=== PATIENT | male | born 1955 | race American Indian/Alaskan Native ===

== ENCOUNTER 2024-03-22 20:16 | Inpatient (IN) | payer MEDICARE, SELFPAY ==
[2024-03-22] VITALS (22 sets, daily range): BP systolic 97–136; BP diastolic 64–103; PULSE 76–130; RESP 10–56; TEMP 36.3–36.5; O2SAT 81–100; BMI 28.6
--- NOTE | 2024-03-22 20:19 | PC.RT ---
RT called to ER as pt was on ambulance an d on his way in. Pt brought in on non rebreather. Placed pt on full flush oxymask. vitals are 114/96%/30-40breaths per min. Pt will calm and then begin to breathe labored and complain about needing to catch his breath . Pt left of 15 lpm and spo2 is fluctuating greatly and pt's skin is mottled. Awaiting orders
--- NOTE | 2024-03-22 20:30 | PD.EDADULT ---
ED General RME/HPI General Chief complaint: Shortness of Breath/Dyspnea Stated complaint: SOB Time Seen by Provider: 03/22/24 20:35 Arrival date/time: 03/22/24 20:16 Limitations: no limitations RME / HPI RME / HPI narrative: Dr. Lopez[facility] Main ED Evaluation: 68yo past medical history of coronary artery disease status post PCI to LAD in August 2023, occluded OM 2 stent in 2022 male BIBA from home presents to the ED for a chief complaint of shortness of breath. Patient states I've been short of breath since my heart surgery . He denies any fever, chills, chest pain or any other associated symptoms. Per EMS, patient was given 2 breathing treatments en route. No known allergies. History is obtained from the ex-. Patient recently switched his Lasix medication to Bumex or Bumex to Lasix. This was not clear to me but there has been no change. Patient states this feels similar to when he has a CHF exacerbation. No chest pain. PMhx CAD s/p PCI to LAD in August 2023, carotid arterial disease status post TCAR, severe CHF with EF of 20 to 25%, August 2023 , ascending thoracic aortic aneurysm at 4.4 cm, Essential hypertension, hyperlipidemia, GERD, active smoker with more than 06-21-blfg-year smoking history, history of methamphetamine abuse, noncompliance with medications presented to the [facility] ED for shortness of breath. Per the patient's previous record I do not see that the patient has been on previous home oxygen. Related Data Home Medications ?Medication ?Instructions ?Recorded ?Confirmed ergocalciferol (vitamin D2) 1,250 1,250 mcg PO QWEEK 08/17/23 08/17/23 mcg (50,000 unit) capsule ferrous sulfate 325 mg (65 mg 325 mg PO 1XD 08/17/23 08/17/23 iron) tablet (FeroSul) Previous Rx's ?Medication ?Instructions ?Recorded clopidogrel 75 mg tablet (Plavix) 75 mg PO QDAY #30 tabs 07/17/22 atorvastatin 80 mg tablet 80 mg PO QPM #30 tabs 08/20/23 carvedilol 3.125 mg tablet 3.125 mg PO BIDWM 30 days #60 tabs 08/20/23 midodrine 5 mg tablet 5 mg PO TID 30 days #90 tabs 08/20/23 spironolactone 25 mg tablet 12.5 mg (1/2 x 25 mg) PO BID 30 08/20/23 days #15 tabs aspirin 81 mg tablet,delayed 81 mg PO QDAY #30 tabs 01/13/24 release bumetanide 1 mg tablet 1 mg PO QDAY #20 tabs 01/13/24 Allergies Allergy/AdvReac Type Severity Reaction Status Date / Time No Known Allergies Allergy Unverified 07/01/23 06:50 Review of Systems Review of Systems Systems Reviewed: All systems reviewed, normal except as documented Past Medical History Past Medical History CARDIAC: Negative Cardiac Disorders or Congestive Heart Failure RESPIRATORY: Negative Chronic Obstructive Pulmonary Disease (COPD) or Asthma GASTROINTESTINAL: Positive Gastroesophageal Reflux Disease GENITOURINARY: Negative Renal Disease ENDOCRINE: Negative Diabetes Mellitus Type 1 or Diabetes Mellitus Type 2 HEMATOLOGIC: Positive Anemia; Negative Sickle Cell Disease Surgical History SURGICAL: Positive Angiogram Social History SMOKING STATUS: Former smoker ED Exam General Limitations: Present no limitations General appearance: Present alert Head Head exam: Present atraumatic Eye Eye exam: Present normal appearance, PERRL and EOMI ENT ENT exam: Present normal exam, normal oropharynx and mucous membranes moist Neck Neck exam: Present normal inspection, full ROM and trachea midline Chest Chest inspection: Present normal inspection and symmetric chest wall rise Respiratory Respiratory exam: Present other (rales bilaterally) Cardiovascular Cardiovascular exam: Present regular rate, normal rhythm and normal heart sounds Abdominal Exam Abdominal exam: Present soft and normal bowel sounds Extremities Exam Extremities exam: Present full ROM and pedal edema (up to knees bilaterally) Back Exam Back exam: Present normal inspection and full ROM Neurological Exam Neurological exam: Present alert, oriented X3 and CN II-XII intact Psychiatric Psychiatric exam: Present normal affect and normal mood Skin Skin exam: Present warm, intact, normal color and diaphoresis; Absent mottled Course Course Course Narrative: CXR is ordered for determining the etiology of shortness of breath. Quality Measures none Orders Category Date Time Status Bedside COVID-19 Antigen Test NOW Care 03/23/24 02:39 Active COVID-19 Screening Questionnaire NOW Care 03/23/24 02:[address] Screening NOW Care 03/22/24 23:32 Active Provisioning Specialist STAT Care 03/22/24 20:32 Active Continuous Pulse Oximetry STAT Care 03/22/24 20:32 Completed Decision to Admit X1 Care 03/23/24 02:30 Completed EKG (ED ONLY) *Do not use* NOW Care 03/22/24 20:32 Completed Mitchell [Urinary Catheter] QS Care 03/22/24 21:18 Active Insert IV NOW Care 03/22/24 20:32 Active NPO STAT Care 03/22/24 20:32 Active Strict Intake and Output Routine Care 03/22/24 20:[address] angio chest Stat Exams 03/22/24 23:31 Taken EKG (ED Only) Stat Exams 03/22/24 20:32 Ordered XR chest 1V SEPSIS PROTOCOL Stat Exams 03/22/24 20:41 Completed B-Type Natriuretic Peptide Stat Lab 03/22/24 20:55 Completed Blood Culture (Lab) Stat Lab 03/22/24 21:09 Received CBC Stat Lab 03/22/24 20:55 Completed Comprehensive Metabolic Panel Stat Lab 03/22/24 20:55 Completed LDH (Lactate Dehydrogenase) Stat Lab 03/22/24 20:55 Completed Lactate (Lactic Acid) Stat Lab 03/22/24 20:55 Completed Lactic Acid, 3 HR Stat Lab 03/23/24 00:50 Completed Lipase Stat Lab 03/22/24 20:55 Completed Magnesium Stat Lab 03/22/24 20:55 Completed Partial Thromboplastin Time Stat Lab 03/22/24 20:55 Completed Phosphorous Stat Lab 03/22/24 20:55 Completed Procalcitonin Stat Lab 03/22/24 20:55 Completed Prothrombin Time with INR Stat Lab 03/22/24 20:55 Completed Troponin I Stat Lab 03/22/24 20:55 Completed Troponin I Stat Lab 03/23/24 00:50 Completed Urinalysis Stat Lab 03/22/24 21:54 Completed Urine Culture Stat Lab 03/22/24 21:54 Received Albuterol/Ipratr Rt Ivone [Duoneb Rt Ivone] Med 03/22/24 21:04 Discontinued 3 ml INH X1 ONE Furosemide Inj [Lasix Inj] Med 03/22/24 20:32 Discontinued 40 mg IVP X1 ONE MethylPREDNISolone.* [SoluMEDROL Inj] Med 03/22/24 20:35 Discontinued 125 mg IVP X1 ONE Morphine Inj Med 03/22/24 20:34 Discontinued 2 mg IVP X1 ONE Piper/Tazo 3.375 gm [Zosyn] Med 03/22/24 20:32 Discontinued 3.375 gm in 50 ml IV X1 BiPAP / CPAP NOW RT 03/22/24 20:35 Active Oxygen Delivery NOW RT 03/22/24 20:32 Active 2032: Sepsis alert initiated. Orders made at this time are congruent with ED Adult Sepsis Order List. Re-evaluation is to be completed. IVF not given due to the patient having CHF, rales bilaterally, and pedal edema bilaterally. Reevaluation(s) Reevaluation #1: Patient appears more comfortable and his work of breathing has improved while on BiPaP. Time: 21:50 Vital Signs Vital signs: Vital Signs Temperature 97.4 F 03/22/24 20:10 Pulse Rate 123 H 03/22/24 20:10 Respiratory Rate 25 H 03/22/24 20:10 Blood Pressure 136/100 H 03/22/24 20:10 Pulse Oximetry (%) 88 L 03/22/24 20:10 Oxygen Delivery Method Venturi Mask 03/22/24 20:10 [facility] Patient data External records reviewed:: [facility] previous records (Per chart review, patient was admitted here from 01/12/24-01/14/24 for acute respiratory failure.) Clinical information provided by:: patient Social determinants that could affect healthcare access:: none Patient has the following chronic illnesses:: CAD s/p PCI, carotid arterial disease s/p endarterectomy, methamphetamine use disorder and HFrEF (15-20% How is presenting disease/condition affected by chronic disease/condition?: exacerbated by Evaluation data The following diagnostics were reviewed and interpreted by me:: lab results, radiology exam(s) and EKG tracing(s) Lab and/or radiology exams considered but not ordered:: none Interpretation Summary: WBC count is elevated at 11.6, Lactic Acid is elevated at 4.6, BNP is greater than 3280, according to my interpretation. CXR shows a small pleural effusion, increased vascular markings, and right upper, middle, and lower infiltrates, according to my interpretation. EKG done at 2022, sinus tachycardia, rate of 121, PVCs, ST-T changes in the anterior lateral leads, no ST elevations or depressions, QTc: 352, no STEMI, according to my interpretation. ----- I have personally reviewed the radiology data and agree with the radiologist's interpretation below: [facility] Report Signed Patient: SANJANA LR Med. Record#: [id number] Birthdate: 1955 Age/Sex: 68 / M Location: [facility] Attending Dr: Ordering Physician: Leighann Sims MD Date of Service: 03/22/24 Procedure(s): XR chest 1V SEPSIS PROTOCOL Accession Number(s): [id number] cc: Cristian Tobin MD; Leighann Sims MD; KIKO CHIU~ Examination: AP chest single view Technique one AP portable upright chest single view Exam date and time: March 22, 20241 hrs. Comparison January 12, 2024 Indications: Sepsis protocol. Findings: Mild CHF Mild to moderate enlargement cardiac contour Prominent vascular congestion with early perihilar edema Likely superimposed pneumonia in the left upper lobe Impression: Mild CHF Likely superimposed pneumonia in the left upper lobe Dictated By: Cristian Tobin MD Signed By: <Electronically signed by Cristian Tobin MD in OV> 03/22/242117 Medications Medications considered but not ordered:: none Medication administrations:: Medication Administration History Acetaminophen (Acetaminophen 325 Mg Tablet) 650 mg PO Q6H PRN PRN Reason: Pain 1-3 or Fever >100.3 Stop: 04/22/24 03:05 Aspirin (Aspirin Ec 81 Mg Tabec) 81 mg PO QDAY [facility] Stop: 04/22/24 08:59 Azithromycin (Azithromycin 250 Mg Tablet) 500 mg PO X1 ONE Stop: 03/23/24 09:01 Azithromycin (Azithromycin 250 Mg Tablet) 250 mg PO QDAY JOSE RAMON Stop: 03/28/24 08:59 Bumetanide (Bumetanide 0.5 Mg Tablet) 1 mg PO BID JOSE RAMON Stop: 04/22/24 05:59 Clopidogrel Bisulfate (Clopidogrel Bisulfate 75 Mg Tablet) 75 mg PO QDAY JOSE RAMON Stop: 04/22/24 08:59 Ceftriaxone Sodium/Dextrose (Rocephin/D5w 1gm Iv Premix) 50 mls @ 100 mls/hr IV QDAY JOSE RAMON Stop: 03/30/24 03:19 Ceftriaxone Sodium/Dextrose (Rocephin/D5w 1gm Iv Premix) 50 mls @ 100 mls/hr IV X1 ONE Stop: 03/23/24 04:14 Last Admin: 03/23/24 03:43 Dose: 100 mls/hr Documented By: SF Ondansetron HCl (Ondansetron Inj 2 Mg/Ml Inj 2 Ml) 4 mg IV Q6H PRN; Protocol PRN Reason: NAUSEA OR VOMITING Stop: 04/22/24 03:05 Spironolactone (Spironolactone 25 Mg Tablet) 25 mg PO QDAY JOSE RAMON Stop: 04/22/24 05:59 Discontinued Medications Albuterol/Ipratropium (Albuterol/Ipratropium (Duoneb) Rt Ivone 3 Ml Nebu) 3 ml INH X1 ONE Stop: 03/22/24 21:05 Last Admin: 03/22/24 21:44 Dose: 3 ml Documented By: VALENTINA Furosemide (Furosemide Inj 10 Mg/Ml 4ml Vial) 40 mg IVP X1 ONE Stop: 03/22/24 20:33 Last Admin: 03/22/24 20:39 Dose: 40 mg Documented By: BRITTON Piperacillin/Tazobactam/Dextrose (Zosyn) 3.375 gm in 50 mls @ 100 mls/hr IV X1 ONE Stop: 03/22/24 21:01 Last Infusion: 03/22/24 22:04 Dose: Infused Documented By: Admin: 03/22/24 20:38 Dose: 100 mls/hr Documented By: BRITTON Methylprednisolone Sodium Succinate (Methylprednisolone Sod Succ 62.5 Mg/Ml 2ml Vial) 125 mg IVP X1 ONE Stop: 03/22/24 20:36 Last Admin: 03/22/24 20:39 Dose: 125 mg Documented By: BRITTON Morphine Sulfate (Morphine Sulf Inj 10 Mg/Ml Vial) 2 mg IVP X1 ONE Stop: 03/22/24 20:35 Last Admin: 03/22/24 20:39 Dose: 2 mg Documented By: BRITTON Sodium Chloride (Sodium Chloride Rt 10% 15 Ml Nebu) 5 ml INH X1 ONE Stop: 03/23/24 03:07 see above Consultations Consultation(s) initiated? (list below): Yes Consultation #1 (Physician, Specialty, Details): Discussed case with [Dr. Baca] from Hospitalist service regarding admission. Discussed patients ED course, exam findings, labs, and radiology results. The Hospitalist [agrees] to accept the patient for admission. Diagnosis Differential Diagnosis ED Complaint MDM: CHF, coronary artery disease, non-STEMI, ST elevation [place], pulmonary embolis Most likely diagnosis given after review of the tests above:: see below Admission Indicated Admission indicated?: indicated Explain why admission is indicated or not indicated:: Admission is indicated. Admission Request Was there a request for admission?: Yes Admission Attestation Admission request attestation: Discussed case with [] from Hospitalist service regarding admission. Discussed patients ED course, exam findings, labs, and radiology results. The Hospitalist [agrees,declines] to accept the patient for admission. Disposition Plan Disposition Plan: Admit Medical Decision Making MDM Narrative MDM Narrative: Due to the patient having rales and pitting edema bilaterally, patient will no get 30mL/kilogram of IVF. 67-year-old male patient significant medical history for CAD s/p PCI to LAD in August 2023, chronically occluded RCA with [id number] collaterals, 100% occluded OM 2 stent placed in 2022 with left to left collaterals,, carotid arterial disease status post TCAR, severe CHF with EF of 20 to 25%, August 2023 , ascending thoracic aortic aneurysm at 4.4 cm, Essential hypertension, hyperlipidemia, GERD, active smoker with more than 17-59-kihy-year smoking history, history of methamphetamine abuse, noncompliance with medications presented to the [facility] ED for shortness of breath. Differential diagnosis includes CHF, pneumonia, sepsis, worsening acute on chronic heart failure, drug use, bilateral pleural effusions, pulmonary embolism, pneumonia. Sepsis is called based on his abnormal vital signs however IV fluids were not given secondary to likely CHF presentation do not want to fluid overload the patient anymore than necessary. BMP elevated to greater than 3200 which is greater than his normal. Lactate is 4.6 which is consistent with what tapping on his chest x-ray which is likely pneumonia. Lasix 40 mg IV, Solu-Medrol, albuterol inhaler, Zosyn IV is given. The patient has a white count of 11,000 with a hemoglobin of 17, platelets are normal at 1 78,000. His BUN and creatinine are slightly elevated at 24/1.4 otherwise glucose is stable at 141. She does repeat troponin is approximately about the same as the first 1 at 0.065. BNP is greater than 3200 which is higher than his normal. Differential Diagnosis Differential Diagnosis: CHF, coronary artery disease, non-STEMI, ST elevation [place], pulmonary embolis Lab Data 03/22/24 20:55 12/16/24 20:55 Labs: Lab Results 03/22/24 03/22/24 03/23/24 Range/Units 20:55 21:54 00:50 WBC 11.6 H (3.8-10.6) Thou/mm3 RBC 5.49 (4.50-5.90) Miln/mm3 Hgb 17.1 H (13.5-16.0) g/dL Hct 50.1 (41.0-53.0) % MCV 91 (80-100) fL MCH 31.1 (25.0-35.0) pg MCHC 34.1 (31.0-37.0) g/dl RDW Std Deviation 48.9 H (35.1-43.9) fL Plt Count 178 (140-440) Thou/mm3 Neut % (Auto) 73 (37-80) % Lymph % (Auto) 16 (10-50) % [place] % (Auto) 11 (0-12) % Eos % (Auto) 0 (0-10) % Baso % (Auto) 0 (0-2.5) % Neut # (Auto) 8.4 H (1.8-7.7) Thou/mm3 Lymph # (Auto) 1.8 (1.0-4.8) Thou/mm3 [place] # (Auto) 1.2 H (0.0-0.8) Thou/mm3 Eos # (Auto) 0.0 (0.0-0.5) Thou/mm3 Baso # (Auto) 0.0 (0.0-0.2) Thou/mm3 Immature Gran # (Auto) 0.06 H (0.00-0.00) Thou/mm3 Absolute Nucleated RBC 0.00 (0.00-0.00) Thou/mm3 Immature Gran % 1 H (0-0) % Nucleated RBC % 0 (0) /100 WBC PT 12.9 H (9.0-12.2) Seconds INR 1.2 (0.9-1.3) APTT 25.8 (22.0-36.0) Seconds Sodium 130 L (136-145) mMol/L Potassium 4.7 (3.4-5.1) mMol/L Chloride 99 (98-107) mMol/L Carbon Dioxide 18.2 L (20.0-31.0) mMol/L Anion Gap 13 (7-16) BUN 24 H (9-23) mg/dL Creatinine 1.4 H (0.6-1.3) mg/dL Estim Creat Clear Calc 54.7 L (>60) mL/min eGFR 54 L (60 - ) See Note BUN/Creatinine Ratio 17 (12-20) Ratio Glucose 141 H (74-106) mg/dL Calculated Osmolality 266 L (275-295) Lactic Acid 4.6 H* 1.3 (0.4-2.0) mMol/L Calcium 8.8 (8.3-10.6) mg/dL Corrected Calcium 8.8 (8.5-10.1) mg/dL Phosphorus 5.1 (2.4-5.1) mg/dL Magnesium 3.6 H (1.6-2.6) mg/dL Total Bilirubin 1.5 H (0.3-1.2) mg/dL AST 192 H (0-34) U/L ALT 103 H (10-49) U/L Alkaline Phosphatase 178 H (46-116) U/L Lactate Dehydrogenase 430 H (120-246) U/L Troponin I 0.065 H* 0.065 H* (0.0-0.045) ng/mL B-Natriuretic Peptide > 3280 H* (0-100) pg/mL Total Protein 6.6 (5.7-8.2) gm/dL Albumin 4.2 (3.4-4.8) gm/dL Globulin 2.4 (2.3-3.5) gm/dL Albumin/Globulin Ratio 1.8 (1.2-2.2) Lipase 63 H (12-53) U/L Procalcitonin 0.16 (0.0-0.49) ng/ml Ur Collection Type Clean Catch Urine Color Lt-Yellow (Lt Yel-Yel) Urine Clarity Clear (Clear/Hazy) Urine pH 6.0 (5.0-7.0) Ur Specific [place] 1.007 (1.001-1.035) Urine Protein Trace (Neg - Trace) Urine Glucose (UA) Negative (Negative) Urine Ketones Negative (Negative) Urine Blood Negative (Negative) Urine Nitrite Negative (Negative) Urine Bilirubin Negative (Negative) Urine Urobilinogen (Auto) Negative (0.0-1.0) mg/dL Ur Leukocyte Esterase Negative (Negative) Urine RBC 3 (0-3) /hpf Urine WBC 1 (0-5) /hpf Ur Squamous Epith Cells < 1 (0-5) /hpf Urine Bacteria None (None) Hyaline Casts < 1 (0-1) /hpf Critical Care Time Critical Care Time Critical Care Time: Yes Total Critical Care Time (min.): 40 Attestation: The high probability of sudden, clinically significant deterioration in the patient?s condition required the highest level of my preparedness to intervene urgently. The services I provided to this patient were to treat and/or prevent clinically significant deterioration. Services included the following: chart data review, reviewing nursing notes and/or old charts, documentation time, plan consultant collaboration regarding findings and treatment options, medication orders and management, direct patient care, vital sign assessments and ordering, interpreting and reviewing diagnostic studies and lab tests. Aggregate critical care time includes only time during which I was engaged in work directly related to the patient?s care, as described above, whether at bedside or elsewhere in the Emergency Department. It did not include time spent performing other reported procedures or the services of residents, students, nurses or physician assistants. Discharge Plan Plan Patient Disposition: Admit Acute Care w/in Hospital Patient condition on transfer: Stable Problem List Clinical Impression: CHF exacerbation, Elevated troponin, Acute respiratory distress
[2024-03-22] MEDS: PIPER/TAZO 3.375 GM 3.375 GM/50 ML BAG IV (20:38)
[2024-03-22] MEDS: MethylPREDNISolone SOD SUCC 62.5 MG/ML 2ML VIAL 125 MG IVP (20:39)
[2024-03-22] MEDS: FUROSEMIDE INJ 10 MG/ML 4ML VIAL 40 MG IVP (20:39)
[2024-03-22] MEDS: MORPHINE SULF INJ 10 MG/ML VIAL 2 MG IVP (20:39)
--- NOTE | 2024-03-22 20:41 | XR_ITS ---
Examination: AP chest single view Technique one AP portable upright chest single view Exam date and time: March 22, 20242040 hrs. Comparison January 12, 2024 Indications: Sepsis protocol. Findings: Mild CHF Mild to moderate enlargement cardiac contour Prominent vascular congestion with early perihilar edema Likely superimposed pneumonia in the left upper lobe Impression: Mild CHF Likely superimposed pneumonia in the left upper lobe
[2024-03-22 21:10] LABS: Basophils % (Auto) 0 % (0-2.5); Eosinophils % (Auto) 0 % (0-10); Hematocrit 50.1 % (41.0-53.0); Hemoglobin 17.1 g/dL (13.5-16.0); Immature Granulocytes % (Auto) 1 % (0-0); Immature Granulocytes Auto 0.06 Thou/mm3 (0.00-0.00); Lymphocytes # (Auto) 1.8 Thou/mm3 (1.0-4.8); Lymphocytes % (Auto) 16 % (10-50); Mean Corpuscular HGB Conc 34.1 g/dl (31.0-37.0); Mean Corpuscular Hemoglobin 31.1 pg (25.0-35.0); Mean Corpuscular Volume 91 fL (80-100); Monocytes # (Auto) 1.2 Thou/mm3 (0.0-0.8); Monocytes % (Auto) 11 % (0-12); Neutrophils # (Auto) 8.4 Thou/mm3 (1.8-7.7); Neutrophils % (Auto) 73 % (37-80); Nucleated Red Blood Cell % 0 /100 WBC (0); Platelet Count 178 Thou/mm3 (140-440); RDW Standard Deviation 48.9 fL (35.1-43.9); Red Blood Count 5.49 Miln/mm3 (4.50-5.90); White Blood Count 11.6 Thou/mm3 (3.8-10.6)
[2024-03-22 21:14] LABS: Lactate (Lactic Acid) 4.6 mMol/L (0.4-2.0)
[2024-03-22 21:37] LABS: INR 1.2 (0.9-1.3); Partial Thromboplastin Time 25.8 Seconds (22.0-36.0); Prothrombin Time 12.9 Seconds (9.0-12.2)
[2024-03-22 21:40] LABS: B-Type Natriuretic Peptide > 3280 pg/mL (0-100)
[2024-03-22] MEDS: ALBUTEROL/IPRATROPIUM (Duoneb) RT SOL 3 ML NEBU INH (21:44)
[2024-03-22 21:55] LABS: Alanine Aminotransferase 103 U/L (10-49); Albumin, Serum 4.2 gm/dL (3.4-4.8); Albumin/Globulin Ratio 1.8 (1.2-2.2); Alkaline Phosphatase 178 U/L (46-116); Anion Gap 13 (7-16); Aspartate Amino Transferase 192 U/L (0-34); BUN/Creatinine Ratio 17 Ratio (12-20); Bilirubin,Total 1.5 mg/dL (0.3-1.2); Blood Urea Nitrogen 24 mg/dL (9-23); Calcium 8.8 mg/dL (8.3-10.6); Calcium (Corrected) 8.8 mg/dL (8.5-10.1); Carbon Dioxide 18.2 mMol/L (20.0-31.0); Chloride 99 mMol/L (98-107); Creatinine (Component) 1.4 mg/dL (0.6-1.3); Estimated Creatinine Clearance 54.7 mL/min (>60); Globulin 2.4 gm/dL (2.3-3.5); Glucose 141 mg/dL (74-106); LDH (Lactate Dehydrogenase) 430 U/L (120-246); Lipase 63 U/L (12-53); Magnesium 3.6 mg/dL (1.6-2.6); Osmolality,Calculated 266 (275-295); Phosphorous 5.1 mg/dL (2.4-5.1); Potassium 4.7 mMol/L (3.4-5.1); Procalcitonin 0.16 ng/ml (0.0-0.49); Sodium 130 mMol/L (136-145); Total Protein 6.6 gm/dL (5.7-8.2); eGFR 54 See Note
[2024-03-22 21:57] LABS: Troponin I 0.065 ng/mL (0.0-0.045)
[2024-03-22 22:24] LABS: Collection Type, Urine Clean Catch
[2024-03-22 22:33] LABS: Bilirubin,Urine Negative (Negative); Blood,Urine Negative (Negative); Clarity,Urine Clear (Clear/Hazy); Color,Urine Lt-Yellow (Lt Yel-Yel); Glucose, Urine Negative (Negative); Hyaline Casts,Urine < 1 /hpf (0-1); Ketones,Urine Negative (Negative); Leukocyte Esterase,Urine Negative (Negative); Nitrite,Urine Negative (Negative); Protein,Urine Trace (Neg - Trace); RBC,Urine 3 /hpf (0-3); Specific Gravity,Urine 1.007 (1.001-1.035); Squamous Epithelial Cell,Urine < 1 /hpf (0-5); Urobilinogen,Urine Negative mg/dL (0.0-1.0); WBC,Urine 1 /hpf (0-5)
--- NOTE | 2024-03-22 23:31 | XR_ITS ---
Examination: CTA chest with intravenous contrast 2-D reconstructions 3-D reconstructions, vascular Date and time of exam: March 23, 2024 0018 hrs. Indications: Shortness of breath onset chest pain today, clinical diagnosis pulmonary emboli CTDI: vol (mGy) 29.7 DLP: (mGycm) 461 Technique: Multiple axial sections of the thorax have been obtained. 3 mm slice thickness, from below the hemidiaphragms to above the apices of the lungs. Mediastinal and lung density settings have been obtained. 2-D sagittal and coronal reconstructions. 3-D angiographic renderings, 3-D volume renderings, 3D post processing, vascular maximum intensity projections obtained. Contrast administered is 100 cc Isovue-370 intravenous Low dose protocols were performed. One or more of the following dose reduction techniques were used; automated exposure control, adjustment of the mA and/or KV according to patient size, use of iterative reconstruction technique. Findings: AP dimension ascending thoracic aorta 4.5 cm No pulmonary artery emboli Prominent vascular congestion with perihilar edema and likely pneumonia especially left base Moderate right mild left pleural fluid Retrocardiac gastric hernia No visualized liver or splenic lesion Gallbladder wall appears thickened Impression: Mild aneurysmal dilatation ascending thoracic aorta No pulmonary artery emboli Moderate CHF with possible superimposed pneumonia bilaterally especially left base Recommend hepatobiliary sonography follow-up to exclude acute cholecystitis
[2024-03-23] VITALS (41 sets, daily range): BP systolic 78–106; BP diastolic 56–76; PULSE 56–83; RESP 12–30; TEMP 36.6–37.1; O2SAT 95–100
[2024-03-23 00:05] LABS: Reflex Lactate? Y
[2024-03-23 01:01] LABS: Lactic Acid, 3 HR 1.3 mMol/L (0.4-2.0)
--- NOTE | 2024-03-23 01:17 | PRELIM_ITS ---
CT angiogram of the chest with intravenous contrast (axial sections with sagittal and coronal reforma ts) March 23, 2024 0018 hours Clinical History: 68-year-old COPD, CHF Technique:Helical axial sect ions with sagittal and coronal reformats of the chest were obtained with intravenous contrast. Iterat meka reconstruction technique was employed to reduce patient radiation exposure. 3D/MIP reconstructed images were also provided. Comparison: No prior study is available for comparison. Findings:There is no filling defect within the pulmonary artery divisions to suggest pulmonary thromboembolism. The med iastinum demonstrates no evidence of mass or lymphadenopathy. The thoracic aorta demonstrates atherom atous calcification without evidence of aneurysm. There is moderate cardiomegaly. There is no pericar dial effusion. There is interlobular septal thickening. There are yoko ground-glass and nodular opac ities in both lungs, which may represent alveolar edema versus infectious process. Bibasilar streaky atelectasis is present. There is moderate right and minimal left pleural effusions. No evidence of pn eumothorax.Degenerative changes are identified in the spine. There is chronic deformity of the left 7 th rib. A moderate-sized hiatal hernia is present. There is a gallbladder calculus, without gallbladd er wall thickening or pericholecystic fluid. Nonspecific perinephric fat stranding is noted bilateral ly. Impression:1. Moderate cardiomegaly with features of interstitial and alveolar edema with bilater al pleural effusions (moderate right and minimal left), suggestive of acute cardiogenic pulmonary omkar ma versus adult respiratory distress syndrome. Recommend clinical correlation and follow-up. 2. Other findings as described above. Discussion Details: Results verbally communicated to : Dr. Sims at 01:11 AM 03/23/2024 Report Electronically Signed By: Tony Gonzalez 03/23/2024 1:17:11 AM [EST]
[2024-03-23 01:27] LABS: Troponin I 0.065 ng/mL (0.0-0.045)
--- NOTE | 2024-03-23 03:30 | ESHP_ITS ---
Documentation for date of: 03/23/24 [facility] History of Present Illness History of present illness: The patient is a 67-year-old male with a past medical history of CAD status post PCI in August 2023, carotid arterial disease status post endarterectomy, meth use and HFrEF 15 to 20% who presented to the ED on 03/22/2024 with complaints of shortness of breath. Per patient, he has been having symptoms since his PCI procedure was done in August, progressively worsened in the past 2 weeks, present on exertion as well as on rest. He has not been able to walk his usual distances without getting short of breath. He also endorses productive cough with yellowish-greenish sputum, orthopnea and PND but denies fever, chest pain or palpitations. Additionally, he has bilateral pitting edema that has been present since prior admission, initially resolving but started to get worse in the last 2 weeks. The patient was last hospitalized in January when he presented with shortness of breath and cough and was admitted for acute hypoxic respiratory failure secondary to CHF exacerbation. During the course of hospitalization here, patient had repeat cardiology that showed decline in ejection fraction to 55% compared to previous one and patient was on BiPAP for a while. the patient was discharged on Bumex but reports that this medication was switched to torsemide by his primary care, he is unable to tell the reason for the change in medication. ED course: In the ED, patient was afebrile and normotensive, tachypneic with respiratory rates in the 30 and hypoxic, saturating 88% and had to be placed on BiPAP. Labs showed WBC 11.6 Hgb 17.1 PLT 178 NA 130 bicarb 18.7 BUN 24 CR 1.4 glucose 141 magnesium 3.6 T. bili 1.5 AST 192 ALT 103 lactate 4.6 ALP 178 LDH 430 troponin 0.065 BNP >3280. Chest x-ray showed pulmonary vascular congestion and likely superimposed pneumonia and a CTA was done which was negative for PE but showed moderate cardiomegaly with bilateral pleural effusions. The patient was given IV Lasix in the ED as well as IV Solu-Medrol 125 x 1 and IV Zosyn and has been admitted for management of acute hypoxic respiratory failure, decompensated heart disease. Review of Systems Review of Systems Narrative Review of Systems: GENERAL: Denies fevers/chills or diaphoresis. HEENT: Denies headache or visual/hearing changes. Denies nasal discharge. NEURO: Denies unusual weakness or difficulty speaking. CARDIO: Denies chest pain or palpitations. Admits orthopnea and PND PULM: Admits SOB and coughing denies wheezing. GI: Denies abdominal pain, N/V/C/D/reflux/gas, bright red blood per rectum or melena. Reports having BMs. URO: Denies burning/itching/pain/urinary changes. MSK/EXT/SKIN: Denies joint/skeletal/muscle pain, issues/changes in upper or lower extremities, itchiness, or superficial pain. PSYCH: Cooperative, pleasant mood & affect. Exam Vital Signs Temp Pulse Resp BP Pulse Ox O2 Del Method O2 Flow Rate 97.7 F 66 22 H 102/76 96 BiPAP 10 03/22/24 23:56 03/23/24 01:40 03/23/24 01:40 03/23/24 00:00 03/23/24 01:40 03/23/24 00:00 03/23/24 01:40 FiO2 70 03/22/24 23:56 Narrative Exam GENERAL: AAOX3 NEURO: CLOTH TESTER grossly intact, moves extremities x4 HEENT: Moist mucosa. Eyes open, symmetrical, & clear CARDIO: No chest pain on palpation. Heart RRR, no obvious murmurs PULM: Coughing, tachypneic. Billateral crackles with rhonchi, oxy mask 10L GI: Abdomen soft, nondistended, no pain on palpation. BSx4 URO/CASHIER RECEPTIONIST:: No further abnormalities noted. Mitchell catheter in situ SKIN/MSK/EXT: Bilateral pitting edema 3+ Results: Labs 03/22/24 20:55 03/22/24 20:55 Labs: Short CBC 03/22/24 Range/Units 20:55 WBC 11.6 H (3.8-10.6) Thou/mm3 Hgb 17.1 H (13.5-16.0) g/dL Hct 50.1 (41.0-53.0) % Plt Count 178 (140-440) Thou/mm3 [facility] 03/22/24 20:55 Sodium 130 L Potassium 4.7 Chloride 99 Carbon Dioxide 18.2 L BUN 24 H Creatinine 1.4 H Glucose 141 H Calcium 8.8 Cardiac Enzymes 03/22/24 03/23/24 Range/Units 20:55 00:50 Troponin I 0.065 H* 0.065 H* (0.0-0.045) ng/mL Liver Function 03/22/24 Range/Units 20:55 Total Bilirubin 1.5 H (0.3-1.2) mg/dL AST 192 H (0-34) U/L ALT 103 H (10-49) U/L Alkaline Phosphatase 178 H (46-116) U/L Albumin 4.2 (3.4-4.8) gm/dL Urine 03/22/24 Range/Units 21:54 Urine Color Lt-Yellow (Lt Yel-Yel) Urine Clarity Clear (Clear/Hazy) Urine pH 6.0 (5.0-7.0) Ur Specific [place] 1.007 (1.001-1.035) Urine Protein Trace (Neg - Trace) Urine Glucose (UA) Negative (Negative) Quality Measures Quality Measures none Advance care planning discussed with:: patient Medications Home Medications and Allergies Home Medications ?Medication ?Instructions ?Recorded ?Confirmed ?Type ergocalciferol (vitamin D2) 1,250 1,250 mcg PO QWEEK 08/17/23 08/17/23 History mcg (50,000 unit) capsule ferrous sulfate 325 mg (65 mg 325 mg PO 1XD 08/17/23 08/17/23 History iron) tablet (FeroSul) Allergies Allergy/AdvReac Type Severity Reaction Status Date / Time No Known Allergies Allergy Unverified 07/01/23 06:50 Visit Medications Acetaminophen (Acetaminophen 325 Mg Tablet) 650 mg PO Q6H PRN PRN Reason: Pain 1-3 or Fever >100.3 Stop: 04/22/24 03:05 Aspirin (Aspirin Ec 81 Mg Tabec) 81 mg PO QDAY [facility] Stop: 04/22/24 08:59 Azithromycin (Azithromycin 250 Mg Tablet) 500 mg PO X1 ONE Stop: 03/23/24 09:01 Azithromycin (Azithromycin 250 Mg Tablet) 250 mg PO QDAY [facility] Stop: 03/28/24 08:59 Bumetanide (Bumetanide 0.5 Mg Tablet) 1 mg PO BID [facility] Stop: 04/22/24 05:59 Clopidogrel Bisulfate (Clopidogrel Bisulfate 75 Mg Tablet) 75 mg PO QDAY [facility] Stop: 04/22/24 08:59 Ceftriaxone Sodium/Dextrose (Rocephin/D5w 1gm Iv Premix) 50 mls @ 100 mls/hr IV QDAY [facility] Stop: 03/30/24 03:19 Ondansetron HCl (Ondansetron Inj 2 Mg/Ml Inj 2 Ml) 4 mg IV Q6H PRN; Protocol PRN Reason: NAUSEA OR VOMITING Stop: 04/22/24 03:05 Spironolactone (Spironolactone 25 Mg Tablet) 25 mg PO QDAY [facility] Stop: 04/22/24 05:59 Discontinued Medications Albuterol/Ipratropium (Albuterol/Ipratropium (Duoneb) Rt Ivone 3 Ml Nebu) 3 ml INH X1 ONE Stop: 03/22/24 21:05 Last Admin: 03/22/24 21:44 Dose: 3 ml Furosemide (Furosemide Inj 10 Mg/Ml 4ml Vial) 40 mg IVP X1 ONE Stop: 03/22/24 20:33 Last Admin: 03/22/24 20:39 Dose: 40 mg Piperacillin/Tazobactam/Dextrose (Zosyn) 3.375 gm in 50 mls @ 100 mls/hr IV X1 ONE Stop: 03/22/24 21:01 Last Infusion: 03/22/24 22:04 Dose: Infused Methylprednisolone Sodium Succinate (Methylprednisolone Sod Succ 62.5 Mg/Ml 2ml Vial) 125 mg IVP X1 ONE Stop: 03/22/24 20:36 Last Admin: 03/22/24 20:39 Dose: 125 mg Morphine Sulfate (Morphine Sulf Inj 10 Mg/Ml Vial) 2 mg IVP X1 ONE Stop: 03/22/24 20:35 Last Admin: 03/22/24 20:39 Dose: 2 mg Sodium Chloride (Sodium Chloride Rt 10% 15 Ml Nebu) 5 ml INH X1 ONE Stop: 03/23/24 03:07 Assessment & Plan Assessment Summary: The patient is a 67-year-old male with a past medical history of CAD status post PCI in August 2023, carotid arterial disease status post endarterectomy, meth use and HFrEF 15 to 20% who presented to the ED on 03/22/2024 with complaints of shortness of breath. has been admitted for management of acute hypoxic respiratory failure, acute decompensated heart disease. #Acute hypoxic respiratory failure #Acute decompensated heart disease #History of HFrEF 15 to 20% #Possible community acquired pneumonia # Bilateral pleural effusion The patient presents with 2-week history of progressive difficulty breathing/shortness of breath with associated orthopnea, dyspnea, productive cough yellowish-greenish sputum. Additionally, he has bilateral pitting edema that has been present since prior admission, initially resolving but started to get worse in the last 2 weeks. In the ED, patient was tachypneic with respiratory rate in 30s to 40s and hypoxic, saturating 88% and was placed on BiPAP at 70% FiO2 and then weaned off to oxygen mask at 10 hours. BNP was elevated > 3280 and chest x-ray showed pulmonary vascular congestion and likely superimposed, CTA was negative for PE and showed bilateral pleural effusions. The patient was given IV Lasix in the ED as well as IV Solu-Medrol 125 x 1 and IV Zosyn Plan: -Admit to telemetry -Comtinue home Bumex 1mg bid -Continue home spironolactone 25mg daily -Strict I&Os -Fluid restriction -Daily weights -IV ceftriaxone and azithromycin -Blood and sputum culture #Elevated troponin levels #Hx of NSTEMI #s/p PCI #s.p Endarterectomy The patient had ACS with NSTEMI and elevated troponins back in August that showed severe stenosis 80% of LAD and RCA 100% occlusion PCI of mid LAD performed Strated on dual antiplatlet therapy back in August Plan: - Continue DAPT Health maintenance: Dispo: Tele Diet: Cardiac DVT: SCDs, (Slightly elevated PT) Mitchell: None Lines: Peripheral Med Rec: Pending, f/u PT: Not ordered Code: Full Case was discussed with attending physician, Dr Sterling Persaud MD PGY-1 Attending Provider Attestation/Addendum I discussed with and supervised the resident physician who took care of this patient. I agree with the assessment and plan as above. Patient is a 68-year-old methamphetamine user, chronic CHF with low ejection fraction, current smoker. The patient was admitted for shortness of breath.. He has leg edema left more than right. He also complains of pain of the lower extremities. Patient will be admitted for further management and monitoring. Check lower extremity venous Doppler.
--- NOTE | 2024-03-23 03:39 | PC.RT ---
Spoke with pt. Pt has wet productive cough, but pt swallowed sample as RT was educating pt on obtaining a sputum sample. Pt agreed to cough up phlegm into the cup, left at bedside, next time .
[2024-03-23] MEDS: cefTRIAXone/D5w 1gm IV premix 50 ML IV ×2 (03:43→21:29)
[2024-03-23] MEDS: SPIRONOLACTONE 25 MG TABLET PO ×2 (06:26→08:58)
[2024-03-23] MEDS: BUMETANIDE 0.5 MG TABLET 1 MG PO ×2 (06:26→08:58)
--- NOTE | 2024-03-23 06:54 | XR_ITS ---
Examination: Venous duplex lower extremity sonogram, bilateral. Date and time of exam: March 23, 2024 0729 hours INDICATIONS: Bilateral leg swelling discoloration pain one month Technique: Multiple sonographic images of the deep venous system have been obtained. B-mode/2-D grayscale imaging of vascular structures and Doppler spectral analysis (waveforms) and color performed Both legs are examined. Findings: Deep venous systems do not demonstrate abnormal echogenicity. All visualized deep veins exhibit compressibility. All visualized deep veins exhibit augmentation. Impression: Negative for deep vein thrombosis Incidental note no arterial flow bilateral superficial femoral arteries, consider arterial Doppler lower extremities follow-up
[2024-03-23 07:19] LABS: Basophils % (Auto) 0 % (0-2.5); Eosinophils % (Auto) 0 % (0-10); Hematocrit 45.3 % (41.0-53.0); Hemoglobin 15.6 g/dL (13.5-16.0); Immature Granulocytes % (Auto) 0 % (0-0); Immature Granulocytes Auto 0.04 Thou/mm3 (0.00-0.00); Lymphocytes # (Auto) 0.5 Thou/mm3 (1.0-4.8); Lymphocytes % (Auto) 5 % (10-50); Mean Corpuscular HGB Conc 34.4 g/dl (31.0-37.0); Mean Corpuscular Hemoglobin 30.9 pg (25.0-35.0); Mean Corpuscular Volume 90 fL (80-100); Monocytes # (Auto) 0.3 Thou/mm3 (0.0-0.8); Monocytes % (Auto) 3 % (0-12); Neutrophils # (Auto) 8.8 Thou/mm3 (1.8-7.7); Neutrophils % (Auto) 92 % (37-80); Nucleated Red Blood Cell % 0 /100 WBC (0); Platelet Count 124 Thou/mm3 (140-440); RDW Standard Deviation 48.1 fL (35.1-43.9); Red Blood Count 5.05 Miln/mm3 (4.50-5.90); White Blood Count 9.5 Thou/mm3 (3.8-10.6)
--- NOTE | 2024-03-23 08:29 | ESPR_ITS ---
<Statement entered by Doc Hicks MD - 03/23/24 17:16> This patient 68-year-old male with history of CAD post stents, HFrEF EF 15-20%, COPD presented with worsening shortness of breath and lower extremity swelling with cough from last 2 weeks. Patient was not using oxygen at home. Initially he was placed on BiPAP for short time however was transitioned to nasal cannula. Patient was saturating 90% on 8 L nasal cannula. His blood pressure has been soft during the hospital course. Night team initially placed him on 1 mg Bumex p.o.twice daily which was switched to IV 1 mg Bumex twice daily. We additionally discontinued his spironolactone given soft blood pressure and started midodrine at higher dose 10 mg 3 times a day daily. Patient was sent for thoracentesis for right-sided pleural effusion however it was not safe for thoracentesis per radiologist. Will continue IV ceftriaxone and azithromycin for possible community-acquired pneumonia and wait on culture results. Consulted cardiology for further evaluation and recommendations. Troponin I down trended likely NSTEMI type II supply demand ischemia. Will continue with aspirin and Plavix given recent stent placed in August 2023. General Physical examination: GENERAL APPEARANCE: Patient is AOx3, disheveled male saturating well on 2 L nasal cannula. HEENT: NC, AT. MMM. EOMI, clear conjunctiva, oropharynx clear. JVD NECK: Supple without lymphadenopathy. No stiffness or restricted ROM. HEART: Regular rate and regular rhythm, normal S1/S2, no m/r/g LUNGS: Bilateral crackles heard on auscultation with mild wheezing. ABDOMEN: Soft, nontender, nondistended with good bowel sounds heard. BACK: No CVAT, no obvious deformity. EXTREMITIES: Bilateral lower extremity edema 2+. NEUROLOGICAL: Grossly nonfocal. Alert and oriented, moving all 4 extremities. CN not formally tested but appear grossly intact. Observed to ambulate with normal gait. Skin: Warm and dry without any rash. Psych: Appropriate mood and affect # Problem list: # Acute hypoxic respiratory failure due to CHF exacerbation versus possible community-acquired pneumonia underlying COPD ? Continuing IV ceftriaxone and azithromycin, continuing IV Bumex 1 mg twice daily holding spironolactone and continuing midodrine 10 mg 3 times daily ?Monitor for fever spike and elevated white count ? Oxygen as needed ? Follow-up on blood cultures # CAD s/p PCI in August 2023 # S/p endarterectomy ? Continue DAPT therapy ? Monitor for chest pain # HFrEF EF 15-20% ? Continuing Bumex IV 1 mg twice daily and midodrine 10 mg 3 times daily holding other antihypertensive due to soft blood pressure ?Strict SHWETA's with fluid restriction # NSTEMI type II likely supply demand ischemia ?Troponin I downtrended ? Monitoring for chest pain and EKG changes # Active smoker ?Offered nicotine patch I saw and examined the patient, and I agree with current management stated by medical student, Dr Hubbard Plan of care was discussed with the attending physician and resident physician. Disclaimer: Despite multiple revisions, due to the dictation software being used, the document bellow may not be free of grammatical errors including phonetic/typographic errors. However, this does not deter from our commitment to providing health care in the patient's best interest in mind. Dr. Fabiola MD, PGY 2 Documentation for date of: 03/23/24 Subjective Subjective Interval history: Garrison Rg is a 68 year old male with past medical history of CAD with stent placement, PAD, carotid artery stenosis with endardectomy, CHF with EF of 15-20% on echo from 01/12/2024, meth use and tobacco use who presented to the ED yesterday in light of worsening dyspnea and admitted for respiratory distress This morning he says that he continues to have dyspnea but it has improved. He reports cramping and swelling in his legs bilaterally. Pt also mentions having some nausea and vomiting. Denies fever, chest pain, and abdominal pain. Exam Vital Signs Temp Pulse Resp BP Pulse Ox O2 Del Method O2 Flow Rate 98.7 F 65 19 96/64 98 Oxy Mask 7 03/23/24 02:00 03/23/24 06:26 03/23/24 06:00 03/23/24 06:26 03/23/24 06:00 03/23/24 06:00 03/23/24 06:00 FiO2 70 03/22/24 23:56 Narrative Exam GENERAL: NAD, NC/AT, responsive/cooperative. A&Ox3 HEENT: Moist mucosa. Eyes open, symmetrical, & clear CARDIO: No chest pain on palpation. Heart RRR, no obvious murmurs PULM:Patient has crackles bilaterally GI: Abdomen soft, nondistended, no pain on palpation. BSx4 SKIN/MSK/EXT: Patient has 3+ edema in legs bilaterally. Objective Labs 03/25/24 04:58 03/25/24 04:58 Labs: Laboratory Results - last 24 hr 03/22/24 03/22/24 03/23/24 20:55 21:54 00:50 WBC 11.6 H RBC 5.49 Hgb 17.1 H Hct 50.1 MCV 91 MCH 31.1 MCHC 34.1 RDW Std Deviation 48.9 H Plt Count 178 Neut % (Auto) 73 Lymph % (Auto) 16 [place] % (Auto) 11 Eos % (Auto) 0 Baso % (Auto) 0 Neut # (Auto) 8.4 H Lymph # (Auto) 1.8 Montgomery # (Auto) 1.2 H Eos # (Auto) 0.0 Baso # (Auto) 0.0 Immature Gran # (Auto) 0.06 H Absolute Nucleated RBC 0.00 Immature Gran % 1 H Nucleated RBC % 0 PT 12.9 H INR 1.2 APTT 25.8 Sodium 130 L Potassium 4.7 Chloride 99 Carbon Dioxide 18.2 L Anion Gap 13 BUN 24 H Creatinine 1.4 H Estim Creat Clear Calc 54.7 L eGFR 54 L BUN/Creatinine Ratio 17 Glucose 141 H Calculated Osmolality 266 L Lactic Acid 4.6 H* 1.3 Calcium 8.8 Corrected Calcium 8.8 Phosphorus 5.1 Magnesium 3.6 H Total Bilirubin 1.5 H AST 192 H ALT 103 H Alkaline Phosphatase 178 H Lactate Dehydrogenase 430 H Troponin I 0.065 H* 0.065 H* B-Natriuretic Peptide > 3280 H* Total Protein 6.6 Albumin 4.2 Globulin 2.4 Albumin/Globulin Ratio 1.8 Lipase 63 H Procalcitonin 0.16 Ur Collection Type Clean Catch Urine Color Lt-Yellow Urine Clarity Clear Urine pH 6.0 Ur Specific Hampton 1.007 Urine Protein Trace Urine Glucose (UA) Negative Urine Ketones Negative Urine Blood Negative Urine Nitrite Negative Urine Bilirubin Negative Urine Urobilinogen (Auto) Negative Ur Leukocyte Esterase Negative Urine RBC 3 Urine WBC 1 Ur Squamous Epith Cells < 1 Urine Bacteria None Hyaline Casts < 1 03/23/24 06:49 WBC 9.5 RBC 5.05 Hgb 15.6 Hct 45.3 MCV 90 MCH 30.9 MCHC 34.4 RDW Std Deviation 48.1 H Plt Count 124 L D Neut % (Auto) 92 H Lymph % (Auto) 5 L Montgomery % (Auto) 3 Eos % (Auto) 0 Baso % (Auto) 0 Neut # (Auto) 8.8 H Lymph # (Auto) 0.5 L Montgomery # (Auto) 0.3 Eos # (Auto) 0.0 Baso # (Auto) 0.0 Immature Gran # (Auto) 0.04 H Absolute Nucleated RBC 0.00 Immature Gran % 0 Nucleated RBC % 0 PT INR APTT Sodium Potassium Chloride Carbon Dioxide Anion Gap BUN Creatinine Estim Creat Clear Calc eGFR BUN/Creatinine Ratio Glucose Calculated Osmolality Lactic Acid Calcium Corrected Calcium Phosphorus Magnesium Total Bilirubin AST ALT Alkaline Phosphatase Lactate Dehydrogenase Troponin I B-Natriuretic Peptide Total Protein Albumin Globulin Albumin/Globulin Ratio Lipase Procalcitonin Ur Collection Type Urine Color Urine Clarity Urine pH Ur Specific [place] Urine Protein Urine Glucose (UA) Urine Ketones Urine Blood Urine Nitrite Urine Bilirubin Urine Urobilinogen (Auto) Ur Leukocyte Esterase Urine RBC Urine WBC Ur Squamous Epith Cells Urine Bacteria Hyaline Casts Imaging and cardiology Chest x-ray: Additional comments: Mild CHF. Likely superimposed pneumonia in the left upper lobe. Right pleural effusion Chest CTA: Additional comments: Mild aneurysmal dilatation ascending thoracic aorta No pulmonary artery emboli Moderate CHF with possible superimposed pneumonia bilaterally especially left base Venous US: Additional comments: No DVT's. Absent flow in superficial femoral veins. Quality Measures Quality Measures VTE prophylaxis Advance care planning discussed with:: other Assessment & Plan Assessment Current Active Medications: Generic Name Dose Route Start Last Admin Trade Name Freq PRN Reason Stop Dose Admin Acetaminophen 650 mg 03/23/24 03:06 Acetaminophen 325 Mg Tablet PO 04/22/24 03:05 Q6H PRN Pain 1-3 or Fever >100.3 Aspirin 81 mg 03/23/24 09:00 Aspirin Ec 81 Mg Tabec PO 04/22/24 08:59 QDAY JOSE RAMON Azithromycin 500 mg 03/23/24 09:00 Azithromycin 250 Mg Tablet PO 03/23/24 09:01 X1 ONE Azithromycin 250 mg 03/24/24 09:00 Azithromycin 250 Mg Tablet PO 03/28/24 08:59 QDAY JOSE RAMON Bumetanide 1 mg 03/23/24 06:00 03/23/24 06:26 Bumetanide 0.5 Mg Tablet PO 04/22/24 05:59 1 mg BID JOSE RAMON Administration Clopidogrel Bisulfate 75 mg 03/23/24 09:00 Clopidogrel Bisulfate 75 Mg Tablet PO 04/22/24 08:59 QDAY [facility] Ceftriaxone Sodium/Dextrose 50 mls @ 100 mls/hr 03/23/24 03:20 Rocephin/D5w 1gm Iv Premix IV 03/30/24 03:19 QDAY [facility] Midodrine 5 mg 03/23/24 07:45 Midodrine 5 Mg Tablet PO 04/22/24 07:44 TID [facility] Ondansetron HCl 4 mg 03/23/24 03:06 Ondansetron Inj 2 Mg/Ml Inj 2 Ml IV 04/22/24 03:05 Q6H PRN NAUSEA OR VOMITING Protocol Spironolactone 25 mg 03/23/24 06:00 03/23/24 06:26 Spironolactone 25 Mg Tablet PO 04/22/24 05:59 25 mg QDAY [facility] Administration Plan Garrison Rg is a 68 year old male with past medical history of CAD with stent placement in August 2023, PAD, carotid artery stenosis with endardectomy, CHF with EF of 15-20% on echo from 01/12/2024, meth use and tobacco use who presented to the ED yesterday in light of worsening dyspnea. #Acute hypoxic respiratory failure secondary to acute decompensated chronic systolic heart failure exacerbation (01/12/2024 )15-20% EF #Acute CHF exacerbation, systolic dysfunction #Right pleural effusion #CAP Patient has been experiencing worsening dyspnea and edema in legs over past couple of weeks. He reportedly was having dyspnea at rest and exertion when he presented to ED. Has undergone CXR which showed pulm vascular congestions with likely superimposed PNA in upper lobe and right pleural effusion. Had CTA which showed cardiomegaly but no PE. Previously had echocardiogram done on 01/12/2024 which showed EF of 15-20%. Labs have showed increase in AST, ALT, and alk phos which may be from congestive hepatomegaly. Patients presentation likely from decompensated heart failure exacerbation especially given history of VT and prior echocardiogram showing severely reduced EF of 15-20%. May also be related to community acquired pneumonia suggested on CXR. Considered having patient undergo right thoracentesis for pleural effusion but he was unable to have this completed given his anatomy. With his decompensated heart failure plan for Bumex 1 IV bid for diuresis. Given concern for pneumonia will have him on azithromycin 500 mg IV qd. Plan: - Bumex 1 IV bid - Midodrine 10 mg bid - Azithromycin 500 mg IV qd and cefTRIAXone/D5w 1gm IV premix 50 [id number] - Methylprednisolone 125 mg one injection - Albuterol/ipratropium 3ml q8h - Fluid restrictions with strict SHWETA's -Daily labs -Keep magnesium> 2 and potassium> 4 #Elevated Troponin #History of VT #Likely NSTEMI (likely type 2) Labs had showed elevated troponin of 0.065 in the ED. ECG showed sinus tachycardia. With his history of VT would like him to continue DAPT. Holding atorvastatin for now given elevated liver enzymes. Plan: - Continue DAPT - Hold atorvastatin given elevated transaminases # Elevated transaminases -Likely related to heart failure ? AST 167, ALT 121, ALP 139, T. bili within normal limits Plan: ? Currently continuing IV diuresis and treating heart failure ?Trend LFTs and avoiding hepatotoxic agents including statin # Thrombocytopenia ? Platelets 124 Plan: ? Continuing SCDs for DVT prophylaxis ? Avoiding chemical prophylaxis for now ? Bleeding precautions ? Monitor for bleeding and bruising #Hypoosmolar Hyponatremia: On presentation to ED patient had decrease sodium at 130. Now at 132. Hyponatremia likely cardio-renal in etiology Plan: - Continue to Bumex 1 IV QD - Fluid restriction #Hypotension: -Due to underlying HFrEF EF 15-20% Patient blood pressure is low on exam at 96/64. With this will have him on midodrine 10 mg bid and will hold other blood pressure medications Plan: - Start midodrine 10 mg bid. -Monitoring vitals closely #Tobacco use disorder Patient reports smoking tobacco since the age of 19. Says he currently smokes about a pack a week. Plan: -Offered nicotine patch 7mg qd #Leg Cramps: Patient has been complaining of leg cramps. On exam has some swelling of legs bilaterally about 3+ edema. Sensation intact to light touch. Underwent Doppler US of bilateral lower extremities which did not reveal DVT. However it was noted that there was no flow noted on bilateral superficial femoral arteries. Leg With findings on US and complaints of leg pain would like patient to undergo AMANDA. Plan: - Will have pt complete AMANDA. Health maintenance Diet: Cardiac with fluid restriction 1500 cc GI prophylaxis: Protonix 40 mg p.o. daily DVT prophylaxis:SCDs CODE STATUS: Full code Disposition: Patient is admitted for further workup and management of acute hypoxic respiratory failure due to CHF and possible community-acquired pneumonia. -- Patient was seen and discussed with attending physician, Dr. Villar and resident physician, , PGY1 and Dr. Hicks, PGY 2 Asim Hubbard Medical student Attending Provider Attestation/Addendum I, Dulce Maria Villar, DO, attest that I was physically present for the lanza portions of the service and evaluated the patient with the resident and I reviewed and discussed the case with the resident and agree with the resident's findings and plans of care as documented above Patient seen and eval this a.m in the ED. Patient is currently on a 6 L oxymask. Patient reports that he has been compliant with his torsemide at home. However, he continues to have persistent bilateral lower extremity edema. Patient is noted on exam to have 3+ pitting edema, scattered wheezing and rhonchi in his bilateral lung lambert. Suspect that patient has an acute CHF and acute COPD exacerbation at this time. Will continue with IV diuresis and follow-up with cardiology recommendations. Will start patient on steroids due to acute COPD exacerbation and breathing treatments. Patient states that he is noted that he has been unable to fit his shoe over his feet due to edema resulting in scattered abrasions over the dorsum of his feet. Patient also endorses trauma to his left foot resulting in ecchymosis of his plantar foot. Patient's bilateral lower extremities are warm, no hyperpigmentation otherwise. Will obtain ultrasound venous Doppler of bilateral lower extremities to rule out any VTE.
[2024-03-23 08:39] LABS: Alanine Aminotransferase 121 U/L (10-49); Albumin, Serum 3.6 gm/dL (3.4-4.8); Albumin/Globulin Ratio 1.7 (1.2-2.2); Alkaline Phosphatase 139 U/L (46-116); Anion Gap 8 (7-16); Aspartate Amino Transferase 167 U/L (0-34); BUN/Creatinine Ratio 20 Ratio (12-20); Bilirubin,Total 0.7 mg/dL (0.3-1.2); Blood Urea Nitrogen 26 mg/dL (9-23); Calcium 8.3 mg/dL (8.3-10.6); Calcium (Corrected) 8.6 mg/dL (8.5-10.1); Carbon Dioxide 22.9 mMol/L (20.0-31.0); Cardiac Risk Estimate 4.1 RATIO (4.0-6.7); Chloride 101 mMol/L (98-107); Cholesterol 98 mg/dL (132-200); Creatinine (Component) 1.3 mg/dL (0.6-1.3); Estimated Creatinine Clearance 58.9 mL/min (>60); Globulin 2.1 gm/dL (2.3-3.5); Glucose 134 mg/dL (74-106); HDL Cholesterol 24 mg/dL (40-60); LDL Cholesterol,Calculated 61 mg/dL (0-130); Magnesium 2.6 mg/dL (1.6-2.6); Osmolality,Calculated 271 (275-295); Sodium 132 mMol/L (136-145); Thyroid Stimulating Hormone 0.76 uIU/mL (0.55-4.78); Total Protein 5.7 gm/dL (5.7-8.2); Triglycerides 66 mg/dL (30-150); eGFR 59 See Note
--- NOTE | 2024-03-23 08:55 | CHAP ---
JVisited with patient and gave comfort and prayer.
[2024-03-23] MEDS: ASPIRIN EC 81 MG TABEC PO ×2 (08:59→09:02)
[2024-03-23] MEDS: MIDODRINE 5 MG TABLET PO (08:59)
[2024-03-23] MEDS: CLOPIDOGREL BISULFATE 75 MG TABLET PO (09:02)
[2024-03-23] MEDS: AZITHROMYCIN 250 MG TABLET 500 MG PO (09:27)
--- NOTE | 2024-03-23 11:13 | XR_ITS ---
Examination: Ultrasound right hemithorax Ultrasound left hemithorax Exam date and time: March 23, 2024 1150 hours INDICATIONS: Difficulty breathing this week, bilateral pleural fluid on CT chest March 23, 2024 TECHNIQUE AND FINDINGS: Grayscale sonographic images right and left hemithoraces There is moderate right pleural fluid that lung surface is adjacent to the pleural surface on all visualized images Smaller left pleural fluid IMPRESSION: No access site for safe right thoracentesis
[2024-03-23] MEDS: MIDODRINE 5 MG TABLET 10 MG PO ×2 (13:29→21:27)
[2024-03-23] MEDS: predniSONE 20 MG TABLET 40 MG PO (13:30)
[2024-03-23 13:33] LABS: LDH (Lactate Dehydrogenase) 306 U/L (120-246)
[2024-03-23 13:34] LABS: Troponin I 0.047 ng/mL (0.0-0.045)
[2024-03-23 14:03] LABS: Cocci Serology, IgM Negative (Negative)
[2024-03-23] MEDS: ALBUTEROL/IPRATROPIUM (Duoneb) RT SOL 3 ML NEBU INH ×2 (14:08→22:23)
[2024-03-23] MEDS: NICOTINE PATCH 7 MG/24 HR PATCH.TD24 TOP (15:28)
--- NOTE | 2024-03-23 15:35 | XR_ITS ---
Examination: Arterial duplex lower extremity study. Date and time of exam: March 23, 2024 1614 hrs. Indications: Chronic smoking history years, bilateral leg and foot pain beginning 2 weeks ago Findings: Duplex sonographic imaging of the lower extremity arteries using B-mode/Roman scale imaging and Doppler spectral analysis and color flow. Ankle brachial indices have been recorded. Right common femoral artery demonstrates triphasic flow. Right superficial femoral artery demonstrates no flow. Right popliteal artery demonstrates no flow. Right posterior tibial artery demonstrated monophasic flow. Right ankle/brachial index is 1.0. Left common femoral artery demonstrates monophasic flow. Left superficial femoral artery demonstrates no flow. Left popliteal artery demonstrates monophasic flow. Left posterior tibial artery demonstrated monophasic flow. Left ankle blood pressure unobtainable Impression: Severe bilateral peripheral obstructive arterial disease Consider correlation with CTA abdominal aorta iliofemoral runoff post intravenous contrast
--- NOTE | 2024-03-23 16:45 | PD.RESCONSUL ---
HPI Data of Consult Requesting Physician: Dulce Maria Villar DO Admitting Provider: Go Katz MD Attending Provider: Dulce Maria Villar DO Primary Care Provider: Matthew Zimmerman PA-C Consult Narrative Reason for consult: CHF exacerbation History of present illness: 68 y/o male patient with past medical history of CAD s/p PCI to LAD in August 2023, 100 percent chronically occluded RCA with bauy-hu-bqwvh collaterals, 100% occluded OM 2 stent placed in 2022 with left to left collaterals,, carotid arterial disease status post TCAR, HFrEF (15-20% 01/2024), August 2023 , ascending thoracic aortic aneurysm at 4.4 cm, Essential hypertension, hyperlipidemia, GERD, active smoker with more than 28-73-kxac-year smoking history, history of methamphetamine abuse, and medical noncompliance was admitted to the hospital on 03/23/2024 due to Acute decompensated heart failure exacerbation. In ED patient had complaints of shortness of breath. Initially patient came in tachycardic, tachypneic,hypertensive, and afebrile. Initial lab work showed WBC 17.1, Hgb 11.6, platelets 178, sodium 130, potassium 4.7, [id number], BUN 24, creatinine 1.4, magnesium 3.6, AST 192, ALT 103, alkaline phosphatase 178, T. Damián 1.5, trops 0.065 and downtrended, and BNP 3280+. Initial imaging included CXR which showed mild CHF and L base PNA; Chest CTA showed mild aneurysmal dilatation ascending thoracic aorta, CHF, and PNA of left base. Arterial dupplex showed Severe bilateral peripheral obstructive arterial disease and Venous doppler was negative for DVT. Echo on 01/2024 had the following dfindings: Severe LV dilatation. Severe systolic dysfunction. Severe global hyopokinesis. Stage III diastolic dysfunction. Estimated EF 15-20% Mild RV dilatation. Mild RV systolic dysfunction. Estimated RVSP 43mmHg. Severe LA dilatation. Moderate RA dilatation Moderate MR. Mild TR. There is trival anterior pericardial effusion. No evidence of cardiac tamponade. During my assessment patient stated he started getting short of breath since friday afternoon and that it progressively got worst and decided to come to the ED. Patient states that recently his PCP changed his water pill , but he does not recall to which medication. He states he has been taking all his medications as prescribed and that he has not had any chest pain, palpitations, or syncopal episodes. Patient was recently discharged from the hospital on 01/14/2024 due to similar symptoms. He states since discharge he had felt better, but recently started getting SOB with minimal exertion and has noticed LE swelling. Patient's dried weight on discharge was 82.6 kg and has since then increased to 87.9 kg on this admission. PMH: CAD s/p PCI to LAD in August 2023, R percent chronically occluded RCA with bigm-ah-oildf collaterals, 100% occluded OM 2 stent placed in 2022 with left to left collaterals,, carotid arterial disease status post TCAR, HFrEF (15-20% 01/2024), August 2023 , ascending thoracic aortic aneurysm at 4.4 cm, Essential hypertension, hyperlipidemia, GERD, active smoker with more than 20-47-atsy-year smoking history, history of methamphetamine abuse, and medical noncompliance Surgical Hx: Left endarterectomy January 2023, s/p PCI (October 2022 and August 2023) Allergies: NKDA FMH: Questionable heart attack in mother, Brother from [place] at 46 years Social history: Current smoker with 16-znmu-wipc smoking history, smokes methamphetamine (last use 3 months ago), denies using other illicit drugs, lives with cc:: cc: Dulce Maria Villar DO Review of Systems Review of Systems Narrative Review of Systems: Constitutional: Denies sweats, Denies weight loss/gain, Denies fever, Denies chills. HEENT: Denies hearing loss, Denies ear pain, Denies postnasal drip, Denies double vision, Denies blurry vision. Respiratory: Admits shortness of breath, Denies cough, Denies wheezing. Cardiovascular: Denies chest pain, Denies palpitations, Denies sudden loss of consciousness. GI: Denies blood in stool, Denies constipation, Denies abdominal pain, Denies difficulty swallowing, Denies nausea/vomit. : Denies urinary incontinence, Denies pain while urinating, Denies increased urinary frequency. MSK: Denies joint pain, Denies joint swelling, Denies numbness, Admits lower extremity swelling. Skin: Denies rash, Denies itching, Denies easy bruising. Neuro: Denies headaches, denies dizziness, Denies seizures, denies LOC. Past Medical History Past Medical History Comments PMH COMMENT: PMH: CAD s/p PCI to LAD in August 2023, R percent chronically occluded RCA with atpg-ub-tpaan collaterals, 100% occluded OM 2 stent placed in 2022 with left to left collaterals,, carotid arterial disease status post TCAR, HFrEF (15-20% 01/2024), August 2023 , ascending thoracic aortic aneurysm at 4.4 cm, Essential hypertension, hyperlipidemia, GERD, active smoker with more than 52-45-blbc-year smoking history, history of methamphetamine abuse, and medical noncompliance Surgical Hx: Left endarterectomy January 2023, s/p PCI (October 2022 and August 2023) Allergies: NKDA FMH: Questionable heart attack in mother, Brother from [place] at 46 years Social history: Current smoker with 84-mmhb-cncn smoking history, smokes methamphetamine (last use 3 months ago), denies using other illicit drugs, lives with Exam Vital Signs Temp Pulse Resp BP Pulse Ox O2 Del Method O2 Flow Rate 97.9 F 65 21 H 93/65 98 Oxy Mask 3 03/23/24 14:01 03/23/24 14:12 03/23/24 14:12 03/23/24 14:01 03/23/24 14:12 03/23/24 14:01 03/23/24 14:10 FiO2 70 03/22/24 23:56 Narrative Exam General: A/O x3, no acute distress Eyes: PERRL, EOMI. Anicteric, vision grossly intact. Ears: No ear pain, no ear discharge, Hearing grossly intact. Nose: No nasal discharge. Mouth/Throat: Dry mucous membranes, no redness, no lesions. Neck: Neck supple, non-tender, no cervical lymphadenopathy. Lungs: Crackles DAMIÁN, No accessory muscle use. Cardio: Normal S1/S2, regular rhythm, no murmurs, no JVD Abdomen: Soft, non-tender, no palpable masses, peristalsis present, no guarding or rebound. Extremities: Symmetrical, no significant deformities, 2+ peripheral edema , non-tender, peripheral pulses presents. Skin: No rashes, no lesions, warm to touch. Neuro: No focal neurological deficits. motor and sensory intact Psych: Cooperative, appropriate mood and effect. Results Labs 12/19/24 04:58 03/25/24 04:58 Labs: Short CBC 03/22/24 03/23/24 Range/Units 20:55 06:49 WBC 11.6 H 9.5 (3.8-10.6) Thou/mm3 Hgb 17.1 H 15.6 (13.5-16.0) g/dL Hct 50.1 45.3 (41.0-53.0) % Plt Count 178 124 L D (140-440) Thou/mm3 BMP 03/22/24 03/23/24 20:55 06:49 Sodium 130 L 132 L Potassium 4.7 4.0 D Chloride 99 101 Carbon Dioxide 18.2 L 22.9 BUN 24 H 26 H Creatinine 1.4 H 1.3 Glucose 141 H 134 H Calcium 8.8 8.3 Cardiac Enzymes 03/22/24 03/23/24 03/23/24 Range/Units 20:55 00:50 06:49 Troponin I 0.065 H* 0.065 H* 0.060 H* (0.0-0.045) ng/mL 03/23/24 Range/Units 12:31 Troponin I 0.047 H* (0.0-0.045) ng/mL Liver Function 03/22/24 03/23/24 Range/Units 20:55 06:49 Total Bilirubin 1.5 H 0.7 D (0.3-1.2) mg/dL AST 192 H 167 H (0-34) U/L ALT 103 H 121 H (10-49) U/L Alkaline Phosphatase 178 H 139 H D (46-116) U/L Albumin 4.2 3.6 D (3.4-4.8) gm/dL Urine 03/22/24 Range/Units 21:54 Urine Color Lt-Yellow (Lt Yel-Yel) Urine Clarity Clear (Clear/Hazy) Urine pH 6.0 (5.0-7.0) Ur Specific [place] 1.007 (1.001-1.035) Urine Protein Trace (Neg - Trace) Urine Glucose (UA) Negative (Negative) Quality Measures Quality Measures VTE prophylaxis Advance care planning discussed with:: patient Medications Home Medications and Allergies Home Medications ?Medication ?Instructions ?Recorded ?Confirmed ?Type ergocalciferol (vitamin D2) 1,250 1,250 mcg PO QWEEK 08/17/23 03/23/24 History mcg (50,000 unit) capsule ferrous sulfate 325 mg (65 mg 325 mg PO 1XD 08/17/23 03/23/24 History iron) tablet (FeroSul) Allergies Allergy/AdvReac Type Severity Reaction Status Date / Time No Known Allergies Allergy Unverified 07/01/23 06:50 Visit Medications Acetaminophen (Acetaminophen 325 Mg Tablet) 650 mg PO Q6H PRN PRN Reason: Pain 1-3 or Fever >100.3 Stop: 04/22/24 03:05 Albuterol/Ipratropium (Albuterol/Ipratropium (Duoneb) Rt Ivone 3 Ml Nebu) 3 ml INH [id number] [facility] Stop: 04/22/24 13:59 Last Admin: 03/23/24 14:08 Dose: 3 ml Aspirin (Aspirin Ec 81 Mg Tabec) 81 mg PO QDAY [facility] Stop: 04/22/24 08:59 Last Admin: 03/23/24 09:02 Dose: 81 mg Azithromycin (Azithromycin 250 Mg Tablet) 500 mg PO QDAY [facility]; Protocol Stop: 03/31/24 08:59 Bumetanide (Bumetanide Inj 0.25 Mg/Ml Vial 4 Ml) 1 mg IVP BID [facility] Stop: 04/22/24 20:59 Clopidogrel Bisulfate (Clopidogrel Bisulfate 75 Mg Tablet) 75 mg PO QDAY [facility] Stop: 04/22/24 08:59 Last Admin: 03/23/24 09:02 Dose: 75 mg Ceftriaxone Sodium/Dextrose (Rocephin/D5w 1gm Iv Premix) 50 mls @ 100 mls/hr IV HS [facility] Stop: 03/30/24 20:59 Midodrine (Midodrine 5 Mg Tablet) 10 mg PO TID [facility] Stop: 04/22/24 13:59 Last Admin: 03/23/24 13:29 Dose: 10 mg Nicotine (Nicotine Patch 7 Mg/24 Hr Patch.Td24) 7 mg TOP QDAY [facility] Stop: 04/22/24 12:59 Last Admin: 03/23/24 15:28 Dose: 7 mg Ondansetron HCl (Ondansetron Inj 2 Mg/Ml Inj 2 Ml) 4 mg IV Q6H PRN; Protocol PRN Reason: NAUSEA OR VOMITING Stop: 04/22/24 03:05 Pantoprazole Sodium (Pantoprazole 40 Mg Tablet) 40 mg PO QDAY [facility] Stop: 04/23/24 08:59 Prednisone (Prednisone 20 Mg Tablet) 40 mg PO QDAY [facility] Stop: 03/27/24 12:44 Last Admin: 03/23/24 13:30 Dose: 40 mg Discontinued Medications Albuterol/Ipratropium (Albuterol/Ipratropium (Duoneb) Rt Ivone 3 Ml Nebu) 3 ml INH X1 ONE Stop: 03/22/24 21:05 Last Admin: 03/22/24 21:44 Dose: 3 ml Azithromycin (Azithromycin 250 Mg Tablet) 500 mg PO X1 ONE Stop: 03/23/24 09:01 Last Admin: 03/23/24 09:27 Dose: 500 mg Azithromycin (Azithromycin 250 Mg Tablet) 250 mg PO QDAY [facility] Stop: 03/28/24 08:59 Bumetanide (Bumetanide 0.5 Mg Tablet) 1 mg PO BID [facility] Stop: 04/22/24 05:59 Last Admin: 03/23/24 08:58 Dose: 1 mg Furosemide (Furosemide Inj 10 Mg/Ml 4ml Vial) 40 mg IVP X1 ONE Stop: 03/22/24 20:33 Last Admin: 03/22/24 20:39 Dose: 40 mg Piperacillin/Tazobactam/Dextrose (Zosyn) 3.375 gm in 50 mls @ 100 mls/hr IV X1 ONE Stop: 03/22/24 21:01 Last Infusion: 03/22/24 22:04 Dose: Infused Ceftriaxone Sodium/Dextrose (Rocephin/D5w 1gm Iv Premix) 50 mls @ 100 mls/hr IV X1 ONE Stop: 03/23/24 04:14 Last Infusion: 03/23/24 06:26 Dose: Infused Azithromycin 500 mg/ Sodium (Chloride) 250 mls @ 250 mls/hr IV QDAY [facility] Stop: 03/26/24 08:59 Methylprednisolone Sodium Succinate (Methylprednisolone Sod Succ 62.5 Mg/Ml 2ml Vial) 125 mg IVP X1 ONE Stop: 03/22/24 20:36 Last Admin: 03/22/24 20:39 Dose: 125 mg Midodrine (Midodrine 5 Mg Tablet) 5 mg PO TID JOSE RAMON Stop: 04/22/24 07:44 Last Admin: 03/23/24 08:59 Dose: 5 mg Morphine Sulfate (Morphine Sulf Inj 10 Mg/Ml Vial) 2 mg IVP X1 ONE Stop: 03/22/24 20:35 Last Admin: 03/22/24 20:39 Dose: 2 mg Sodium Chloride (Sodium Chloride Rt 10% 15 Ml Nebu) 5 ml INH X1 ONE Stop: 03/23/24 03:07 Last Admin: 03/23/24 09:05 Dose: Not Given Spironolactone (Spironolactone 25 Mg Tablet) 25 mg PO QDAY JOSE RAMON Stop: 04/22/24 05:59 Last Admin: 03/23/24 08:58 Dose: 25 mg Assessment & Plan Plan 68 y/o male patient with past medical history of CAD s/p PCI to LAD in August 2023, R percent chronically occluded RCA with cmls-tv-opmfr collaterals, 100% occluded OM 2 stent placed in 2022 with left to left collaterals,, carotid arterial disease status post TCAR, HFrEF (15-20% 01/2024), August 2023 , ascending thoracic aortic aneurysm at 4.4 cm, Essential hypertension, hyperlipidemia, GERD, active smoker with more than 80-14-sncn-year smoking history, history of methamphetamine abuse, and medical noncompliance was admitted to the hospital on 03/23/2024 due to Acute decompensated heart failure exacerbation. 1. Acute decompensated heart failure exacerbation 2. HFrEF (EF 15-20% 01/2024) 3. CAD s/p PCI to LAD (August 2023) 4. NSTEMI type 2 5. Hypotension -Patient came in with SOB and DAMIÁN LE swelling -BNP was 3280+ -Initial trops were 0.065 and downtrended -Patient's blood pressure has been low today in the 90s over 60s -Patient had his diuretic changed by his PCP, but not clear to which diuretic -Elevated troponins most likely due to CHF exacerbation -Echo on 01/2024 had the following dfindings: Severe LV dilatation. Severe systolic dysfunction. Severe global hyopokinesis. Stage III diastolic dysfunction. Estimated EF 15-20% Mild RV dilatation. Mild RV systolic dysfunction. Estimated RVSP 43mmHg. Severe LA dilatation. Moderate RA dilatation Moderate MR. Mild TR. There is trival anterior pericardial effusion. No evidence of cardiac tamponade. Plan: -Recommend to continue Bumex 1mg Iv BID for now -Recommend to continue aspirin and plavix -Recommend to continue midodrine 10mg TID -No need for further troponins -Strict SHWETA's -Fluid restrictions -Daily weights -Low sodium diet -Recommend to keep potassium and mg above 4 and 2 respectively to avoid any arrhythmias 6. Elevated liver enzymes 7. Congestive Hepatopathy -Patient's AST 167, ALT 121, and ALK phos 139 on admission -Patient most likely has hepatic congestion secondary to heart failure -Continue current management as per primary care team 8. Community acquired pnuemonia -On azithromycin and rocephin -Continue management as per primary care team Continue rest of management as per primary team. We are grateful to be able to participate in Mr. Rg' care. Thank you for the consult Plan of care discussed with attending Stage Setting Painter Apprentice, Dr. Ritu Arndt MD PGY-1 Attending Provider Attestation/Addendum I have personally seen and examined the patient separately on the above date of service and discussed the plan of care with the resident. I reviewed the resident Dr. De La Rosa consultation progress note and agree with the resident findings and plan in the note above and have also edited the documentation to reflect my findings and plan. Patient well-known to me from previous admissions in 2023. Presentation again similar to back to 2023 presentation for CHF exacerbation. A 67-year-old male with a past medical history of f CAD s/p PCI to LAD in August 2023, 100 percent chronically occluded RCA with cbdr-qk-xkjqt collaterals, 100% occluded OM 2 stent placed in 2022 with left to left collaterals,, carotid arterial disease status post TCAR, HFrEF (15-20% 01/2024), ascending thoracic aortic aneurysm at 4.4 cm, Essential hypertension, hyperlipidemia, GERD, active smoker with more than 14-83-cama-year smoking history, history of methamphetamine abuse, noncompliance with medications and doctor visits presented to the emergency department for further evaluation of worsening shortness of breath for the past few days. Initially patient came in tachycardic, tachypneic,hypertensive, and afebrile. Initial lab work showed WBC 17.1, Hgb 11.6, platelets 178, sodium 130, potassium 4.7, ppbwle96.2, BUN 24, creatinine 1.4, magnesium 3.6, AST 192, ALT 103, alkaline phosphatase 178, T. Damián 1.5, trops 0.065 and downtrended, and BNP 3280+. Initial imaging included CXR which showed mild CHF and L base PNA; Chest CTA showed mild aneurysmal dilatation ascending thoracic aorta, CHF, and PNA of left base. Arterial dupplex showed Severe bilateral peripheral obstructive arterial disease and Venous doppler was negative for DVT. Echo on 01/2024 had the following dfindings: Severe LV dilatation. Severe systolic dysfunction. Severe global hyopokinesis. Stage III diastolic dysfunction. Estimated EF 15-20% Mild RV dilatation. Mild RV systolic dysfunction. Estimated RVSP 43mmHg. Mild to moderate PAH Severe LA dilatation. Moderate RA dilatation Moderate MR. Mild TR. There is trival anterior pericardial effusion. No evidence of cardiac tamponade. Overall picture consistent with acute on chronic combined severe systolic and diastolic congestive heart failure exacerbation. He is volume overloaded and recommend to continue IV diuresis with Lasix 40 mg IV twice daily for now and can increase up to every 8 hours based on the renal function. Patient LFTs have increased along with worsening of kidney function which is cardiorenal syndrome with along with hepatic congestion as he was previously. Strict input output, daily weights and 2 g sodium diet. Keep potassium greater than 4 magnesium greater than 2.0 at all times. Patient needs goal-directed medical therapy but unfortunately is not on any medications at the present point of time because of the low blood pressure Will use pressor support if needed for diuresis if needed as he was on dopamine drip also during the last admission at low-dose dopamine during the last admission also. Elevated troponins mostly secondary to the NSTEMI type II in the setting of heart failure exacerbation supply/demand mismatch. Recommend no further troponins and no heparin drip at the present point of time. Continue aspirin, Plavix along with statin. Hold off on the beta-marlo as blood pressure is on the lower side. Patient is extremely noncompliant with medications as well as doctor visits. He did sign out AMA during the last visit. He did not follow-up with me in the office since the last admission. His initial EF was around 25% when he PCI was performed to the LAD and his previous stents to the OM were also occluded because of his noncompliance with medications. Patient has been strictly told to stop any kind of methamphetamine abuse and other drug abuse including marijuana but patient continues the drug abuse and his EF continued continued with last time around 15% - 20%. Patient is not eligible for any advanced medical therapies because of his noncompliance with medications as well as on doctor visits and cannot be evaluated for any kind of LVAD or any kind of transplant. Check the U-Tox again and if the urine tox is positive again the patient will need discharge to a drug rehabilitation if he is willing to to qualify him for other medical therapies. Overall unfortunate situation but will need to continue to treat medically for now. Patient for status need to be addressed with the immediate family or next of kin and the patient in detail by the primary team. Management of rest of the medical conditions as per primary team and other consultants. Thank you for the consult and allowing me to participate in the care of the patient. Cardiology will continue to follow. Sky Chaney M.D. Interventional Cardiology
--- NOTE | 2024-03-23 19:00 | PC.CC ---
Pt Garrison Rg is a 68 yr old male admitted to hospitalist services for Acute hypoxic respiratory failure. COUNTER INTELLIGENCE TECHNICIAN CC met with pt and with his Shira Rg [phone], at bedside to complete initial assessment. Pt is noted to be alert and oriented to person, place and situation. Pt noted to be very hard of hearing. Pt expressed understanding admission order. Pt able to confirm demographic information. Pt is from home [address] [place], where he lives with his son. 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 At baseline pt reports being independent with ambulation and with completing his ADLs. Pt reports he has the following DME in the home, walker, cane and wheelchair, but does not use it. Pt does require supplemental O2 in the home 2-3L, with his vendor being [employer]. Pt is not diabetic and is not on dialysis. Pt is followed by [facility]. At D/c pt will return home, with family providing transport. Pt provided with copy of Advance Directive.
[2024-03-23] MEDS: BUMETANIDE INJ 0.25 MG/ML VIAL 4 ML 1 MG IVP (21:29)
[2024-03-23 22:07] LABS: Amphetamine/Methamp Scrn,U Negative (Negative); Barbiturate Screen,Urine Negative (Negative); Benzodiazepines Screen,Urine Negative (Negative); Benzoylecgonine Screen, Ur Negative (Negative); Fentanyl Screen,Urine Negative (Negative); Opiate Screen,Urine Positive (Negative); THC Screen,Urine Positive (Negative)
[2024-03-24] VITALS (18 sets, daily range): BP systolic 93–113; BP diastolic 65–88; PULSE 75–110; RESP 16–30; TEMP 36.2–36.6; O2SAT 85–100
[2024-03-24] MEDS: MIDODRINE 5 MG TABLET 10 MG PO ×3 (05:09→21:55)
[2024-03-24 06:07] LABS: Basophils % (Auto) 0 % (0-2.5); Eosinophils % (Auto) 0 % (0-10); Hematocrit 44.7 % (41.0-53.0); Hemoglobin 15.2 g/dL (13.5-16.0); Immature Granulocytes % (Auto) 1 % (0-0); Immature Granulocytes Auto 0.06 Thou/mm3 (0.00-0.00); Lymphocytes # (Auto) 0.6 Thou/mm3 (1.0-4.8); Lymphocytes % (Auto) 5 % (10-50); Mean Corpuscular Volume 91 fL (80-100); Monocytes # (Auto) 0.6 Thou/mm3 (0.0-0.8); Monocytes % (Auto) 5 % (0-12); Neutrophils # (Auto) 11.1 Thou/mm3 (1.8-7.7); Neutrophils % (Auto) 89 % (37-80); Nucleated Red Blood Cell % 0 /100 WBC (0); Platelet Count 109 Thou/mm3 (140-440); RDW Standard Deviation 49.6 fL (35.1-43.9); Red Blood Count 4.91 Miln/mm3 (4.50-5.90); White Blood Count 12.4 Thou/mm3 (3.8-10.6)
[2024-03-24 06:39] LABS: Alanine Aminotransferase 93 U/L (10-49); Albumin, Serum 3.7 gm/dL (3.4-4.8); Albumin/Globulin Ratio 1.9 (1.2-2.2); Alkaline Phosphatase 118 U/L (46-116); Anion Gap 8 (7-16); Aspartate Amino Transferase 79 U/L (0-34); BUN/Creatinine Ratio 23 Ratio (12-20); Bilirubin,Total 0.7 mg/dL (0.3-1.2); Blood Urea Nitrogen 28 mg/dL (9-23); Calcium 8.7 mg/dL (8.3-10.6); Calcium (Corrected) 8.9 mg/dL (8.5-10.1); Carbon Dioxide 26.2 mMol/L (20.0-31.0); Chloride 98 mMol/L (98-107); Creatinine (Component) 1.2 mg/dL (0.6-1.3); Estimated Creatinine Clearance 63.5 mL/min (>60); Glucose 109 mg/dL (74-106); Magnesium 2.1 mg/dL (1.6-2.6); Osmolality,Calculated 271 (275-295); Phosphorous 3.7 mg/dL (2.4-5.1); Potassium 3.8 mMol/L (3.4-5.1); Sodium 132 mMol/L (136-145); Total Protein 5.7 gm/dL (5.7-8.2); eGFR > 60 See Note
[2024-03-24] MEDS: ALBUTEROL/IPRATROPIUM (Duoneb) RT SOL 3 ML NEBU INH ×5 (07:49→22:19)
[2024-03-24] MEDS: ASPIRIN EC 81 MG TABEC PO (08:10)
[2024-03-24] MEDS: predniSONE 20 MG TABLET 40 MG PO (08:10)
[2024-03-24] MEDS: CLOPIDOGREL BISULFATE 75 MG TABLET PO (08:10)
[2024-03-24] MEDS: AZITHROMYCIN 250 MG TABLET 500 MG PO (08:10)
[2024-03-24] MEDS: PANTOPRAZOLE 40 MG TABLET PO (08:10)
[2024-03-24] MEDS: NICOTINE PATCH 7 MG/24 HR PATCH.TD24 TOP (08:10)
[2024-03-24] MEDS: POTASSIUM CHLORIDE 20 mEq TABCR 40 MEQ PO (08:16)
--- NOTE | 2024-03-24 08:43 | ESPR_ITS ---
<Statement entered by Doc Hicks MD - 03/24/24 15:24> Patient was seen and examined at the bedside. Patient was coughing at the bedside and had trace edema on both lower extremities. Cardiology recommended to continue IV diuresis for today and holding beta-blockers due to soft Blood pressure. Continue aspirin Plavix and continuing prednisone 40 mg for 5 days for COPD exacerbation. Electrolytes were repleted. All labs and orders were reviewed. I saw and examined the patient, and I agree with current management stated by Dr Hussain MD,PGY1. Plan of care was discussed with the attending physician and resident physician. Disclaimer: Despite multiple revisions, due to the dictation software being used, the document bellow may not be free of grammatical errors including phonetic/typographic errors. However, this does not deter from our commitment to providing health care in the patient's best interest in mind. Dr. Fabiola MD, PGY 2 Documentation for date of: 03/24/24 Subjective Subjective Interval history: Garrison Rg is a 68 year old male with past medical history of CAD with stent placement, HFrEF, history of meth use, long smoking history, and COPD who presented with worsening dyspnea and leg edema over past 2 weeks who was admitted for acute respiratory failure and CHF exacerbation with likely PNA. Was started on bumex for diuresis and azithromycin and ceftrixone for treatment of PNA. Patient was seen by cardiology last night who recommended he switch from Bumex to lasix 40 mg bid. Other BP meds have been held given he is hypotensive. 03/24/2024 Overnight patient had a cough which made it difficult to sleep. He also had Mitchell Cath removed as it was causing him discomfort. Has been able to urinate since removal of urinary-catheter. Today, patient says that non-productive cough is still an issue for him but he feels less short of breath than yesterday. Currently on Nasal canula. He also mentions that his legs are still swollen and causing him discomfort. Patient did not have a good night sleep due to persistent cough. Ins: 290 Outs 800 Fluid Balance of -510 Telemetry Review: PVC's noted with rates in the 90's overnight Cardiology recommended diuresis with Lasix 40 Mg IV twice daily and can increase up to Q8 hourly once blood pressure allows Increase DuoNebs to every 4 hourly and also started patient on Mucinex and chest physiotherapy for his cough Exam Vital Signs Temp Pulse Resp BP Pulse Ox O2 Del Method O2 Flow Rate 97.4 F 82 21 H 113/82 99 Nasal Cannula 3 03/24/24 08:00 03/24/24 08:00 03/24/24 08:00 03/24/24 08:00 03/24/24 08:00 03/24/24 08:00 03/24/24 08:00 FiO2 70 03/22/24 23:56 Narrative Exam Constitutional: A&O X3, mild distress. Elderly male on O2 via NC HEENT: Normocephalic, atraumatic.? Oral mucosa is moist. Patent Nares CHEST: Symmetrical, atraumatic, and with equal expansion , Nontender on palpation no deformity and no crepitus. CARDIOVASCULAR: Heart regular rhythm no murmur or gallop rub or extra beats. LUNGS: Decreased AE B/L with crackles and rhonchi B/L from mid to lower zones ABDOMEN: Soft, obese, nontender to palpation, no guarding or rebound tenderness.? There are no abnormal masses palpated.? Active and normal bowel sounds. : Scrotal edema EXTREMITIES: 3+ LE edema up to knees B/L -- Patient was seen and discussed with attending physician, Dr. Villar and resident physician, , PGY1 and Dr. Hicks, PGY 2 Asim Hubbard Medical student I have seen and examined the patient with medical student Asim Hubbard , agree with his findings and have edited it with my assessment as well. Frankie Nixon MD PGY1 Objective Labs 03/24/24 04:54 03/24/24 04:54 Labs: Laboratory Results - last 24 hr 12/17/24 12/17/24 12/17/24 06:49 12:31 21:27 WBC RBC Hgb Hct MCV MCH MCHC RDW Std Deviation Plt Count Neut % (Auto) Lymph % (Auto) [place] % (Auto) Eos % (Auto) Baso % (Auto) Neut # (Auto) Lymph # (Auto) [place] # (Auto) Eos # (Auto) Baso # (Auto) Immature Gran # (Auto) Absolute Nucleated RBC Immature Gran % Nucleated RBC % Sodium 132 L Potassium 4.0 D Chloride 101 Carbon Dioxide 22.9 Anion Gap 8 BUN 26 H Creatinine 1.3 Estim Creat Clear Calc 58.9 L eGFR 59 L BUN/Creatinine Ratio 20 Glucose 134 H Calculated Osmolality 271 L Calcium 8.3 Corrected Calcium 8.6 Phosphorus Magnesium 2.6 Total Bilirubin 0.7 D AST 167 H ALT 121 H Alkaline Phosphatase 139 H D Lactate Dehydrogenase 306 H Troponin I 0.060 H* 0.047 H* Total Protein 5.7 Albumin 3.6 D Globulin 2.1 L Albumin/Globulin Ratio 1.7 Triglycerides 66 Cholesterol 98 L LDL Cholesterol, Calc 61 HDL Cholesterol 24 L Cholesterol/HDL Ratio 4.1 TSH 0.76 Urine Opiates Screen Positive A Urine Fentanyl Screen Negative Ur Barbiturates Screen Negative U Amphetamin/Meth Scrn Negative U Benzodiazepines Scrn Negative U Cocaine Metab Screen Negative U Marijuana (THC) Screen Positive A Coccidioides IgM Ab Negative 03/24/24 04:54 WBC 12.4 H RBC 4.91 Hgb 15.2 Hct 44.7 MCV 91 MCH 31.0 MCHC 34.0 RDW Std Deviation 49.6 H Plt Count 109 L Neut % (Auto) 89 H Lymph % (Auto) 5 L [place] % (Auto) 5 Eos % (Auto) 0 Baso % (Auto) 0 Neut # (Auto) 11.1 H Lymph # (Auto) 0.6 L [place] # (Auto) 0.6 Eos # (Auto) 0.0 Baso # (Auto) 0.0 Immature Gran # (Auto) 0.06 H Absolute Nucleated RBC 0.00 Immature Gran % 1 H Nucleated RBC % 0 Sodium 132 L Potassium 3.8 Chloride 98 Carbon Dioxide 26.2 Anion Gap 8 BUN 28 H Creatinine 1.2 Estim Creat Clear Calc 63.5 eGFR > 60 BUN/Creatinine Ratio 23 H Glucose 109 H Calculated Osmolality 271 L Calcium 8.7 Corrected Calcium 8.9 Phosphorus 3.7 Magnesium 2.1 Total Bilirubin 0.7 AST 79 H ALT 93 H Alkaline Phosphatase 118 H D Lactate Dehydrogenase Troponin I Total Protein 5.7 Albumin 3.7 Globulin 2.0 L Albumin/Globulin Ratio 1.9 Triglycerides Cholesterol LDL Cholesterol, Calc HDL Cholesterol Cholesterol/HDL Ratio TSH Urine Opiates Screen Urine Fentanyl Screen Ur Barbiturates Screen U Amphetamin/Meth Scrn U Benzodiazepines Scrn U Cocaine Metab Screen U Marijuana (THC) Screen Coccidioides IgM Ab Quality Measures Quality Measures VTE prophylaxis Advance care planning discussed with:: patient Assessment & Plan Assessment Current Active Medications: Generic Name Dose Route Start Last Admin Trade Name Freq PRN Reason Stop Dose Admin Acetaminophen 650 mg 03/23/24 03:06 Acetaminophen 325 Mg Tablet PO 04/22/24 03:05 Q6H PRN Pain 1-3 or Fever >100.3 Albuterol/Ipratropium 3 ml 03/23/24 14:00 03/24/24 07:49 Albuterol/Ipratropium (Duoneb) Rt Ivone 3 Ml Nebu INH 04/22/24 13:59 3 ml [id number] JOSE RAMON Administration Aspirin 81 mg 03/23/24 09:00 03/24/24 08:10 Aspirin Ec 81 Mg Tabec PO 04/22/24 08:59 81 mg QDAY JOSE RAMON Administration Azithromycin 500 mg 03/24/24 09:00 03/24/24 08:10 Azithromycin 250 Mg Tablet PO 03/31/24 08:59 500 mg QDAY JOSE RAMON Administration Protocol Clopidogrel Bisulfate 75 mg 03/23/24 09:00 03/24/24 08:10 Clopidogrel Bisulfate 75 Mg Tablet PO 04/22/24 08:59 75 mg QDAY JOSE RAMON Administration Furosemide 40 mg 03/24/24 18:00 Furosemide Inj 10 Mg/Ml 4ml Vial IVP 04/23/24 17:59 BIDD JOSE RAMON Ceftriaxone Sodium/Dextrose 50 mls @ 100 mls/hr 03/23/24 21:00 03/23/24 22:00 Rocephin/D5w 1gm Iv Premix IV 03/30/24 20:59 Infused HS JOSE RAMON Infusion Influenza Virus Vaccine Quadrival 0.5 ml 03/24/24 10:00 Influenza Virus Quadrivalent 0.5 Ml Syringe IMi 03/24/24 10:01 .ONCE ONE Midodrine 10 mg 03/23/24 14:00 03/24/24 05:09 Midodrine 5 Mg Tablet PO 04/22/24 13:59 10 mg TID JOSE RAMON Administration Nicotine 7 mg 03/23/24 13:00 03/24/24 08:10 Nicotine Patch 7 Mg/24 Hr Patch.Td24 TOP 04/22/24 12:59 7 mg QDAY JOSE RAMON Administration Ondansetron HCl 4 mg 03/23/24 03:06 Ondansetron Inj 2 Mg/Ml Inj 2 Ml IV 04/22/24 03:05 Q6H PRN NAUSEA OR VOMITING Protocol Pantoprazole Sodium 40 mg 03/24/24 09:00 03/24/24 08:10 Pantoprazole 40 Mg Tablet PO 04/23/24 08:59 40 mg QDAY JOSE RAMON Administration Prednisone 40 mg 03/23/24 12:45 03/24/24 08:10 Prednisone 20 Mg Tablet PO 03/27/24 12:44 40 mg QDAY JOSE RAMON Administration Plan Patient is a 68-year-old male with a past medical history significant for CAD s/p stents [2022, August 2023], HFrEF [15-20% 01/2024], ascending thoracic aorta aneurysm [4.4 cm], carotid artery disease s/p TCAR, essential hypertension, hyperlipidemia, GERD, nicotine dependence [50-60 pack years], history of methamphetamine abuse and medication noncompliance, COPD, PAD. Patient presented with a chief complaint of SOB. Patient was admitted for workup and management of acute respiratory failure with hypoxia secondary to acute decompensated heart failure exacerbation versus CAP versus COPD exacerbation. 1. Acute respiratory failure with hypoxia Secondary to 2. Acute decompensated chronic systolic and diastolic congestive heart failure exacerbation [EF 15-20%] VS community-acquired pneumonia VS COPD exacerbation. Patient presented with as progressively worsening SOB, PND and orthopnea. On exam he had bilateral crackles and rhonchi heard from mid to lower zones bilaterally. He also had 3+ lower extremity edema up to hips bilaterally with scrotal edema as well. Chest x-ray significant for cardiomegaly, bilateral pulmonary edema with small pleural effusion right lung base, questionable consolidation at left lung base. Chest CTA was negative for any pulmonary artery emboli, mild aneurysm dilation of ascending thoracic aorta [4.5 cm] and moderate CHF with possible superimposed pneumonia B/L Lower extremity venous Doppler was negative for DVT. Transthoracic echocardiogram completed on 01/12/2024 findings include: Severe LV dilatation. Severe systolic dysfunction. Severe global hyopokinesis. Stage III diastolic dysfunction. Estimated EF 15-20% Mild RV dilatation. Mild RV systolic dysfunction. Estimated RVSP 43mmHg. Severe LA dilatation. Moderate RA dilatation Moderate MR. Mild TR. There is trival anterior pericardial effusion. No evidence of cardiac tamponade. BNP on admission >3280. Patient endorses improvement of his SOB but still has persistent nonproductive cough which kept him up all night. On diuresis with Lasix 40 Mg IV twice daily Had a fluid balance of -5 to 10 cc over the past 24 hours K3.8 and Mg 2.1. Repleted with KCl 40 mEq p.o. x 1. Will maintain K >4 and Mg >2 at all times to avoid any arrhythmias Plan: ? Strict input output charting ? 2G sodium restricted diet ? 1500 cc/day fluid restriction ? Daily weights ? Midodrine 10 Mg p.o. 3 times daily ? Continue diuresis with Lasix 40 Mg IV twice daily and can increase up to Q8 hourly once blood pressure allows as per cardiology recommendations. ? Patient currently not on any beta-blockers due to acute heart failure exacerbation. Also not on any other GDMT due to noncompliance and currently patient has low blood pressures. Of note on previous admission patient was on dopamine infusion for low blood pressures. ? Repleted with KCl 40 mEq p.o. x 1. Will maintain K >4 and Mg >2 at all times to avoid any arrhythmias ? Cardiology, Dr. Chaney was consulted and is closely following the case. Appreciate recommendations 3. Community-acquired pneumonia 4. COPD exacerbation Patient presented with as progressively worsening SOB, PND and orthopnea. Also had nonproductive cough. On exam he had bilateral crackles and rhonchi heard from mid to lower zones bilaterally. He also had 3+ lower extremity edema up to hips bilaterally with scrotal edema as well. Chest x-ray significant for cardiomegaly, bilateral pulmonary edema with small pleural effusion right lung base, questionable consolidation at left lung base. Chest CTA was negative for any pulmonary artery emboli, mild aneurysm dilation of ascending thoracic aorta [4.5 cm] and moderate CHF with possible superimposed pneumonia B/L Curb- 65 : 3 points ; Severe risk group ; Consider inpatient care with possible ICU admission. PSI/PORT score : 119 points; risk class IV; hospitalization recommended based on risk. Plan: ? Increase DuoNebs to Q4 hourly from Q8 hourly ? Started on Mucinex 1 tab p.o. twice daily ? Started on chest physiotherapy with vest Q4 hourly ? Started on chest physiotherapy with Acapella device ? D2 prednisone 40 Mg p.o. daily for a total of 5 days started on [03/23? ? D2 azithromycin 500 Mg IV daily started on [03/23? ? D3 ceftriaxone 1G IV daily started on [03/23? 5. NSTEMI type I versus type II Patient had no typical ACS symptoms on presentation. Troponin initially mildly elevated at 0.065 down trended to 0.057 Likely type II NSTEMI in setting of heart failure exacerbation. Cardiology recommended no need for further trending of troponin and also no need for heparin infusion. 6. Peripheral arterial disease 7. Carotid artery stenosis s/p TCAR 8. CAD s/p stents [2022, August 2023] 9. Hyperlipidemia Home medication aspirin, Plavix and atorvastatin 40 Mg p.o. at bedtime PCI to LAD in August 2023, 100 percent chronically occluded RCA with [id number] collaterals, 100% occluded OM 2 stent placed in 2022 with left to left collaterals Arterial/peripheral duplex was significant for severe bilateral peripheral obstructive arterial disease. Right AMANDA 1.0, left ankle blood pressure unobtainable. Plan: ? Continue home medication ? Continue ASA 81 Mg p.o. daily ? Continue Plavix 75 Mg p.o. daily ? Continue atorvastatin 40 Mg p.o. at bedtime 10. GERD From med rec patient not on any medication at home. Currently patient on high-dose steroids for COPD exacerbation and at risk for peptic ulcers. Plan: ? Continue pantoprazole 40 Mg p.o. daily 11. Nicotine dependence 12. History of methamphetamine abuse On this admission U tox negative for methamphetamine, positive for THC Patient has approximately 50?[id number] smoking history and currently endorses smoking 1 pack/week Plan: ? Continue nicotine patch 7 Mg topical daily 13. Transaminitis Most likely due to hepatic congestion from CHF exacerbation Patient's AST 167, ALT 121, and ALK phos 139 on admission which down trended to AST 79, ALT 93 and ALP 118 Plan: ? Continue to monitor on CMP Health maintenance: Disposition: Continue IV diuresis. Continue IV antibiotics for pneumonia and breathing treatments. Diet: Cardiac Lines: pIVs GI Prophylaxis: Pantoprazole Thrombo Prophylaxis: Heparin 5000 units SC twice daily Code status: FULL CODE Plan of care discussed with Attending Dr. Villar and PGY2 Dr. Fabiola Nixon MD PGY 1 Attending Provider Attestation/Addendum Dulce Maria Strong, DO, attest that I was physically present for the lanza portions of the service and evaluated the patient with the resident and I reviewed and discussed the case with the resident and agree with the resident's findings and plans of care as documented above Patient seen and eval this a.m. He states that he is breathing better, but continues to have persistent cough that has kept him up all night. Patient is no longer wheezing and has decreased rhonchi on lung exam. Will continue with steroids, IV diuresis, IV abx and will start patient on Mucinex. Pleural drainage could not be done due to no safe access site for thoracentesis. Arterial ultrasound shows severe bilateral PAD. B/l feet are warm with capillary refill >2s. Continue to titrate O2 as tolerated. patient is currently on 3L/NC.
--- NOTE | 2024-03-24 09:41 | ESPR_ITS ---
Documentation for date of: 03/24/24 Subjective Subjective Interval history: Patient seen and examined at the bedside. Patient says that he feels much better and his breathing is improved since his admission. Patient was admitted for shortness of breath and was treated for CHF exacerbation as well as COPD exacerbation. Patient diuresing well with Bumex 1 mg twice daily. He was net negative around 500 mL - 1000 mL yesterday. Labs reviewed and sodium is 132 and potassium is 3.8 and BUN is 28 and creatinine is 1.2. AST ALT are improving at 79 and 93 respectively. Recommend to continue IV diuresis for now as the kidney function as well as liver function tests are improving. Patient also started on treatment for COPD exacerbation by the primary team and patient feels much better. U-Tox is negative Patient states that he did not touch and again the prediabetes may reduce except for occasional marijuana since his last visit with me a few months ago. Patient does agree that he stopped following up with the office and wants to return back as follow-up. Patient does inform me that he has not been taking all his medications because one of his primary care providers has stopped him from some medications. Unclear why. Again recommended the patient to strictly continue to stop the drug abuse and follow-up in the office and not to stop his aspirin and Plavix at all and is stents placed in the LAD can close and he came heart attack. Patient already has occluded stent in the OM1 that was placed in 2022 and his noncompliance could be fatal. Emphasized the above in detail to the patient and counseled him regarding the same. Exam Vital Signs Temp Pulse Resp BP Pulse Ox O2 Del Method O2 Flow Rate 97.4 F 82 21 H 113/82 99 Nasal Cannula 3 03/24/24 08:00 03/24/24 08:00 03/24/24 08:00 03/24/24 08:00 03/24/24 08:00 03/24/24 08:00 03/24/24 08:00 FiO2 70 03/22/24 23:56 Narrative Exam General: A/O x3, no acute distress Eyes: PERRL, EOMI. Anicteric, vision grossly intact. Ears: No ear pain, no ear discharge, Hearing grossly intact. Nose: No nasal discharge. Mouth/Throat: Dry mucous membranes, no redness, no lesions. Neck: Neck supple, non-tender, no cervical lymphadenopathy. Lungs: Crackles AJAY, No accessory muscle use. Cardio: Normal S1/S2, regular rhythm, no murmurs, no JVD Abdomen: Soft, non-tender, no palpable masses, peristalsis present, no guarding or rebound. Extremities: Symmetrical, no significant deformities, 2+ peripheral edema , non-tender, peripheral pulses presents. Skin: No rashes, no lesions, warm to touch. Neuro: No focal neurological deficits. motor and sensory intact Psych: Cooperative, appropriate mood and effect. Objective Labs 03/25/24 04:58 03/25/24 04:58 Labs: Laboratory Results - last 24 hr 03/23/24 03/23/24 03/24/24 12:31 21:27 04:54 WBC 12.4 H RBC 4.91 Hgb 15.2 Hct 44.7 MCV 91 MCH 31.0 MCHC 34.0 RDW Std Deviation 49.6 H Plt Count 109 L Neut % (Auto) 89 H Lymph % (Auto) 5 L [place] % (Auto) 5 Eos % (Auto) 0 Baso % (Auto) 0 Neut # (Auto) 11.1 H Lymph # (Auto) 0.6 L [place] # (Auto) 0.6 Eos # (Auto) 0.0 Baso # (Auto) 0.0 Immature Gran # (Auto) 0.06 H Absolute Nucleated RBC 0.00 Immature Gran % 1 H Nucleated RBC % 0 Sodium 132 L Potassium 3.8 Chloride 98 Carbon Dioxide 26.2 Anion Gap 8 BUN 28 H Creatinine 1.2 Estim Creat Clear Calc 63.5 eGFR > 60 BUN/Creatinine Ratio 23 H Glucose 109 H Calculated Osmolality 271 L Calcium 8.7 Corrected Calcium 8.9 Phosphorus 3.7 Magnesium 2.1 Total Bilirubin 0.7 AST 79 H ALT 93 H Alkaline Phosphatase 118 H D Lactate Dehydrogenase 306 H Troponin I 0.047 H* Total Protein 5.7 Albumin 3.7 Globulin 2.0 L Albumin/Globulin Ratio 1.9 Urine Opiates Screen Positive A Urine Fentanyl Screen Negative Ur Barbiturates Screen Negative U Amphetamin/Meth Scrn Negative U Benzodiazepines Scrn Negative U Cocaine Metab Screen Negative U Marijuana (THC) Screen Positive A Coccidioides IgM Ab Negative Assessment & Plan A&P Narrative Patient well-known to me from previous admissions in 2023. Presentation again similar to back to 2023 presentation for CHF exacerbation. A 67-year-old male with a past medical history of f CAD s/p PCI to LAD in August 2023, 100 percent chronically occluded RCA with [id number] collaterals, 100% occluded OM 2 stent placed in 2022 with left to left collaterals,, carotid arterial disease status post TCAR, HFrEF (15-20% 01/2024), ascending thoracic aortic aneurysm at 4.4 cm, Essential hypertension, hyperlipidemia, GERD, active smoker with more than 68-42-nhas-year smoking history, history of methamphetamine abuse, noncompliance with medications and doctor visits presented to the emergency department for further evaluation of worsening shortness of breath for the past few days. Initially patient came in tachycardic, tachypneic,hypertensive, and afebrile. Initial lab work showed WBC 17.1, Hgb 11.6, platelets 178, sodium 130, potassium 4.7, nzerup08.2, BUN 24, creatinine 1.4, magnesium 3.6, AST 192, ALT 103, alkaline phosphatase 178, T. Ajay 1.5, trops 0.065 and downtrended, and BNP 3280+. Initial imaging included CXR which showed mild CHF and L base PNA; Chest CTA showed mild aneurysmal dilatation ascending thoracic aorta, CHF, and PNA of left base. Arterial dupplex showed Severe bilateral peripheral obstructive arterial disease and Venous doppler was negative for DVT. Echo on 01/2024 had the following dfindings: Severe LV dilatation. Severe systolic dysfunction. Severe global hyopokinesis. Stage III diastolic dysfunction. Estimated EF 15-20% Mild RV dilatation. Mild RV systolic dysfunction. Estimated RVSP 43mmHg. Mild to moderate PAH Severe LA dilatation. Moderate RA dilatation Moderate MR. Mild TR. There is trival anterior pericardial effusion. No evidence of cardiac tamponade. Overall picture consistent with acute on chronic combined severe systolic and diastolic congestive heart failure exacerbation. He is volume overloaded and recommend to continue IV diuresis with Lasix 40 mg IV twice daily for now and can increase up to every 8 hours based on the renal function. Patient LFTs have increased along with worsening of kidney function which is cardiorenal syndrome with along with hepatic congestion as he was previously. Strict input output, daily weights and 2 g sodium diet. Keep potassium greater than 4 magnesium greater than 2.0 at all times. Patient needs goal-directed medical therapy but unfortunately is not on any medications at the present point of time because of the low blood pressure Will use pressor support if needed for diuresis if needed as he was on dopamine drip also during the last admission at low-dose dopamine during the last admission also. Elevated troponins mostly secondary to the NSTEMI type II in the setting of heart failure exacerbation supply/demand mismatch. Recommend no further troponins and no heparin drip at the present point of time. Continue aspirin, Plavix along with statin. Hold off on the beta-marlo as blood pressure is on the lower side. Patient is extremely noncompliant with medications as well as doctor visits. He did sign out AMA during the last visit. He did not follow-up with me in the office since the last admission. His initial EF was around 25% when he PCI was performed to the LAD and his previous stents to the OM were also occluded because of his noncompliance with medications. Patient has been strictly told to stop any kind of methamphetamine abuse and other drug abuse including marijuana but patient continues the drug abuse and his EF continued continued with last time around 15% - 20%. Patient is not eligible for any advanced medical therapies because of his noncompliance with medications as well as on doctor visits and cannot be evaluated for any kind of LVAD or any kind of transplant. Check the U-Tox again and if the urine tox is positive again the patient will need discharge to a drug rehabilitation if he is willing to to qualify him for other medical therapies. Overall unfortunate situation but will need to continue to treat medically for now. Patient for status need to be addressed with the immediate family or next of kin and the patient in detail by the primary team. 03/24/2024: Patient says that he feels much better and his breathing is improved since his admission. Patient was admitted for shortness of breath and was treated for CHF exacerbation as well as COPD exacerbation. Patient diuresing well with IV Bumex 1 mg twice daily. He was net negative around 500 mL - 1000 mL yesterday. Labs reviewed and sodium is 132 and potassium is 3.8 and BUN is 28 and creatinine is 1.2. AST ALT are improving at 79 and 93 respectively. Recommend to continue IV diuresis for now as the kidney function as well as liver function tests are improving. Patient also started on treatment for COPD exacerbation by the primary team and patient feels much better. U-Tox is negative Patient states that he did not touch and again the prediabetes may reduce except for occasional marijuana since his last visit with me a few months ago. Patient does agree that he stopped following up with the office and wants to return back as follow-up. Patient does inform me that he has not been taking all his medications because one of his primary care providers has stopped him from some medications. Unclear why. Again recommended the patient to strictly continue to stop the drug abuse and follow-up in the office and not to stop his aspirin and Plavix at all and is stents placed in the LAD can close and he came heart attack. Patient already has occluded stent in the OM1 that was placed in 2022 and his noncompliance could be fatal. Emphasized the above in detail to the patient and counseled him regarding the same. Management of rest of the medical conditions as per primary team and other consultants. Thank you for the consult and allowing me to participate in the care of the patient. Cardiology will continue to follow. Sky Chaney M.D. Interventional Cardiology Time Spent With Patient Time: Total time spent is greater than 50% in coordination of care (as documented) at patient's floor/unit and/or counseling patient:
--- NOTE | 2024-03-24 10:30 | CHAP ---
Talked with patient giving encouragement. Then I helped him back into bed and covered him with his blanket. We prayed for further healing.
[2024-03-24 13:50] LABS: Cocci Serology, IgG Negative (Negative)
--- NOTE | 2024-03-24 14:16 | PC.SS ---
Rounding: Pending cardio reccs, iv dieresis, lower extremity swelling
--- NOTE | 2024-03-24 14:17 | PC.CM ---
Entered pt. on [facility]. Need to send HH referral.
[2024-03-24] MEDS: guaiFENesin/DM TABLET 1 EACH PO ×2 (15:00→21:55)
[2024-03-24] MEDS: HEPARIN SOD INJ 5000 UNIT/ML VIAL SC ×2 (15:00→21:54)
[2024-03-24] MEDS: FUROSEMIDE INJ 10 MG/ML 4ML VIAL 40 MG IVP (17:31)
[2024-03-24 17:55] LABS: Amphetamine/Methamp Scrn,U Negative (Negative); Barbiturate Screen,Urine Negative (Negative); Benzodiazepines Screen,Urine Negative (Negative); Benzoylecgonine Screen, Ur Negative (Negative); Fentanyl Screen,Urine Negative (Negative); Opiate Screen,Urine Negative (Negative); THC Screen,Urine Positive (Negative)
[2024-03-24] MEDS: ATORVASTATIN CALCIUM 20 MG TABLET 40 MG PO (21:55)
[2024-03-24] MEDS: cefTRIAXone/D5w 1gm IV premix 50 ML IV (21:55)
[2024-03-25] VITALS (18 sets, daily range): BP systolic 96–113; BP diastolic 69–85; PULSE 71–103; RESP 14–97; TEMP 36.1–36.8; O2SAT 93–100; BMI 28.3
[2024-03-25] MEDS: ALBUTEROL/IPRATROPIUM (Duoneb) RT SOL 3 ML NEBU INH ×4 (02:52→19:38)
[2024-03-25] MEDS: MIDODRINE 5 MG TABLET 10 MG PO ×3 (05:24→20:18)
[2024-03-25 05:47] LABS: Basophils % (Auto) 0 % (0-2.5); Eosinophils % (Auto) 0 % (0-10); Hematocrit 41.9 % (41.0-53.0); Hemoglobin 14.2 g/dL (13.5-16.0); Immature Granulocytes % (Auto) 1 % (0-0); Immature Granulocytes Auto 0.04 Thou/mm3 (0.00-0.00); Lymphocytes # (Auto) 0.7 Thou/mm3 (1.0-4.8); Lymphocytes % (Auto) 10 % (10-50); Mean Corpuscular HGB Conc 33.9 g/dl (31.0-37.0); Mean Corpuscular Hemoglobin 31.1 pg (25.0-35.0); Mean Corpuscular Volume 92 fL (80-100); Monocytes # (Auto) 0.5 Thou/mm3 (0.0-0.8); Monocytes % (Auto) 8 % (0-12); Neutrophils # (Auto) 5.9 Thou/mm3 (1.8-7.7); Neutrophils % (Auto) 82 % (37-80); Nucleated Red Blood Cell % 0 /100 WBC (0); Platelet Count 130 Thou/mm3 (140-440); RDW Standard Deviation 49.9 fL (35.1-43.9); Red Blood Count 4.56 Miln/mm3 (4.50-5.90); White Blood Count 7.1 Thou/mm3 (3.8-10.6)
[2024-03-25] MEDS: FUROSEMIDE INJ 10 MG/ML 4ML VIAL 40 MG IVP ×3 (06:03→20:19)
[2024-03-25 06:35] LABS: Alanine Aminotransferase 68 U/L (10-49); Albumin, Serum 3.3 gm/dL (3.4-4.8); Albumin/Globulin Ratio 1.6 (1.2-2.2); Alkaline Phosphatase 94 U/L (46-116); Anion Gap 9 (7-16); Aspartate Amino Transferase 47 U/L (0-34); BUN/Creatinine Ratio 27 Ratio (12-20); Bilirubin,Total 0.6 mg/dL (0.3-1.2); Blood Urea Nitrogen 27 mg/dL (9-23); Calcium (Corrected) 9.6 mg/dL (8.5-10.1); Carbon Dioxide 28.1 mMol/L (20.0-31.0); Chloride 98 mMol/L (98-107); Estimated Creatinine Clearance 76.2 mL/min (>60); Globulin 2.1 gm/dL (2.3-3.5); Glucose 95 mg/dL (74-106); Magnesium 2.1 mg/dL (1.6-2.6); Osmolality,Calculated 275 (275-295); Phosphorous 3.5 mg/dL (2.4-5.1); Potassium 4.2 mMol/L (3.4-5.1); Sodium 135 mMol/L (136-145); Total Protein 5.4 gm/dL (5.7-8.2); eGFR > 60 See Note
[2024-03-25] MEDS: NICOTINE PATCH 7 MG/24 HR PATCH.TD24 TOP (08:27)
[2024-03-25] MEDS: HEPARIN SOD INJ 5000 UNIT/ML VIAL SC ×2 (08:27→20:19)
[2024-03-25] MEDS: guaiFENesin/DM TABLET 1 EACH PO ×2 (08:27→20:18)
[2024-03-25] MEDS: PANTOPRAZOLE 40 MG TABLET PO (08:28)
[2024-03-25] MEDS: CLOPIDOGREL BISULFATE 75 MG TABLET PO (08:28)
[2024-03-25] MEDS: ASPIRIN EC 81 MG TABEC PO (08:28)
[2024-03-25] MEDS: predniSONE 20 MG TABLET 40 MG PO (08:28)
--- NOTE | 2024-03-25 09:14 | ESPR_ITS ---
<Statement entered by Doc Hicks MD - 03/25/24 14:26> Patient was seen and examined at the bedside. Patient has marked improvement in terms of his cough and shortness of breath. PT recommended home with home health. Patient said that he feels better however feels tired and weak. Will continue Lasix 40 mg 3 times daily due to positive diuresis and still having lower extremity edema. Electrolytes were repleted. Continue midodrine 10 3 times daily for soft blood pressure. All labs and orders were reviewed. I saw and examined the patient, and I agree with current management stated by Dr Hussain MD,PGY1. Plan of care was discussed with the attending physician and resident physician. Disclaimer: Despite multiple revisions, due to the dictation software being used, the document bellow may not be free of grammatical errors including phonetic/typographic errors. However, this does not deter from our commitment to providing health care in the patient's best interest in mind. Dr. Fabiola MD, PGY 2 Documentation for date of: 03/25/24 Subjective Subjective Interval history: Garrison Rg is a 68 year old male with past medical history of CAD with stent placement, HFrEF, PAD, meth use, and tobacco use who presented to the hospital for worsening dyspnea and and leg edema admitted for acute respiratory distress likely from CHF exacerbation. CXR suggested likely pneumonia so has been treated with azithromycin and ceftriazone. Is receiving Lasix 40 mg bid for diuresis. 03/25/2024 Patient seen and examined at bedside this a.m. No acute overnight events. Patient reports that he continues to have a cough but has improved. He feels out of breath at rest and says he feels as if he just ran a marathon. Continues to have swelling in his legs. Denies any new chest pain, N/V, and abdominal pain. Input: 1565 Output 1050 Balance: 515 Telemetry: Sinus rhythm with rates from 60-100. Occasional PVC's. Exam Vital Signs Temp Pulse Resp BP Pulse Ox O2 Del Method O2 Flow Rate 97.6 F 93 21 H 113/85 H 93 L Nasal Cannula 2 03/25/24 08:00 03/25/24 08:00 03/25/24 08:00 03/25/24 08:00 03/25/24 08:00 03/25/24 08:00 03/25/24 08:00 FiO2 70 03/25/24 00:00 Narrative Exam Constitutional: Patient is alert and oriented to person, place and time. Laying in bed comfortably. CHEST: Symmetrical, atraumatic, and with equal expansion , Nontender on palpation no deformity and no crepitus. CARDIOVASCULAR: Heart regular rhythm no murmur or gallop rub or extra beats. LUNGS: Improved air entry bilaterally, crackles heard at bases with scattered wheeze throughout lung lambert bilaterally : Scrotal Edema?improved ABDOMEN: Soft, obese, nontender to palpation, no guarding or rebound tenderness.? There are no abnormal masses palpated.? Active and normal bowel sounds. EXTREMITIES: 2+ pitting edema up to knees bilaterally. Dorsalis pedis and posterior tibial pulse palpated on the right, dorsalis pedis and posterior tibial pulse not appreciated on left leg. No discoloration of feet noted. Patient was seen and discussed with attending physician, Dr. Villar and resident physician, , PGY1 and Dr. Hicks, PGY 2 Asim Hubbard Medical student I have seen and examined the patient with medical student Asim Hubbard , agree with his findings and have edited it with my assessment as well. Frankie Nixon MD PGY1 Objective Labs 03/27/24 04:33 03/27/24 04:33 Labs: Laboratory Results - last 24 hr 03/23/24 03/24/24 03/25/24 12:31 16:15 04:58 WBC 7.1 D RBC 4.56 Hgb 14.2 Hct 41.9 MCV 92 MCH 31.1 MCHC 33.9 RDW Std Deviation 49.9 H Plt Count 130 L Neut % (Auto) 82 H Lymph % (Auto) 10 [place] % (Auto) 8 Eos % (Auto) 0 Baso % (Auto) 0 Neut # (Auto) 5.9 Lymph # (Auto) 0.7 L [place] # (Auto) 0.5 Eos # (Auto) 0.0 Baso # (Auto) 0.0 Immature Gran # (Auto) 0.04 H Absolute Nucleated RBC 0.00 Immature Gran % 1 H Nucleated RBC % 0 Sodium 135 L Potassium 4.2 Chloride 98 Carbon Dioxide 28.1 Anion Gap 9 BUN 27 H Creatinine 1.0 Estim Creat Clear Calc 76.2 eGFR > 60 BUN/Creatinine Ratio 27 H Glucose 95 Calculated Osmolality 275 Calcium 9.0 Corrected Calcium 9.6 Phosphorus 3.5 Magnesium 2.1 Total Bilirubin 0.6 AST 47 H ALT 68 H Alkaline Phosphatase 94 D Total Protein 5.4 L Albumin 3.3 L Globulin 2.1 L Albumin/Globulin Ratio 1.6 Urine Opiates Screen Negative Urine Fentanyl Screen Negative Ur Barbiturates Screen Negative U Amphetamin/Meth Scrn Negative U Benzodiazepines Scrn Negative U Cocaine Metab Screen Negative U Marijuana (THC) Screen Positive A Coccidioides IgG Ab Negative Quality Measures Quality Measures VTE prophylaxis Advance care planning discussed with:: patient Assessment & Plan Assessment Current Active Medications: Generic Name Dose Route Start Last Admin Trade Name Freq PRN Reason Stop Dose Admin Acetaminophen 650 mg 03/23/24 03:06 Acetaminophen 325 Mg Tablet PO 04/22/24 03:05 Q6H PRN Pain 1-3 or Fever >100.3 Acetylcysteine 3 ml 03/24/24 13:38 Acetylcysteine Rt Ivone 10% 4 Ml Nebu INH 04/23/24 13:37 Q4HRRT PRN SHORTNESS OF BREATH OR WHEEZE Albuterol/Ipratropium 3 ml 03/24/24 10:00 03/25/24 06:58 Albuterol/Ipratropium (Duoneb) Rt Ivone 3 Ml Nebu INH 04/23/24 09:59 3 ml Q4HRRT JOSE RAMON Administration Aspirin 81 mg 03/23/24 09:00 03/25/24 08:28 Aspirin Ec 81 Mg Tabec PO 04/22/24 08:59 81 mg QDAY JOSE RAMON Administration Atorvastatin Calcium 40 mg 03/24/24 21:00 03/24/24 21:55 Atorvastatin Calcium 20 Mg Tablet PO 04/23/24 20:59 40 mg HS JOSE RAMON Administration Benzonatate 200 mg 03/24/24 13:38 Benzonatate 100 Mg Capsule PO 04/23/24 13:37 Q8HR PRN COUGH Protocol Clopidogrel Bisulfate 75 mg 03/23/24 09:00 03/25/24 08:28 Clopidogrel Bisulfate 75 Mg Tablet PO 04/22/24 08:59 75 mg QDAY JOSE RAMON Administration Furosemide 40 mg 03/25/24 14:00 Furosemide Inj 10 Mg/Ml 4ml Vial IVP 04/24/24 13:59 Q8HR JOSE RAMON Guaifenesin/Dextromethorphan 1 each 03/24/24 12:00 03/25/24 08:27 Guaifenesin/Dm Tablet PO 04/23/24 11:59 1 each BID JOSE RAMON Administration Heparin Sodium (Porcine) 5,000 unit 03/24/24 14:15 03/25/24 08:27 Heparin Sod Inj 5000 Unit/Ml Vial SC 04/07/24 14:14 5,000 unit BID JOSE RAMON Administration Ceftriaxone Sodium/Dextrose 50 mls @ 100 mls/hr 03/23/24 21:00 03/24/24 21:55 Rocephin/D5w 1gm Iv Premix IV 03/30/24 20:59 100 mls/hr HS JOSE RAMON Administration Midodrine 10 mg 03/23/24 14:00 03/25/24 05:24 Midodrine 5 Mg Tablet PO 04/22/24 13:59 10 mg TID JOSE RAMON Administration Nicotine 7 mg 03/23/24 13:00 03/25/24 08:27 Nicotine Patch 7 Mg/24 Hr Patch.Td24 TOP 04/22/24 12:59 7 mg QDAY JOSE RAMON Administration Ondansetron HCl 4 mg 03/23/24 03:06 Ondansetron Inj 2 Mg/Ml Inj 2 Ml IV 04/22/24 03:05 Q6H PRN NAUSEA OR VOMITING Protocol Pantoprazole Sodium 40 mg 03/24/24 09:00 03/25/24 08:28 Pantoprazole 40 Mg Tablet PO 04/23/24 08:59 40 mg QDAY JOSE RAMON Administration Prednisone 40 mg 03/23/24 12:45 03/25/24 08:28 Prednisone 20 Mg Tablet PO 03/28/24 12:44 40 mg QDAY JOSE RAMON Administration Plan Patient is a 68-year-old male with a past medical history significant for CAD s/p stents [2022, August 2023], HFrEF [15-20% 01/2024], ascending thoracic aorta aneurysm [4.4 cm], carotid artery disease s/p TCAR, essential hypertension, hyperlipidemia, GERD, nicotine dependence [50-60 pack years], history of methamphetamine abuse and medication noncompliance, COPD, PAD. Patient presented with a chief complaint of SOB. Patient was admitted for workup and management of acute respiratory failure with hypoxia secondary to acute decompensated heart failure exacerbation versus CAP versus COPD exacerbation. 1. Acute respiratory failure with hypoxia - resolving Secondary to 2. Acute decompensated chronic systolic and diastolic congestive heart failure exacerbation [EF 15-20%] VS community-acquired pneumonia VS COPD exacerbation. Patient presented with as progressively worsening SOB, PND and orthopnea. On exam he had bilateral crackles and rhonchi heard from mid to lower zones bilaterally. He also had 3+ lower extremity edema up to hips bilaterally with scrotal edema as well. Chest x-ray significant for cardiomegaly, bilateral pulmonary edema with small pleural effusion right lung base, questionable consolidation at left lung base. Chest CTA was negative for any pulmonary artery emboli, mild aneurysm dilation of ascending thoracic aorta [4.5 cm] and moderate CHF with possible superimposed pneumonia B/L Lower extremity venous Doppler was negative for DVT. Transthoracic echocardiogram completed on 01/12/2024 findings include: Severe LV dilatation. Severe systolic dysfunction. Severe global hyopokinesis. Stage III diastolic dysfunction. Estimated EF 15-20% Mild RV dilatation. Mild RV systolic dysfunction. Estimated RVSP 43mmHg. Severe LA dilatation. Moderate RA dilatation Moderate MR. Mild TR. There is trival anterior pericardial effusion. No evidence of cardiac tamponade. BNP on admission >3280. Patient has improvement of his SOB and cough today Patient had a fluid balance of +515 cc over past 24 hours. Plan: ? Strict input output charting ? 2G sodium restricted diet ? 1500 cc/day fluid restriction ? Daily weights ? Midodrine 10 Mg p.o. 3 times daily ? Increased diureses to Bumex 2mg IV BID from tomorrow as per Cardiology recommendations ? Patient currently not on any beta-blockers due to acute heart failure exacerbation. Also not on any other GDMT due to noncompliance and currently patient has low blood pressures. Of note on previous admission patient was on dopamine infusion for low blood pressures. ? Cardiology, Dr. Chaney was consulted and is closely following the case. Appreciate recommendations 3. Community-acquired pneumonia 4. COPD exacerbation - resolving Patient presented with as progressively worsening SOB, PND and orthopnea. Also had nonproductive cough. On exam he had bilateral crackles and rhonchi heard from mid to lower zones bilaterally. He also had 3+ lower extremity edema up to hips bilaterally with scrotal edema as well. Chest x-ray significant for cardiomegaly, bilateral pulmonary edema with small pleural effusion right lung base, questionable consolidation at left lung base. Chest CTA was negative for any pulmonary artery emboli, mild aneurysm dilation of ascending thoracic aorta [4.5 cm] and moderate CHF with possible superimposed pneumonia B/L Curb- 65 : 3 points ; Severe risk group ; Consider inpatient care with possible ICU admission. PSI/PORT score : 119 points; risk class IV; hospitalization recommended based on risk. Plan: - Wean off oxygen as tolerated ? Decreased DuoNebs to Q6 hourly from Q4 hourly ? Continue Mucinex 1 tab p.o. twice daily ? Continue chest physiotherapy with vest Q4 hourly ? Continue chest physiotherapy with Acapella device ? D3 prednisone 40 Mg p.o. daily for a total of 5 days started on [03/23? ? D3 azithromycin 500 Mg IV daily started on [03/23?03/25] ? D3 ceftriaxone 1G IV daily started on [03/23? 5. NSTEMI type I versus type II Patient had no typical ACS symptoms on presentation. Troponin initially mildly elevated at 0.065 down trended to 0.057 Likely type II NSTEMI in setting of heart failure exacerbation. Cardiology recommended no need for further trending of troponin and also no need for heparin infusion. 6. Peripheral arterial disease 7. Carotid artery stenosis s/p TCAR 8. CAD s/p stents [2022, August 2023] 9. Hyperlipidemia Home medication aspirin, Plavix and atorvastatin 40 Mg p.o. at bedtime PCI to LAD in August 2023, 100 percent chronically occluded RCA with [id number] collaterals, 100% occluded OM 2 stent placed in 2022 with left to left collaterals Arterial/peripheral duplex was significant for severe bilateral peripheral obstructive arterial disease. Right AMANDA 1.0, left ankle blood pressure unobtainable. Plan: ? Continue home medication ? Continue ASA 81 Mg p.o. daily ? Continue Plavix 75 Mg p.o. daily ? Continue atorvastatin 40 Mg p.o. at bedtime 10. GERD From med rec patient not on any medication at home. Currently patient on high-dose steroids for COPD exacerbation and at risk for peptic ulcers. Plan: ? Continue pantoprazole 40 Mg p.o. daily 11. Nicotine dependence 12. History of methamphetamine abuse On this admission U tox negative for methamphetamine, positive for THC Patient has approximately 50?[id number] smoking history and currently endorses smoking 1 pack/week Plan: ? Continue nicotine patch 7 Mg topical daily 13. Transaminitis - resolving Most likely due to hepatic congestion from CHF exacerbation Patient's AST 167, ALT 121, and ALK phos 139 on admission which down trended to AST 47, ALT 68 and ALP 94 Plan: ? Continue to monitor on CMP Health maintenance: Disposition: Continue IV diuresis. Continue IV antibiotics for pneumonia and breathing treatments. Diet: Cardiac Lines: pIVs GI Prophylaxis: Pantoprazole Thrombo Prophylaxis: Heparin 5000 units SC twice daily Code status: FULL CODE Plan of care discussed with Attending Dr. Villar and PGY2 Dr. Fabiola Nixon MD PGY 1 Attending Provider Attestation/Addendum I, Dulce Maria Villar, DO, attest that I was physically present for the lanza portions of the service and evaluated the patient with the resident and I reviewed and discussed the case with the resident and agree with the resident's findings and plans of care as documented above Patient seen and evaluated this AM. Patient complaining of the quality of food he is being served. However, he is otherwise feeling well and sitting up. B/l LE continue to have 2+ pitting edema ascending to the knees. He is on 2L/NC at this time. Will increase diuretics and continue to trend urinary output. Patient states he uses 2L/NC at home at baseline. He continues to have scattered rhonchi in b/l lung lambert.
--- NOTE | 2024-03-25 09:43 | ESPR_ITS ---
Documentation for date of: 03/25/24 Subjective Subjective Interval history: Patient was seen at bedside this morning. No overnight events. Patient had a few unsustained PVCs upon instructional interventionist review. Patient had total balance of +515 mL in the past 24 hours Recommend to start patient on Bumex 2 mg twice daily for proper diuresis with goal diuresis of 1 to 2 L/day Potassium 4.2 and magnesium 2.1 today, recommend to keep potassium magnesium above 4 and 2 to avoid any further arrhythmias Liver enzymes improving with AST 47 and ALT 68 today Exam Vital Signs Temp Pulse Resp BP Pulse Ox O2 Del Method O2 Flow Rate 97.6 F 93 21 H 113/85 H 93 L Nasal Cannula 2 03/25/24 08:00 03/25/24 08:00 03/25/24 08:00 03/25/24 08:00 03/25/24 08:00 03/25/24 08:00 03/25/24 08:00 FiO2 70 03/25/24 00:00 Narrative Exam General: A/O x3, no acute distress Eyes: PERRL, EOMI. Anicteric, vision grossly intact. Ears: No ear pain, no ear discharge, Hearing grossly intact. Nose: No nasal discharge. Mouth/Throat: Dry mucous membranes, no redness, no lesions. Neck: Neck supple, non-tender, no cervical lymphadenopathy. Lungs: Crackles DAMIÁN, No accessory muscle use. Cardio: Normal S1/S2, regular rhythm, no murmurs, no JVD Abdomen: Soft, non-tender, no palpable masses, peristalsis present, no guarding or rebound. Extremities: Symmetrical, no significant deformities, 2+ peripheral edema , non-tender, peripheral pulses presents. Skin: No rashes, no lesions, warm to touch. Neuro: No focal neurological deficits. motor and sensory intact Psych: Cooperative, appropriate mood and effect. Objective Labs 03/25/24 04:58 03/25/24 04:58 Labs: Laboratory Results - last 24 hr 03/23/24 03/24/24 03/25/24 12:31 16:15 04:58 WBC 7.1 D RBC 4.56 Hgb 14.2 Hct 41.9 MCV 92 MCH 31.1 MCHC 33.9 RDW Std Deviation 49.9 H Plt Count 130 L Neut % (Auto) 82 H Lymph % (Auto) 10 [place] % (Auto) 8 Eos % (Auto) 0 Baso % (Auto) 0 Neut # (Auto) 5.9 Lymph # (Auto) 0.7 L [place] # (Auto) 0.5 Eos # (Auto) 0.0 Baso # (Auto) 0.0 Immature Gran # (Auto) 0.04 H Absolute Nucleated RBC 0.00 Immature Gran % 1 H Nucleated RBC % 0 Sodium 135 L Potassium 4.2 Chloride 98 Carbon Dioxide 28.1 Anion Gap 9 BUN 27 H Creatinine 1.0 Estim Creat Clear Calc 76.2 eGFR > 60 BUN/Creatinine Ratio 27 H Glucose 95 Calculated Osmolality 275 Calcium 9.0 Corrected Calcium 9.6 Phosphorus 3.5 Magnesium 2.1 Total Bilirubin 0.6 AST 47 H ALT 68 H Alkaline Phosphatase 94 D Total Protein 5.4 L Albumin 3.3 L Globulin 2.1 L Albumin/Globulin Ratio 1.6 Urine Opiates Screen Negative Urine Fentanyl Screen Negative Ur Barbiturates Screen Negative U Amphetamin/Meth Scrn Negative U Benzodiazepines Scrn Negative U Cocaine Metab Screen Negative U Marijuana (THC) Screen Positive A Coccidioides IgG Ab Negative Quality Measures Quality Measures VTE prophylaxis Advance care planning discussed with:: patient Assessment & Plan Assessment Current Active Medications: Generic Name Dose Route Start Last Admin Trade Name Freq PRN Reason Stop Dose Admin Acetaminophen 650 mg 03/23/24 03:06 Acetaminophen 325 Mg Tablet PO 04/22/24 03:05 Q6H PRN Pain 1-3 or Fever >100.3 Acetylcysteine 3 ml 03/24/24 13:38 Acetylcysteine Rt Ivone 10% 4 Ml Nebu INH 04/23/24 13:37 Q4HRRT PRN SHORTNESS OF BREATH OR WHEEZE Albuterol/Ipratropium 3 ml 03/24/24 10:00 03/25/24 06:58 Albuterol/Ipratropium (Duoneb) Rt Ivone 3 Ml Nebu INH 04/23/24 09:59 3 ml Q4HRRT JOSE RAMON Administration Aspirin 81 mg 03/23/24 09:00 03/25/24 08:28 Aspirin Ec 81 Mg Tabec PO 04/22/24 08:59 81 mg QDAY JOSE RAMON Administration Atorvastatin Calcium 40 mg 03/24/24 21:00 03/24/24 21:55 Atorvastatin Calcium 20 Mg Tablet PO 04/23/24 20:59 40 mg HS JOSE RAMON Administration Benzonatate 200 mg 12/18/24 13:38 Benzonatate 100 Mg Capsule PO 04/23/24 13:37 Q8HR PRN COUGH Protocol Clopidogrel Bisulfate 75 mg 03/23/24 09:00 03/25/24 08:28 Clopidogrel Bisulfate 75 Mg Tablet PO 04/22/24 08:59 75 mg QDAY JOSE RAMON Administration Furosemide 40 mg 03/25/24 14:00 Furosemide Inj 10 Mg/Ml 4ml Vial IVP 04/24/24 13:59 Q8HR OJSE RAMON Guaifenesin/Dextromethorphan 1 each 03/24/24 12:00 03/25/24 08:27 Guaifenesin/Dm Tablet PO 04/23/24 11:59 1 each BID JOSE RAMON Administration Heparin Sodium (Porcine) 5,000 unit 03/24/24 14:15 03/25/24 08:27 Heparin Sod Inj 5000 Unit/Ml Vial SC 04/07/24 14:14 5,000 unit BID JOSE RAMON Administration Ceftriaxone Sodium/Dextrose 50 mls @ 100 mls/hr 03/23/24 21:00 03/24/24 21:55 Rocephin/D5w 1gm Iv Premix IV 03/30/24 20:59 100 mls/hr HS JOSE RAMON Administration Midodrine 10 mg 03/23/24 14:00 03/25/24 05:24 Midodrine 5 Mg Tablet PO 04/22/24 13:59 10 mg TID JOSE RAMON Administration Nicotine 7 mg 03/23/24 13:00 03/25/24 08:27 Nicotine Patch 7 Mg/24 Hr Patch.Td24 TOP 04/22/24 12:59 7 mg QDAY JOSE RAMON Administration Ondansetron HCl 4 mg 03/23/24 03:06 Ondansetron Inj 2 Mg/Ml Inj 2 Ml IV 04/22/24 03:05 Q6H PRN NAUSEA OR VOMITING Protocol Pantoprazole Sodium 40 mg 03/24/24 09:00 03/25/24 08:28 Pantoprazole 40 Mg Tablet PO 04/23/24 08:59 40 mg QDAY JOSE RAMON Administration Prednisone 40 mg 03/23/24 12:45 03/25/24 08:28 Prednisone 20 Mg Tablet PO 03/28/24 12:44 40 mg QDAY JOSE RAMON Administration Plan 68 y/o male patient with past medical history of CAD s/p PCI to LAD in August 2023, R percent chronically occluded RCA with [id number] collaterals, 100% occluded OM 2 stent placed in 2022 with left to left collaterals,, carotid arterial disease status post TCAR, HFrEF (15-20% 01/2024), August 2023 , ascending thoracic aortic aneurysm at 4.4 cm, Essential hypertension, hyperlipidemia, GERD, active smoker with more than 36-46-ucwi-year smoking history, history of methamphetamine abuse, and medical noncompliance was admitted to the hospital on 03/23/2024 due to Acute decompensated heart failure exacerbation. 1. Acute decompensated heart failure exacerbation 2. HFrEF (EF 15-20% 01/2024) 3. CAD s/p PCI to LAD (August 2023) 4. NSTEMI type 2 5. Hypotension -Patient came in with SOB and DAMIÁN LE swelling -BNP was 3280+ -Initial trops were 0.065 and downtrended -Patient's blood pressure has been low today in the 90s over 60s -Patient had his diuretic changed by his PCP, but not clear to which diuretic -Elevated troponins most likely due to CHF exacerbation -Echo on 01/2024 had the following dfindings: Severe LV dilatation. Severe systolic dysfunction. Severe global hyopokinesis. Stage III diastolic dysfunction. Estimated EF 15-20% Mild RV dilatation. Mild RV systolic dysfunction. Estimated RVSP 43mmHg. Severe LA dilatation. Moderate RA dilatation Moderate MR. Mild TR. There is trival anterior pericardial effusion. No evidence of cardiac tamponade. Plan: -Recommend to continue Bumex 2mg Iv BID for now -Recommend to continue aspirin and plavix -Recommend to continue midodrine 10mg TID -No need for further troponins -Strict SHWETA's -Fluid restrictions -Daily weights -Low sodium diet -Recommend to keep potassium and mg above 4 and 2 respectively to avoid any arrhythmias 6. Elevated liver enzymes 7. Congestive Hepatopathy -Patient's AST 167, ALT 121, and ALK phos 139 on admission -Patient most likely has hepatic congestion secondary to heart failure -Continue current management as per primary care team 8. Community acquired pnuemonia -Onocephin -Continue management as per primary care team Continue rest of management as per primary team. We are grateful to be able to participate in Mr. Rg' care. Thank you for the consult Plan of care discussed with attending Combination Saw Operator, Dr. Ritu Arndt MD PGY-1 Attending Provider Attestation/Addendum I have personally seen and examined the patient separately on the above date of service and discussed the plan of care with the resident. I reviewed the resident Dr. De La Rosa consultation progress note and agree with the resident findings and plan in the note above and have also edited the documentation to reflect my findings and plan. Sky Chaney M.D. Interventional Cardiology
--- NOTE | 2024-03-25 14:00 | CHAP ---
09:30 AM Visited by spiritual care volunteer Provided prayer for Patient.
--- NOTE | 2024-03-25 14:23 | PC.SS ---
INTERNET SECURITY SPECIALIST provided patient and family with Advance Directive. Patient to complete form at own discretion.
--- NOTE | 2024-03-25 15:10 | PC.SS ---
Rounding note; Patient will discharge tomorrow.
[2024-03-25] MEDS: cefTRIAXone/D5w 1gm IV premix 50 ML IV (20:18)
[2024-03-25] MEDS: ATORVASTATIN CALCIUM 20 MG TABLET 40 MG PO (20:19)
[2024-03-26] VITALS (16 sets, daily range): BP systolic 90–113; BP diastolic 59–80; PULSE 71–97; RESP 14–21; TEMP 36.1–36.3; O2SAT 95–100; BMI 28.2; BMI 28.3
[2024-03-26] MEDS: ALBUTEROL/IPRATROPIUM (Duoneb) RT SOL 3 ML NEBU INH ×4 (00:41→23:37)
[2024-03-26] MEDS: MIDODRINE 5 MG TABLET 10 MG PO ×3 (05:05→21:40)
[2024-03-26 06:00] LABS: Basophils % (Auto) 0 % (0-2.5); Eosinophils % (Auto) 0 % (0-10); Hemoglobin 14.7 g/dL (13.5-16.0); Immature Granulocytes % (Auto) 0 % (0-0); Immature Granulocytes Auto 0.01 Thou/mm3 (0.00-0.00); Lymphocytes # (Auto) 0.9 Thou/mm3 (1.0-4.8); Lymphocytes % (Auto) 21 % (10-50); Mean Corpuscular Hemoglobin 31.3 pg (25.0-35.0); Mean Corpuscular Volume 90 fL (80-100); Monocytes # (Auto) 0.4 Thou/mm3 (0.0-0.8); Monocytes % (Auto) 10 % (0-12); Neutrophils # (Auto) 2.9 Thou/mm3 (1.8-7.7); Neutrophils % (Auto) 69 % (37-80); Nucleated Red Blood Cell % 0 /100 WBC (0); Platelet Count 126 Thou/mm3 (140-440); RDW Standard Deviation 48.5 fL (35.1-43.9); Red Blood Count 4.69 Miln/mm3 (4.50-5.90); White Blood Count 4.2 Thou/mm3 (3.8-10.6)
[2024-03-26 06:28] LABS: Alanine Aminotransferase 76 U/L (10-49); Albumin, Serum 3.6 gm/dL (3.4-4.8); Albumin/Globulin Ratio 1.8 (1.2-2.2); Alkaline Phosphatase 103 U/L (46-116); Anion Gap 7 (7-16); Aspartate Amino Transferase 52 U/L (0-34); BUN/Creatinine Ratio 24 Ratio (12-20); Bilirubin,Total 0.7 mg/dL (0.3-1.2); Blood Urea Nitrogen 26 mg/dL (9-23); Calcium 8.9 mg/dL (8.3-10.6); Calcium (Corrected) 9.2 mg/dL (8.5-10.1); Chloride 97 mMol/L (98-107); Creatinine (Component) 1.1 mg/dL (0.6-1.3); Estimated Creatinine Clearance 69.2 mL/min (>60); Glucose 98 mg/dL (74-106); Osmolality,Calculated 274 (275-295); Phosphorous 3.1 mg/dL (2.4-5.1); Potassium 3.7 mMol/L (3.4-5.1); Sodium 135 mMol/L (136-145); Total Protein 5.6 gm/dL (5.7-8.2); eGFR > 60 See Note
[2024-03-26] MEDS: PANTOPRAZOLE 40 MG TABLET PO (08:22)
[2024-03-26] MEDS: POTASSIUM CHLORIDE 20 mEq TABCR 40 MEQ PO (08:22)
[2024-03-26] MEDS: CLOPIDOGREL BISULFATE 75 MG TABLET PO (08:22)
[2024-03-26] MEDS: BUMETANIDE INJ 0.25 MG/ML VIAL 4 ML 2 MG IVP ×2 (08:22→21:38)
[2024-03-26] MEDS: Magnesium Sulfate 2 GM Ivpb 2 GM/50 ML BAG IV (08:22)
[2024-03-26] MEDS: guaiFENesin/DM TABLET 1 EACH PO ×2 (08:22→21:41)
[2024-03-26] MEDS: ASPIRIN EC 81 MG TABEC PO (08:22)
[2024-03-26] MEDS: predniSONE 20 MG TABLET 40 MG PO (08:22)
[2024-03-26] MEDS: NICOTINE PATCH 7 MG/24 HR PATCH.TD24 TOP (08:22)
[2024-03-26] MEDS: HEPARIN SOD INJ 5000 UNIT/ML VIAL SC ×2 (08:23→21:41)
--- NOTE | 2024-03-26 09:31 | ESPR_ITS ---
<Statement entered by Shonda Navarro MD - 03/26/24 18:18> I discussed with and supervised my co-resident involved in the care of this patient. I agree with the assessment and plan as documented above. #Acute hypoxic respiratory failure - improving. Back to baseline O2 requriements. #Acute decompensated HFrEF - now on Bumex 2mg BID. Swelling improve. continue diruesis, re-evaluate tomorrow. Cardiology following. #CAP - on IV antibiotics. Anticipate discharge within next 48 hours. Shonda Navarro MD PGY-3 Documentation for date of: 03/26/24 Subjective Subjective Interval history: Garrison Rg is a 68 year old male past medical of CAD with stent placement, HFrEF, PAD, meth use, and tobacco use who initially presented in light of worsening dyspnea and leg edema admitted for acute respiratory distress likely from CHF exacerbation. CXR also suggested possible PNA so has been on ceftrizone and azithromycin. Patient on Bumex 2mg bid for diuresis at this time 03/26/2024 Patient seen at bedside. No acute overnight events. Patient says that he has a cough but it is improved. He also feels short of breath but he says this is also improved. Denies any new chest pain, abdominal pain, nausea and vomiting. Patient on diuresis with Bumex 2mg IV bid. Ins: 1080 Outs: 2300 Net: -1220 Tele: Rates around 70 with occasional PVC's Exam Vital Signs Temp Pulse Resp BP Pulse Ox O2 Del Method O2 Flow Rate 97 F 77 18 113/77 100 Nasal Cannula 2 03/26/24 04:00 03/26/24 08:22 03/26/24 07:07 03/26/24 08:22 03/26/24 07:07 03/26/24 04:00 03/26/24 07:07 FiO2 70 03/26/24 04:00 Narrative Exam Constitutional: Alert and oriented to person place and time. Resting in bed. NECK: Supple, nontender, no thyromegaly, no meningismus, no JVD, no step offs CHEST: Symmetrical, atraumatic, and with equal expansion , Nontender on palpation no deformity and no crepitus. CARDIOVASCULAR: Heart regular rhythm no murmur or gallop rub or extra beats. LUNGS: Crackles mid to lower zone bilaterally noted on exam improved slightly from yesterday : Scrotal edema improved ABDOMEN: Soft, flat, nontender to palpation, no guarding or rebound tenderness.? There are no abnormal masses palpated.? Active and normal bowel sounds. EXTREMITIES: 2+ pitting edema in legs up to calves - improved Patient was seen and discussed with attending physician, Dr. Villar and resident physician, , PGY1 and Dr. Hicks, PGY 2 Asim Hubbard Medical student I have seen and examined the patient with medical student Asim Hubbard , agree with his findings and have edited it with my assessment as well. Frankie Nixon MD PGY1 Objective Labs 03/27/24 04:33 03/27/24 04:33 Labs: Laboratory Results - last 24 hr 03/26/24 04:27 WBC 4.2 D RBC 4.69 Hgb 14.7 Hct 42.0 MCV 90 MCH 31.3 MCHC 35.0 RDW Std Deviation 48.5 H Plt Count 126 L Neut % (Auto) 69 Lymph % (Auto) 21 [place] % (Auto) 10 Eos % (Auto) 0 Baso % (Auto) 0 Neut # (Auto) 2.9 Lymph # (Auto) 0.9 L [place] # (Auto) 0.4 Eos # (Auto) 0.0 Baso # (Auto) 0.0 Immature Gran # (Auto) 0.01 H Absolute Nucleated RBC 0.00 Immature Gran % 0 Nucleated RBC % 0 Sodium 135 L Potassium 3.7 D Chloride 97 L Carbon Dioxide 31.0 Anion Gap 7 BUN 26 H Creatinine 1.1 Estim Creat Clear Calc 69.2 eGFR > 60 BUN/Creatinine Ratio 24 H Glucose 98 Calculated Osmolality 274 L Calcium 8.9 Corrected Calcium 9.2 Phosphorus 3.1 Magnesium 2.0 Total Bilirubin 0.7 AST 52 H ALT 76 H Alkaline Phosphatase 103 Total Protein 5.6 L Albumin 3.6 Globulin 2.0 L Albumin/Globulin Ratio 1.8 Quality Measures Quality Measures VTE prophylaxis Advance care planning discussed with:: patient Assessment & Plan Assessment Current Active Medications: Generic Name Dose Route Start Last Admin Trade Name Freq PRN Reason Stop Dose Admin Acetaminophen 650 mg 03/23/24 03:06 Acetaminophen 325 Mg Tablet PO 04/22/24 03:05 Q6H PRN Pain 1-3 or Fever >100.3 Acetylcysteine 3 ml 03/24/24 13:38 Acetylcysteine Rt Ivone 10% 4 Ml Nebu INH 04/23/24 13:37 Q4HRRT PRN SHORTNESS OF BREATH OR WHEEZE Albuterol/Ipratropium 3 ml 03/25/24 13:00 03/26/24 07:06 Albuterol/Ipratropium (Duoneb) Rt Ivone 3 Ml Nebu INH 04/24/24 12:59 3 ml Q6HRRT JOSE RAMON Administration Aspirin 81 mg 03/23/24 09:00 03/26/24 08:22 Aspirin Ec 81 Mg Tabec PO 04/22/24 08:59 81 mg QDAY JOSE RAMON Administration Atorvastatin Calcium 40 mg 03/24/24 21:00 03/25/24 20:19 Atorvastatin Calcium 20 Mg Tablet PO 04/23/24 20:59 40 mg HS JOSE RAMON Administration Benzonatate 200 mg 03/24/24 13:38 Benzonatate 100 Mg Capsule PO 04/23/24 13:37 Q8HR PRN COUGH Protocol Bumetanide 2 mg 03/26/24 09:00 03/26/24 08:22 Bumetanide Inj 0.25 Mg/Ml Vial 4 Ml IVP 04/25/24 08:59 2 mg BID JOSE RAMON Administration Clopidogrel Bisulfate 75 mg 03/23/24 09:00 03/26/24 08:22 Clopidogrel Bisulfate 75 Mg Tablet PO 04/22/24 08:59 75 mg QDAY JOSE RAMON Administration Guaifenesin/Dextromethorphan 1 each 03/24/24 12:00 03/26/24 08:22 Guaifenesin/Dm Tablet PO 04/23/24 11:59 1 each BID JOSE RAMON Administration Heparin Sodium (Porcine) 5,000 unit 03/24/24 14:15 03/26/24 08:23 Heparin Sod Inj 5000 Unit/Ml Vial SC 04/07/24 14:14 5,000 unit BID JOSE RAMON Administration Ceftriaxone Sodium/Dextrose 50 mls @ 100 mls/hr 03/23/24 21:00 03/25/24 20:18 Rocephin/D5w 1gm Iv Premix IV 03/30/24 20:59 100 mls/hr HS JOSE RAMON Administration Magnesium Sulfate 2 gm in 50 mls @ 25 mls/hr 03/26/24 07:40 03/26/24 08:22 Magnesium Sulfate Ivpb IV 03/26/24 09:39 25 mls/hr X1 ONE Administration Midodrine 10 mg 03/23/24 14:00 03/26/24 05:05 Midodrine 5 Mg Tablet PO 04/22/24 13:59 10 mg TID JOSE RAMON Administration Nicotine 7 mg 03/23/24 13:00 03/26/24 08:22 Nicotine Patch 7 Mg/24 Hr Patch.Td24 TOP 04/22/24 12:59 7 mg QDAY JOSE RAMON Administration Ondansetron HCl 4 mg 03/23/24 03:06 Ondansetron Inj 2 Mg/Ml Inj 2 Ml IV 04/22/24 03:05 Q6H PRN NAUSEA OR VOMITING Protocol Pantoprazole Sodium 40 mg 03/24/24 09:00 03/26/24 08:22 Pantoprazole 40 Mg Tablet PO 04/23/24 08:59 40 mg QDAY JOSE RAMON Administration Prednisone 40 mg 03/23/24 12:45 03/26/24 08:22 Prednisone 20 Mg Tablet PO 03/28/24 12:44 40 mg QDAY JOSE RAMON Administration Plan Patient is a 68-year-old male with a past medical history significant for CAD s/p stents [2022, August 2023], HFrEF [15-20% 01/2024], ascending thoracic aorta aneurysm [4.4 cm], carotid artery disease s/p TCAR, essential hypertension, hyperlipidemia, GERD, nicotine dependence [50-60 pack years], history of methamphetamine abuse and medication noncompliance, COPD, PAD. Patient presented with a chief complaint of SOB. Patient was admitted for workup and management of acute respiratory failure with hypoxia secondary to acute decompensated heart failure exacerbation versus CAP versus COPD exacerbation. 1. Acute on chronic respiratory failure with hypoxia - resolving Secondary to 2. Acute decompensated chronic systolic and diastolic congestive heart failure exacerbation [EF 15-20%] VS community-acquired pneumonia VS COPD exacerbation. Patient presented with as progressively worsening SOB, PND and orthopnea. On exam he had bilateral crackles and rhonchi heard from mid to lower zones bilaterally. He also had 3+ lower extremity edema up to hips bilaterally with scrotal edema as well. Chest x-ray significant for cardiomegaly, bilateral pulmonary edema with small pleural effusion right lung base, questionable consolidation at left lung base. Chest CTA was negative for any pulmonary artery emboli, mild aneurysm dilation of ascending thoracic aorta [4.5 cm] and moderate CHF with possible superimposed pneumonia B/L Lower extremity venous Doppler was negative for DVT. Transthoracic echocardiogram completed on 01/12/2024 findings include: Severe LV dilatation. Severe systolic dysfunction. Severe global hyopokinesis. Stage III diastolic dysfunction. Estimated EF 15-20% Mild RV dilatation. Mild RV systolic dysfunction. Estimated RVSP 43mmHg. Severe LA dilatation. Moderate RA dilatation Moderate MR. Mild TR. There is trival anterior pericardial effusion. No evidence of cardiac tamponade. BNP on admission >3280. Patient has improvement of his SOB and cough today Patient had a fluid balance of -1220 cc over past 24 hours. Plan: ? Strict input output charting ? 2G sodium restricted diet ? 1500 cc/day fluid restriction ? Daily weights ? Midodrine 10 Mg p.o. 3 times daily ? Continue diureses with Bumex 2mg IV BID as per Cardiology recommendations ? Patient currently not on any beta-blockers due to acute heart failure exacerbation. Also not on any other GDMT due to noncompliance and currently patient has low blood pressures. Of note on previous admission patient was on dopamine infusion for low blood pressures. ? Cardiology, Dr. Chaney was consulted and is closely following the case. Appreciate recommendations 3. Community-acquired pneumonia 4. COPD exacerbation - resolving Patient presented with as progressively worsening SOB, PND and orthopnea. Also had nonproductive cough. On exam he had bilateral crackles and rhonchi heard from mid to lower zones bilaterally. He also had 3+ lower extremity edema up to hips bilaterally with scrotal edema as well. Chest x-ray significant for cardiomegaly, bilateral pulmonary edema with small pleural effusion right lung base, questionable consolidation at left lung base. Chest CTA was negative for any pulmonary artery emboli, mild aneurysm dilation of ascending thoracic aorta [4.5 cm] and moderate CHF with possible superimposed pneumonia B/L Curb- 65 : 3 points ; Severe risk group ; Consider inpatient care with possible ICU admission. PSI/PORT score : 119 points; risk class IV; hospitalization recommended based on risk. Completed 3 days of azithromycin 500 Mg IV daily from [03/23?03/25] Plan: - Wean off oxygen as tolerated ? Decreased DuoNebs to Q8 hourly from Q6 hourly ? Continue Mucinex 1 tab p.o. twice daily ? Continue chest physiotherapy with vest Q4 hourly ? Continue chest physiotherapy with Acapella device ? D4 prednisone 40 Mg p.o. daily for a total of 5 days started on [03/23? ? D4 ceftriaxone 1G IV daily started on [03/23? 5. NSTEMI type I versus type II Patient had no typical ACS symptoms on presentation. Troponin initially mildly elevated at 0.065 down trended to 0.057 Likely type II NSTEMI in setting of heart failure exacerbation. Cardiology recommended no need for further trending of troponin and also no need for heparin infusion. 6. Peripheral arterial disease 7. Carotid artery stenosis s/p TCAR 8. CAD s/p stents [2022, August 2023] 9. Hyperlipidemia Home medication aspirin, Plavix and atorvastatin 40 Mg p.o. at bedtime PCI to LAD in August 2023, 100 percent chronically occluded RCA with [id number] collaterals, 100% occluded OM 2 stent placed in 2022 with left to left collaterals Arterial/peripheral duplex was significant for severe bilateral peripheral obstructive arterial disease. Right AMANDA 1.0, left ankle blood pressure unobtainable. Plan: ? Continue home medication ? Continue ASA 81 Mg p.o. daily ? Continue Plavix 75 Mg p.o. daily ? Continue atorvastatin 40 Mg p.o. at bedtime 10. GERD From med rec patient not on any medication at home. Currently patient on high-dose steroids for COPD exacerbation and at risk for peptic ulcers. Plan: ? Continue pantoprazole 40 Mg p.o. daily 11. Nicotine dependence 12. History of methamphetamine abuse On this admission U tox negative for methamphetamine, positive for THC Patient has approximately [id number] smoking history and currently endorses smoking 1 pack/week Plan: ? Continue nicotine patch 7 Mg topical daily 13. Transaminitis - resolving Most likely due to hepatic congestion from CHF exacerbation Patient's AST 167, ALT 121, and ALK phos 139 on admission which down trended to AST 47, ALT 68 and ALP 94 Plan: ? Continue to monitor on CMP Health maintenance: Disposition: Continue IV diuresis. Continue IV antibiotics for pneumonia and breathing treatments. Diet: Cardiac Lines: pIVs GI Prophylaxis: Pantoprazole Thrombo Prophylaxis: Heparin 5000 units SC twice daily Code status: FULL CODE Plan of care discussed with Attending Dr. Villar and PGY3 Dr. Raomn Nixon MD PGY 1 Attending Provider Attestation/Addendum I, Dulce Maria Villar, DO, attest that I was physically present for the lanza portions of the service and evaluated the patient with the resident and I reviewed and discussed the case with the resident and agree with the resident's findings and plans of care as documented above Patient seen and evaluated this AM. Patient states he is feeling much improved today and waiting to work with physical therapy. B/l LE edema has decreased and is 2+ pitting up to his shins. Will continue with IV diuresis and anticipate discharge within next 24h if patient condition continues to improve. Patient counselled on fluid restrictions.
--- NOTE | 2024-03-26 10:50 | ESPR_ITS ---
Documentation for date of: 03/26/24 Subjective Subjective Interval history: Patient was seen at bedside this morning. No overnight events. Patient again had a few unsustained PVCs upon software development leader review. Patient had total balance of -1.2 L in the past 24 hours Recommend to continue patient on Bumex 2 mg twice daily for proper diuresis with goal diuresis of 1 to 2 L/day as patient appears fluid overload Potassium 3.7 and magnesium 2 today, recommend to keep potassium magnesium above 4 and 2 to avoid any further arrhythmias Liver enzymes stable with AST 52 and ALT 76 today Exam Vital Signs Temp Pulse Resp BP Pulse Ox O2 Del Method O2 Flow Rate 96.9 F 77 18 113/77 96 Nasal Cannula 2 03/26/24 08:00 03/26/24 08:22 03/26/24 08:00 03/26/24 08:22 03/26/24 08:00 03/26/24 08:00 03/26/24 08:00 FiO2 70 03/26/24 04:00 Narrative Exam General: A/O x3, no acute distress Eyes: PERRL, EOMI. Anicteric, vision grossly intact. Ears: No ear pain, no ear discharge, Hearing grossly intact. Nose: No nasal discharge. Mouth/Throat: Dry mucous membranes, no redness, no lesions. Neck: Neck supple, non-tender, no cervical lymphadenopathy. Lungs: Crackles DAMIÁN, No accessory muscle use. Cardio: Normal S1/S2, regular rhythm, no murmurs, no JVD Abdomen: Soft, non-tender, no palpable masses, peristalsis present, no guarding or rebound. Extremities: Symmetrical, no significant deformities, 2+ peripheral edema , non-tender, peripheral pulses presents. Skin: No rashes, no lesions, warm to touch. Neuro: No focal neurological deficits. motor and sensory intact Psych: Cooperative, appropriate mood and effect. Objective Labs 03/26/24 04:27 03/26/24 04:27 Labs: Laboratory Results - last 24 hr 03/26/24 04:27 WBC 4.2 D RBC 4.69 Hgb 14.7 Hct 42.0 MCV 90 MCH 31.3 MCHC 35.0 RDW Std Deviation 48.5 H Plt Count 126 L Neut % (Auto) 69 Lymph % (Auto) 21 [place] % (Auto) 10 Eos % (Auto) 0 Baso % (Auto) 0 Neut # (Auto) 2.9 Lymph # (Auto) 0.9 L [place] # (Auto) 0.4 Eos # (Auto) 0.0 Baso # (Auto) 0.0 Immature Gran # (Auto) 0.01 H Absolute Nucleated RBC 0.00 Immature Gran % 0 Nucleated RBC % 0 Sodium 135 L Potassium 3.7 D Chloride 97 L Carbon Dioxide 31.0 Anion Gap 7 BUN 26 H Creatinine 1.1 Estim Creat Clear Calc 69.2 eGFR > 60 BUN/Creatinine Ratio 24 H Glucose 98 Calculated Osmolality 274 L Calcium 8.9 Corrected Calcium 9.2 Phosphorus 3.1 Magnesium 2.0 Total Bilirubin 0.7 AST 52 H ALT 76 H Alkaline Phosphatase 103 Total Protein 5.6 L Albumin 3.6 Globulin 2.0 L Albumin/Globulin Ratio 1.8 Quality Measures Quality Measures VTE prophylaxis Advance care planning discussed with:: patient Assessment & Plan Assessment Current Active Medications: Generic Name Dose Route Start Last Admin Trade Name Freq PRN Reason Stop Dose Admin Acetaminophen 650 mg 03/23/24 03:06 Acetaminophen 325 Mg Tablet PO 04/22/24 03:05 Q6H PRN Pain 1-3 or Fever >100.3 Acetylcysteine 3 ml 03/24/24 13:38 Acetylcysteine Rt Ivone 10% 4 Ml Nebu INH 04/23/24 13:37 Q4HRRT PRN SHORTNESS OF BREATH OR WHEEZE Albuterol/Ipratropium 3 ml 03/25/24 13:00 03/26/24 07:06 Albuterol/Ipratropium (Duoneb) Rt Ivone 3 Ml Nebu INH 04/24/24 12:59 3 ml Q6HRRT JOSE RAMON Administration Aspirin 81 mg 03/23/24 09:00 03/26/24 08:22 Aspirin Ec 81 Mg Tabec PO 04/22/24 08:59 81 mg QDAY JOSE RAMON Administration Atorvastatin Calcium 40 mg 03/24/24 21:00 03/25/24 20:19 Atorvastatin Calcium 20 Mg Tablet PO 04/23/24 20:59 40 mg HS JOSE RAMON Administration Benzonatate 200 mg 03/24/24 13:38 Benzonatate 100 Mg Capsule PO 04/23/24 13:37 Q8HR PRN COUGH Protocol Bumetanide 2 mg 03/26/24 09:00 03/26/24 08:22 Bumetanide Inj 0.25 Mg/Ml Vial 4 Ml IVP 04/25/24 08:59 2 mg BID JOSE RAMON Administration Clopidogrel Bisulfate 75 mg 03/23/24 09:00 03/26/24 08:22 Clopidogrel Bisulfate 75 Mg Tablet PO 04/22/24 08:59 75 mg QDAY JOSE RAMON Administration Guaifenesin/Dextromethorphan 1 each 03/24/24 12:00 03/26/24 08:22 Guaifenesin/Dm Tablet PO 04/23/24 11:59 1 each BID JOSE RAMON Administration Heparin Sodium (Porcine) 5,000 unit 03/24/24 14:15 03/26/24 08:23 Heparin Sod Inj 5000 Unit/Ml Vial SC 04/07/24 14:14 5,000 unit BID JOSE RAMON Administration Ceftriaxone Sodium/Dextrose 50 mls @ 100 mls/hr 03/23/24 21:00 03/25/24 20:18 Rocephin/D5w 1gm Iv Premix IV 03/30/24 20:59 100 mls/hr HS JOSE RAMON Administration Midodrine 10 mg 03/23/24 14:00 03/26/24 05:05 Midodrine 5 Mg Tablet PO 04/22/24 13:59 10 mg TID JOSE RAMON Administration Nicotine 7 mg 03/23/24 13:00 03/26/24 08:22 Nicotine Patch 7 Mg/24 Hr Patch.Td24 TOP 04/22/24 12:59 7 mg QDAY JOSE RAMON Administration Ondansetron HCl 4 mg 03/23/24 03:06 Ondansetron Inj 2 Mg/Ml Inj 2 Ml IV 04/22/24 03:05 Q6H PRN NAUSEA OR VOMITING Protocol Pantoprazole Sodium 40 mg 03/24/24 09:00 03/26/24 08:22 Pantoprazole 40 Mg Tablet PO 04/23/24 08:59 40 mg QDAY JOSE RAMON Administration Prednisone 40 mg 03/23/24 12:45 03/26/24 08:22 Prednisone 20 Mg Tablet PO 03/28/24 12:44 40 mg QDAY JOSE RAMON Administration Plan 68 y/o male patient with past medical history of CAD s/p PCI to LAD in August 2023, R percent chronically occluded RCA with [id number]-heowd collaterals, 100% occluded OM 2 stent placed in 2022 with left to left collaterals,, carotid arterial disease status post TCAR, HFrEF (15-20% 01/2024), August 2023 , ascending thoracic aortic aneurysm at 4.4 cm, Essential hypertension, hyperlipidemia, GERD, active smoker with more than 40-32-qdsy-year smoking history, history of methamphetamine abuse, and medical noncompliance was admitted to the hospital on 03/23/2024 due to Acute decompensated heart failure exacerbation. 1. Acute decompensated heart failure exacerbation 2. HFrEF (EF 15-20% 01/2024) 3. CAD s/p PCI to LAD (August 2023) 4. NSTEMI type 2 5. Hypotension -Patient came in with SOB and DAMIÁN LE swelling -BNP was 3280+ -Initial trops were 0.065 and downtrended -Patient's blood pressure has been low today in the 90s over 60s -Patient had his diuretic changed by his PCP, but not clear to which diuretic -Elevated troponins most likely due to CHF exacerbation -Echo on 01/2024 had the following dfindings: Severe LV dilatation. Severe systolic dysfunction. Severe global hyopokinesis. Stage III diastolic dysfunction. Estimated EF 15-20% Mild RV dilatation. Mild RV systolic dysfunction. Estimated RVSP 43mmHg. Severe LA dilatation. Moderate RA dilatation Moderate MR. Mild TR. There is trival anterior pericardial effusion. No evidence of cardiac tamponade. Plan: -Recommend to continue Bumex 2mg Iv BID for now -Recommend to continue aspirin and plavix -Recommend to continue midodrine 10mg TID -No need for further troponins -Strict SHWETA's -Fluid restrictions -Daily weights -Low sodium diet -Recommend to keep potassium and mg above 4 and 2 respectively to avoid any arrhythmias 6. Elevated liver enzymes 7. Congestive Hepatopathy -Patient's AST 167, ALT 121, and ALK phos 139 on admission -Patient most likely has hepatic congestion secondary to heart failure -Continue current management as per primary care team 8. Community acquired pnuemonia -Onocephin -Continue management as per primary care team Continue rest of management as per primary team. We are grateful to be able to participate in Mr. Rg' care. Thank you for the consult Plan of care discussed with attending Shredded Filler Hopper Feeder, Dr. Ritu Arndt MD PGY-1 Attending Provider Attestation/Addendum I have personally seen and examined the patient separately on the above date of service and discussed the plan of care with the resident. I reviewed the resident Dr. De La Rosa consultation progress note and agree with the resident findings and plan in the note above and have also edited the documentation to reflect my findings and plan. Sky Chaney M.D. Interventional Cardiology
--- NOTE | 2024-03-26 11:00 | CHAP ---
Patient was visited by the Spiritual Care Volunteer who prayed for them. (Volunteer was in the hospital from 09:45-11:00)
--- NOTE | 2024-03-26 11:02 | PC.RT ---
Spoke to patient and he states he wears O2 at home at 2L NC on a PRN basis.
--- NOTE | 2024-03-26 12:12 | PC.PT ---
Patient will be D/C from PT services secondary to he is xI with bed mobility, transfers, and ambulation while using O2 and a FWW. Patient is at his PLOF. RN notified.
[2024-03-26] MEDS: cefTRIAXone/D5w 1gm IV premix 50 ML IV (21:36)
[2024-03-26] MEDS: ATORVASTATIN CALCIUM 20 MG TABLET 40 MG PO (21:40)
[2024-03-27] VITALS (16 sets, daily range): BP systolic 87–115; BP diastolic 64–96; PULSE 60–98; RESP 14–20; TEMP 35.9–36.4; O2SAT 93–100; BMI 21.5
--- NOTE | 2024-03-27 04:09 | PC.NURSE ---
, Dr Haji, notified of B/P this AM, checked twice B/P 88/64 , 87/68 with MAP-74, P-70, has midodrine scheduled this morning at 0600, was given a dose at 2200 last night, pt resting asleep, comfortable, no s/s reported, okay with MAP, no new orders received.
[2024-03-27] MEDS: MIDODRINE 5 MG TABLET 10 MG PO ×3 (05:15→21:12)
[2024-03-27 05:51] LABS: Basophils % (Auto) 0 % (0-2.5); Eosinophils % (Auto) 0 % (0-10); Hematocrit 47.2 % (41.0-53.0); Hemoglobin 15.8 g/dL (13.5-16.0); Immature Granulocytes % (Auto) 1 % (0-0); Immature Granulocytes Auto 0.03 Thou/mm3 (0.00-0.00); Lymphocytes # (Auto) 1.2 Thou/mm3 (1.0-4.8); Lymphocytes % (Auto) 22 % (10-50); Mean Corpuscular HGB Conc 33.5 g/dl (31.0-37.0); Mean Corpuscular Hemoglobin 30.3 pg (25.0-35.0); Mean Corpuscular Volume 91 fL (80-100); Monocytes # (Auto) 0.4 Thou/mm3 (0.0-0.8); Monocytes % (Auto) 8 % (0-12); Neutrophils # (Auto) 3.7 Thou/mm3 (1.8-7.7); Neutrophils % (Auto) 70 % (37-80); Nucleated Red Blood Cell % 0 /100 WBC (0); Platelet Count 149 Thou/mm3 (140-440); RDW Standard Deviation 49.6 fL (35.1-43.9); Red Blood Count 5.21 Miln/mm3 (4.50-5.90); White Blood Count 5.3 Thou/mm3 (3.8-10.6)
[2024-03-27 06:37] LABS: Alanine Aminotransferase 80 U/L (10-49); Albumin/Globulin Ratio 1.7 (1.2-2.2); Alkaline Phosphatase 110 U/L (46-116); Anion Gap 6 (7-16); Aspartate Amino Transferase 59 U/L (0-34); BUN/Creatinine Ratio 24 Ratio (12-20); Bilirubin,Total 0.6 mg/dL (0.3-1.2); Blood Urea Nitrogen 29 mg/dL (9-23); Calcium 9.2 mg/dL (8.3-10.6); Calcium (Corrected) 9.2 mg/dL (8.5-10.1); Carbon Dioxide 32.9 mMol/L (20.0-31.0); Chloride 97 mMol/L (98-107); Creatinine (Component) 1.2 mg/dL (0.6-1.3); Estimated Creatinine Clearance 54.2 mL/min (>60); Globulin 2.3 gm/dL (2.3-3.5); Glucose 101 mg/dL (74-106); Magnesium 2.2 mg/dL (1.6-2.6); Osmolality,Calculated 277 (275-295); Potassium 4.4 mMol/L (3.4-5.1); Sodium 136 mMol/L (136-145); Total Protein 6.3 gm/dL (5.7-8.2); eGFR > 60 See Note
--- NOTE | 2024-03-27 08:07 | PD.RESPRO ---
Documentation for date of: 03/27/24 Subjective Subjective Interval history: Patient examined at bedside.Overnight patients BP had dropped to about 86 systolic so was given his scheduled Midodrine 10 mg. BP improved. Patient reports that he is feeling a little better this morning. Continues to be short of breath at rest. He says his cough has improved and occurs less frequently. Had difficultly sleeping last night because he felt anxious. Denies any abdominal pain, nausea, and vomiting. Ins: 1080ml Outs: 3650 Balance: -2570 Telemetry: Has been sinus Rhythm. HR at 97. Occasional PVC's Exam Vital Signs Temp Pulse Resp BP Pulse Ox O2 Del Method O2 Flow Rate 97.3 F 64 18 87/68 L 99 Nasal Cannula 1 03/27/24 04:00 03/27/24 05:15 03/27/24 04:00 03/27/24 05:15 03/27/24 04:00 03/27/24 04:00 03/27/24 04:00 FiO2 70 03/26/24 04:00 Narrative Exam Constitutional: Alert and oriented to person, place, and time. Sitting comfortably in bed, eating breakfast. CHEST: Symmetrical, atraumatic, and with equal expansion , Nontender on palpation no deformity and no crepitus. CARDIOVASCULAR: Heart regular rhythm no murmur or gallop rub or extra beats. LUNGS: Crackles noted in lower lung lambert bilatearlly, improved. ABDOMEN: Soft, flat, nontender to palpation, no guarding or rebound tenderness.? There are no abnormal masses palpated.? Active and normal bowel sounds. EXTREMITIES: 2+ pitting edema up calves Objective Labs 03/28/24 04:55 03/28/24 04:55 Labs: Laboratory Results - last 24 hr 03/27/24 04:33 WBC 5.3 RBC 5.21 Hgb 15.8 Hct 47.2 MCV 91 MCH 30.3 MCHC 33.5 RDW Std Deviation 49.6 H Plt Count 149 Neut % (Auto) 70 Lymph % (Auto) 22 [place] % (Auto) 8 Eos % (Auto) 0 Baso % (Auto) 0 Neut # (Auto) 3.7 Lymph # (Auto) 1.2 [place] # (Auto) 0.4 Eos # (Auto) 0.0 Baso # (Auto) 0.0 Immature Gran # (Auto) 0.03 H Absolute Nucleated RBC 0.00 Immature Gran % 1 H Nucleated RBC % 0 Sodium 136 Potassium 4.4 D Chloride 97 L Carbon Dioxide 32.9 H Anion Gap 6 L BUN 29 H Creatinine 1.2 Estim Creat Clear Calc 54.2 L eGFR > 60 BUN/Creatinine Ratio 24 H Glucose 101 Calculated Osmolality 277 Calcium 9.2 Corrected Calcium 9.2 Phosphorus 3.0 Magnesium 2.2 Total Bilirubin 0.6 AST 59 H ALT 80 H Alkaline Phosphatase 110 Total Protein 6.3 Albumin 4.0 Globulin 2.3 Albumin/Globulin Ratio 1.7 Quality Measures Quality Measures VTE prophylaxis Advance care planning discussed with:: patient Assessment & Plan Assessment Current Active Medications: Generic Name Dose Route Start Last Admin Trade Name Freq PRN Reason Stop Dose Admin Acetaminophen 650 mg 03/23/24 03:06 Acetaminophen 325 Mg Tablet PO 04/22/24 03:05 Q6H PRN Pain 1-3 or Fever >100.3 Acetylcysteine 3 ml 03/24/24 13:38 Acetylcysteine Rt Ivone 10% 4 Ml Nebu INH 04/23/24 13:37 Q4HRRT PRN SHORTNESS OF BREATH OR WHEEZE Albuterol/Ipratropium 3 ml 03/26/24 23:00 03/26/24 23:37 Albuterol/Ipratropium (Duoneb) Rt Ivone 3 Ml Nebu INH 04/25/24 22:59 3 ml Q8HRRT JOSE RAMON Administration Aspirin 81 mg 03/23/24 09:00 03/26/24 08:22 Aspirin Ec 81 Mg Tabec PO 04/22/24 08:59 81 mg QDAY JOSE RAMON Administration Atorvastatin Calcium 40 mg 03/24/24 21:00 03/26/24 21:40 Atorvastatin Calcium 20 Mg Tablet PO 04/23/24 20:59 40 mg HS JOSE RAMON Administration Benzonatate 200 mg 03/24/24 13:38 Benzonatate 100 Mg Capsule PO 04/23/24 13:37 Q8HR PRN COUGH Protocol Bumetanide 2 mg 03/26/24 09:00 03/26/24 21:38 Bumetanide Inj 0.25 Mg/Ml Vial 4 Ml IVP 04/25/24 08:59 2 mg BID JOSE RAMON Administration Clopidogrel Bisulfate 75 mg 03/23/24 09:00 03/26/24 08:22 Clopidogrel Bisulfate 75 Mg Tablet PO 04/22/24 08:59 75 mg QDAY JOSE RAMON Administration Guaifenesin/Dextromethorphan 1 each 03/24/24 12:00 03/26/24 21:41 Guaifenesin/Dm Tablet PO 04/23/24 11:59 1 each BID JOSE RAMON Administration Heparin Sodium (Porcine) 5,000 unit 03/24/24 14:15 03/26/24 21:41 Heparin Sod Inj 5000 Unit/Ml Vial SC 04/07/24 14:14 5,000 unit BID JOSE RAMON Administration Ceftriaxone Sodium/Dextrose 50 mls @ 100 mls/hr 03/23/24 21:00 03/26/24 21:36 Rocephin/D5w 1gm Iv Premix IV 03/30/24 20:59 100 mls/hr HS JOSE RAMON Administration Midodrine 10 mg 03/23/24 14:00 03/27/24 05:15 Midodrine 5 Mg Tablet PO 04/22/24 13:59 10 mg TID JOSE RAMON Administration Nicotine 7 mg 03/23/24 13:00 03/26/24 08:22 Nicotine Patch 7 Mg/24 Hr Patch.Td24 TOP 04/22/24 12:59 7 mg QDAY JOSE RAMON Administration Ondansetron HCl 4 mg 03/23/24 03:06 Ondansetron Inj 2 Mg/Ml Inj 2 Ml IV 04/22/24 03:05 Q6H PRN NAUSEA OR VOMITING Protocol Pantoprazole Sodium 40 mg 03/24/24 09:00 03/26/24 08:22 Pantoprazole 40 Mg Tablet PO 04/23/24 08:59 40 mg QDAY JOES RAMON Administration Prednisone 40 mg 03/23/24 12:45 03/26/24 08:22 Prednisone 20 Mg Tablet PO 03/28/24 12:44 40 mg QDAY JOSE RAMON Administration Plan Garrison Rg is a 68 year old male with past medical history of CAD with stent placement in August 2023, PAD, carotid artery stenosis with endardectomy, CHF with EF of 15-20% on echo from 01/12/2024, meth use and tobacco use who presented to hospital in light of worsening dyspnea and leg edema admitted for acute respiratory distress. CXR was suggestive of PNA so was started on azithromycin and ceftrizone. Also, is currently on Bumex 2mg bid for diuresis. Patient CT of chest had suggested thickening of gall bladder so sent for abdominal ultrasound. #Acute on chronic hypoxic respiratory failure secondary, resolving Due to acute decompesnated heart failure (HFrEF 15-20%) vs CAP vs COPD - Treat underlying factors below - Patient back to baseline O2 requirements #Acute decompensated HFrEF 15-20% Patient with PND, SOB, orthopnea, scrotal edema CXR consistent with bilateral pulmonary edema BNP > 3280 however patient on entresto Transthoracic echocardiogram completed on 01/12/2024 findings include: Severe LV dilatation. Severe systolic dysfunction. Severe global hyopokinesis. Stage III diastolic dysfunction. Estimated EF 15-20% Mild RV dilatation. Mild RV systolic dysfunction. Estimated RVSP 43mmHg. Severe LA dilatation. Moderate RA dilatation Moderate MR. Mild TR. There is trival anterior pericardial effusion. No evidence of cardiac tamponade. Plan: - Daily weights - Strict I&O - Fluid restriction - Continue Bumex 2mg IV BID - Midodrine 10mg po TID - Keep Mg > 2 and K > 4 - Holding GDMT due to low blood pressure, goal MAP > 60 - Cardiology Dr. Chaney following #CAP #Acute COPD Exacerbation Completed 3 days of azithromycin - Continue rocephin 03/23 - Continue prednisone 40mg for 5 days (03/23-03/28) - Duonebrandon QH4RRT - Mucinx, tessalon perles prn - chest PT, acapella #Elevated troponin Thiernoley type II in the setting of acute decompensated HFrEF #Significant bilateral PAD #Carotid artery stenosis s/p TCAR #CAD s/p stents (2022, August 2023) #HLD PCI to LAD in August 2023, 100 percent chronically occluded RCA with [id number] collaterals, 100% occluded OM 2 stent placed in 2022 with left to left collaterals Arterial/peripheral duplex was significant for severe bilateral peripheral obstructive arterial disease. Right AMANDA 1.0, left ankle blood pressure unobtainable. - Continue home aspirin, plavix, statin #GERD - Continue protonix #Nicotine dependence #History of methamphetamine abuse ? Continue nicotine patch 7 Mg topical daily #Cholelithiasis Elevated LFTs likely related to congestive heart failure versus cholelithiasis, as seen on liver ultrasound Patient asymptomatic at this time Health Maintenance Disposition: Admit for AHRF 2/2 CHF exacerbation, CAP, COPD exacerbation. Diuresisng. Anticipate discharge within 24-48 hours Diet and fluids: fluid restrict, cardiac DVT prophylaxis: heparin GI prophylaxis: protonix Lines: PIV CODE STATUS: FULL I have reviewed and discussed the patient's care with my attending, Dr. Arina Hubbard, MS4 Shonda Navarro MD PGY-3 Attending Provider Attestation/Addendum I have discussed and was present for the essential components of the history, physical examination, diagnosis, and treatment plan with the resident. I agree with the patient's care as documented by the resident and amended herein by me. Dimitrios Santa DO. Although this document has been carefully reviewed, there may still be some phonetic and other typographical errors. These errors are purely grammatical due to imperfections in the software program and should not be construed in any way to compromise the substance of the patient's medical care during this visit.
[2024-03-27] MEDS: BUMETANIDE INJ 0.25 MG/ML VIAL 4 ML 2 MG IVP ×2 (09:20→21:15)
[2024-03-27] MEDS: ASPIRIN EC 81 MG TABEC PO (09:22)
[2024-03-27] MEDS: PANTOPRAZOLE 40 MG TABLET PO (09:22)
[2024-03-27] MEDS: HEPARIN SOD INJ 5000 UNIT/ML VIAL SC ×2 (09:22→21:09)
[2024-03-27] MEDS: predniSONE 20 MG TABLET 40 MG PO (09:22)
[2024-03-27] MEDS: CLOPIDOGREL BISULFATE 75 MG TABLET PO (09:22)
[2024-03-27] MEDS: NICOTINE PATCH 7 MG/24 HR PATCH.TD24 TOP (09:23)
[2024-03-27] MEDS: ALBUTEROL/IPRATROPIUM (Duoneb) RT SOL 3 ML NEBU INH ×3 (09:24→23:16)
--- NOTE | 2024-03-27 10:13 | XR_ITS ---
Examination: Abdomen sonogram, Limited Date and time of exam: March 27, 2024 1059 hrs. Indications: Elevated liver function tests on laboratory examination today Technique: Real-time baker scale transabdominal sonographic images of the upper abdomen obtained. Findings: 14 mm gallstone Gallbladder wall 0.4 cm no edema Common bile duct 0.5 cm Pancreatic head 2.7 cm Liver 14.4 cm smooth contour no focal liver lesions Mild right pleural fluid Normal hepatopedal portal venous flow Patent IVC Impression: Cholelithiasis, borderline thickening gallbladder wall, consider HIDA scan or MRCP follow-up as clinically warranted
[2024-03-27] MEDS: guaiFENesin/DM TABLET 1 EACH PO ×2 (10:14→21:09)
--- NOTE | 2024-03-27 10:20 | PD.RESPRO ---
Documentation for date of: 03/27/24 Subjective Subjective Interval history: Patient was seen at bedside this morning. No overnight events. Patient again had a few unsustained PVCs upon consumer electronic retail specialist review. Patient had total balance of -2.5 L in the past 24 hours Recommend to continue patient on Bumex 2 mg twice daily, kidney function stable Potassium 4.4 and magnesium 2.2 today, recommend to keep potassium magnesium above 4 and 2 to avoid any further arrhythmias Liver enzymes stable with AST 59 and ALT 80 today Exam Vital Signs Temp Pulse Resp BP Pulse Ox O2 Del Method O2 Flow Rate 97.0 F 72 15 114/89 H 99 Nasal Cannula 1 03/27/24 08:00 03/27/24 09:28 03/27/24 09:28 03/27/24 09:20 03/27/24 09:28 03/27/24 08:00 03/27/24 09:28 FiO2 70 03/26/24 04:00 Narrative Exam General: A/O x3, no acute distress Eyes: PERRL, EOMI. Anicteric, vision grossly intact. Ears: No ear pain, no ear discharge, Hearing grossly intact. Nose: No nasal discharge. Mouth/Throat: Dry mucous membranes, no redness, no lesions. Neck: Neck supple, non-tender, no cervical lymphadenopathy. Lungs: Crackles DAMIÁN, No accessory muscle use. Cardio: Normal S1/S2, regular rhythm, no murmurs, no JVD Abdomen: Soft, non-tender, no palpable masses, peristalsis present, no guarding or rebound. Extremities: Symmetrical, no significant deformities, 2+ peripheral edema , non-tender, peripheral pulses presents. Skin: No rashes, no lesions, warm to touch. Neuro: No focal neurological deficits. motor and sensory intact Psych: Cooperative, appropriate mood and effect. Objective Labs 03/28/24 04:55 03/28/24 04:55 Labs: Laboratory Results - last 24 hr 03/27/24 04:33 WBC 5.3 RBC 5.21 Hgb 15.8 Hct 47.2 MCV 91 MCH 30.3 MCHC 33.5 RDW Std Deviation 49.6 H Plt Count 149 Neut % (Auto) 70 Lymph % (Auto) 22 [place] % (Auto) 8 Eos % (Auto) 0 Baso % (Auto) 0 Neut # (Auto) 3.7 Lymph # (Auto) 1.2 [place] # (Auto) 0.4 Eos # (Auto) 0.0 Baso # (Auto) 0.0 Immature Gran # (Auto) 0.03 H Absolute Nucleated RBC 0.00 Immature Gran % 1 H Nucleated RBC % 0 Sodium 136 Potassium 4.4 D Chloride 97 L Carbon Dioxide 32.9 H Anion Gap 6 L BUN 29 H Creatinine 1.2 Estim Creat Clear Calc 54.2 L eGFR > 60 BUN/Creatinine Ratio 24 H Glucose 101 Calculated Osmolality 277 Calcium 9.2 Corrected Calcium 9.2 Phosphorus 3.0 Magnesium 2.2 Total Bilirubin 0.6 AST 59 H ALT 80 H Alkaline Phosphatase 110 Total Protein 6.3 Albumin 4.0 Globulin 2.3 Albumin/Globulin Ratio 1.7 Quality Measures Quality Measures VTE prophylaxis Advance care planning discussed with:: patient Assessment & Plan Assessment Current Active Medications: Generic Name Dose Route Start Last Admin Trade Name Freq PRN Reason Stop Dose Admin Acetaminophen 650 mg 03/23/24 03:06 Acetaminophen 325 Mg Tablet PO 04/22/24 03:05 Q6H PRN Pain 1-3 or Fever >100.3 Acetylcysteine 3 ml 03/24/24 13:38 Acetylcysteine Rt Ivone 10% 4 Ml Nebu INH 04/23/24 13:37 Q4HRRT PRN SHORTNESS OF BREATH OR WHEEZE Albuterol/Ipratropium 3 ml 03/26/24 23:00 03/27/24 09:24 Albuterol/Ipratropium (Duoneb) Rt Ivone 3 Ml Nebu INH 04/25/24 22:59 3 ml Q8HRRT JOSE RAMON Administration Aspirin 81 mg 03/23/24 09:00 03/27/24 09:22 Aspirin Ec 81 Mg Tabec PO 04/22/24 08:59 81 mg QDAY JOSE RAMON Administration Atorvastatin Calcium 40 mg 03/24/24 21:00 03/26/24 21:40 Atorvastatin Calcium 20 Mg Tablet PO 04/23/24 20:59 40 mg HS JOSE RAMON Administration Benzonatate 200 mg 03/24/24 13:38 Benzonatate 100 Mg Capsule PO 04/23/24 13:37 Q8HR PRN COUGH Protocol Bumetanide 2 mg 03/26/24 09:00 03/27/24 09:20 Bumetanide Inj 0.25 Mg/Ml Vial 4 Ml IVP 04/25/24 08:59 2 mg BID JOSE RAMON Administration Clopidogrel Bisulfate 75 mg 03/23/24 09:00 03/27/24 09:22 Clopidogrel Bisulfate 75 Mg Tablet PO 04/22/24 08:59 75 mg QDAY JOSE RAMON Administration Guaifenesin/Dextromethorphan 1 each 03/24/24 12:00 03/27/24 10:14 Guaifenesin/Dm Tablet PO 04/23/24 11:59 1 each BID JOSE RAMON Administration Heparin Sodium (Porcine) 5,000 unit 03/24/24 14:15 03/27/24 09:22 Heparin Sod Inj 5000 Unit/Ml Vial SC 04/07/24 14:14 5,000 unit BID JOSE RAMON Administration Ceftriaxone Sodium/Dextrose 50 mls @ 100 mls/hr 03/23/24 21:00 03/26/24 21:36 Rocephin/D5w 1gm Iv Premix IV 03/30/24 20:59 100 mls/hr HS JOSE RAMON Administration Midodrine 10 mg 03/23/24 14:00 03/27/24 05:15 Midodrine 5 Mg Tablet PO 04/22/24 13:59 10 mg TID JOSE RAMON Administration Nicotine 7 mg 03/23/24 13:00 03/27/24 09:23 Nicotine Patch 7 Mg/24 Hr Patch.Td24 TOP 04/22/24 12:59 7 mg QDAY JOSE RAMON Administration Ondansetron HCl 4 mg 03/23/24 03:06 Ondansetron Inj 2 Mg/Ml Inj 2 Ml IV 04/22/24 03:05 Q6H PRN NAUSEA OR VOMITING Protocol Pantoprazole Sodium 40 mg 03/24/24 09:00 03/27/24 09:22 Pantoprazole 40 Mg Tablet PO 04/23/24 08:59 40 mg QDAY JOSE RAMON Administration Prednisone 40 mg 03/23/24 12:45 03/27/24 09:22 Prednisone 20 Mg Tablet PO 03/28/24 12:44 40 mg QDAY JOSE RAMON Administration Plan 68 y/o male patient with past medical history of CAD s/p PCI to LAD in August 2023, R percent chronically occluded RCA with [id number] collaterals, 100% occluded OM 2 stent placed in 2022 with left to left collaterals,, carotid arterial disease status post TCAR, HFrEF (15-20% 01/2024), August 2023 , ascending thoracic aortic aneurysm at 4.4 cm, Essential hypertension, hyperlipidemia, GERD, active smoker with more than 37-17-ookk-year smoking history, history of methamphetamine abuse, and medical noncompliance was admitted to the hospital on 03/23/2024 due to Acute decompensated heart failure exacerbation. 1. Acute decompensated heart failure exacerbation 2. HFrEF (EF 15-20% 01/2024) 3. CAD s/p PCI to LAD (August 2023) 4. NSTEMI type 2 5. Hypotension -Patient came in with SOB and DAMIÁN LE swelling -BNP was 3280+ -Initial trops were 0.065 and downtrended -Patient's blood pressure has been low today in the 90s over 60s -Patient had his diuretic changed by his PCP, but not clear to which diuretic -Elevated troponins most likely due to CHF exacerbation -Echo on 01/2024 had the following dfindings: Severe LV dilatation. Severe systolic dysfunction. Severe global hyopokinesis. Stage III diastolic dysfunction. Estimated EF 15-20% Mild RV dilatation. Mild RV systolic dysfunction. Estimated RVSP 43mmHg. Severe LA dilatation. Moderate RA dilatation Moderate MR. Mild TR. There is trival anterior pericardial effusion. No evidence of cardiac tamponade. Plan: -Recommend to continue Bumex 2mg Iv BID for now -Recommend to continue aspirin and plavix -Recommend to continue midodrine 10mg TID -No need for further troponins -Strict SHWETA's -Fluid restrictions -Daily weights -Low sodium diet -Recommend to keep potassium and mg above 4 and 2 respectively to avoid any arrhythmias 6. Elevated liver enzymes 7. Congestive Hepatopathy -Patient's AST 167, ALT 121, and ALK phos 139 on admission -Patient most likely has hepatic congestion secondary to heart failure -Continue current management as per primary care team 8. Community acquired pnuemonia -On rocephin -Continue management as per primary care team Continue rest of management as per primary team. We are grateful to be able to participate in Mr. Rg' care. Thank you for the consult Plan of care discussed with attending [place], Dr. Ritu Arndt MD PGY-1 Attending Provider Attestation/Addendum I have personally seen and examined the patient separately on the above date of service and discussed the plan of care with the resident. I reviewed the resident Dr. De La Rosa consultation progress note and agree with the resident findings and plan in the note above and have also edited the documentation to reflect my findings and plan. Sky Chaney M.D. Interventional Cardiology
[2024-03-27] MEDS: ATORVASTATIN CALCIUM 20 MG TABLET 40 MG PO (21:10)
[2024-03-27] MEDS: cefTRIAXone/D5w 1gm IV premix 50 ML IV (21:11)
[2024-03-28] VITALS (15 sets, daily range): BP systolic 90–117; BP diastolic 57–82; PULSE 67–87; RESP 16–27; TEMP 35.8–36.5; O2SAT 90–100; BMI 26.7
[2024-03-28] MEDS: MIDODRINE 5 MG TABLET 10 MG PO ×3 (05:10→21:05)
[2024-03-28 06:18] LABS: Basophils % (Auto) 0 % (0-2.5); Eosinophils % (Auto) 0 % (0-10); Hematocrit 44.7 % (41.0-53.0); Hemoglobin 14.9 g/dL (13.5-16.0); Immature Granulocytes % (Auto) 1 % (0-0); Immature Granulocytes Auto 0.03 Thou/mm3 (0.00-0.00); Lymphocytes # (Auto) 1.3 Thou/mm3 (1.0-4.8); Lymphocytes % (Auto) 21 % (10-50); Mean Corpuscular HGB Conc 33.3 g/dl (31.0-37.0); Mean Corpuscular Hemoglobin 30.3 pg (25.0-35.0); Mean Corpuscular Volume 91 fL (80-100); Monocytes # (Auto) 0.5 Thou/mm3 (0.0-0.8); Monocytes % (Auto) 8 % (0-12); Neutrophils # (Auto) 4.2 Thou/mm3 (1.8-7.7); Neutrophils % (Auto) 70 % (37-80); Nucleated Red Blood Cell % 0 /100 WBC (0); Platelet Count 162 Thou/mm3 (140-440); RDW Standard Deviation 49.3 fL (35.1-43.9); Red Blood Count 4.91 Miln/mm3 (4.50-5.90)
[2024-03-28] MEDS: ALBUTEROL/IPRATROPIUM (Duoneb) RT SOL 3 ML NEBU INH ×3 (06:37→23:22)
[2024-03-28 06:59] LABS: Alanine Aminotransferase 65 U/L (10-49); Albumin, Serum 3.6 gm/dL (3.4-4.8); Albumin/Globulin Ratio 1.7 (1.2-2.2); Alkaline Phosphatase 98 U/L (46-116); Anion Gap 6 (7-16); Aspartate Amino Transferase 49 U/L (0-34); BUN/Creatinine Ratio 21 Ratio (12-20); Bilirubin,Total 0.5 mg/dL (0.3-1.2); Blood Urea Nitrogen 27 mg/dL (9-23); Calcium (Corrected) 9.3 mg/dL (8.5-10.1); Carbon Dioxide 35.6 mMol/L (20.0-31.0); Chloride 97 mMol/L (98-107); Creatinine (Component) 1.3 mg/dL (0.6-1.3); Estimated Creatinine Clearance 51.9 mL/min (>60); Globulin 2.1 gm/dL (2.3-3.5); Glucose 98 mg/dL (74-106); Magnesium 1.8 mg/dL (1.6-2.6); Osmolality,Calculated 282 (275-295); Phosphorous 2.7 mg/dL (2.4-5.1); Potassium 4.1 mMol/L (3.4-5.1); Sodium 139 mMol/L (136-145); Total Protein 5.7 gm/dL (5.7-8.2); eGFR 59 See Note
[2024-03-28] MEDS: NICOTINE PATCH 7 MG/24 HR PATCH.TD24 TOP (08:10)
[2024-03-28] MEDS: CLOPIDOGREL BISULFATE 75 MG TABLET PO (08:11)
[2024-03-28] MEDS: predniSONE 20 MG TABLET 40 MG PO (08:11)
[2024-03-28] MEDS: PANTOPRAZOLE 40 MG TABLET PO (08:11)
[2024-03-28] MEDS: guaiFENesin/DM TABLET 1 EACH PO ×2 (08:11→21:05)
[2024-03-28] MEDS: BUMETANIDE INJ 0.25 MG/ML VIAL 4 ML 2 MG IVP ×2 (08:11→21:04)
[2024-03-28] MEDS: ASPIRIN EC 81 MG TABEC PO (08:11)
[2024-03-28] MEDS: Magnesium Sulfate 1 gm Ivpb 1 GM/100 ML BAG IV (08:12)
[2024-03-28] MEDS: HEPARIN SOD INJ 5000 UNIT/ML VIAL SC ×2 (08:14→21:05)
--- NOTE | 2024-03-28 08:26 | ESPR_ITS ---
Documentation for date of: 03/28/24 Subjective Subjective Interval history: Patient was seen at bedside this morning. No overnight events. Patient again had a few unsustained PVCs upon mandrel cleaner review. Patient had total balance of -2.6 L in the past 24 hours Recommend to continue patient on Bumex 2 mg twice daily, kidney function stable Continue IV Bumex for today and patient can be discharged home on p.o. Bumex 1 mg once daily along with on goal-directed medical therapy with the metoprolol XL 25 mg once daily and continue to be started on Entresto and spironolactone which can be done as outpatient after monitoring the kidney function LE edema improving. Potassium 4.1 and magnesium 1.8 today, recommend to keep potassium magnesium above 4 and 2 to avoid any further arrhythmias Liver enzymes stable with AST 49 and ALT 65 today Exam Vital Signs Temp Pulse Resp BP Pulse Ox O2 Del Method O2 Flow Rate 96.9 F 78 18 107/57 L 99 Room Air 1 03/28/24 04:00 03/28/24 08:11 03/28/24 06:39 03/28/24 08:11 03/28/24 06:39 03/28/24 04:00 03/27/24 09:28 FiO2 70 03/26/24 04:00 Narrative Exam General: A/O x3, no acute distress Eyes: PERRL, EOMI. Anicteric, vision grossly intact. Ears: No ear pain, no ear discharge, Hearing grossly intact. Nose: No nasal discharge. Mouth/Throat: Dry mucous membranes, no redness, no lesions. Neck: Neck supple, non-tender, no cervical lymphadenopathy. Lungs: Crackles DAMIÁN, No accessory muscle use. Cardio: Normal S1/S2, regular rhythm, no murmurs, no JVD Abdomen: Soft, non-tender, no palpable masses, peristalsis present, no guarding or rebound. Extremities: Symmetrical, no significant deformities, 2+ peripheral edema, improving , non-tender, peripheral pulses presents. Skin: No rashes, no lesions, warm to touch. Neuro: No focal neurological deficits. motor and sensory intact Psych: Cooperative, appropriate mood and effect. Objective Labs 03/28/24 04:55 03/28/24 04:55 Labs: Laboratory Results - last 24 hr 03/28/24 04:55 WBC 6.0 RBC 4.91 Hgb 14.9 Hct 44.7 MCV 91 MCH 30.3 MCHC 33.3 RDW Std Deviation 49.3 H Plt Count 162 Neut % (Auto) 70 Lymph % (Auto) 21 [place] % (Auto) 8 Eos % (Auto) 0 Baso % (Auto) 0 Neut # (Auto) 4.2 Lymph # (Auto) 1.3 [place] # (Auto) 0.5 Eos # (Auto) 0.0 Baso # (Auto) 0.0 Immature Gran # (Auto) 0.03 H Absolute Nucleated RBC 0.00 Immature Gran % 1 H Nucleated RBC % 0 Sodium 139 Potassium 4.1 Chloride 97 L Carbon Dioxide 35.6 H Anion Gap 6 L BUN 27 H Creatinine 1.3 Estim Creat Clear Calc 51.9 L eGFR 59 L BUN/Creatinine Ratio 21 H Glucose 98 Calculated Osmolality 282 Calcium 9.0 Corrected Calcium 9.3 Phosphorus 2.7 Magnesium 1.8 Total Bilirubin 0.5 AST 49 H ALT 65 H Alkaline Phosphatase 98 Total Protein 5.7 Albumin 3.6 Globulin 2.1 L Albumin/Globulin Ratio 1.7 Quality Measures Quality Measures VTE prophylaxis Advance care planning discussed with:: patient Assessment & Plan Assessment Current Active Medications: Generic Name Dose Route Start Last Admin Trade Name Freq PRN Reason Stop Dose Admin Acetaminophen 650 mg 03/23/24 03:06 Acetaminophen 325 Mg Tablet PO 04/22/24 03:05 Q6H PRN Pain 1-3 or Fever >100.3 Acetylcysteine 3 ml 03/28/24 07:36 Acetylcysteine Rt Ivone 10% 4 Ml Nebu INH 04/23/24 13:37 Q4HRRT PRN SHORTNESS OF BREATH OR WHEEZE Albuterol/Ipratropium 3 ml 03/26/24 23:00 03/28/24 06:37 Albuterol/Ipratropium (Duoneb) Rt Ivone 3 Ml Nebu INH 04/25/24 22:59 3 ml Q8HRRT JOSE RAMON Administration Albuterol/Ipratropium 3 ml 03/27/24 19:08 Albuterol/Ipratropium (Duoneb) Rt Ivone 3 Ml Nebu INH 04/26/24 19:07 Q2HR PRN SHORTNESS OF BREATH OR WHEEZE Aspirin 81 mg 03/23/24 09:00 03/28/24 08:11 Aspirin Ec 81 Mg Tabec PO 04/22/24 08:59 81 mg QDAY JOSE RAMON Administration Atorvastatin Calcium 40 mg 03/24/24 21:00 03/27/24 21:10 Atorvastatin Calcium 20 Mg Tablet PO 04/23/24 20:59 40 mg HS JOSE RAMON Administration Benzonatate 200 mg 03/24/24 13:38 Benzonatate 100 Mg Capsule PO 04/23/24 13:37 Q8HR PRN COUGH Protocol Bumetanide 2 mg 03/26/24 09:00 03/28/24 08:11 Bumetanide Inj 0.25 Mg/Ml Vial 4 Ml IVP 04/25/24 08:59 2 mg BID JOSE RAMON Administration Clopidogrel Bisulfate 75 mg 03/23/24 09:00 03/28/24 08:11 Clopidogrel Bisulfate 75 Mg Tablet PO 04/22/24 08:59 75 mg QDAY JOSE RAMON Administration Guaifenesin/Dextromethorphan 1 each 03/24/24 12:00 03/28/24 08:11 Guaifenesin/Dm Tablet PO 04/23/24 11:59 1 each BID JOSE RAMON Administration Heparin Sodium (Porcine) 5,000 unit 03/24/24 14:15 03/28/24 08:14 Heparin Sod Inj 5000 Unit/Ml Vial SC 04/07/24 14:14 5,000 unit BID JOSE RAMON Administration Ceftriaxone Sodium/Dextrose 50 mls @ 100 mls/hr 03/23/24 21:00 03/27/24 21:11 Rocephin/D5w 1gm Iv Premix IV 03/30/24 20:59 100 mls/hr HS JOSE RAMON Administration Magnesium Sulfate/Dextrose 1 gm in 100 mls @ 100 mls/hr 03/28/24 07:46 03/28/24 08:12 Magnesium Sulfate Ivpb IV 03/28/24 08:45 100 mls/hr X1 ONE Administration Midodrine 10 mg 03/23/24 14:00 03/28/24 05:10 Midodrine 5 Mg Tablet PO 04/22/24 13:59 10 mg TID JOSE RAMON Administration Nicotine 7 mg 03/23/24 13:00 03/28/24 08:10 Nicotine Patch 7 Mg/24 Hr Patch.Td24 TOP 04/22/24 12:59 7 mg QDAY JOSE RAMON Administration Ondansetron HCl 4 mg 03/23/24 03:06 Ondansetron Inj 2 Mg/Ml Inj 2 Ml IV 04/22/24 03:05 Q6H PRN NAUSEA OR VOMITING Protocol Pantoprazole Sodium 40 mg 03/24/24 09:00 03/28/24 08:11 Pantoprazole 40 Mg Tablet PO 04/23/24 08:59 40 mg QDAY JOSE RAMON Administration Prednisone 40 mg 03/23/24 12:45 03/28/24 08:11 Prednisone 20 Mg Tablet PO 03/28/24 12:44 40 mg QDAY JOSE RAMON Administration Plan 68 y/o male patient with past medical history of CAD s/p PCI to LAD in August 2023, R percent chronically occluded RCA with [id number] collaterals, 100% occluded OM 2 stent placed in 2022 with left to left collaterals,, carotid arterial disease status post TCAR, HFrEF (15-20% 01/2024), August 2023 , ascending thoracic aortic aneurysm at 4.4 cm, Essential hypertension, hyperlipidemia, GERD, active smoker with more than 06-03-maux-year smoking history, history of methamphetamine abuse, and medical noncompliance was admitted to the hospital on 03/23/2024 due to Acute decompensated heart failure exacerbation. 1. Acute decompensated heart failure exacerbation 2. HFrEF (EF 15-20% 01/2024) 3. CAD s/p PCI to LAD (August 2023) 4. NSTEMI type 2 5. Hypotension -Patient came in with SOB and DAMIÁN LE swelling -BNP was 3280+ -Initial trops were 0.065 and downtrended -Patient's blood pressure has been low today in the 90s over 60s -Patient had his diuretic changed by his PCP, but not clear to which diuretic -Elevated troponins most likely due to CHF exacerbation -Echo on 01/2024 had the following dfindings: Severe LV dilatation. Severe systolic dysfunction. Severe global hyopokinesis. Stage III diastolic dysfunction. Estimated EF 15-20% Mild RV dilatation. Mild RV systolic dysfunction. Estimated RVSP 43mmHg. Severe LA dilatation. Moderate RA dilatation Moderate MR. Mild TR. There is trival anterior pericardial effusion. No evidence of cardiac tamponade. Plan: -Recommend to continue Bumex 2mg Iv BID for now - Continue IV Bumex for today and patient can be discharged home on p.o. Bumex 1 mg once daily along with on goal-directed medical therapy with the metoprolol XL 25 mg once daily and continue to be started on Entresto and spironolactone which can be done as outpatient after monitoring the kidney function -Recommend to continue aspirin and plavix -Recommend to continue midodrine 10mg TID -No need for further troponins -Strict SHWETA's -Fluid restrictions -Daily weights -Low sodium diet -Recommend to keep potassium and mg above 4 and 2 respectively to avoid any arrhythmias 6. Elevated liver enzymes 7. Congestive Hepatopathy -Patient's AST 167, ALT 121, and ALK phos 139 on admission -Patient most likely has hepatic congestion secondary to heart failure -Continue current management as per primary care team 8. Community acquired pnuemonia -On rocephin -Continue management as per primary care team Continue rest of management as per primary team. We are grateful to be able to participate in Mr. Rg' care. Thank you for the consult Plan of care discussed with attending Video Effects Editor, Dr. Ritu Arndt MD PGY-1 Attending Provider Attestation/Addendum I have personally seen and examined the patient separately on the above date of service and discussed the plan of care with the resident. I reviewed the resident Dr. De La Rosa consultation progress note and agree with the resident findings and plan in the note above and have also edited the documentation to reflect my findings and plan. Sky Chaney M.D. Interventional Cardiology
--- NOTE | 2024-03-28 09:05 | ESPR_ITS ---
<Statement entered by Doc Hicks MD - 03/28/24 13:10> Patient was seen and examined at the bedside. Patient reported that he does not have cough and feels better in terms of shortness of breath. He is requiring 3 L nasal cannula saturating 90% above. Patient still have some mild decreased breath sounds on auscultation with 2+ pitting edema both lower extremities. We will continue with IV diuresis per cardiology recommendation. He is showing good diuresis output with negative balance of 2.6 L. Labs showed stable hemoglobin and white count within normal limits. Kidney function showed BUN 27 creatinine 1.3. Continue current management. Patient was updated regarding the plan. All labs and orders were reviewed. I saw and examined the patient, and I agree with current management stated by Dr Hussain TURNER,PGY1. Plan of care was discussed with the attending physician and resident physician. Disclaimer: Despite multiple revisions, due to the dictation software being used, the document bellow may not be free of grammatical errors including phonetic/typographic errors. However, this does not deter from our commitment to providing health care in the patient's best interest in mind. Dr. Fabiola MD, PGY 2 Documentation for date of: 03/28/24 Subjective Subjective Interval history: Patient was seen and examined at bedside this AM. No acute exents overnight. Patient tolerating diet, adequate urine output and mentation is at baseline. Patient Has no complaints this a.m. Endorses resolution of his cough and SOB. Patient is now saturating on room air. From telemetry review rate in 70s/80s overnight. Sinus rhythm Currently on diuresis with Bumex 2 Mg IV twice daily Patient had a fluid balance of -2670 cc over the past 24 hours K4.1 and Mg 1.8. Patient repleted with magnesium sulfate 2 g IV x 1. Will maintain K >4 and Mg >2 at all times to prevent any further arrhythmias Exam Vital Signs Temp Pulse Resp BP Pulse Ox O2 Del Method O2 Flow Rate 96.9 F 78 18 107/57 L 99 Room Air 1 03/28/24 04:00 03/28/24 08:11 03/28/24 06:39 03/28/24 08:11 03/28/24 06:39 03/28/24 04:00 03/27/24 09:28 FiO2 70 03/26/24 04:00 Narrative Exam Constitutional Alert, oriented x 3 and comfortable. Elderly male sitting comfortably HEENT Vision grossly intact. Patent nares. Trachea midline. Missing teeth, silver crowns Respiratory Chest normal on inspection and crackles auscultated at bases bilaterally. Cardiovascular S1 and S2 audible, RRR. No murmurs carotid bruit. No gross JVD. Abdominal Soft, obese and non tender to palpation in all quadrants. BS + Genitourinary No bladder tenderness, no flank pain. Normal to palpation. Scrotal edema resolved Musculoskeletal Extremities tone within normal limits. Bilateral pedal edema, trace lower extremity edema up to mid tibia bilaterally Neurological CN II - XII grossly intact. Extremity motor and sensation grossly intact. Skin Warm, dry and intact. No apparent lesions. Psychiatric Patient has good affect, is cooperative Objective Labs 03/28/24 04:55 03/28/24 04:55 Labs: Laboratory Results - last 24 hr 03/28/24 04:55 WBC 6.0 RBC 4.91 Hgb 14.9 Hct 44.7 MCV 91 MCH 30.3 MCHC 33.3 RDW Std Deviation 49.3 H Plt Count 162 Neut % (Auto) 70 Lymph % (Auto) 21 [place] % (Auto) 8 Eos % (Auto) 0 Baso % (Auto) 0 Neut # (Auto) 4.2 Lymph # (Auto) 1.3 [place] # (Auto) 0.5 Eos # (Auto) 0.0 Baso # (Auto) 0.0 Immature Gran # (Auto) 0.03 H Absolute Nucleated RBC 0.00 Immature Gran % 1 H Nucleated RBC % 0 Sodium 139 Potassium 4.1 Chloride 97 L Carbon Dioxide 35.6 H Anion Gap 6 L BUN 27 H Creatinine 1.3 Estim Creat Clear Calc 51.9 L eGFR 59 L BUN/Creatinine Ratio 21 H Glucose 98 Calculated Osmolality 282 Calcium 9.0 Corrected Calcium 9.3 Phosphorus 2.7 Magnesium 1.8 Total Bilirubin 0.5 AST 49 H ALT 65 H Alkaline Phosphatase 98 Total Protein 5.7 Albumin 3.6 Globulin 2.1 L Albumin/Globulin Ratio 1.7 Quality Measures Quality Measures VTE prophylaxis Advance care planning discussed with:: other Assessment & Plan Assessment Current Active Medications: Generic Name Dose Route Start Last Admin Trade Name Freq PRN Reason Stop Dose Admin Acetaminophen 650 mg 03/23/24 03:06 Acetaminophen 325 Mg Tablet PO 04/22/24 03:05 Q6H PRN Pain 1-3 or Fever >100.3 Acetylcysteine 3 ml 03/28/24 07:36 Acetylcysteine Rt Ivone 10% 4 Ml Nebu INH 04/23/24 13:37 Q4HRRT PRN SHORTNESS OF BREATH OR WHEEZE Albuterol/Ipratropium 3 ml 03/26/24 23:00 03/28/24 06:37 Albuterol/Ipratropium (Duoneb) Rt Ivone 3 Ml Nebu INH 04/25/24 22:59 3 ml Q8HRRT JOSE RAMON Administration Albuterol/Ipratropium 3 ml 03/27/24 19:08 Albuterol/Ipratropium (Duoneb) Rt Ivone 3 Ml Nebu INH 04/26/24 19:07 Q2HR PRN SHORTNESS OF BREATH OR WHEEZE Aspirin 81 mg 03/23/24 09:00 03/28/24 08:11 Aspirin Ec 81 Mg Tabec PO 04/22/24 08:59 81 mg QDAY JOSE RAMON Administration Atorvastatin Calcium 40 mg 03/24/24 21:00 03/27/24 21:10 Atorvastatin Calcium 20 Mg Tablet PO 04/23/24 20:59 40 mg HS JOSE RAMON Administration Benzonatate 200 mg 03/24/24 13:38 Benzonatate 100 Mg Capsule PO 04/23/24 13:37 Q8HR PRN COUGH Protocol Bumetanide 2 mg 03/26/24 09:00 03/28/24 08:11 Bumetanide Inj 0.25 Mg/Ml Vial 4 Ml IVP 04/25/24 08:59 2 mg BID JOSE RAMON Administration Clopidogrel Bisulfate 75 mg 03/23/24 09:00 03/28/24 08:11 Clopidogrel Bisulfate 75 Mg Tablet PO 04/22/24 08:59 75 mg QDAY JOSE RAMON Administration Guaifenesin/Dextromethorphan 1 each 03/24/24 12:00 03/28/24 08:11 Guaifenesin/Dm Tablet PO 04/23/24 11:59 1 each BID JOSE RAMON Administration Heparin Sodium (Porcine) 5,000 unit 03/24/24 14:15 03/28/24 08:14 Heparin Sod Inj 5000 Unit/Ml Vial SC 04/07/24 14:14 5,000 unit BID JOSE RAMON Administration Ceftriaxone Sodium/Dextrose 50 mls @ 100 mls/hr 03/23/24 21:00 03/27/24 21:11 Rocephin/D5w 1gm Iv Premix IV 03/28/24 20:59 100 mls/hr HS JOSE RAMON Administration Midodrine 10 mg 03/23/24 14:00 03/28/24 05:10 Midodrine 5 Mg Tablet PO 04/22/24 13:59 10 mg TID JOSE RAMON Administration Nicotine 7 mg 03/23/24 13:00 03/28/24 08:10 Nicotine Patch 7 Mg/24 Hr Patch.Td24 TOP 04/22/24 12:59 7 mg QDAY JOSE RAMON Administration Ondansetron HCl 4 mg 03/23/24 03:06 Ondansetron Inj 2 Mg/Ml Inj 2 Ml IV 04/22/24 03:05 Q6H PRN NAUSEA OR VOMITING Protocol Pantoprazole Sodium 40 mg 03/24/24 09:00 03/28/24 08:11 Pantoprazole 40 Mg Tablet PO 04/23/24 08:59 40 mg QDAY JOSE RAMON Administration Prednisone 40 mg 03/23/24 12:45 03/28/24 08:11 Prednisone 20 Mg Tablet PO 03/28/24 12:44 40 mg QDAY JOSE RAMON Administration Plan Patient is a 68-year-old male with a past medical history significant for CAD s/p stents [2022, August 2023], HFrEF [15-20% 01/2024], ascending thoracic aorta aneurysm [4.4 cm], carotid artery disease s/p TCAR, essential hypertension, hyperlipidemia, GERD, nicotine dependence [50-60 pack years], history of methamphetamine abuse and medication noncompliance, COPD, PAD. Patient presented with a chief complaint of SOB. Patient was admitted for workup and management of acute respiratory failure with hypoxia secondary to acute decompensated heart failure exacerbation versus CAP versus COPD exacerbation. 1. Acute on chronic respiratory failure with hypoxia - Resolved Secondary to 2. Acute decompensated chronic systolic and diastolic congestive heart failure exacerbation [EF 15-20%] VS community-acquired pneumonia VS COPD exacerbation. Patient presented with as progressively worsening SOB, PND and orthopnea. On exam he had bilateral crackles and rhonchi heard from mid to lower zones bilaterally. He also had 3+ lower extremity edema up to hips bilaterally with scrotal edema as well. Chest x-ray significant for cardiomegaly, bilateral pulmonary edema with small pleural effusion right lung base, questionable consolidation at left lung base. Chest CTA was negative for any pulmonary artery emboli, mild aneurysm dilation of ascending thoracic aorta [4.5 cm] and moderate CHF with possible superimposed pneumonia B/L Lower extremity venous Doppler was negative for DVT. Transthoracic echocardiogram completed on 01/12/2024 findings include: Severe LV dilatation. Severe systolic dysfunction. Severe global hyopokinesis. Stage III diastolic dysfunction. Estimated EF 15-20% Mild RV dilatation. Mild RV systolic dysfunction. Estimated RVSP 43mmHg. Severe LA dilatation. Moderate RA dilatation Moderate MR. Mild TR. There is trival anterior pericardial effusion. No evidence of cardiac tamponade. BNP on admission >3280. Patient Has no complaints this a.m. Endorses resolution of his cough and SOB. Patient is now saturating on room air. From telemetry review rate in 70s/80s overnight. Sinus rhythm Currently on diuresis with Bumex 2 Mg IV twice daily Patient had a fluid balance of -2670 cc over the past 24 hours K4.1 and Mg 1.8. Patient repleted with magnesium sulfate 2 g IV x 1. Will maintain K >4 and Mg >2 at all times to prevent any further arrhythmias Plan: - Saturating on Room air ? Strict input output charting ? 2G sodium restricted diet ? 1500 cc/day fluid restriction ? Daily weights ? Midodrine 10 Mg p.o. 3 times daily ? Continue diureses with Bumex 2mg IV BID as per Cardiology recommendations ? Patient currently not on any beta-blockers due to acute heart failure exacerbation. Also not on any other GDMT due to noncompliance and currently patient has low blood pressures. Of note on previous admission patient was on dopamine infusion for low blood pressures. ? Cardiology, Dr. Chaney was consulted and is closely following the case. Appreciate recommendations 3. Community-acquired pneumonia - resolved 4. COPD exacerbation - resolved Patient presented with as progressively worsening SOB, PND and orthopnea. Also had nonproductive cough. On exam he had bilateral crackles and rhonchi heard from mid to lower zones bilaterally. He also had 3+ lower extremity edema up to hips bilaterally with scrotal edema as well. Chest x-ray significant for cardiomegaly, bilateral pulmonary edema with small pleural effusion right lung base, questionable consolidation at left lung base. Chest CTA was negative for any pulmonary artery emboli, mild aneurysm dilation of ascending thoracic aorta [4.5 cm] and moderate CHF with possible superimposed pneumonia B/L Curb- 65 : 3 points ; Severe risk group ; Consider inpatient care with possible ICU admission. PSI/PORT score : 119 points; risk class IV; hospitalization recommended based on risk. Completed 3 days of azithromycin 500 Mg IV daily from [03/23?03/25] Completed 5 days of ceftriaxone 1 g IV daily from [03/23 - 03/27] Completed 5 days of prednisone 40 Mg p.o. daily from [03/23 - 03/27] Plan: ? Continuye DuoNebs to Q8 hourly ? Continue Mucinex 1 tab p.o. twice daily ? Continue chest physiotherapy with vest Q4 hourly ? Continue chest physiotherapy with Acapella device 5. NSTEMI type I versus type II?resolved Patient had no typical ACS symptoms on presentation. Troponin initially mildly elevated at 0.065 down trended to 0.057 Likely type II NSTEMI in setting of heart failure exacerbation. Cardiology recommended no need for further trending of troponin and also no need for heparin infusion. 6. Peripheral arterial disease 7. Carotid artery stenosis s/p TCAR 8. CAD s/p stents [2022, August 2023] 9. Hyperlipidemia Home medication aspirin, Plavix and atorvastatin 40 Mg p.o. at bedtime PCI to LAD in August 2023, 100 percent chronically occluded RCA with [id number] collaterals, 100% occluded OM 2 stent placed in 2022 with left to left collaterals Arterial/peripheral duplex was significant for severe bilateral peripheral obstructive arterial disease. Right AMANDA 1.0, left ankle blood pressure unobtainable. Plan: ? Continue home medication ? Continue ASA 81 Mg p.o. daily ? Continue Plavix 75 Mg p.o. daily ? Continue atorvastatin 40 Mg p.o. at bedtime 10. GERD From med rec patient not on any medication at home. Currently patient received high-dose steroids for COPD exacerbation and at risk for peptic ulcers. Plan: ? Continue pantoprazole 40 Mg p.o. daily 11. Nicotine dependence 12. History of methamphetamine abuse On this admission U tox negative for methamphetamine, positive for THC Patient has approximately 50?[id number] smoking history and currently endorses smoking 1 pack/week Plan: ? Continue nicotine patch 7 Mg topical daily 13. Transaminitis - resolving Most likely due to hepatic congestion from CHF exacerbation Patient's AST 167, ALT 121, and ALK phos 139 on admission which down trended to AST 47, ALT 68 and ALP 94 Plan: ? Continue to monitor on CMP 14. Cholelithiasis Most likely patient's transaminitis due to cholelithiasis. Currently nonobstructing and not causing patient any pain. No need for further medical or surgical treatment at this time. Will advise patient on low-fat diet From liver ultrasound completed on 03/27/2024 Findings include: Cholelithiasis, borderline thickened gallbladder wall. Health maintenance: Disposition: Continue IV diuresis. Anticipate discharge within the next 24 to 48 hours Diet: Cardiac Lines: pIVs GI Prophylaxis: Pantoprazole Thrombo Prophylaxis: Heparin 5000 units SC twice daily Code status: FULL CODE Plan of care discussed with Attending Dr. Santa and PGY2 Dr. Fabiola Nixon MD PGY 1 Attending Provider Attestation/Addendum I have discussed and was present for the essential components of the history, physical examination, diagnosis, and treatment plan with the resident. I agree with the patient's care as documented by the resident and amended herein by me. Dimitrios Santa, DO. Vital signs stable, patient afebrile overnight, I/oh 1380/4050. CBC unremarkable, potassium 4.1, magnesium 1.8. Will continue diuresis with Bumex 2 mg IV twice daily, continue aspirin Plavix and statin. Midodrine on board, blood pressure on the softer side however relatively unchanged. Cardiology consulted, appreciate recommendations. Although this document has been carefully reviewed, there may still be some phonetic and other typographical errors. These errors are purely grammatical due to imperfections in the software program and should not be construed in any way to compromise the substance of the patient's medical care during this visit.
[2024-03-28] MEDS: ATORVASTATIN CALCIUM 20 MG TABLET 40 MG PO (21:05)
[2024-03-29] VITALS (9 sets, daily range): BP systolic 101–113; BP diastolic 61–82; PULSE 66–84; RESP 15–23; TEMP 36.1–36.6; O2SAT 94–99; BMI 26.4
[2024-03-29] MEDS: MIDODRINE 5 MG TABLET 10 MG PO (05:12)
[2024-03-29 06:12] LABS: Basophils % (Auto) 0 % (0-2.5); Eosinophils # (Auto) 0.1 Thou/mm3 (0.0-0.5); Eosinophils % (Auto) 1 % (0-10); Hematocrit 47.2 % (41.0-53.0); Hemoglobin 15.5 g/dL (13.5-16.0); Immature Granulocytes % (Auto) 1 % (0-0); Immature Granulocytes Auto 0.04 Thou/mm3 (0.00-0.00); Lymphocytes # (Auto) 1.4 Thou/mm3 (1.0-4.8); Lymphocytes % (Auto) 19 % (10-50); Mean Corpuscular HGB Conc 32.8 g/dl (31.0-37.0); Mean Corpuscular Hemoglobin 30.8 pg (25.0-35.0); Mean Corpuscular Volume 94 fL (80-100); Monocytes # (Auto) 0.7 Thou/mm3 (0.0-0.8); Monocytes % (Auto) 9 % (0-12); Neutrophils # (Auto) 5.1 Thou/mm3 (1.8-7.7); Neutrophils % (Auto) 70 % (37-80); Nucleated Red Blood Cell % 0 /100 WBC (0); Platelet Count 140 Thou/mm3 (140-440); RDW Standard Deviation 51.7 fL (35.1-43.9); Red Blood Count 5.04 Miln/mm3 (4.50-5.90); White Blood Count 7.2 Thou/mm3 (3.8-10.6)
[2024-03-29 06:37] LABS: Alanine Aminotransferase 58 U/L (10-49); Albumin, Serum 3.6 gm/dL (3.4-4.8); Albumin/Globulin Ratio 1.8 (1.2-2.2); Alkaline Phosphatase 94 U/L (46-116); Anion Gap 7 (7-16); Aspartate Amino Transferase 49 U/L (0-34); BUN/Creatinine Ratio 21 Ratio (12-20); Bilirubin,Total 0.6 mg/dL (0.3-1.2); Blood Urea Nitrogen 25 mg/dL (9-23); Calcium 9.2 mg/dL (8.3-10.6); Calcium (Corrected) 9.5 mg/dL (8.5-10.1); Carbon Dioxide 35.4 mMol/L (20.0-31.0); Chloride 98 mMol/L (98-107); Creatinine (Component) 1.2 mg/dL (0.6-1.3); Estimated Creatinine Clearance 56.2 mL/min (>60); Glucose 70 mg/dL (74-106); Magnesium 1.8 mg/dL (1.6-2.6); Osmolality,Calculated 281 (275-295); Potassium 3.5 mMol/L (3.4-5.1); Sodium 140 mMol/L (136-145); Total Protein 5.6 gm/dL (5.7-8.2); eGFR > 60 See Note
[2024-03-29] MEDS: ALBUTEROL/IPRATROPIUM (Duoneb) RT SOL 3 ML NEBU INH (06:57)
[2024-03-29] MEDS: NICOTINE PATCH 7 MG/24 HR PATCH.TD24 TOP (08:09)
[2024-03-29] MEDS: HEPARIN SOD INJ 5000 UNIT/ML VIAL SC (08:10)
[2024-03-29] MEDS: PANTOPRAZOLE 40 MG TABLET PO (08:10)
[2024-03-29] MEDS: POTASSIUM CHLORIDE 20 mEq TABCR 40 MEQ PO (08:10)
[2024-03-29] MEDS: CLOPIDOGREL BISULFATE 75 MG TABLET PO (08:10)
[2024-03-29] MEDS: ASPIRIN EC 81 MG TABEC PO (08:10)
[2024-03-29] MEDS: guaiFENesin/DM TABLET 1 EACH PO (08:10)
[2024-03-29] MEDS: BUMETANIDE INJ 0.25 MG/ML VIAL 4 ML 2 MG IVP (08:11)
[2024-03-29] MEDS: Magnesium Sulfate 2 GM Ivpb 2 GM/50 ML BAG IV (08:11)
--- NOTE | 2024-03-29 08:25 | ESDS_ITS ---
<Statement entered by Shabbir Perkins MD - 03/29/24 19:32> I discussed with and supervised my co-resident involved in the care of this patient. I agree with the assessment and plan as documented above. Shabbir Perkins,PGY-3 Disclaimer: Despite multiple revisions, due to the dictation software being used, the document below may not be free of grammatical errors including phonetic/typographic errors. However, this does not deter from our commitment to providing health care in the patient's best interest in mind. Planned Discharge Date 03/29/24 DS: Providers Provider Date of admission: 03/23/24 03:06 Primary care physician: Matthew Zimmerman PA-C Admitting Provider: Go Katz MD Attending Provider on Admission: Dulce Maria Villar DO Consults: 03/23/24 11:12 Referral Physical Therapy Routine Comment: Physician Instructions: 03/23/24 13:29 Consult to Cardiology Routine Comment: Consulting Provider: Sky Chaney Attending Provider on DC: Ad Santa DO Discharging Provider: Frankie Nixon MD DS: Diagnosis Problem List Completed Was Problem List Reviewed/Reconciled?: Yes Hospital Course Hospital Course Hospital course: Patient is a 68-year-old male with a past medical history significant for CAD s/p stents 2022, August 2023, HFrEF 15-20% 01/2024, ascending thoracic aorta aneurysm 4.4 cm, carotid artery disease s/p TCAR, essential hypertension, hyperlipidemia, GERD, nicotine dependence 50-60 pack years, history of methamphetamine abuse and medication noncompliance, COPD, PAD. Patient presented with a chief complaint of SOB. Patient was admitted for workup and management of acute respiratory failure with hypoxia secondary to acute decompensated heart failure exacerbation versus CAP versus COPD exacerbation. For his acute decompensated chronic systolic and diastolic congestive heart failure exacerbation patient was diuresed with Bumex 2 Mg IV twice daily. During course of hospitalization patient had a negative fluid balance of approximately 10-11 L. He was weaned off of oxygen and his lower extremity edema significantly improved as well as his crepitations heard on auscultation. Upon discharge he was sent home with Bumex 1 Mg p.o. daily and metoprolol XL 25 Mg p.o. daily as per cardiology recommendations. Spironolactone and Entresto currently on hold until his follow-up appointment in cardiology clinic. For his community-acquired pneumonia patient was treated with 3 days of azithromycin 500 Mg IV daily from [03/23 - 03/25] along with 5 days of ceftriaxone 1 g IV daily from [03/23 - 03/27] and a 5-day course of prednisone 40 Mg p.o. daily from [03/23 - 03/27]. After which is symptoms of SOB and cough markedly improved. With regards to his COPD exacerbation, patient was treated initially with DuoNebs Q4 hourly along with Mucinex 1 tab p.o. twice daily, chest physiotherapy every 4 hourly with pneumatic vest and Acapella device. As patient's symptoms of SOB and wheeze improved DuoNebs was gradually weaned to Q8 hourly. Prior to discharge patient's symptoms have resolved. With regards to his peripheral arterial disease patient had an arterial duplex which was significant for severe bilateral peripheral obstructive arterial disease. Right AMANDA 1.0, left ankle blood pressure unobtainable. All patient's labs are now returned to baseline. Patient is now clinically stable and fit for discharge to home with home health. Discharge diagnoses: 1. Acute on chronic respiratory failure with hypoxia?resolved 2. Acute decompensated chronic systolic and diastolic congestive heart failure exacerbation [EF 15-20%]?resolved 3. Community-acquired pneumonia?resolved 4. COPD exacerbation?resolved 5. NSTEMI type II?resolved 6. Peripheral arterial disease 7. Carotid artery stenosis s/p TCAR 8. CAD s/p stents [2022, August 2023] 9. Hyperlipidemia 10. GERD 11. Nicotine dependence 12. History of methamphetamine use 13. Transaminitis?resolved 14. Cholelithiasis Discharge plan: - Continue taking your water tablets Bumex. Take 1 tablet once a day. ? We have started you on a medication, metoprolol XL 25 Mg daily for your heart failure. Take 1 tablet once a day. ?We have increased the dose of your midodrine to 10 Mg p.o. 3 times daily. Take 1 tablet 3 times a day ? Continue using the nicotine patch daily and completely stop smoking immediately. This includes tobacco, marijuana and any other substances. ? We have discontinued your medication carvedilol. Please stop taking if you h ave any remaining at home discard of them. ? We have put a hold on new medication spironolactone until you see your gang sawyer. ? You may need to start a medication Entresto for your heart at a later date. Your gang sawyer will decide when you see them in clinic. ? Continue taking the rest of your home medications as before ? You will have to restrict your daily liquid intake to 1.5 L / 50 ounces per day. This includes water, teas, coffees and soups. ? You will have to follow a low salt diet for the rest of your life. This means no [place] food or fast food. ? You will have to take your weight daily. Your baseline weight is about 174 pounds. If your weight increases by more than 5-10 pounds in 1-2 days, take an extra water pill that day. ? You will have to measure your blood pressure daily. If the top number is less than 100, do not take your blood pressure medications that day. ? Keep a log of your blood pressures to take to your primary doctor and gang sawyer. - You're baseline BNP is 2769. - Follow up with your gang sawyer or gang sawyer, Dr. Chaney outpatient. His office number is [phone]. Please see a gang sawyer within 1-2 weeks of discharge - Follow up with your primary care physician within 1 week of discharge. If you do not have a primary care physician, please follow up with the [facility] Residents clinic ([phone]) ? If you experience any new, worsening or persistent symptoms either call your primary doctor, or dial 911 or present to the emergency department. We are grateful to be able to participate in Mr. Rg's care. We wish him the best. Plan of care discussed with Attending Dr. Santa and PGY3 Dr. Gregorio Nixon MD PGY 1 Time spent discussing smoking cessation with patient: more than 10 minutes (15) Time Spent with Patient Time attestation: Total time spent providing and/or coordinating discharge services: Time spent: Greater than 30 minutes (36) Home Health Home Health Referral Orders: 03/28/24 14:25 Home Health Referral Routine Reason For Exam: debility Home-Bound The patient must either because of illness or injury, need the aid of supportive devices such as crutches, canes, wheelchairs, and walkers; the use of special transportation; or the assistance of another person in order to leave their place of residence; OR have a condition such that leaving his or her home is medically contraindicated. In addition, the patient also meets the following criteria: patient is normally unable to leave the home and leaving home requires considerable taxing effort. Addendum to Home Health Certification Practitioner's Certification: I certify that the patient has been under my care in the hospital and the care of attending physician (see below). We had a juxa-hq-vydx encounter on (see date below). My clinical findings indicate that the patient is home bound per the above criteria and the Home Health Services noted in these orders are medically necessary. The primary reason for the maqb-ju-lqzh encounter is related to the fact that the patient requires home health services. Date Certifying Psiy-su-Ntea Physician Encounter: 03/23/24 Physician's Name who will Assume Oversight for Services: Matthew Zimmerman Physician's Phone No.who will Assume Oversight for Service: MANAGER SOLAR - Community Resources: No PT to Evaluate: Yes PT to evaluate and provide a treatmnet plan to increase patient's mobility and strength. Wound Care: No IV Therapy: No Discontinue PICC Line Once Treatment Complete: No RN Safety Evaluation: Yes RN to evaluate and create a plan of care that will produce positive outcomes. Palliative Treatment: No Palliative treatment and evaluate the need for hospice. Home Health Aide - Personal Care: No Home Health Aide to assist with any ADL's. Exam Vital Signs Temp Pulse Resp BP Pulse Ox O2 Del Method O2 Flow Rate 97.0 F 67 16 110/82 99 Room Air 1 03/29/24 08:00 03/29/24 08:11 03/29/24 08:00 03/29/24 08:11 03/29/24 08:00 03/29/24 08:00 03/27/24 09:28 FiO2 70 03/26/24 04:00 Narrative Exam Constitutional Alert, oriented x 3 and comfortable. Elderly male sitting comfortably HEENT Vision grossly intact. Patent nares. Trachea midline. Missing teeth, silver crowns Respiratory Chest normal on inspection and mild crackles auscultated at bases bilaterally - improving Cardiovascular S1 and S2 audible, RRR. No murmurs carotid bruit. No gross JVD. Abdominal Soft, obese and non tender to palpation in all quadrants. BS + Genitourinary No bladder tenderness, no flank pain. Normal to palpation. Scrotal edema resolved Musculoskeletal Extremities tone within normal limits. Bilateral pedal edema, trace lower extremity edema up to mid tibia bilaterally - improving Neurological CN II - XII grossly intact. Extremity motor and sensation grossly intact. Skin Warm, dry and intact. No apparent lesions. Psychiatric Patient has good affect, is cooperative Discharge Plan Plan Patient Disposition: Home w/HOME HEALTH Patient condition on transfer: Stable Care Plan Goals: - Continue taking your water tablets Bumex. Take 1 tablet once a day. ? We have started you on a medication, metoprolol XL 25 Mg daily for your heart failure. Take 1 tablet once a day. ?We have increased the dose of your midodrine to 10 Mg p.o. 3 times daily. Take 1 tablet 3 times a day ? Continue using the nicotine patch daily and completely stop smoking immediately. This includes tobacco, marijuana and any other substances. ? We have discontinued your medication carvedilol. Please stop taking if you have any remaining at home discard of them. ? We have put a hold on new medication spironolactone until you see your gang sawyer. ? You may need to start a medication Entresto for your heart at a later date. Your gang sawyer will decide when you see them in clinic. ? Continue taking the rest of your home medications as before ? You will have to restrict your daily liquid intake to 1.5 L / 50 ounces per day. This includes water, teas, coffees and soups. ? You will have to follow a low salt diet for the rest of your life. This means no [place] food or fast food. ? You will have to take your weight daily. Your baseline weight is about 174pounds. If your weight increases by more than 5-10 pounds in 1-2 days, take an extra water pill that day. ? You will have to measure your blood pressure daily. If the top number is less than 100, do not take your blood pressure medications that day. ? Keep a log of your blood pressures to take to your primary doctor and gang sawyer. - You're baseline BNP is 2769. - Follow up with your gang sawyer or gang sawyer, Dr. Chaney outpatient. His office number is [phone]. Please see a gang sawyer within 1-2 weeks of discharge - Follow up with your primary care physician within 1 week of discharge. If you do not have a primary care physician, please follow up with the [facility] Residents clinic ([phone]) ? If you experience any new, worsening or persistent symptoms either call your primary doctor, or dial 911 or present to the emergency department. Prescriptions/Referrals Prescriptions/Med Rec: New atorvastatin 40 mg tablet 40 mg PO QDAY Qty: 30 1RF midodrine 10 mg tablet 10 mg PO TID PRN (Reason: low blood pressure) Qty: 30 0RF Rx Instructions: do not give last dose of day after 6PM or within 4 hrs of bedtime metoprolol succinate 25 mg tablet extended release 24 hr 25 mg PO QDAY Qty: 30 1RF Continued clopidogrel [Plavix] 75 mg tablet 75 mg PO QDAY Qty: 30 0RF ferrous sulfate [FeroSul] 325 mg (65 mg iron) tablet 325 mg PO 1XD Patient Comments: TAKE 1 TABLET BY MOUTH EVERY DAY ergocalciferol (vitamin D2) 1,250 mcg (50,000 unit) capsule 1,250 mcg PO QWEEK Patient Comments: TAKE 1 CAPSULE BY MOUTH EVERY WEEK bumetanide 1 mg tablet 1 mg PO QDAY Qty: 20 0RF aspirin 81 mg Tablet,Delayed Release (Dr/Ec) 81 mg PO QDAY Qty: 30 0RF Held spironolactone 25 mg Tablet 12.5 mg PO BID 30 Days Qty: 15 3RF Hold Instructions: untill see cardiology Discontinued midodrine 5 mg Tablet 5 mg PO TID 30 Days Qty: 90 3RF Rx Instructions: HOLD FOR BLOOD PRESSURE >120/80 carvedilol 3.125 mg Tablet 3.125 mg PO BIDWM 30 Days Qty: 60 3RF Hold Instructions: Resume on 01/21/24. Follow up with your gang sawyer for med reconciliation and resuming carvedilol as you heart rate and pulse rate are low atorvastatin 80 mg tablet 80 mg PO QPM Qty: 30 3RF Referrals: Sky Chaney MD [Physician] - Matthew Zimmerman PA-C [Primary Care Provider] - Patient/Caregiver Discharge Instructions Other Discharge Activity Instructions:: - Continue taking your water tablets Bumex. Take 1 tablet once a day. ? We have started you on a medication, metoprolol XL 25 Mg daily for your heart failure. Take 1 tablet once a day. ?We have increased the dose of your midodrine to 10 Mg p.o. 3 times daily. Take 1 tablet 3 times a day ? Continue using the nicotine patch daily and completely stop smoking immediately. This includes tobacco, marijuana and any other substances. ? We have discontinued your medication carvedilol. Please stop taking if you have any remaining at home discard of them. ? We have put a hold on new medication spironolactone until you see your gang sawyer. ? You may need to start a medication Entresto for your heart at a later date. Your gang sawyer will decide when you see them in clinic. ? Continue taking the rest of your home medications as before ? You will have to restrict your daily liquid intake to 1.5 L / 50 ounces per day. This includes water, teas, coffees and soups. ? You will have to follow a low salt diet for the rest of your life. This means no [place] food or fast food. ? You will have to take your weight daily. Your baseline weight is about 174pounds. If your weight increases by more than 5-10 pounds in 1-2 days, take an extra water pill that day. ? You will have to measure your blood pressure daily. If the top number is less than 100, do not take your blood pressure medications that day. ? Keep a log of your blood pressures to take to your primary doctor and gang sawyer. - You're baseline BNP is 2769. - Follow up with your gang sawyer or gang sawyer, Dr. Chaney outpatient. His office number is [phone]. Please see a gang sawyer within 1-2 weeks of discharge - Follow up with your primary care physician within 1 week of discharge. If you do not have a primary care physician, please follow up with the [facility] Residents clinic ([phone]) ? If you experience any new, worsening or persistent symptoms either call your primary doctor, or dial 911 or present to the emergency department. Education Materials: Thoracentesis Dc, Heart Failure: Tracking Your Weight, Heart Failure Making Changes to ..., Heart Failure: Evaluating Your Heart, Heart Failure Dc, Heart Failure: Know Your Baselines Print Language: Cymro Stand Alone Forms: Joan Award Info., Patient Portal Info Letter Discharge Order Discharge Orders: Discharge (Routine); Ordered 03/29/24 Ordered By: Frankie Nixon Quality Discharge Quality Measures VTE prophylaxis Attestestation MD Attestation I have discussed and was present for the essential components of the discharge history, physical examination, diagnosis, and discharge treatment plan with the resident. I agree with the patient's discharge care as documented by the resident and amended herein by me. Dimitrios Santa DO. The patient understood all discharge instructions, all questions were answered satisfactorily. The patient was instructed to return to the Emergency Department is symptoms worsened or persisted. Although this document has been carefully reviewed, there may still be some phonetic and other typographical errors. These errors are purely grammatical due to imperfections in the software program and should not be construed in any way to compromise the substance of the patient's medical care during this visit.
--- NOTE | 2024-03-29 09:11 | ESPR_ITS ---
Documentation for date of: 03/30/24 Subjective Subjective Interval history: Patient was seen at bedside this morning. No overnight events. Patient diuresed well for the last 4 to 5 days and continue to improve with a BUN of 25 and creatinine of 1.2. Overall net negative around 10 L during this admission. Patient will be discharged on Bumex 1 mg p.o. once daily and will start goal- directed medical therapy with Roxicodone 5 mg once daily Entresto has been reluctant to be started as outpatient after monitoring the kidney function with blood pressure is better. LFTs continue to improve with diuresis and recommend to restart her statin at the time of discharge. Exam Vital Signs Temp Pulse Resp BP Pulse Ox O2 Del Method O2 Flow Rate 98 F 81 15 106/72 94 L Room Air 1 03/29/24 11:37 03/29/24 11:37 03/29/24 11:37 03/29/24 11:37 03/29/24 11:37 03/29/24 11:37 03/27/24 09:28 FiO2 70 03/26/24 04:00 Narrative Exam General: A/O x3, no acute distress Eyes: PERRL, EOMI. Anicteric, vision grossly intact. Ears: No ear pain, no ear discharge, Hearing grossly intact. Nose: No nasal discharge. Mouth/Throat: Dry mucous membranes, no redness, no lesions. Neck: Neck supple, non-tender, no cervical lymphadenopathy. Lungs: Crackles AJAY, No accessory muscle use. Cardio: Normal S1/S2, regular rhythm, no murmurs, no JVD Abdomen: Soft, non-tender, no palpable masses, peristalsis present, no guarding or rebound. Extremities: Symmetrical, no significant deformities, 2+ peripheral edema, improving , non-tender, peripheral pulses presents. Skin: No rashes, no lesions, warm to touch. Neuro: No focal neurological deficits. motor and sensory intact Psych: Cooperative, appropriate mood and effect. Objective Labs 03/29/24 05:18 03/29/24 05:18 Labs: Laboratory Results - last 24 hr 03/29/24 05:18 B-Natriuretic Peptide 2769 H* Assessment & Plan A&P Narrative Patient well-known to me from previous admissions in 2023. Presentation again similar to back to 2023 presentation for CHF exacerbation. A 67-year-old male with a past medical history of f CAD s/p PCI to LAD in August 2023, 100 percent chronically occluded RCA with [id number] collaterals, 100% occluded OM 2 stent placed in 2022 with left to left collaterals,, carotid arterial disease status post TCAR, HFrEF (15-20% 01/2024), ascending thoracic aortic aneurysm at 4.4 cm, Essential hypertension, hyperlipidemia, GERD, active smoker with more than 32-59-qwis-year smoking history, history of methamphetamine abuse, noncompliance with medications and doctor visits presented to the emergency department for further evaluation of worsening shortness of breath for the past few days. Initially patient came in tachycardic, tachypneic,hypertensive, and afebrile. Initial lab work showed WBC 17.1, Hgb 11.6, platelets 178, sodium 130, potassium 4.7, [id number], BUN 24, creatinine 1.4, magnesium 3.6, AST 192, ALT 103, alkaline phosphatase 178, T. Ajay 1.5, trops 0.065 and downtrended, and BNP 3280+. Initial imaging included CXR which showed mild CHF and L base PNA; Chest CTA showed mild aneurysmal dilatation ascending thoracic aorta, CHF, and PNA of left base. Arterial dupplex showed Severe bilateral peripheral obstructive arterial disease and Venous doppler was negative for DVT. Echo on 01/2024 had the following dfindings: Severe LV dilatation. Severe systolic dysfunction. Severe global hyopokinesis. Stage III diastolic dysfunction. Estimated EF 15-20% Mild RV dilatation. Mild RV systolic dysfunction. Estimated RVSP 43mmHg. Mild to moderate PAH Severe LA dilatation. Moderate RA dilatation Moderate MR. Mild TR. There is trival anterior pericardial effusion. No evidence of cardiac tamponade. 1. Overall picture consistent with acute on chronic combined severe systolic and diastolic congestive heart failure exacerbation. He is volume overloaded and recommend to continue IV diuresis with Lasix 40 mg IV twice daily for now and can increase up to every 8 hours based on the renal function. Patient LFTs have increased along with worsening of kidney function which is cardiorenal syndrome with along with hepatic congestion as he was previously. Strict input output, daily weights and 2 g sodium diet. Keep potassium greater than 4 magnesium greater than 2.0 at all times. Patient needs goal-directed medical therapy but unfortunately is not on any medications at the present point of time because of the low blood pressure Will use pressor support if needed for diuresis if needed as he was on dopamine drip also during the last admission at low-dose dopamine during the last admission also. 2. Elevated troponins mostly secondary to the NSTEMI type II in the setting of heart failure exacerbation supply/demand mismatch. Recommend no further troponins and no heparin drip at the present point of time. Continue aspirin, Plavix along with statin. Hold off on the beta-marlo as blood pressure is on the lower side. . 3. Patient is extremely noncompliant with medications as well as doctor visits. He did sign out AMA during the last visit. He did not follow-up with me in the office since the last admission. His initial EF was around 25% when he PCI was performed to the LAD and his previous stents to the OM were also occluded because of his noncompliance with medications. Patient has been strictly told to stop any kind of methamphetamine abuse and other drug abuse including marijuana but patient continues the drug abuse and his EF continued continued with last time around 15% - 20%. Patient is not eligible for any advanced medical therapies because of his noncompliance with medications as well as on doctor visits and cannot be evaluated for any kind of LVAD or any kind of transplant. Check the U-Tox again and if the urine tox is positive again the patient will need discharge to a drug rehabilitation if he is willing to to qualify him for other medical therapies. Overall unfortunate situation but will need to continue to treat medically for now. Patient for status need to be addressed with the immediate family or next of kin and the patient in detail by the primary team. 03/24/2024: Patient diuresed well for the last 4 to 5 days and continue to improve with a BUN of 25 and creatinine of 1.2. Overall net negative around 10 L during this admission. Patient will be discharged on Bumex 1 mg p.o. once daily and will start goal- directed medical therapy with Roxicodone 5 mg once daily Entresto has been reluctant to be started as outpatient after monitoring the kidney function with blood pressure is better. LFTs continue to improve with diuresis and recommend to restart her statin at the time of discharge. U-Tox is negative Patient states that he did not touch and again the prediabetes may reduce except for occasional marijuana since his last visit with me a few months ago. Patient does agree that he stopped following up with the office and wants to return back as follow-up. Patient does inform me that he has not been taking all his medications because one of his primary care providers has stopped him from some medications. Unclear why. Again recommended the patient to strictly continue to stop the drug abuse and follow-up in the office and not to stop his aspirin and Plavix at all and is stents placed in the LAD can close and he came heart attack. Patient already has occluded stent in the OM1 that was placed in 2022 and his noncompliance could be fatal. Emphasized the above in detail to the patient and counseled him regarding the same. Management of rest of the medical conditions as per primary team and other consultants. Thank you for the consult and allowing me to participate in the care of the patient. Cardiology will continue to follow. Sky Chaney M.D. Interventional Cardiology Time Spent With Patient Time: Total time spent is greater than 50% in coordination of care (as documented) at patient's floor/unit and/or counseling patient:
--- NOTE | 2024-03-29 09:12 | PC.NURSE ---
Dr. Nixon aware of pt. morning BP 107/82. orders to recheck Bp and give metoprolol. states cardio wants pt. to be DC on metoprolol, give now to see how pt. tolerates before DC.
[2024-03-29] MEDS: METOPROLOL SUCCINATE XL 25 MG TABCR PO (09:25)
[2024-03-29 10:05] LABS: B-Type Natriuretic Peptide 2769 pg/mL (0-100)
[2024-03-29] MEDS: POTASSIUM CHLORIDE 20 mEq TABCR PO (10:32)
--- NOTE | 2024-03-29 10:34 | PC.NURSE ---
Dr. Nixon aware of pt. BP 1 hour post Metoprolol administration. BP 105/81 and HR 81. orders we will DC soon.
--- NOTE | 2024-03-29 15:28 | PC.CM ---
Addendum entered by Gerson Coleman RN 03/29/24 16:37: Start of care date with [facility] is 04/01/24. Addendum entered by Gerson Coleman RN 03/29/24 16:05: [facility] accepted the pt. Booked them. Pending start of care date. Original Note: HH referral sent on [facility]. Awaiting responses. Pending start of care date.
--- NOTE | 2024-04-02 16:48 | PC.CM ---
I received a call from [facility]. Florencia states the nurse went out to see patient she documented she did not feel safe going to see patient due to suspicious behavior. She states they will not be able to follow patient. She stated her manufacturing production manager tried calling him herself to see if she could go out and assess the situation. Florencia states patient never answered the calls.
== END 2024-03-29 11:37 | disposition home health service (06) | DRG 280 ==
LOC: SERX 03-23 03:08 → SERHOLD 03-23 03:38 → S2NX 03-23 22:04
PROVIDERS: Student in an Organized Health Care Education/Training Program; Admitting Provider Internal Medicine; Emergency Provider Emergency Medicine; PCP Physician Assistant; Visit Provider Internal Medicine
DX: I11.0 Hypertensive heart disease with heart failure (principal); I50.43 Acute on chronic combined systolic (congestive) and diastolic (congestive) heart failure; I21.A1 Myocardial infarction type 2; J18.9 Pneumonia, unspecified organism; J96.21 Acute and chronic respiratory failure with hypoxia; J44.0 Chronic obstructive pulmonary disease with (acute) lower respiratory infection; J44.1 Chronic obstructive pulmonary disease with (acute) exacerbation; E87.1 Hypo-osmolality and hyponatremia; I31.39 Other pericardial effusion (noninflammatory); Z95.5 Presence of coronary angioplasty implant and graft; I25.10 Atherosclerotic heart disease of native coronary artery without angina pectoris; F17.200 Nicotine dependence, unspecified, uncomplicated; E78.5 Hyperlipidemia, unspecified; K21.9 Gastro-esophageal reflux disease without esophagitis; I71.21 Aneurysm of the ascending aorta, without rupture; I25.2 Old myocardial infarction; D69.6 Thrombocytopenia, unspecified; I95.9 Hypotension, unspecified; I49.3 Ventricular premature depolarization; F15.10 Other stimulant abuse, uncomplicated; I73.9 Peripheral vascular disease, unspecified; K76.1 Chronic passive congestion of liver; K80.20 Calculus of gallbladder without cholecystitis without obstruction; F17.210 Nicotine dependence, cigarettes, uncomplicated; F12.10 Cannabis abuse, uncomplicated
CPT/HCPCS: 36415; 71045; 71275; 76705; 76999; 80053; 80061; 80307; 81001; 82150; 82945; 83605; 83615; 83690; 83735; 83880; 84100; 84145; 84157; 84443; 84484; 85025; 85610; 85730; 86331; 86635; 87040; 87081; 87086; 87205; 87811; 89051; 93005; 93922; 93970; 94640; 94660; 94667; 96365; 96366; 96367; 96375; 97162; 99291; A4649; A9270; J0696; J1643; J1940; J2270; J2543; J2919; J3475; J3490; J7512; Q9967; J1644

== ENCOUNTER → 2024-09-27 | Outpatient (CLI) | payer MEDICARE, SELFPAY ==
--- NOTE | 2024-09-27 09:51 | XR_ITS ---
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
--- NOTE | 2024-09-27 09:51 | XR_ITS ---
Examination: Hand, left 3 views Technique: Hand AP, oblique, lateral 3 views Date and time of exam: September 27, 2024 1013 hours INDICATIONS: Lump third digit left hand noticed beginning 2 years ago. FINDINGS: Osteoarthritis interphalangeal joints, most severe distal interphalangeal joint third digit and fifth digit No acute fracture No erosive arthritis Old ununited fracture deformity navicular IMPRESSION: Osteoarthritis as above
== END | disposition home or self-care (01) ==
PROVIDERS: PCP Physician Assistant
DX: M15.1 Heberden's nodes (with arthropathy) (principal); S62.032A Displaced fracture of proximal third of navicular [scaphoid] bone of left wrist, initial encounter for closed fracture; X58.XXXA Exposure to other specified factors, initial encounter
CPT/HCPCS: 73110; 73130

== ENCOUNTER → 2024-11-11 | Outpatient (CLI) | payer MEDICARE, SELFPAY ==
[2024-11-11 13:31] LABS: Basophils # (Auto) 0.1 Thou/mm3 (0.0-0.2); Basophils % (Auto) 1 % (0-2.5); Eosinophils # (Auto) 0.3 Thou/mm3 (0.0-0.5); Eosinophils % (Auto) 4 % (0-10); Hematocrit 50.3 % (41.0-53.0); Hemoglobin 16.8 g/dL (13.5-16.0); Immature Granulocytes Auto 0.03 Thou/mm3 (0.00-0.00); Lymphocytes # (Auto) 1.0 Thou/mm3 (1.0-4.8); Lymphocytes % (Auto) 15 % (10-50); Mean Corpuscular HGB Conc 33.4 g/dl (31.0-37.0); Mean Corpuscular Hemoglobin 31.9 pg (25.0-35.0); Mean Corpuscular Volume 96 fL (80-100); Monocytes # (Auto) 0.6 Thou/mm3 (0.0-0.8); Monocytes % (Auto) 9 % (0-12); Neutrophils # (Auto) 4.6 Thou/mm3 (1.8-7.7); Neutrophils % (Auto) 70 % (37-80); Nucleated Red Blood Cell # 0.00 Thou/mm3 (0.00-0.00); Nucleated Red Blood Cell % 0 /100 WBC (0); Platelet Count 199 Thou/mm3 (140-440); RDW Standard Deviation 47.8 fL (35.1-43.9); Red Blood Count 5.26 Miln/mm3 (4.50-5.90); White Blood Count 6.6 Thou/mm3 (3.8-10.6)
[2024-11-11 13:35] LABS: Anion Gap 7 (7-16); BUN/Creatinine Ratio 11 Ratio (12-20); Blood Urea Nitrogen 16 mg/dL (9-23); Calcium 8.8 mg/dL (8.3-10.6); Carbon Dioxide 28.2 mMol/L (20.0-31.0); Chloride 109 mMol/L (98-107); Creatinine (Component) 1.4 mg/dL (0.6-1.3); Glucose 81 mg/dL (74-106); Osmolality,Calculated 287 (275-295); Potassium 4.1 mMol/L (3.4-5.1); Sodium 144 mMol/L (136-145); eGFR 54 See Note
[2024-11-11 13:50] LABS: INR 1.1 (0.9-1.3); Partial Thromboplastin Time 23.7 Seconds (22.0-36.0); Prothrombin Time 11.4 Seconds (9.0-12.2)
== END | disposition home or self-care (01) ==
PROVIDERS: PCP Physician Assistant; Referring Provider Internal Medicine; Visit Provider Internal Medicine
DX: I25.10 Atherosclerotic heart disease of native coronary artery without angina pectoris (principal); I48.91 Unspecified atrial fibrillation
CPT/HCPCS: 36415; 80048; 85025; 85610; 85730

== ENCOUNTER 2024-12-25 10:24 | Emergency (ER) | payer MEDICARE, MEDICAID, SELFPAY ==
[2024-12-25] VITALS (10 sets, daily range): BP systolic 112–141; BP diastolic 63–94; PULSE 75–88; RESP 16–24; TEMP 36.5–36.7; O2SAT 95–100; BMI 29.7
--- NOTE | 2024-12-25 10:57 | PD.EDSOB ---
ED SOB =RME/HPI General Chief Complaint: Shortness of Breath/Dyspnea Stated Complaint: SOB Time Seen by Provider: 12/25/24 10:39 Arrival date/time: 12/25/24 10:24 Limitations: no limitations RME / HPI RME / HPI Narrative: DR. ENGEL MAIN ED EVALUATION: 69-year-old male with extensive past medical history including CAD s/p stents (2022, 2023), HFrEF (EF 15?20% in 01/2024), ascending thoracic aortic aneurysm (4.4 cm), carotid artery disease s/p TCAR, hypertension, hyperlipidemia, GERD, COPD, PAD, nicotine dependence (50?60 pack-years), history of methamphetamine abuse, and medication noncompliance presents to the Emergency Department [facility] from home for worsening shortness of breath after starting a new medication prescribed by his airline radio operator. Medication review identified the new drug as Entresto. He also reports an episode of simultaneous urination and defecation. He is on home oxygen, recently increased to 4 L. He denies vomiting, fevers, or chills. Related Data Home Medications ?Medication ?Instructions ?Recorded ?Confirmed ergocalciferol (vitamin D2) 1,250 1,250 mcg PO QWEEK 08/17/23 03/23/24 mcg (50,000 unit) capsule ferrous sulfate 325 mg (65 mg 325 mg PO 1XD 08/17/23 03/23/24 iron) tablet (FeroSul) Previous Rx's ?Medication ?Instructions ?Recorded clopidogrel 75 mg tablet (Plavix) 75 mg PO QDAY #30 tabs 07/17/22 spironolactone 25 mg tablet 12.5 mg (1/2 x 25 mg) PO BID 30 08/20/23 Held on 03/29/24. days #15 tabs Instructions: untill see cardiology aspirin 81 mg tablet,delayed 81 mg PO QDAY #30 tabs 01/13/24 release bumetanide 1 mg tablet 1 mg PO QDAY #20 tabs 01/13/24 atorvastatin 40 mg tablet 40 mg PO QDAY #30 tabs 03/29/24 metoprolol succinate 25 mg 25 mg PO QDAY #30 tabs 03/29/24 tablet,extended release 24 hr midodrine 10 mg tablet 10 mg PO TID PRN low blood 12/23/24 pressure #30 tabs metolazone 5 mg tablet 5 mg PO QDAY PULMONARY EDEMA #5 12/25/24 tabs Allergies Allergy/AdvReac Type Severity Reaction Status Date / Time No Known Allergies Allergy Unverified 07/01/23 06:50 Review of Systems Review of Systems Systems Reviewed: All systems reviewed, normal except as documented Past Medical History Past Medical History CARDIAC: Positive Cardiac Disorders, Hypercholesterolemia, Congestive Heart Failure and Hypertension GASTROINTESTINAL: Positive Gastroesophageal Reflux Disease HEMATOLOGIC: Positive Anemia Surgical History SURGICAL: Positive Angiogram Social History SMOKING STATUS: Light (< 1 pack/day) SUBSTANCE USE: does not use ALCOHOL: Never ED Exam General Limitations: Present no limitations General appearance: Present alert and in no apparent distress Head Head exam: Present atraumatic Eye Eye exam: Present normal appearance, PERRL and EOMI ENT ENT exam: Present normal exam, normal oropharynx and mucous membranes moist Neck Neck exam: Present normal inspection, full ROM and trachea midline Chest Chest inspection: Present normal inspection and symmetric chest wall rise Respiratory Respiratory exam: Present other (increased respiratory rate, diminished breath sounds without wheezing) Cardiovascular Cardiovascular exam: Present other (distant heart sounds) Abdominal Exam Abdominal exam: Present soft and normal bowel sounds Extremities Exam Extremities exam: Present pedal edema (1-2+ pitting edema) Back Exam Back exam: Present normal inspection and full ROM Neurological Exam Neurological exam: Present alert, oriented X3 and CN II-XII intact Psychiatric Psychiatric exam: Present normal affect and normal mood Skin Skin exam: Present warm, dry, intact and normal color Course Quality Measures none Orders Category Date Time Status Child Care Associate NOW Care 12/25/24 11:07 Active Continuous Pulse Oximetry NOW Care 12/25/24 11:06 Completed EKG (ED ONLY) *Do not use* NOW Care 12/25/24 11:07 Completed Insert IV STAT Care 12/25/24 11:06 Active CXRP [XR chest 1V portable] Stat Exams 12/25/24 11:06 Completed EKG (ED Only) Stat Exams 12/25/24 11:06 Draft B-Type Natriuretic Peptide Stat Lab 12/25/24 11:16 Completed CBC Stat Lab 12/25/24 11:16 Completed Comprehensive Metabolic Panel Stat Lab 12/25/24 11:16 Completed Troponin I Stat Lab 12/25/24 11:16 Completed Troponin I Stat Lab 12/25/24 13:05 Completed Urinalysis, C/S if Indicated Stat Lab 12/25/24 11:17 Completed ALBUTEROL RT 0.5ml [Proventil Rt 0.5ml] Med 12/25/24 12:29 Discontinued 5 mg INH X1 ONE Dexamethasone Inj [Decadron Inj] Med 12/25/24 11:10 Discontinued 6 mg IVP X1 ONE Furosemide Inj [Lasix Inj] Med 12/25/24 11:06 Discontinued 40 mg IVP X1 ONE Furosemide Inj [Lasix Inj] Med 12/25/24 12:30 Discontinued 40 mg IVP X1 ONE metOLazone [Zaroxolyn] Med 12/25/24 12:29 Discontinued 5 mg PO X1 ONE Reevaluation(s) Reevaluation #1: Patient remains clinically stable throughout the emergency department visit. Re-assessment at the time of disposition demonstrates that the patient is in no acute distress. Patient would like to go home. We reviewed all the results, analysis, and treatment plans. Patient is amenable to discharge. Strict return precautions were outlined. Patient was discharged in stable condition. Time: 14:00 Vital Signs Vital signs: Vital Signs Temperature 97.9 F 12/25/24 10:27 Pulse Rate 84 12/25/24 10:27 Respiratory Rate 18 12/25/24 10:27 Blood Pressure 141/63 H 12/25/24 10:27 Pulse Oximetry (%) 96 12/25/24 10:27 Oxygen Delivery Method Nasal Cannula 12/25/24 10:27 Oxygen Flow Rate 6 12/25/24 10:27 Shortness of Breath / Dyspnea MDM Narrative MDM Narrative:: IRachel am scribing for and in the presence of Dr. Engel. Patient data External records reviewed:: [facility] previous records and EMS form Clinical information provided by:: patient and EMS Social determinants that could affect healthcare access:: other (specify) (nicotine dependence (50-60 pack-years)) Patient has the following chronic illnesses:: Extensive past medical history including CAD s/p stents (2022, 2023), HFrEF (EF 15?20% in 01/2024), ascending thoracic aortic aneurysm (4.4 cm), carotid artery disease s/p TCAR, hypertension, hyperlipidemia, GERD, COPD, PAD, nicotine dependence (50?60 pack-years), history of methamphetamine abuse, and medication noncompliance. How is presenting disease/condition affected by chronic disease/condition?: exacerbated by Evaluation data The following diagnostics were reviewed and interpreted by me:: lab results, radiology exam(s) and EKG tracing(s) (My interpretation: EKG performed at 1122 hours, sinus rhythm, rate 85, R wave progression, right axis deviation, inferior MA age undetermined) Lab and/or radiology exams considered but not ordered:: none Interpretation Summary: Procedure(s): XR chest 1V portable Accession Number(s): [id number] cc: Garrison Engel MD; Cristian Tobin MD; MATTHEW CHIU~ Examination: AP chest single view Technique one AP portable upright chest single view Date and time: December 25, 2024, 1127 hrs. Comparison: March 22, 2024 Indications: Shortness of breath today. Findings: Moderate CHF. Moderate enlargement cardiac contour. Prominent vascular congestion and perihilar edema with left pleural effusion mild to moderate Impression: Moderate CHF. Dictated By: Cristian Tobin MD Medications / Prescriptions Medications or Prescriptions considered but not ordered:: none Medication administrations:: Medication Administration History Discontinued Medications Albuterol (Albuterol Rt 2.5 Mg/0.5 Ml Nebu) 5 mg INH X1 ONE Stop: 12/25/24 12:30 Last Admin: 12/25/24 12:54 Dose: 5 mg Documented By: RG Dexamethasone Sodium Phosphate (Dexamethasone Sod Phos Inj 10 Mg/Ml Vial) 6 mg IVP X1 ONE Stop: 12/25/24 11:11 Last Admin: 12/25/24 11:29 Dose: 6 mg Documented By: GM Furosemide (Furosemide Inj 10 Mg/Ml 4ml Vial) 40 mg IVP X1 ONE Stop: 12/25/24 11:07 Last Admin: 12/25/24 11:28 Dose: 40 mg Documented By: GM Furosemide (Furosemide Inj 10 Mg/Ml 4ml Vial) 40 mg IVP X1 ONE Stop: 12/25/24 12:31 Last Admin: 12/25/24 12:46 Dose: 40 mg Documented By: GM Metolazone (Metolazone 2.5 Mg Tablet) 5 mg PO X1 ONE Stop: 12/25/24 12:30 see above Consultations Consultation(s) initiated? (list below): No Diagnosis Shortness of Breath Differential Diagnosis: other (Acute decompensated heart failure, COPD exacerbation, and medication-related adverse effect.) Most likely diagnosis given after review of the tests above:: CHF exacerbation Left pleural effusion Admission Indicated Admission indicated?: not indicated Admission Request Was there a request for admission?: No Disposition Plan Disposition Plan: Discharge Discharge Attestation Discharge Attestation: The patient and all family members were given an opportunity to ask questions and understood the discharge instructions. Discharge instructions specifically effects, indications for sooner follow up or return to the emergency department, and the expected course of current diagnosis. Patient condition: Stable Discharge Plan Plan Patient Disposition: HOME (Self Care) Patient condition on transfer: Stable Prescriptions/Referrals Prescriptions/Med Rec: New metolazone 5 mg tablet 5 mg PO QDAY MDD 1 Qty: 5 0RF No Action atorvastatin 40 mg tablet 40 mg PO QDAY Qty: 30 1RF midodrine 10 mg tablet 10 mg PO TID PRN (Reason: low blood pressure) Qty: 30 0RF Rx Instructions: do not give last dose of day after 6PM or within 4 hrs of bedtime metoprolol succinate 25 mg tablet extended release 24 hr 25 mg PO QDAY Qty: 30 1RF clopidogrel [Plavix] 75 mg tablet 75 mg PO QDAY Qty: 30 0RF ferrous sulfate [FeroSul] 325 mg (65 mg iron) tablet 325 mg PO 1XD Patient Comments: TAKE 1 TABLET BY MOUTH EVERY DAY ergocalciferol (vitamin D2) 1,250 mcg (50,000 unit) capsule 1,250 mcg PO QWEEK Patient Comments: TAKE 1 CAPSULE BY MOUTH EVERY WEEK spironolactone 25 mg Tablet 12.5 mg PO BID 30 Days Qty: 15 3RF bumetanide 1 mg tablet 1 mg PO QDAY Qty: 20 0RF aspirin 81 mg Tablet,Delayed Release (Dr/Ec) 81 mg PO QDAY Qty: 30 0RF Referrals: Matthew Chiu PA-C [Primary Care Provider] - In 1 week Problem List Clinical Impression: CHF exacerbation, Pleural effusion on left Patient/Caregiver Discharge Instructions Discharge Activity: activity as tolerated and wear oxygen at all times Education Materials: Heart Failure Meds, Heart Failure Additional Instructions: Continue your usual medications. Take metolazone once a day in the morning for 5 days. Follow-up with your airline radio operator next week to discuss your medication reaction and adjust your medications. Print Language: [place] Stand Alone Forms: [email or web address]., Patient Portal Info Letter
--- NOTE | 2024-12-25 11:06 | XR_ITS ---
Examination: AP chest single view Technique one AP portable upright chest single view Date and time: December 25, 2024, 1127 hrs. Comparison: March 22, 2024 Indications: Shortness of breath today. Findings: Moderate CHF. Moderate enlargement cardiac contour. Prominent vascular congestion and perihilar edema with left pleural effusion mild to moderate Impression: Moderate CHF.
--- NOTE | 2024-12-25 11:06 | EKG_ITS ---
[facility] Test Date: 2024-12-25 Pat Name: SANJANA LR Department: Room: - Gender: Male [employer] Founder: : 1955 Requested By: Sanjana Alexis Order Number: [id number] Reading MD: Sanjana Alexis Measurements Intervals [place] Rate: 85 P: 50 [place]: 173 QRS: 260 QRSD: 125 T: 86 QT: 411 QTc: 490 Interpretive Statements SINUS RHYTHM POSSIBLE LEFT ATRIAL ENLARGEMENT [-0.1mV P-WAVE IN V1/V2] RIGHT AXIS DEVIATION [QRS AXIS > 100] POSSIBLE ANTERIOR MYOCARDIAL INFARCTION , OF INDETERMINATE AGE [30 ms Q WAVE IN V3/V4, OR R < 0.2 mV IN V4] INFERIOR MYOCARDIAL INFARCTION , PROBABLY OLD [40+ ms Q WAVE AND/OR ST/T ABNORMALITY IN II/aVF] Compared to ECG 08/17/2023 11:22:37 Sinus tachycardia no longer present Myocardial infarct finding still present /store/[id number]
[2024-12-25 11:23] LABS: Collection Type, Urine Clean Catch; Squamous Epithelial Cell,Urine 0 /hpf (0-5)
[2024-12-25 11:25] LABS: Basophils # (Auto) 0.0 Thou/mm3 (0.0-0.2); Basophils % (Auto) 1 % (0-2.5); Eosinophils # (Auto) 0.1 Thou/mm3 (0.0-0.5); Eosinophils % (Auto) 1 % (0-10); Hematocrit 47.2 % (41.0-53.0); Hemoglobin 15.8 g/dL (13.5-16.0); Immature Granulocytes Auto 0.01 Thou/mm3 (0.00-0.00); Lymphocytes # (Auto) 1.1 Thou/mm3 (1.0-4.8); Lymphocytes % (Auto) 13 % (10-50); Mean Corpuscular HGB Conc 33.5 g/dl (31.0-37.0); Mean Corpuscular Hemoglobin 31.1 pg (25.0-35.0); Mean Corpuscular Volume 93 fL (80-100); Monocytes # (Auto) 0.8 Thou/mm3 (0.0-0.8); Monocytes % (Auto) 11 % (0-12); Neutrophils # (Auto) 5.9 Thou/mm3 (1.8-7.7); Neutrophils % (Auto) 75 % (37-80); Nucleated Red Blood Cell # 0.00 Thou/mm3 (0.00-0.00); Nucleated Red Blood Cell % 0 /100 WBC (0); Platelet Count 219 Thou/mm3 (140-440); RDW Standard Deviation 51.5 fL (35.1-43.9); Red Blood Count 5.08 Miln/mm3 (4.50-5.90); White Blood Count 7.9 Thou/mm3 (3.8-10.6)
[2024-12-25] MEDS: FUROSEMIDE INJ 10 MG/ML 4ML VIAL 40 MG IVP ×2 (11:28→12:46)
[2024-12-25] MEDS: DEXAMETHASONE SOD PHOS INJ 10 MG/ML VIAL 6 MG IVP (11:29)
[2024-12-25 11:30] LABS: Bilirubin,Urine Negative (Negative); Blood,Urine Negative (Negative); Clarity,Urine Clear (Clear/Hazy); Color,Urine Colorless (Lt Yel-Yel); Culture Indicated,Urine Not Indicated; Glucose, Urine Negative (Negative); Hyaline Casts,Urine 1 /hpf (0-1); Ketones,Urine Negative (Negative); Leukocyte Esterase,Urine Negative (Negative); Nitrite,Urine Negative (Negative); PH,Urine 6.0 (5.0-7.0); Protein,Urine Negative (Neg - Trace); RBC,Urine 1 /hpf (0-3); Specific Gravity,Urine 1.007 (1.001-1.035); Urobilinogen,Urine Negative mg/dL (0.0-1.0); WBC,Urine < 1 /hpf (0-5)
[2024-12-25 11:48] LABS: Alanine Aminotransferase 30 U/L (10-49); Albumin, Serum 3.6 gm/dL (3.4-4.8); Albumin/Globulin Ratio 1.9 (1.2-2.2); Alkaline Phosphatase 93 U/L (46-116); Anion Gap 12 (7-16); Aspartate Amino Transferase 35 U/L (0-34); BUN/Creatinine Ratio 15 Ratio (12-20); Bilirubin,Total 1.8 mg/dL (0.3-1.2); Blood Urea Nitrogen 23 mg/dL (9-23); Calcium 9.2 mg/dL (8.3-10.6); Calcium (Corrected) 9.5 mg/dL (8.5-10.1); Carbon Dioxide 23.1 mMol/L (20.0-31.0); Chloride 104 mMol/L (98-107); Creatinine (Component) 1.5 mg/dL (0.6-1.3); Estimated Creatinine Clearance 51.2 mL/min (>60); Globulin 1.9 gm/dL (2.3-3.5); Glucose 91 mg/dL (74-106); Osmolality,Calculated 281 (275-295); Potassium 4.0 mMol/L (3.4-5.1); Sodium 139 mMol/L (136-145); Total Protein 5.5 gm/dL (5.7-8.2); eGFR 50 See Note
[2024-12-25 11:53] LABS: Troponin I 0.048 ng/mL (0.0-0.045)
[2024-12-25] MEDS: ALBUTEROL RT 2.5 MG/0.5 ML NEBU 5 MG INH (12:54)
[2024-12-25 13:34] LABS: Troponin I 0.044 ng/mL (0.0-0.045)
[2024-12-25 13:37] LABS: B-Type Natriuretic Peptide > 3280 pg/mL (0-100)
--- NOTE | 2024-12-25 16:48 | PC.CC ---
ED Ux Researcher assisted with transport coordination. Medical Staff Manager contacted [facility] and [employer] informed song writer transport will not be able to be coordinated due to policy inactive. Medical Staff Manager obtained BASIM signature from house painting instructor Ila. Transportation forms were sent to [facility] and transport was coordinated and confirmed for 1800. Medical Staff Manager received information from attending nurse, Pt family here to transport Pt home. Medical Staff Manager contacted [facility] and transport was canceled.
== END 2024-12-25 16:49 | disposition home or self-care (01) ==
PROVIDERS: Emergency Provider Family Medicine; PCP Physician Assistant
DX: I11.0 Hypertensive heart disease with heart failure (principal); I50.23 Acute on chronic systolic (congestive) heart failure; J44.9 Chronic obstructive pulmonary disease, unspecified; I25.10 Atherosclerotic heart disease of native coronary artery without angina pectoris; I73.9 Peripheral vascular disease, unspecified; E78.00 Pure hypercholesterolemia, unspecified; F17.210 Nicotine dependence, cigarettes, uncomplicated; F15.10 Other stimulant abuse, uncomplicated; Z86.79 Personal history of other diseases of the circulatory system; Z91.148 Patient's other noncompliance with medication regimen for other reason; Z95.5 Presence of coronary angioplasty implant and graft; Z95.828 Presence of other vascular implants and grafts; Z99.81 Dependence on supplemental oxygen
CPT/HCPCS: 36415; 71045; 80053; 81001; 83880; 84484; 85025; 93005; 94640; 96374; 96375; 96376; 99284; J1100; J1938; A9270

== ENCOUNTER 2025-01-14 12:32 | Inpatient (IN) | payer MEDICARE, SELFPAY ==
[2025-01-14] VITALS (13 sets, daily range): BP systolic 109–136; BP diastolic 65–96; PULSE 66–102; RESP 16–24; TEMP 36.4–37; O2SAT 95–99; BMI 31.3
--- NOTE | 2025-01-14 13:03 | EKG_ITS ---
[facility] Test Date: 2025-01-14 Pat Name: SANJANA LR Department: Room: - Gender: Male [employer] Printer: : 1955 Requested By: Ryne Mandel Order Number: [id number] Reading MD: Ryne Mandel Measurements Intervals [place] Rate: 75 P: 34 [place]: 173 QRS: -81 QRSD: 121 T: 105 QT: 412 QTc: 462 Interpretive Statements SINUS RHYTHM POSSIBLE LEFT ATRIAL ENLARGEMENT [-0.1mV P-WAVE IN V1/V2] LEFT ANTERIOR FASCICULAR BLOCK [QRS AXIS <= -45, QR IN I, RS IN II] POSSIBLE ANTERIOR MYOCARDIAL INFARCTION , OF INDETERMINATE AGE [30 ms Q WAVE IN V3/V4, OR R < 0.2 mV IN V4] Compared to ECG 12/25/2024 11:22:47 Left anterior fascicular block now present Right-axis deviation no longer present Myocardial infarct finding still present /store/S0/[id number]/[id number]
--- NOTE | 2025-01-14 13:03 | XR_ITS ---
EXAMINATION: AP chest single view TECHNIQUE: AP portable upright chest single view January 14, 2025, 1349 hours INDICATIONS: Increasing shortness of breath beginning 1 week ago. FINDINGS: Mild to moderate chronic heart failure Moderate enlargement cardiac contour Prominent vascular congestion including central vascular engorgement Early perihilar basilar edema Prominent osteopenia IMPRESSION: Mild to moderate heart failure
--- NOTE | 2025-01-14 13:04 | EDRME_ITS ---
Rapid Medical Screening Exam E Arrival date/time: 01/14/25 12:32 69-year-old male with a history of hyperlipidemia, hypertension, CHF presents to the emergency room with a chief complaint of increasing shortness of breath x 1 week. Patient states he was sent over by his drier and grinder tender. I have greeted and performed a focused initial assessment of this patient. A comprehensive ED assessment and evaluation of the patient, analysis of all test results, and completion of the medical decision making process will be conducted by additional ED providers. Chief Complaint: Shortness of Breath/Dyspnea Time Seen by Provider: 01/14/25 12:48 Vital signs: Vital Signs Temperature 97.9 F 01/14/25 12:52 Pulse Rate 85 01/14/25 12:52 Respiratory Rate 18 01/14/25 12:52 Blood Pressure 110/77 01/14/25 12:52 Pulse Oximetry (%) 97 01/14/25 12:52 Oxygen Delivery Method Nasal Cannula 01/14/25 12:52 Oxygen Flow Rate 2 01/14/25 12:52 Vital signs reviewed by provider: Yes
--- NOTE | 2025-01-14 14:07 | EDNOTE_ITS ---
ED SOB =RME/HPI General Chief Complaint: Shortness of Breath/Dyspnea Stated Complaint: SOB, NEEDS TO BE ADMITTED PER PCP Time Seen by Provider: 01/14/25 12:48 Arrival date/time: 01/14/25 12:32 Limitations: no limitations RME / HPI RME / HPI Narrative: 01/14/25 12:32 69-year-old male with a history of hyperlipidemia, hypertension, CHF presents to the emergency room with a chief complaint of increasing shortness of breath x 1 week. Patient states he was sent over by his production control expediter. I have greeted and performed a focused initial assessment of this patient. A comprehensive ED assessment and evaluation of the patient, analysis of all test results, and completion of the medical decision making process will be conducted by additional ED providers. DR. ENGEL MAIN ED EVALUATION: 69 year old male with history of HFrEF (EF 15-20% 01/2024), CAD s/p PCI, hypertension, COPD on supplemental oxygen, active tobacco smoker presents to the ED for evaluation of shortness of breath today. States his shortness of breath began 6 months ago and worsening in the last several weeks. Accompanied by leg swelling though chronic and unchanged. Reportedly consulted with his production control expediter Dr. Newell who advised he come to the ED for further evaluation. Denies fevers, chills, chest pain, abdominal pain, n/v/d, or urinary symptoms. Patient admits to smoking a cigarette this morning. Related Data Home Medications ?Medication ?Instructions ?Recorded ?Confirmed ergocalciferol (vitamin D2) 1,250 1,250 mcg PO QWEEK 0 08/17/23 03/23/24 mcg (50,000 unit) capsule ferrous sulfate 325 mg (65 mg 325 mg PO 1XD 08/17/23 1 05/24/23 iron) tablet (FeroSul) Previous Rx's ?Medication ?Instructions ?Recorded clopidogrel 75 mg tablet (Plavix) 75 mg PO QDAY #30 ta bs 07/17/22 spironolactone 25 mg tablet 12.5 mg (1/2 x 25 mg) PO B ID 30 08/20/23 Held on 03/29/24. days #15 tabs Instructions: untill see cardiology aspirin 81 mg tablet,delayed 81 mg PO QDAY #30 tabs release bumetanide 1 mg tablet 1 mg PO QDAY #20 tabs atorvastatin 40 mg tablet 40 mg PO QDAY #30 tabs 03/29 metoprolol succinate 25 mg 25 mg PO QDAY #30 tabs 03/08 06/28 tablet,extended release 24 hr midodrine 10 mg tablet 10 mg PO TID PRN low blood 1 05/30/23 pressure #30 tabs metolazone 5 mg tablet 5 mg PO QDAY PULMONARY EDEMA #5 12/25/24 tabs Allergies Allergy/AdvReac Type Severity Reaction Status Date / Time No Known Allergies Allergy Verified 01/14/25 12:36 Review of Systems Review of Systems Systems Reviewed: All systems reviewed, normal except as documented Past Medical History Past Medical History CARDIAC: Positive Cardiac Disorders, Hypercholesterolemia, Congestive Heart Failure and Hypertension GASTROINTESTINAL: Positive Gastroesophageal Reflux Disease HEMATOLOGIC: Positive Anemia Surgical History SURGICAL: Positive Coronary Stent, Cardiac Catheterization, Angiogram, of Shoulder Sx and of Back Surgery Social History SMOKING STATUS: Current every day smoker SUBSTANCE USE: does not use ED Exam General Limitations: Present no limitations General appearance: Present alert and other (oxygen in place, increased respiratory rate ) Head Head exam: Present atraumatic, normocephalic and normal inspection Eye Eye exam: Present normal appearance, PERRL and EOMI ENT ENT exam: Present normal exam, normal oropharynx and mucous membranes moist Neck Neck exam: Present normal inspection, full ROM, trachea midline and other (No JVD, no neck mass, no adenopathy) Chest Chest inspection: Present normal inspection and symmetric chest wall rise Respiratory Respiratory exam: Present other (Bilateral mild expiratory wheezing, no rhonchi, no rales, no crackles.) Cardiovascular Cardiovascular exam: Present regular rate, normal rhythm and other (distant h eart sounds) Abdominal Exam Abdominal exam: Present soft and normal bowel sounds Extremities Exam Extremities exam: Present full ROM and other (2-3+ leg and ankle edema, stasis dermatitis bilateral lower extremities) Neurological Exam Neurological exam: Present alert, oriented X3 and CN II-XII intact Psychiatric Psychiatric exam: Present normal affect and normal mood Skin Skin exam: Present warm, dry, intact and normal color Course Quality Measures none Orders Category Date Time Status Electronics Hardware Design Engineer NOW Care 01/14/25 13:50 Completed Electronics Hardware Design Engineer Q4H START 00 Care 01/14/25 13:40 Active Continuous Pulse Oximetry NOW Care 01/14/25 13:50 Completed EKG (ED ONLY) *Do not use* NOW Care 01/14/25 13:03 Completed Insert IV NOW Care 01/14/25 13:41 Active Insert IV NOW Care 01/14/25 13:50 Completed EKG (ED Only) Stat Exams 01/14/25 13:03 Draft XR chest 1V portable Stat Exams 01/14/25 13:03 Completed B-Type Natriuretic Peptide Stat Lab 01/14/25 13:47 Received CBC Stat Lab 01/14/25 13:47 Completed Comprehensive Metabolic Panel Stat Lab 01/14/25 13:47 Completed Magnesium Stat Lab 01/14/25 13:47 Completed Partial Thromboplastin Time Stat Lab 01/14/25 13:47 Completed Prothrombin Time with INR Stat Lab 01/14/25 13:47 Completed Troponin I Stat Lab 01/14/25 13:47 Completed Urinalysis, C/S if Indicated Stat Lab 01/14/25 15:05 Completed ALBUTEROL RT 3ml [Proventil Rt 3ml] Med 01/14/25 13:50 Discontinued 2.5 mg INH X1 ONE Furosemide Inj [Lasix Inj] Med 01/14/25 13:50 Discontinued 60 mg IVP X1 ONE MethylPREDNISolone.* [SoluMEDROL Inj] Med 01/14/25 13:50 Discontinued 125 mg IVP X1 ONE metOLazone [Zaroxolyn] Med 01/14/25 13:50 Discontinued 5 mg PO X1 ONE Oxygen Delivery NOW RT 01/14/25 13:50 Active Vital Signs Vital signs: Vital Signs Temperature 97.9 F 01/14/25 12:52 Pulse Rate 85 01/14/25 12:52 Respiratory Rate 18 01/14/25 12:52 Blood Pressure 110/77 01/14/25 12:52 Pulse Oximetry (%) 97 01/14/25 12:52 Oxygen Delivery Method Nasal Cannula 01/14/25 12:52 Oxygen Flow Rate 2 01/14/25 12:52 Shortness of Breath / Dyspnea MDM Narrative MDM Narrative:: Zina Strong am scribing for and in the presence of Dr. Engel. Patient data External records reviewed:: [facility] previous records Clinical information provided by:: patient Social determinants that could affect healthcare access:: substance use (hx of meth use, active tobacco smoker ) Patient has the following chronic illnesses:: HFrEF (EF 15-20% 01/2024), CAD s/p PCI, hypertension, COPD on supplemental oxygen, active tobacco smoker How is presenting disease/condition affected by chronic disease/condition?: exacerbated by Evaluation data The following diagnostics were reviewed and interpreted by me:: lab results, radiology exam(s) and EKG tracing(s) (EKG @ 13:08p. Sinus rhythm, rate 75, LAFB, no STEMI. ) Lab and/or radiology exams considered but not ordered:: None Interpretation Summary: Ordering Physician: Ryne Calvillo Date of Service: 01/14/25 Procedure(s): XR chest 1V portable Accession Number(s): [id number] cc: Ryne Calvillo; Cristian Tobin MD~ EXAMINATION: AP chest single view TECHNIQUE: AP portable upright chest single view January 14, 2025, 1349 hours INDICATIONS: Increasing shortness of breath beginning 1 week ago. FINDINGS: Mild to moderate chronic heart failure Moderate enlargement cardiac contour Prominent vascular congestion including central vascular engorgement Early perihilar basilar edema Prominent osteopenia IMPRESSION: Mild to moderate heart failure Dictated By: Cristian Tobin MD Signed By: <Electronically signed by Cristian Tobin MD in [place]> 01/14/25 1433 Medications / Prescriptions Medications or Prescriptions considered but not ordered:: None Medication administrations:: Medication Administration History Discontinued Medications Albuterol (Albuterol Rt 2.5 Mg/3 Ml Nebu) 2.5 mg INH X1 ONE Stop: 01/14/25 13:51 Last Admin: 01/14/25 14:21 Dose: 2.5 mg Documented By: SC Furosemide (Furosemide Inj 10 Mg/Ml 4ml Vial) 60 mg IVP X1 ONE Stop: 01/14/25 13:51 Last Admin: 01/14/25 14:22 Dose: 60 mg Documented By: BD Methylprednisolone Sodium Succinate (Methylprednisolone Sod Succ 62.5 Mg/Ml 2ml Vial) 125 mg IVP X1 ONE Stop: 01/14/25 13:51 Last Admin: 01/14/25 14:25 Dose: 125 mg Documented By: BD Metolazone (Metolazone 2.5 Mg Tablet) 5 mg PO X1 ONE Stop: 01/14/25 13:51 Last Admin: 01/14/25 15:09 Dose: 5 mg Documented By: BD Comments: [facility] NOT [facility] See above Consultations Consultation(s) initiated? (list below): Yes Consultation #1 (Physician, Specialty, Details): I spoke with production control expediter Dr. Newell. Discussed patients PMHx, HPI, ED course, exam findings, labs, and radiology results. He agrees to consult. Time: 16:11 Consultation #2 (Physician, Specialty, Details): I spoke with hospitalist team C for admission. Time: 16:15 Diagnosis Shortness of Breath Differential Diagnosis: acute exacerbation of chronic obstructive airways disease, congestive heart failure and community acquired pneumonia Most likely diagnosis given after review of the tests above:: CHF exacerbation Ischemic cardiomyopathy Exacerbation of COPD Admission Indicated Admission indicated?: indicated Admission Request Was there a request for admission?: Yes Admission Attestation Admission request attestation: Discussed case with [] from Hospitalist service regarding admission. Discussed patients ED course, exam findings, labs, and radiology results. The Hospitalist [agrees,declines] to accept the patient for admission. Disposition Plan Disposition Plan: Admit Discharge Plan Plan Patient Disposition: Admit Acute Care w/in Hospital Prescriptions/Referrals Prescriptions/Med Rec: No Action atorvastatin 40 mg tablet 40 mg PO QDAY Qty: 30 1RF midodrine 10 mg tablet 10 mg PO TID PRN (Reason: low blood pressure) Qty: 30 0RF Rx Instructions: do not give last dose of day after 6PM or within 4 hrs of bedtime metoprolol succinate 25 mg tablet extended release 24 hr 25 mg PO QDAY Qty: 30 1RF clopidogrel [Plavix] 75 mg tablet 75 mg PO QDAY Qty: 30 0RF ferrous sulfate [FeroSul] 325 mg (65 mg iron) tablet 325 mg PO 1XD Patient Comments: TAKE 1 TABLET BY MOUTH EVERY DAY ergocalciferol (vitamin D2) 1,250 mcg (50,000 unit) capsule 1,250 mcg PO QWEEK Patient Comments: TAKE 1 CAPSULE BY MOUTH EVERY WEEK spironolactone 25 mg Tablet 12.5 mg PO BID 30 Days Qty: 15 3RF bumetanide 1 mg tablet 1 mg PO QDAY Qty: 20 0RF aspirin 81 mg Tablet,Delayed Release (Dr/Ec) 81 mg PO QDAY Qty: 30 0RF metolazone 5 mg tablet 5 mg PO QDAY MDD 1 Qty: 5 0RF Referrals: Dav(Tammy),VIRGIL Oliva [Primary Care Provider] - In 1 week Problem List Clinical Impression: CHF exacerbation, Ischemic cardiomyopathy, COPD exacerbation Patient/Caregiver Discharge Instructions Print Language: Mongolian Stand Alone Forms: Joan Award Info., Patient Portal Info Letter
--- NOTE | 2025-01-14 14:15 | PC.NURSE ---
CALLED PHARMACY FROM [facility] NOT [facility]
[2025-01-14] MEDS: ALBUTEROL RT 2.5 MG/3 ML NEBU INH (14:21)
[2025-01-14] MEDS: FUROSEMIDE INJ 10 MG/ML 4ML VIAL 60 MG IVP (14:22)
[2025-01-14] MEDS: MethylPREDNISolone SOD SUCC 62.5 MG/ML 2ML VIAL 125 MG IVP (14:25)
--- NOTE | 2025-01-14 14:25 | PC.NURSE ---
NOTIFIED CR. ENGEL B/P 109/ 60 MG LASIX PRESCRIBED ADVISED HE IS OK WITH GIVING LASIX
[2025-01-14 14:46] LABS: Basophils # (Auto) 0.0 Thou/mm3 (0.0-0.2); Basophils % (Auto) 1 % (0-2.5); Eosinophils # (Auto) 0.2 Thou/mm3 (0.0-0.5); Eosinophils % (Auto) 3 % (0-10); Hematocrit 44.4 % (41.0-53.0); Hemoglobin 14.5 g/dL (13.5-16.0); Immature Granulocytes Auto 0.02 Thou/mm3 (0.00-0.00); Lymphocytes # (Auto) 0.8 Thou/mm3 (1.0-4.8); Lymphocytes % (Auto) 13 % (10-50); Mean Corpuscular HGB Conc 32.7 g/dl (31.0-37.0); Mean Corpuscular Hemoglobin 30.3 pg (25.0-35.0); Mean Corpuscular Volume 93 fL (80-100); Monocytes # (Auto) 0.5 Thou/mm3 (0.0-0.8); Monocytes % (Auto) 9 % (0-12); Neutrophils # (Auto) 4.2 Thou/mm3 (1.8-7.7); Neutrophils % (Auto) 74 % (37-80); Nucleated Red Blood Cell # 0.00 Thou/mm3 (0.00-0.00); Nucleated Red Blood Cell % 0 /100 WBC (0); Platelet Count 212 Thou/mm3 (140-440); RDW Standard Deviation 54.5 fL (35.1-43.9); Red Blood Count 4.79 Miln/mm3 (4.50-5.90); White Blood Count 5.7 Thou/mm3 (3.8-10.6)
[2025-01-14 14:55] LABS: Alanine Aminotransferase 26 U/L (10-49); Albumin, Serum 3.5 gm/dL (3.4-4.8); Albumin/Globulin Ratio 1.9 (1.2-2.2); Alkaline Phosphatase 89 U/L (46-116); Anion Gap 6 (7-16); Aspartate Amino Transferase 31 U/L (0-34); BUN/Creatinine Ratio 16 Ratio (12-20); Bilirubin,Total 0.9 mg/dL (0.3-1.2); Blood Urea Nitrogen 19 mg/dL (9-23); Calcium 8.5 mg/dL (8.3-10.6); Calcium (Corrected) 8.9 mg/dL (8.5-10.1); Carbon Dioxide 32.6 mMol/L (20.0-31.0); Chloride 105 mMol/L (98-107); Creatinine (Component) 1.2 mg/dL (0.6-1.3); Estimated Creatinine Clearance 65.5 mL/min (>60); Globulin 1.8 gm/dL (2.3-3.5); Glucose 82 mg/dL (74-106); Magnesium 1.6 mg/dL (1.6-2.6); Osmolality,Calculated 288 (275-295); Potassium 3.6 mMol/L (3.4-5.1); Sodium 144 mMol/L (136-145); Total Protein 5.3 gm/dL (5.7-8.2); Troponin I 0.033 ng/mL (0.0-0.045); eGFR > 60 See Note
[2025-01-14 15:18] LABS: Collection Type, Urine Clean Catch; Squamous Epithelial Cell,Urine 0 /hpf (0-5)
[2025-01-14 16:02] LABS: Bilirubin,Urine Negative (Negative); Blood,Urine Negative (Negative); Clarity,Urine Clear (Clear/Hazy); Color,Urine Lt-Yellow (Lt Yel-Yel); Culture Indicated,Urine Not Indicated; Glucose, Urine Negative (Negative); Hyaline Casts,Urine < 1 /hpf (0-1); Ketones,Urine Negative (Negative); Leukocyte Esterase,Urine Negative (Negative); Nitrite,Urine Negative (Negative); PH,Urine 6.5 (5.0-7.0); Protein,Urine Negative (Neg - Trace); RBC,Urine < 1 /hpf (0-3); Specific Gravity,Urine 1.012 (1.001-1.035); Urobilinogen,Urine Negative mg/dL (0.0-1.0); WBC,Urine < 1 /hpf (0-5)
[2025-01-14 16:05] LABS: INR 1.1 (0.9-1.3); Partial Thromboplastin Time 23.4 Seconds (22.0-36.0); Prothrombin Time 11.4 Seconds (9.0-12.2)
--- NOTE | 2025-01-14 16:39 | ECHO_ITS ---
Transthoracic Echo Report Ht (in): 69 Wt (lb): 212 Exam Location: Echo Lab Status: Emergency Corporate Counsel: Mely Myers Indications: Procedure Performed: BP: 94 / 74 HR: 70 Technical Quality: Technically difficult study MEASUREMENTS (Male / Female) Normal Values 2D ECHO LV Diastolic Diameter PLAX 7.4 cm 4.2 - 5.9 / 3.9 - 5.3 cm LV Systolic Diameter PLAX 6.7 cm IVS Diastolic Thickness 1.0 cm 0.6 - 1.0 / 0.6 - 0.9 cm LVPW Diastolic Thickness 0.9 cm 0.6 - 1.0 / 0.6 - 0.9 cm LV Relative Wall Thickness 0.3 LVOT Diameter 2.0 cm Aortic Root Diameter 3.3 cm LA Systolic Diameter LX 4.4 cm 3.0 - 4.0 / 2.7 - 3.8 cm LV Ejection Fraction MOD BP 8.2 % >= 55 % LV Cardiac Index MOD BP 990.0 cm?/min?m? LV Ejection Fraction MOD 4C 16.3 % LV Cardiac Index MOD 4C 2075.8 cm?/min?m? LV Ejection Fraction 4C AL 17.3 % LV Cardiac Index 4C AL 2338.8 cm?/min?m? LV Ejection Fraction MOD 2C 2.8 % LV Cardiac Index MOD 2C 319.4 cm?/min?m? LV Ejection Fraction 2C AL 6.6 % LV Cardiac Index 2C AL 778.7 cm?/min?m? LA Volume Index 44.2 cm?/m? 16 - 28 cm?/m? M-MODE Aortic Root Diameter MM 2.9 cm LA Systolic Diameter MM 4.7 cm LA Ao Ratio MM 1.6 AV Cusp Separation MM 2.3 cm DOPPLER AV Peak Velocity 158.0 cm/s AV Peak Gradient 10.0 mmHg AV Mean Gradient 5.0 mmHg AV Velocity Time Integral 27.0 cm LVOT Peak Velocity 76.9 cm/s LVOT Peak Gradient 2.4 mmHg LVOT Velocity Time Integral 11.4 cm LVOT Cardiac Index 1143.7 cm?/min?m? AV Area Cont Eq vti 1.3 cm? AV Area Cont Eq pk 1.5 cm? MV Area PHT 4.0 cm? MR Peak Velocity 251.0 cm/s MR Peak Gradient 25.2 mmHg Mitral E Point Velocity 42.7 cm/s Mitral A Point Velocity 33.5 cm/s Mitral E to A Ratio 1.3 LV E' Lateral Velocity 5.8 cm/s Mitral E to LV E' Lateral Ratio 7.4 LV E' Septal Velocity 4.2 cm/s Mitral E to LV E' Septal Ratio 10.1 PV Peak Velocity 84.2 cm/s PV Peak Gradient 2.8 mmHg FINDINGS Left Ventricle The left ventricular cavity size is severely increased with normal wall thickness. Global left ventricular systolic function is severely decreased. The ejection fraction is visually estimated at 15-20%. There is grade II diastolic dysfunction of the left ventricle (pseudonormal filling pattern). Right Ventricle The right ventricular size is moderately increased with normal systolic function. Left Atrium Moderately increased left atrial volume 44.2 mL/m?. Right Atrium The right atrium is normal by two-dimensional imaging, color flow and Doppler imaging with no structural abnormalities, no thrombus formation present. Atrial Septum The interatrial septum appears normal with no evidence of a shunt. Aorta The aorta is normal by two-dimensional, color flow and Doppler interrogation. Mitral Valve The mitral valve is normal by two-dimensional, color flow and Doppler interrogation. Mild mitral regurgitation. Aortic Valve The aortic valve is trileaflet and normal by two-dimensional, color flow and Doppler interrogation. There is no significant aortic valve regurgitation. Tricuspid Valve The tricuspid valve is normal by two-dimensional, color flow and Doppler interrogation. There is mild tricuspid valve regurgitation. Pulmonic Valve The pulmonic valve is not well visualized. There is no significant pulmonic valve regurgitation. Vessels The pulmonary artery appears normal. The inferior vena cava pulmonary and hepatic veins appear normal. Pericardium The pericardium is normal by two-dimensional imaging. There is no significant pericardial effusion. CONCLUSIONS Indication: CHF The LV cavity size is severely increased with normal wall thickness. Global LV systolic function is severely decreased. Estimated EF at 15-20%. There is grade II diastolic dysfunction. Moderately increased LA volume 44.2 mL/m?. Mild MR and TR. Abhilash Newell (Electronically Signed) Final Date: 17 January 2025 07:34
[2025-01-14 16:50] LABS: B-Type Natriuretic Peptide > 3280 pg/mL (0-100)
[2025-01-14] MEDS: BUMETANIDE INJ 0.25 MG/ML VIAL 4 ML 1 MG IVP (17:01)
--- NOTE | 2025-01-14 17:14 | ESHP_ITS ---
<Statement entered by Armin Arndt MD - 01/14/25 18:33> 69-year-old male with past medical history of hyperlipidemia, hypertension, HFrEF (EF 15 to 20% on 01/2024), CAD s/p PCI currently on aspirin and Plavix, PAD, Hx of meth use and medication noncompliance, GERD, active smoker and COPD on home O2 was admitted to the hospital on 01/14/2025 due to CHF exacerbation with anasarca. Patient came into the ED where she complains of increased lower extremity swelling and shortness of breath and he stated that his internet database specialist had recommended to come to the ED around 2 days ago and came in today. He does mention that he was not taking all his diuretics at home as he stated that he did not have any further water available in his body. He stated that his legs were not swollen at all prior to this week. Spoke with cardiology who stated they were okay with Bumex 2 mg twice daily. Patient has very low EF therefore may not tolerate diuresis and would need dobutamine drip at 10 mcg/kg/min if becomes hypotensive with IV diuresis. For now patient's vitals are stable therefore we will continue with IV diuresis on the floors. In summary: #HFrEF (15 to 20% EF 01/2024) exacerbation #Anasarca-----> Bumex 2 mg twice daily, echo, fluid striction's 1.5 L, Daily weights, strict SHWETA's, TSH/A1c/lipid panel for cardiac restratification, and cardiology consulted appreciate commendations, will hold off on GDMT for now as patient is in acute exacerbation and will restart once has been diuresed if able to tolerate. Consider ICU upgrade for dobutamine drip at 10 mcg/kg/min if becomes hypotensive with IV diuresis Concerning patient's chronic issues: #CAD s/p PCI will restart patient's aspirin and Plavix given cardiac risk General: A/O x3, no acute distress Eyes: PERRL, EOMI. Anicteric, vision grossly intact. Ears: No ear pain, no ear discharge, Hearing grossly intact. Nose: No nasal discharge. Mouth/Throat: Moist mucous membranes, no redness, no lesions. Neck: Neck supple, non-tender, no cervical lymphadenopathy. Lungs: Decreased in DAMIÁN Lower lobes, No accessory muscle use. Cardio: Normal S1/S2, regular rhythm, no murmurs, no JVD or carotid bruits. Abdomen: Soft, non-tender, no palpable masses, peristalsis present, no guarding or rebound. Extremities: Symmetrical, no significant deformities, Edema DAMI[place]N LE upto mid abdomen 3+ , non-tender, peripheral pulses presents. Skin: No rashes, no lesions, warm to touch. Neuro: No focal neurological deficits. motor and sensory intact Psych: Cooperative, appropriate mood and effect. I have reviewed the note and agree with the medical student's assessment & plan with exceptions as below. I have personally reviewed labs, imaging, home meds/prior records, examined the patient, formulated and discussed management plan with my attending Armin Arndt PGY2 Disclaimer: Even though this this note was dictated by speech recognition and even though it was carefully revised there may still be minor errors in job order clerk due to voice recognition software. Documentation for date of: 01/14/25 HPI History of Present Illness History of present illness: Mr Garrison Rg is a 69 yo M w/ PMH HLD, HTN, HFrEF (15-20% LVEF 01/2024), CAD s/p PCI, COPD on home O2 who presented to [facility] ED w/ x1 week of SOB. He had been seeing his internet database specialist Dr. Newell who had him come to the ED. Per patient the SOB has worsened in the last week but has been present for x6 months. The SOB is associated with extensive b/l LE edema. He denies any fever, chills, CP, abdominal pain, n/v/d, constipation, urinary symptoms. He had previously been hospitalized here 03/2024 for CHF exacerbation. Per patient, he felt discomfort on his extensive medication list and has not taken them for 5 days. Notably he is on four diuretics and feels discomfort with his frequency of urination which he attributes to his desire to stop taking home medications. His internet database specialist Dr. Newell has been notified and consulted. PMH: As above PSH: PCI placed, pt believes it was ~6months ago Meds: Aldactone 25mg, Lasix 20mg, Metolazone 5mg PRN, Metoprolol succinate 25mg, Coreg 6.25 BID, Clopidogrel 75mg, ASA 81, Entresto 24-26, Rosuvastatin 20, Torsemide 10mg BID Allergies: NKDA FH: Mother had T2DM, brother of an [place] in his 40s SH: 1.5 packs a day smoker for 50 years, smoked one cigarette morning of admission. Extensive drinking history for most of his life per pt, quit 2.5 weeks ago. ED Course: Received albuterol, bumex x1, lasix x1, methylprednisolone x1, metolazone x1. EKG showed sinus rhythm. CBC and CMP were WNL. Troponins were WNL. BNP was >3280. CXR showed prominent vascular congestion and cardiac enlargement consistent w/ CHF exacerbation. He was admitted to telemetry for management of likely HFrEF exacerbation. ROS negative except as noted above. Exam Vital Signs Temp Pulse Resp BP Pulse Ox O2 Del Method O2 Flow Rate 98.5 F 87 16 136/96 H 95 Nasal Cannula 3 01/14/25 16:00 01/14/25 17:01 01/14/25 16:00 01/14/25 17:01 01/14/25 16:00 01/14/25 16:00 01/14/25 16:00 Narrative Exam General: A/O x3, no acute distress Eyes: PERRL, EOMI. Anicteric, vision grossly intact. Ears: No ear pain, no ear discharge, Hearing grossly intact. Nose: No nasal discharge. Mouth/Throat: Moist mucous membranes, no redness, no lesions. Poor dentition Neck: Neck supple, non-tender, no cervical lymphadenopathy. Lungs: Bibasilar crackles, no accessory muscle use. Cardio: Normal S1/S2, regular rate and rhythm, no murmurs, no JVD Abdomen: Soft, non-tender, no palpable masses, peristalsis present, no guarding or rebound. Extremities: Symmetrical, no significant deformities, 3+ b/l LE edema up to knees, non-tender, peripheral pulses presents. Skin: No rashes, no lesions, warm to touch. Neuro: No focal neurological deficits. motor and sensory intact Psych: Cooperative, appropriate mood and effect. Results: Labs 01/17/25 04:54 01/17/25 04:54 Labs: Short CBC 01/14/25 Range/Units 13:47 WBC 5.7 (3.8-10.6) Thou/mm3 Hgb 14.5 (13.5-16.0) g/dL Hct 44.4 (41.0-53.0) % Plt Count 212 (140-440) Thou/mm3 BMP 01/14/25 13:47 Sodium 144 Potassium 3.6 Chloride 105 Carbon Dioxide 32.6 H BUN 19 Creatinine 1.2 Glucose 82 Calcium 8.5 Cardiac Enzymes 01/14/25 Range/Units 13:47 Troponin I 0.033 (0.0-0.045) ng/mL Liver Function 01/14/25 Range/Units 13:47 Total Bilirubin 0.9 (0.3-1.2) mg/dL AST 31 (0-34) U/L ALT 26 (10-49) U/L Alkaline Phosphatase 89 (46-116) U/L Albumin 3.5 (3.4-4.8) gm/dL Urine 01/14/25 Range/Units 15:05 Urine Color Lt-Yellow (Lt Yel-Yel) Urine Clarity Clear (Clear/Hazy) Urine pH 6.5 (5.0-7.0) Ur Specific [place] 1.012 (1.001-1.035) Urine Protein Negative (Neg - Trace) Urine Glucose (UA) Negative (Negative) Quality Measures Quality Measures none Advance care planning discussed with:: patient Medications Home Medications and Allergies Home Medications ?Medication ?Instructions ?Recorded ?Confirmed ?Type ergocalciferol (vitamin D2) 1,250 1,250 mcg PO QWEEK 0 08/17/23 01/14/25 History mcg (50,000 unit) capsule ferrous sulfate 325 mg (65 mg 325 mg PO 1XD 08/17/23 1 History iron) tablet (FeroSul) albuterol sulfate 90 mcg/actuation 2 puff inhalation Q 3H PRN 01/14/25 01/14/25 History aerosol inhaler shortness of breath or wheez ing carvedilol 6.25 mg tablet 6.25 mg PO Q12H 01/14/2501/29 History furosemide 20 mg tablet 20 mg PO .AM 01/14/25 History metoprolol succinate 25 mg 25 mg PO .NOC 01/14/2501/05 History tablet,extended release 24 hr rosuvastatin 20 mg tablet 20 mg PO .AM 01/14/25 History sacubitril 24 mg-valsartan 26 mg 1 tab PO BID 01/14/25 01/14/25 History tablet (Entresto) spironolactone 25 mg tablet 25 mg PO Q48H 01/14/2501/29 History Held on 03/29/24. Instructions: untill see cardiology torsemide 10 mg tablet 10 mg PO .AM 01/14/25 History Allergies Allergy/AdvReac Type Severity Reaction Status Date / Time No Known Allergies Allergy Verified 01/14/25 12:36 Visit Medications Acetaminophen (Acetaminophen 325 Mg Tablet) 650 mg PO Q6H PRN PRN Reason: Fever >100.4 Stop: 02/13/25 16:34 Bumetanide (Bumetanide Inj 0.25 Mg/Ml Vial 4 Ml) 2 mg IVP BID [facility] Stop: 02/14/25 08:59 Heparin Sodium (Porcine) (Heparin Sod Inj 5000 Unit/Ml Vial) 5,000 unit SC Q8HR [facility]ON Stop: 01/28/25 21:59 Ondansetron HCl (Ondansetron Inj 2 Mg/Ml Inj 2 Ml) 4 mg IVP Q6H PRN; Protocol PRN Reason: NAUSEA OR VOMITING Stop: 02/13/25 16:34 Discontinued Medications Albuterol (Albuterol Rt 2.5 Mg/3 Ml Nebu) 2.5 mg INH X1 ONE Stop: 01/14/25 13:51 Last Admin: 01/14/25 14:21 Dose: 2.5 mg Bumetanide (Bumetanide Inj 0.25 Mg/Ml Vial 4 Ml) 1 mg IVP X1 ONE Stop: 01/14/25 16:42 Last Admin: 01/14/25 17:01 Dose: 1 mg Furosemide (Furosemide Inj 10 Mg/Ml 4ml Vial) 60 mg IVP X1 ONE Stop: 01/14/25 13:51 Last Admin: 01/14/25 14:22 Dose: 60 mg Methylprednisolone Sodium Succinate (Methylprednisolone Sod Succ 62.5 Mg/Ml 2ml Vial) 125 mg IVP X1 ONE Stop: 01/14/25 13:51 Last Admin: 01/14/25 14:25 Dose: 125 mg Metolazone (Metolazone 2.5 Mg Tablet) 5 mg PO X1 ONE Stop: 01/14/25 13:51 Last Admin: 01/14/25 15:09 Dose: 5 mg Assessment & Plan Plan 69 yo M w/ PMH HLD, HTN, HFrEF (15-20% LVEF 01/2024), CAD s/p PCI, COPD on home O2 who presented to [facility] ED w/ x1 week of SOB. He had been seeing his internet database specialist Dr. Newell who had him come to the ED. Per patient the SOB has worsened in the last week but has been present for x6 months. Admitted for HFrEF exacerbation. #HFrEF in exacerbation #HTN Pt notes SOB for last x6 months that has worsened in the week before admission. Latest echo 01/2024 showed EF 15-20%. He is on 4 prescribed diuretics (Aldactone 25, Lasix 20, Metolazone 5mg, Torsemide 10 BID) and describes not having taken any medications for at least 5 days before admission. Lung auscultation in ED revealed bibasilar crackles. B/l LE were diffusely edematous 3+. He was also hypertensive in ED to 130s/90s. EKG showed sinus rhythm, CXR showed cardiomegaly and diffuse vascular congestion consistent with HFrEF. His internet database specialist Dr. Newell was consulted, appreciated, awaiting recs. At this stage will continue diuresis and monitor - Admit telemetry - Lipid panel, thyroid panel, A1c pending - Strict Is/Os, fluid restriction, q4 child monitor, zamarripa catheter - Bumex IV 2mg BID - CBC/CMP in AM #COPD Less likely source of SOB as pt has symptoms of fluid overload. Administered Albuterol in ED w/ good effect. - Monitor #CAD s/p PCI Troponins WNL this admit, EKG sinus, unlikely having acute myocardial event - Monitor #HLD Chronic/historical - Consider resuming statin as per cardiology recs Hospital management: Disposition: Overnight monitoring for response to diuretics, awaiting cardiology recommendations. Diet: cardiac Lines: Peripheral IVs DVT prophylaxis: SCDs Zamarripa: in place CODE STATUS: full code ----- Plan discussed with attending physician Dr. Robel Feliz, Medical Student OMSIV Attending Provider Attestation/Addendum I have examined the patient, reviewed labs and imaging findings, discussed the case with the resident(s), and reviewed entered orders. I agree with the plan of care as outlined in this note, with these additional summaries/recommendations: After examination of the patient and review of the clinical data, I feel that this patient needs admission to the hospital for further treatment and evaluation. Patient is a 69-year-old male with a medical history of HFrEF, CAD status post PCI 2023, history of endarterectomy, history of substance abuse, primary hypertension, hypotension, dyslipidemia, vitamin D deficiency, and iron deficiency anemia presents to [facility] emergency department on 01/14/2025 with chief complaint of shortness of breath and swelling. Patient seen at bedside. He reports he was seen by his internet database specialist today who recommended he come to the emergency room for congestive heart failure exacerbation. Patient endorses shortness of breath, weight gain, and increased swelling. Previous echocardiogram shows ejection fraction of 15 to 20% with severe global hypokinesis and stage III diastolic dysfunction. Start IV diuresis. Daily weights. Strict I's and O's. For preload reduction continue IV diuresis and fluid restriction. For afterload reduction we will resume home Entresto if blood pressure can tolerate. Continue neurohormonal blockade with home Coreg if BP tolerates. Consult in-house cardiology, recommendations appreciated. Last echocardiogram on file 01/12/2024 and we will follow-up with cardiology to see if one was performed more recently. Resume home antiplatelet therapy for history of CAD. Continue home statin therapy. Patient updated on the plan and in agreement. All questions answered to satisfaction. Please see residents note for additional details and management. Dr. Robel MD
[2025-01-14] MEDS: HEPARIN SOD INJ 5000 UNIT/ML VIAL SC (21:52)
[2025-01-15] VITALS (10 sets, daily range): BP systolic 94–119; BP diastolic 60–81; PULSE 56–98; RESP 14–25; TEMP 36.1–36.4; O2SAT 95–97; BMI 29.7
[2025-01-15] MEDS: HEPARIN SOD INJ 5000 UNIT/ML VIAL SC ×3 (05:15→21:33)
[2025-01-15 05:58] LABS: Basophils # (Auto) 0.0 Thou/mm3 (0.0-0.2); Basophils % (Auto) 0 % (0-2.5); Eosinophils # (Auto) 0.0 Thou/mm3 (0.0-0.5); Eosinophils % (Auto) 0 % (0-10); Hematocrit 45.9 % (41.0-53.0); Hemoglobin 15.3 g/dL (13.5-16.0); Immature Granulocytes Auto 0.02 Thou/mm3 (0.00-0.00); Lymphocytes # (Auto) 0.7 Thou/mm3 (1.0-4.8); Lymphocytes % (Auto) 11 % (10-50); Mean Corpuscular HGB Conc 33.3 g/dl (31.0-37.0); Mean Corpuscular Hemoglobin 30.4 pg (25.0-35.0); Mean Corpuscular Volume 91 fL (80-100); Monocytes # (Auto) 0.2 Thou/mm3 (0.0-0.8); Monocytes % (Auto) 4 % (0-12); Neutrophils # (Auto) 5.0 Thou/mm3 (1.8-7.7); Neutrophils % (Auto) 85 % (37-80); Nucleated Red Blood Cell # 0.00 Thou/mm3 (0.00-0.00); Nucleated Red Blood Cell % 0 /100 WBC (0); Platelet Count 203 Thou/mm3 (140-440); RDW Standard Deviation 52.6 fL (35.1-43.9); Red Blood Count 5.04 Miln/mm3 (4.50-5.90); White Blood Count 5.9 Thou/mm3 (3.8-10.6)
[2025-01-15 06:07] LABS: Glucose Estimated Average 120 mg/dL (80-131); Hemoglobin A1C 5.8 % Hgb (4.8-6.0)
[2025-01-15 06:37] LABS: Alanine Aminotransferase 23 U/L (10-49); Albumin, Serum 3.4 gm/dL (3.4-4.8); Albumin/Globulin Ratio 1.9 (1.2-2.2); Alkaline Phosphatase 80 U/L (46-116); Anion Gap 9 (7-16); Aspartate Amino Transferase 31 U/L (0-34); BUN/Creatinine Ratio 18 Ratio (12-20); Bilirubin,Total 0.7 mg/dL (0.3-1.2); Blood Urea Nitrogen 22 mg/dL (9-23); Calcium 8.7 mg/dL (8.3-10.6); Calcium (Corrected) 9.2 mg/dL (8.5-10.1); Carbon Dioxide 33.4 mMol/L (20.0-31.0); Cardiac Risk Estimate 3.0 RATIO (4.0-6.7); Chloride 100 mMol/L (98-107); Cholesterol 128 mg/dL (132-200); Creatinine (Component) 1.2 mg/dL (0.6-1.3); Estimated Creatinine Clearance 63.1 mL/min (>60); Globulin 1.8 gm/dL (2.3-3.5); Glucose 118 mg/dL (74-106); HDL Cholesterol 42 mg/dL (40-60); LDL Cholesterol,Calculated 73 mg/dL (0-130); Magnesium 1.7 mg/dL (1.6-2.6); Osmolality,Calculated 287 (275-295); Phosphorous 3.5 mg/dL (2.4-5.1); Potassium 4.7 mMol/L (3.4-5.1); Sodium 142 mMol/L (136-145); Total Protein 5.2 gm/dL (5.7-8.2); Triglycerides 64 mg/dL (30-150); eGFR > 60 See Note
[2025-01-15 07:03] LABS: Thyroid Stimulating Hormone 0.42 uIU/mL (0.55-4.78)
[2025-01-15] MEDS: CLOPIDOGREL BISULFATE 75 MG TABLET PO (08:35)
[2025-01-15] MEDS: ASPIRIN EC 81 MG TABEC PO (08:35)
[2025-01-15] MEDS: BUMETANIDE INJ 0.25 MG/ML VIAL 4 ML 2 MG IVP ×2 (08:36→21:33)
[2025-01-15 08:39] LABS: Free T4 (Free Thyroxine) 1.17 ng/dL (0.89-1.76)
--- NOTE | 2025-01-15 12:04 | PD.IMCONS ---
HPI Data of Consult Requesting Physician: Fer Huston MD Primary Care Provider: Hazel Demarco([facility]), PAAbran Consult Narrative History of present illness: This is 69-year-old male with past medical history of hyperlipidemia, hypertension, HFrEF (EF 15 to 20% on 01/2024), CAD s/p PCI currently on aspirin and Plavix, PAD, Hx of meth use and medication noncompliance, GERD, active smoker and COPD on home O2 Patient was admitted with increasing shortness of breath, anasarca, Subsequently patient was admitted to the hospital for monitoring and aggressive diuresisHe is already on G GDMT In the past I have discussed with him regarding possible heart transplant possible LVAD patient is willing to consider all of these cc:: cc: Fer Huston MD Meds Home Medications and Allergies Home Medications ?Medication ?Instructions ?Recorded ?Confirmed ?Type ergocalciferol (vitamin D2) 1,250 1,250 mcg PO QWEEK 08/17/23 01/14/25 History mcg (50,000 unit) capsule ferrous sulfate 325 mg (65 mg 325 mg PO 1XD 08/17/23 01/14/25 History iron) tablet (FeroSul) albuterol sulfate 90 mcg/actuation 2 puff inhalation Q3H PRN 01/14/25 01/14/25 History aerosol inhaler shortness of breath or wheezing carvedilol 6.25 mg tablet 6.25 mg PO Q12H 01/14/25 01/14/25 History furosemide 20 mg tablet 20 mg PO .AM 01/14/25 01/14/25 History metoprolol succinate 25 mg 25 mg PO .NOC 01/14/25 01/14/25 History tablet,extended release 24 hr rosuvastatin 20 mg tablet 20 mg PO .AM 01/14/25 01/14/25 History sacubitril 24 mg-valsartan 26 mg 1 tab PO BID 01/14/25 01/14/25 History tablet (Entresto) spironolactone 25 mg tablet 25 mg PO Q48H 01/14/25 01/14/25 History Held on 03/29/24. Instructions: untill see cardiology torsemide 10 mg tablet 10 mg PO .AM 01/14/25 01/14/25 History Allergies Allergy/AdvReac Type Severity Reaction Status Date / Time No Known Allergies Allergy Verified 01/14/25 12:36 Exam Vital Signs Temp Pulse Resp BP Pulse Ox O2 Del Method O2 Flow Rate 97.1 F 98 25 H 115/81 95 Nasal Cannula 2 01/15/25 08:00 01/15/25 08:36 01/15/25 08:36 01/15/25 08:36 01/15/25 08:36 01/15/25 08:00 01/15/25 08:36 FiO2 2.5 01/15/25 08:00 Routine HEENT Exam Head: Present normocephalic and atraumatic Eye: Present EOMI and PERRL ENT: Present mucous membranes moist Routine Neck Exam Neck: Present supple and trachea midline Routine Respiratory Exam Respiratory: Present chest non-tender, lungs clear, normal breath sounds and no resp distress Routine Cardiovascular Exam Cardiovascular: Present RRR Routine Abdominal Exam Abdominal: Present soft and normoactive bowel sounds Routine Extremities Exam Extremities: Present full ROM Routine Skin Exam Skin: Present intact, dry and warm Routine Neurological Exam Neurological: Present alert, oriented X3 and CN II-XII intact Routine Psychiatric Exam Psychiatric: Present normal affect and normal thought process Results Labs 01/15/25 05:29 01/15/25 05:29 Labs: Short CBC 01/14/25 01/15/25 Range/Units 13:47 05:29 WBC 5.7 5.9 (3.8-10.6) Thou/mm3 Hgb 14.5 15.3 (13.5-16.0) g/dL Hct 44.4 45.9 (41.0-53.0) % Plt Count 212 203 (140-440) Thou/mm3 BMP 01/14/25 01/15/25 13:47 05:29 Sodium 144 142 Potassium 3.6 4.7 D Chloride 105 100 Carbon Dioxide 32.6 H 33.4 H BUN 19 22 Creatinine 1.2 1.2 Glucose 82 118 H Calcium 8.5 8.7 Cardiac Enzymes 01/14/25 Range/Units 13:47 Troponin I 0.033 (0.0-0.045) ng/mL Liver Function 01/14/25 01/15/25 Range/Units 13:47 05:29 Total Bilirubin 0.9 0.7 (0.3-1.2) mg/dL AST 31 31 (0-34) U/L ALT 26 23 (10-49) U/L Alkaline Phosphatase 89 80 (46-116) U/L Albumin 3.5 3.4 (3.4-4.8) gm/dL Urine 01/14/25 Range/Units 15:05 Urine Color Lt-Yellow (Lt Yel-Yel) Urine Clarity Clear (Clear/Hazy) Urine pH 6.5 (5.0-7.0) Ur Specific [place] 1.012 (1.001-1.035) Urine Protein Negative (Neg - Trace) Urine Glucose (UA) Negative (Negative) Assessment and Plan Assessment and plan (1) Ischemic cardiomyopathy: Status: Acute (2) CHF exacerbation: Status: Acute (3) COPD exacerbation: Status: Acute (4) Acute respiratory distress: Status: Acute Additional Assessment & Plan Additional Plan: Patient was given significant diuresis Plan Coreg 3.125 twice a day, Entresto,Continue to get inpatient long term care social worker to be contacted for possible transfer to [facility] f
--- NOTE | 2025-01-15 12:15 | ESPR_ITS ---
<Statement entered by Armin Arndt MD - 01/15/25 16:31> Patient was seen examined bedside this morning. No acute overnight events. Patient's leg edema slightly improved and has been diuresing well and kidney function is stable for now. Will continue with Bumex 2 mg twice daily for now and also start patient on carvedilol 3.125 twice daily and Entresto as per cardiology recommendations. Patient will need proper medication reconciliation upon discharge with clear instructions on his heart failure medications. Patient was also complaining of problems with urination therefore Flomax was started. Ultrasound venous Doppler of bilateral lower extremities was also ordered. Bigeminy and trigeminy in telemetry, but not sustained. General: A/O x3, no acute distress Eyes: PERRL, EOMI. Anicteric, vision grossly intact. Ears: No ear pain, no ear discharge, Hearing grossly intact. Nose: No nasal discharge. Mouth/Throat: Moist mucous membranes, no redness, no lesions. Neck: Neck supple, non-tender, no cervical lymphadenopathy. Lungs: Decreased in DAMIÁN Lower lobes, No accessory muscle use. Cardio: Normal S1/S2, regular rhythm, no murmurs, no JVD or carotid bruits. Abdomen: Soft, non-tender, no palpable masses, peristalsis present, no guarding or rebound. Extremities: Symmetrical, no significant deformities, Edema DAMIÁN LE upto mid abdomen 3+ , non-tender, peripheral pulses presents. Skin: No rashes, no lesions, warm to touch. Neuro: No focal neurological deficits. motor and sensory intact Psych: Cooperative, appropriate mood and effect. I have reviewed the note and agree with the medical student's assessment & plan with exceptions as below. I have personally reviewed labs, imaging, home meds/prior records, examined the patient, formulated and discussed management plan with my attending Armin Arndt PGY2 Disclaimer: Even though this this note was dictated by speech recognition and even though it was carefully revised there may still be minor errors in denture finisher due to voice recognition software. Documentation for date of: 01/15/25 Subjective Subjective Interval history: Spoke at length with patient and nurse for updates. Overnight, no acute events. Teleemtry showed sinus rhythm with some PVCs and bigeminy. This morning the patient reports ongoing SOB and cough. He denies chest pain, abdominal pain, fever/chills, n/v/d. Exam Vital Signs Temp Pulse Resp BP Pulse Ox O2 Del Method O2 Flow Rate 97.1 F 98 25 H 115/81 95 Nasal Cannula 2 01/15/25 08:00 01/15/25 08:36 01/15/25 08:36 01/15/25 08:36 01/15/25 08:36 01/15/25 08:00 01/15/25 08:36 FiO2 2.5 01/15/25 08:00 Narrative Exam General: A/O x3, no acute distress Eyes: PERRL, EOMI. Anicteric, vision grossly intact. Ears: No ear pain, no ear discharge, Hearing grossly intact. Nose: No nasal discharge. Mouth/Throat: Moist mucous membranes, no redness, no lesions. Neck: Neck supple, non-tender, no cervical lymphadenopathy. Lungs: Decreased in DAMIÁN Lower lobes, scattered bibasilar crackles, No accessory muscle use. Cardio: Normal S1/S2, regular rhythm, no murmurs, no JVD or carotid bruits. Abdomen: Soft, non-tender, no palpable masses, peristalsis present, no guarding or rebound. Extremities: Symmetrical, no significant deformities, improving Edema DAMIÁN LE up to knees today 3+ , non-tender, peripheral pulses presents. Skin: No rashes, no lesions, warm to touch. Neuro: No focal neurological deficits. motor and sensory intact Psych: Cooperative, appropriate mood and effect. Objective Labs 01/15/25 05:29 01/15/25 05:29 Labs: Laboratory Results - last 24 hr 01/14/25 01/14/25 01/15/25 13:47 15:05 05:29 WBC 5.7 5.9 RBC 4.79 5.04 Hgb 14.5 15.3 Hct 44.4 45.9 MCV 93 91 MCH 30.3 30.4 MCHC 32.7 33.3 RDW Std Deviation 54.5 H 52.6 H Plt Count 212 203 Neut % (Auto) 74 85 H Lymph % (Auto) 13 11 [place] % (Auto) 9 4 Eos % (Auto) 3 0 Baso % (Auto) 1 0 Neut # (Auto) 4.2 5.0 Lymph # (Auto) 0.8 L 0.7 L [place] # (Auto) 0.5 0.2 Eos # (Auto) 0.2 0.0 Baso # (Auto) 0.0 0.0 Immature Gran # (Auto) 0.02 H 0.02 H Absolute Nucleated RBC 0.00 0.00 Immature Gran % 0 0 Nucleated RBC % 0 0 PT 11.4 INR 1.1 APTT 23.4 Sodium 144 142 Potassium 3.6 4.7 D Chloride 105 100 Carbon Dioxide 32.6 H 33.4 H Anion Gap 6 L 9 BUN 19 22 Creatinine 1.2 1.2 Estim Creat Clear Calc 65.5 63.1 eGFR > 60 > 60 BUN/Creatinine Ratio 16 18 Glucose [address] Glu mg/dL 120 Hemoglobin A1c 5.8 Calculated Osmolality 288 287 Calcium 8.5 8.7 Corrected Calcium 8.9 9.2 Phosphorus 3.5 Magnesium 1.6 1.7 Total Bilirubin 0.9 0.7 AST 31 31 ALT 26 23 Alkaline Phosphatase 89 80 Troponin I 0.033 B-Natriuretic Peptide > 3280 H* Total Protein 5.3 L 5.2 L Albumin 3.5 3.4 Globulin 1.8 L 1.8 L Albumin/Globulin Ratio 1.9 1.9 Triglycerides 64 Cholesterol 128 L LDL Cholesterol, Calc 73 HDL Cholesterol 42 Cholesterol/HDL Ratio 3.0 L TSH 0.42 L Free T4 1.17 Ur Collection Type Clean Catch Urine Color Lt-Yellow Urine Clarity Clear Urine pH 6.5 Ur Specific Egan 1.012 Urine Protein Negative Urine Glucose (UA) Negative Urine Ketones Negative Urine Blood Negative Urine Nitrite Negative Urine Bilirubin Negative Urine Urobilinogen (Auto) Negative Ur Leukocyte Esterase Negative Urine RBC < 1 Urine WBC < 1 Ur Squamous Epith Cells 0 Urine Bacteria None Hyaline Casts < 1 Ur Culture Indicated? Not Indicated Quality Measures Quality Measures none Advance care planning discussed with:: patient Assessment & Plan Assessment Current Active Medications: Generic Name Dose Route Start Last Admin Trade Name Freq PRN Reason Stop Dose Admin Acetaminophen 650 mg 01/14/25 16:35 Acetaminophen 325 Mg Tablet PO 02/13/25 16:34 Q6H PRN Fever >100.4 Aspirin 81 mg 01/15/25 09:00 01/15/25 08:35 Aspirin Ec 81 Mg Tabec PO 02/14/25 08:59 81 mg QDAY JOSE RAMON Administration Bumetanide 2 mg 01/15/25 09:00 01/15/25 08:36 Bumetanide Inj 0.25 Mg/Ml Vial 4 Ml IVP 02/14/25 08:59 2 mg BID JOSE RAMON Administration Clopidogrel Bisulfate 75 mg 01/15/25 09:00 01/15/25 08:35 Clopidogrel Bisulfate 75 Mg Tablet PO 02/14/25 08:59 75 mg QDAY JOSE RAMON Administration Heparin Sodium (Porcine) 5,000 unit 01/14/25 22:00 01/15/25 05:15 Heparin Sod Inj 5000 Unit/Ml Vial SC 01/28/25 21:59 5,000 unit Q8HR JOSE RAMON Administration Ondansetron HCl 4 mg 01/14/25 16:35 Ondansetron Inj 2 Mg/Ml Inj 2 Ml IVP 02/13/25 16:34 Q6H PRN NAUSEA OR VOMITING Protocol Plan 69 yo M w/ PMH HLD, HTN, HFrEF (15-20% LVEF 01/2024), CAD s/p PCI, COPD on home O2 who presented to [facility] ED w/ x1 week of SOB. 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 Newell who had him come to the ED. Per patient the SOB has worsened in the last week but has been present for x6 months. Admitted for HFrEF exacerbation. #HFrEF in exacerbation #Acute Respiratory Distress #HTN Pt notes SOB for last x6 months that has worsened in the week before admission. Latest echo 01/2024 showed EF 15-20%. He is on 4 prescribed diuretics (Aldactone 25, Lasix 20, Metolazone 5mg, Torsemide 10 BID) and describes not having taken any medications for at least 5 days before admission. Lung auscultation in ED revealed bibasilar crackles. B/l LE were diffusely edematous 3+. He was also hypertensive in ED to 130s/90s. EKG showed sinus rhythm, CXR showed cardiomegaly and diffuse vascular congestion consistent with HFrEF. Today edema has markedly improved, lungs sounds are diminished however less fluid overloaded than on admission. He has received significant diuresis thus far and is improving symptomatically. Lipid panel, A1c normal this admission. TSH was low (0.42) however T4 was WNL, most likely subclinical hyperthyroidism. - Cardiology Dr. Newell consulted, appreciated. Per recs began Coreg 3.125 BID, home Entresto - Strict Is/Os, fluid restriction, q4 monitor worker, zamarripa catheter - Bumex IV 2mg BID - CBC/CMP in AM #COPD Less likely source of SOB as pt has symptoms of fluid overload. Administered Albuterol in ED w/ good effect. - Monitor #Ischemic cardiomyopathy #HxCAD s/p PCI Troponins WNL this admit, EKG sinus, unlikely having acute myocardial event - Monitor #HLD Chronic/historical - Consider resuming statin as per cardiology recs Hospital management: Disposition: Follow cardiology inpatient, monitor response to diruesis. Anticipate discharge within 24-48 hours. Diet: cardiac Lines: Peripheral IVs DVT prophylaxis: Heparin q8 Zamarripa: in place CODE STATUS: full code ----- Plan discussed with attending physician Dr. Arina Feliz, Medical Student [facility] Attending Provider Attestation/Addendum I have discussed and was present for the essential components of the history, physical examination, diagnosis, and treatment plan with the resident. I agree with the patient's care as documented by the resident and amended herein by me. Dimitrios Santa DO. Although this document has been carefully reviewed, there may still be some phonetic and other typographical errors. These errors are purely grammatical due to imperfections in the software program and should not be construed in any way to compromise the substance of the patient's medical care during this visit. Patient seen and evaluated this AM. No acute events overnight, vital signs stable, patient afebrile, I/os 1250/2550 mL, CBC unremarkable, BMP significant for a CO2 of 33.4. Will continue to diurese with Bumex 2 mg IV twice daily and titrate as necessary, echo still pending, cardiology consulted, appreciate recommendations. Patient also on aspirin and Plavix status post PCI approximately 6 months ago per patient. Patient will probably be here at least 3 to 4 days undergoing diuresis as he is severely volume overloaded. Last EF approximately 15% which is severe, apparently the patient has been placed on the heart transplant list down at [facility] however has not had a follow-up appointment in several months. Cardiology consulted, appreciate recommendations, will start Coreg 3.125 mg twice daily and Entresto per recommendations. Will continue to obtain additional history and monitor closely.
--- NOTE | 2025-01-15 15:44 | PC.SS ---
Addendum entered by Susanna Persaud 01/15/25 16:32: Rounding note: Diuresing, may discharge home when medically clear. Original Note: 70YO Male, Reason for visit: CHF EXACERBATION. SS met with patient at bedside to complete initial assessment, role and purpose of today?s contact was explained. Patient confirmed demographic information. Patient identified his spouse Shira Rg as his primary medical surrogate decisionmaker. ?Patient stated friend Angela Manzano [phone] needs to be contacted so she may contact his spouse Shira and Friend Jim Whitt. Patient would like his spouse and friend Jim to collaborate and make medical decisions. ?Patient declined to provide additional contact numbers.? Patient stated he lives with son and he is independent with ADL completion. Patient reported he is independent with ambulation. Patient utilizes 2-4L of oxygen at all times, BRIANDA is DME provider. Patient stated he has home and portable oxygen tanks. PHARMACY: [facility]. PCP: Matthew Chu, last appt. was December 2024. WALLPAPERER: Dr. Newell. Patient would like to return home when medically clear. Next of kin: Shira Rg, contact family friend Angela [phone] to get ahold of spouse. Discharge plan: Home
--- NOTE | 2025-01-15 16:04 | XR_ITS ---
Examination: Venous duplex lower extremity sonogram, bilateral. Date and time of exam: January 15, 2025, 1649 hours INDICATIONS: Bilateral leg swelling and pain beginning 1 week ago Technique: Multiple sonographic images of the deep venous system have been obtained. B-mode/2-D grayscale imaging of vascular structures and Doppler spectral analysis (waveforms) and color performed Both legs are examined. Findings: Deep venous systems do not demonstrate abnormal echogenicity. All visualized deep veins exhibit compressibility. All visualized deep veins exhibit augmentation. Impression: Negative for deep vein thrombosis Incidental note markedly reduced arterial flow in the bilateral superficial femoral arteries, consider arterial Doppler lower extremities follow-up
[2025-01-15] MEDS: TAMSULOSIN HCL 0.4 MG CAPSULE PO (16:49)
[2025-01-16] VITALS (12 sets, daily range): BP systolic 92–102; BP diastolic 55–74; PULSE 61–80; RESP 19–30; TEMP 35.9–36.3; O2SAT 94–98; BMI 28.0
[2025-01-16 04:55] LABS: Basophils # (Auto) 0.0 Thou/mm3 (0.0-0.2); Basophils % (Auto) 0 % (0-2.5); Eosinophils # (Auto) 0.2 Thou/mm3 (0.0-0.5); Eosinophils % (Auto) 2 % (0-10); Hematocrit 45.3 % (41.0-53.0); Hemoglobin 15.0 g/dL (13.5-16.0); Immature Granulocytes Auto 0.03 Thou/mm3 (0.00-0.00); Lymphocytes # (Auto) 1.5 Thou/mm3 (1.0-4.8); Lymphocytes % (Auto) 20 % (10-50); Mean Corpuscular HGB Conc 33.1 g/dl (31.0-37.0); Mean Corpuscular Hemoglobin 30.8 pg (25.0-35.0); Mean Corpuscular Volume 93 fL (80-100); Monocytes # (Auto) 0.7 Thou/mm3 (0.0-0.8); Monocytes % (Auto) 9 % (0-12); Neutrophils # (Auto) 5.0 Thou/mm3 (1.8-7.7); Neutrophils % (Auto) 68 % (37-80); Nucleated Red Blood Cell # 0.00 Thou/mm3 (0.00-0.00); Nucleated Red Blood Cell % 0 /100 WBC (0); Platelet Count 166 Thou/mm3 (140-440); RDW Standard Deviation 54.4 fL (35.1-43.9); Red Blood Count 4.87 Miln/mm3 (4.50-5.90); White Blood Count 7.3 Thou/mm3 (3.8-10.6)
[2025-01-16 05:19] LABS: Alanine Aminotransferase 16 U/L (10-49); Albumin, Serum 3.1 gm/dL (3.4-4.8); Albumin/Globulin Ratio 1.8 (1.2-2.2); Alkaline Phosphatase 73 U/L (46-116); Anion Gap 9 (7-16); Aspartate Amino Transferase 20 U/L (0-34); BUN/Creatinine Ratio 13 Ratio (12-20); Bilirubin,Total 0.6 mg/dL (0.3-1.2); Blood Urea Nitrogen 17 mg/dL (9-23); Calcium 8.8 mg/dL (8.3-10.6); Calcium (Corrected) 9.5 mg/dL (8.5-10.1); Carbon Dioxide 38.1 mMol/L (20.0-31.0); Chloride 98 mMol/L (98-107); Creatinine (Component) 1.3 mg/dL (0.6-1.3); Estimated Creatinine Clearance 58.2 mL/min (>60); Globulin 1.7 gm/dL (2.3-3.5); Glucose 86 mg/dL (74-106); Magnesium 1.7 mg/dL (1.6-2.6); Osmolality,Calculated 289 (275-295); Phosphorous 4.1 mg/dL (2.4-5.1); Potassium 3.6 mMol/L (3.4-5.1); Sodium 145 mMol/L (136-145); Total Protein 4.8 gm/dL (5.7-8.2); eGFR 59 See Note
[2025-01-16] MEDS: HEPARIN SOD INJ 5000 UNIT/ML VIAL SC ×3 (06:20→21:02)
[2025-01-16] MEDS: BUMETANIDE INJ 0.25 MG/ML VIAL 4 ML 2 MG IVP (08:41)
[2025-01-16] MEDS: CLOPIDOGREL BISULFATE 75 MG TABLET PO (08:42)
[2025-01-16] MEDS: ASPIRIN EC 81 MG TABEC PO (08:42)
[2025-01-16] MEDS: TAMSULOSIN HCL 0.4 MG CAPSULE PO (08:42)
--- NOTE | 2025-01-16 14:34 | PC.SS ---
Rounding note: IV diureses to continue for several days. Discharging home when medically clear.
--- NOTE | 2025-01-16 15:01 | PD.RESPRO ---
Documentation for date of: 01/16/25 Subjective Subjective Interval history: Patient is evaluated at the bedside, overnight events and labs reviewed, sitting at the side of the bed, noted improvement in bilateral lower extremity edema, still 3+ extending up to the knees, did notice improvement in scrotal swelling and abdominal wall edema. Currently saturating well on nasal cannula oxygen. Patient is net -6.1 L, also noted 5 kg drop in weight, consistent with fluid loss. Noted metabolic alkalosis bicarb 38, gave acetazolamide x 1, as patient is currently volume overloaded still, will continue with aggressive diuresis for today, and reevaluate labs tomorrow. Exam Vital Signs Temp Pulse Resp BP Pulse Ox O2 Del Method O2 Flow Rate 96.9 F 70 25 H 94/74 95 Nasal Cannula 3 01/16/25 12:00 01/16/25 12:14 01/16/25 12:14 01/16/25 12:00 01/16/25 12:14 01/16/25 12:00 01/16/25 12:14 FiO2 2.5 01/15/25 12:00 Narrative Exam General: A/O x3, no acute distress Eyes: PERRL, EOMI. Anicteric, vision grossly intact. Ears: No ear pain, no ear discharge, Hearing grossly intact. Nose: No nasal discharge. Mouth/Throat: Moist mucous membranes, no redness, no lesions. Neck: Neck supple, non-tender, no cervical lymphadenopathy. Lungs: Decreased in DAMIÁN Lower lobes, scattered bibasilar crackles, No accessory muscle use. Cardio: Normal S1/S2, regular rhythm, no murmurs, no JVD or carotid bruits. Abdomen: Soft, non-tender, no palpable masses, peristalsis present, no guarding or rebound. Extremities: Symmetrical, no significant deformities, improving Edema DAMIÁN LE up to knees today 3+ , non-tender, peripheral pulses presents. Skin: No rashes, no lesions, warm to touch. Neuro: No focal neurological deficits. motor and sensory intact Psych: Cooperative, appropriate mood and effect. Objective Labs 01/17/25 04:54 01/17/25 04:54 Labs: Laboratory Results - last 24 hr 01/16/25 04:19 WBC 7.3 RBC 4.87 Hgb 15.0 Hct 45.3 MCV 93 MCH 30.8 MCHC 33.1 RDW Std Deviation 54.4 H Plt Count 166 D Neut % (Auto) 68 Lymph % (Auto) 20 [place] % (Auto) 9 Eos % (Auto) 2 Baso % (Auto) 0 Neut # (Auto) 5.0 Lymph # (Auto) 1.5 [place] # (Auto) 0.7 Eos # (Auto) 0.2 Baso # (Auto) 0.0 Immature Gran # (Auto) 0.03 H Absolute Nucleated RBC 0.00 Immature Gran % 0 Nucleated RBC % 0 Sodium 145 Potassium 3.6 D Chloride 98 Carbon Dioxide 38.1 H Anion Gap 9 BUN 17 Creatinine 1.3 Estim Creat Clear Calc 58.2 L eGFR 59 L BUN/Creatinine Ratio 13 Glucose 86 Calculated Osmolality 289 Calcium 8.8 Corrected Calcium 9.5 Phosphorus 4.1 Magnesium 1.7 Total Bilirubin 0.6 AST 20 ALT 16 Alkaline Phosphatase 73 Total Protein 4.8 L Albumin 3.1 L Globulin 1.7 L Albumin/Globulin Ratio 1.8 Quality Measures Quality Measures none Advance care planning discussed with:: patient Assessment & Plan Assessment Current Active Medications: Generic Name Dose Route Start Last Admin Trade Name Freq PRN Reason Stop Dose Admin Acetaminophen 650 mg 01/14/25 16:35 Acetaminophen 325 Mg Tablet PO 02/13/25 16:34 Q6H PRN Fever >100.4 Aspirin 81 mg 01/15/25 09:00 01/16/25 08:42 Aspirin Ec 81 Mg Tabec PO 02/14/25 08:59 81 mg QDAY JOSE RAMON Administration Bumetanide 2 mg 01/15/25 09:00 01/16/25 08:41 Bumetanide Inj 0.25 Mg/Ml Vial 4 Ml IVP 02/14/25 08:59 2 mg BID JOSE RAMON Administration Carvedilol 3.125 mg 01/15/25 17:30 01/16/25 08:33 Carvedilol 3.125 Mg Tablet PO 02/14/25 17:29 Not Given BIDWM JOSE RAMON Clopidogrel Bisulfate 75 mg 01/15/25 09:00 01/16/25 08:42 Clopidogrel Bisulfate 75 Mg Tablet PO 02/14/25 08:59 75 mg QDAY JOSE RAMON Administration Heparin Sodium (Porcine) 5,000 unit 01/14/25 22:00 01/16/25 13:25 Heparin Sod Inj 5000 Unit/Ml Vial SC 01/28/25 21:59 5,000 unit Q8HR JOSE RAMON Administration Nicotine 14 mg 01/15/25 16:15 01/15/25 16:51 Nicotine Patch 14 Mg/24 Hr Patch.Td24 TOP 02/14/25 16:14 Not Given QDAY@1600 JOSE RAMON Ondansetron HCl 4 mg 01/14/25 16:35 Ondansetron Inj 2 Mg/Ml Inj 2 Ml IVP 02/13/25 16:34 Q6H PRN NAUSEA OR VOMITING Protocol Sacubitril/Valsartan 1 tab 01/15/25 21:00 01/16/25 08:42 Sacubitril 24 Mg/Valsartan 26 Mg Tablet PO 02/14/25 20:59 1 tab BID JOSE RAMON Administration Tamsulosin HCl 0.4 mg 01/15/25 16:05 01/16/25 08:42 Tamsulosin Hcl 0.4 Mg Capsule PO 02/14/25 16:04 0.4 mg QDAY JOSE RAMON Administration Plan 69 yo M w/ PMH HLD, HTN, HFrEF (15-20% LVEF 01/2024), CAD s/p PCI, COPD on home O2 who presented to [facility] ED w/ x1 week of SOB. 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 Newell who had him come to the ED. Per patient the SOB has worsened in the last week but has been present for x6 months. Admitted for HFrEF exacerbation. # HFrEF, acute exacerbation, NYHA class IV # Acute hypoxic respiratory failure # HTN Pt notes SOB for last x6 months that has worsened in the week before admission. Latest echo 01/2024 showed EF 15-20%. He is on 4 prescribed diuretics (Aldactone 25, Lasix 20, Metolazone 5mg, Torsemide 10 BID) and describes not having taken any medications for at least 5 days before admission. Lung auscultation in ED revealed bibasilar crackles. Patient is net -6.1 L, also noted 5 kg drop in weight, consistent with fluid loss. Noted metabolic alkalosis bicarb 38, gave acetazolamide x 1, as patient is currently volume overloaded still, will continue with aggressive diuresis for today, and reevaluate labs tomorrow.ffusely edematous 3+. EKG showed sinus rhythm, CXR showed cardiomegaly and diffuse vascular congestion consistent with HFrEF. Lipid panel, A1c normal this admission. TSH was low (0.42) however T4 was WNL, most likely subclinical hyperthyroidism. - Cardiology Dr. Newell consulted, appreciated. Per recs began Coreg 3.125 BID, home Entresto - Strict Is/Os, fluid restriction, q4 nurse monitoring, zamarripa catheter - Bumex IV 2mg BID - CBC/CMP in AM # History of COPD Less likely source of SOB as pt has symptoms of fluid overload. Administered Albuterol in ED w/ good effect. - Hypoxia currently secondary to CHF exacerbation, COPD likely stable at this point. No wheezing on physical exam. ? DuoNebs as needed ordered # Ischemic cardiomyopathy # HxCAD s/p PCI Troponins WNL this admit, EKG sinus, unlikely having acute myocardial event - Monitor #HLD Chronic/historical - Consider resuming statin as per cardiology recs Hospital management: Disposition: Follow cardiology inpatient, monitor response to diruesis. Anticipate discharge within 24-48 hours. Diet: cardiac Lines: Peripheral IVs DVT prophylaxis: Heparin q8 Zamarripa: in place CODE STATUS: full code ----- Plan discussed with attending physician Dr. Arina Pitt PGY3 Attending Provider Attestation/Addendum I have discussed and was present for the essential components of the history, physical examination, diagnosis, and treatment plan with the resident. I agree with the patient's care as documented by the resident and amended herein by me. Dimitrios Santa DO. Although this document has been carefully reviewed, there may still be some phonetic and other typographical errors. These errors are purely grammatical due to imperfections in the software program and should not be construed in any way to compromise the substance of the patient's medical care during this visit.
[2025-01-16] MEDS: ALBUTEROL/IPRATROPIUM (Duoneb) RT SOL 3 ML NEBU INH (22:28)
[2025-01-17] VITALS (13 sets, daily range): BP systolic 89–114; BP diastolic 56–80; PULSE 67–90; RESP 13–26; TEMP 35.9–36.6; O2SAT 95–100; BMI 28.0
[2025-01-17] MEDS: HEPARIN SOD INJ 5000 UNIT/ML VIAL SC ×3 (05:08→21:27)
[2025-01-17 05:48] LABS: Basophils # (Auto) 0.1 Thou/mm3 (0.0-0.2); Basophils % (Auto) 1 % (0-2.5); Eosinophils # (Auto) 0.2 Thou/mm3 (0.0-0.5); Eosinophils % (Auto) 4 % (0-10); Hematocrit 48.4 % (41.0-53.0); Hemoglobin 16.2 g/dL (13.5-16.0); Immature Granulocytes Auto 0.04 Thou/mm3 (0.00-0.00); Lymphocytes # (Auto) 1.3 Thou/mm3 (1.0-4.8); Lymphocytes % (Auto) 21 % (10-50); Mean Corpuscular HGB Conc 33.5 g/dl (31.0-37.0); Mean Corpuscular Hemoglobin 30.6 pg (25.0-35.0); Mean Corpuscular Volume 91 fL (80-100); Monocytes # (Auto) 0.7 Thou/mm3 (0.0-0.8); Monocytes % (Auto) 11 % (0-12); Neutrophils # (Auto) 4.2 Thou/mm3 (1.8-7.7); Neutrophils % (Auto) 64 % (37-80); Nucleated Red Blood Cell # 0.00 Thou/mm3 (0.00-0.00); Nucleated Red Blood Cell % 0 /100 WBC (0); Platelet Count 179 Thou/mm3 (140-440); RDW Standard Deviation 52.8 fL (35.1-43.9); Red Blood Count 5.30 Miln/mm3 (4.50-5.90); White Blood Count 6.5 Thou/mm3 (3.8-10.6)
[2025-01-17 06:16] LABS: Alanine Aminotransferase 18 U/L (10-49); Albumin, Serum 3.4 gm/dL (3.4-4.8); Albumin/Globulin Ratio 1.9 (1.2-2.2); Alkaline Phosphatase 74 U/L (46-116); Anion Gap 9 (7-16); Aspartate Amino Transferase 26 U/L (0-34); BUN/Creatinine Ratio 18 Ratio (12-20); Bilirubin,Total 0.5 mg/dL (0.3-1.2); Blood Urea Nitrogen 21 mg/dL (9-23); Calcium 9.4 mg/dL (8.3-10.6); Calcium (Corrected) 9.9 mg/dL (8.5-10.1); Carbon Dioxide 31.4 mMol/L (20.0-31.0); Chloride 103 mMol/L (98-107); Creatinine (Component) 1.2 mg/dL (0.6-1.3); Estimated Creatinine Clearance 61.4 mL/min (>60); Globulin 1.8 gm/dL (2.3-3.5); Glucose 90 mg/dL (74-106); Magnesium 1.9 mg/dL (1.6-2.6); Osmolality,Calculated 287 (275-295); Phosphorous 4.7 mg/dL (2.4-5.1); Potassium 3.7 mMol/L (3.4-5.1); Sodium 143 mMol/L (136-145); Total Protein 5.2 gm/dL (5.7-8.2); eGFR > 60 See Note
[2025-01-17] MEDS: ALBUTEROL/IPRATROPIUM (Duoneb) RT SOL 3 ML NEBU INH ×2 (07:45→15:22)
--- NOTE | 2025-01-17 07:52 | PD.IMPROG ---
Documentation for date of: 01/17/25 Subjective Subjective Interval history: Patient feels somewhat better diuresing well Still has have bilateral leg edema Echo shows severe LV dysfunction ejection fraction 15 to 20% Exam Vital Signs Temp Pulse Resp BP Pulse Ox O2 Del Method O2 Flow Rate 97.5 F 88 13 89/63 L 99 Nasal Cannula 3 01/17/25 04:00 01/17/25 04:00 01/17/25 04:00 01/17/25 04:00 01/17/25 04:00 01/17/25 04:00 01/17/25 04:00 FiO2 2.5 01/16/25 16:00 Routine HEENT Exam Head: Present normocephalic and atraumatic Eye: Present EOMI and PERRL ENT: Present mucous membranes moist Routine Neck Exam Neck: Present supple and trachea midline Routine Respiratory Exam Respiratory: Present chest non-tender, lungs clear, normal breath sounds and no resp distress Routine Cardiovascular Exam Cardiovascular: Present RRR Routine Abdominal Exam Abdominal: Present soft and normoactive bowel sounds Routine Extremities Exam Extremities: Present full ROM Routine Skin Exam Skin: Present intact, dry and warm Routine Neurological Exam Neurological: Present alert, oriented X3 and CN II-XII intact Routine Psychiatric Exam Psychiatric: Present normal affect and normal thought process Objective Labs 01/17/25 04:54 01/17/25 04:54 Labs: Laboratory Results - last 24 hr 01/17/25 04:54 WBC 6.5 RBC 5.30 Hgb 16.2 H Hct 48.4 MCV 91 MCH 30.6 MCHC 33.5 RDW Std Deviation 52.8 H Plt Count 179 Neut % (Auto) 64 Lymph % (Auto) 21 [place] % (Auto) 11 Eos % (Auto) 4 Baso % (Auto) 1 Neut # (Auto) 4.2 Lymph # (Auto) 1.3 [place] # (Auto) 0.7 Eos # (Auto) 0.2 Baso # (Auto) 0.1 Immature Gran # (Auto) 0.04 H Absolute Nucleated RBC 0.00 Immature Gran % 1 H Nucleated RBC % 0 Sodium 143 Potassium 3.7 Chloride 103 Carbon Dioxide 31.4 H Anion Gap 9 BUN 21 Creatinine 1.2 Estim Creat Clear Calc 61.4 eGFR > 60 BUN/Creatinine Ratio 18 Glucose 90 Calculated Osmolality 287 Calcium 9.4 Corrected Calcium 9.9 Phosphorus 4.7 Magnesium 1.9 Total Bilirubin 0.5 AST 26 ALT 18 Alkaline Phosphatase 74 Total Protein 5.2 L Albumin 3.4 Globulin 1.8 L Albumin/Globulin Ratio 1.9 Assessment & Plan A&P Narrative Continue current medical management Blood pressure is on the low side Diuresis Continue GDMT Time Spent With Patient Time: Total time spent is greater than 50% in coordination of care (as documented) at patient's floor/unit and/or counseling patient:
[2025-01-17] MEDS: CLOPIDOGREL BISULFATE 75 MG TABLET PO (08:10)
[2025-01-17] MEDS: TAMSULOSIN HCL 0.4 MG CAPSULE PO (08:10)
[2025-01-17] MEDS: ASPIRIN EC 81 MG TABEC PO (08:10)
[2025-01-17] MEDS: BUMETANIDE INJ 0.25 MG/ML VIAL 4 ML 2 MG IVP ×2 (08:20→21:24)
--- NOTE | 2025-01-17 13:35 | ESPR_ITS ---
<Statement entered by Armin Arndt MD - 01/17/25 14:39> Patient was seen and examined at bedside this morning. No acute overnight events. Patient's lower extremity edema is significantly improved from day of admission, but still 3+. Expect patient to continue diuresis for at least 2 or 3 days. Patient's urine output is not being adequately measured as he stated that he was dumping his over 2 urinals. His weight did not change from yesterday, but do believe that patient is getting appropriate diuresis at this time. Patient's blood pressure was on the lower end and Bumex yesterday was held due to low BP therefore made some changes which included switching from Coreg to metoprolol and added midodrine as needed. I have reviewed the note and agree with the resident's assessment & plan with exceptions as above. I have personally reviewed labs, imaging, home meds/prior records, examined the patient, formulated and discussed management plan with my attending Armin Arndt PGY2 Disclaimer: Even though this this note was dictated by speech recognition and even though it was carefully revised there may still be minor errors in fence erector supervisor due to voice recognition software. Documentation for date of: 01/17/25 Subjective Subjective Interval history: Patient seen and examined at bedside; no acute events overnight. Patient reports significant urination (multiple containers) and that legs feel much less swollen than before. On physical exam, legs are much less swollen yet still have 3+ pitting edema to the midshin. Exam Vital Signs Temp Pulse Resp BP Pulse Ox O2 Del Method O2 Flow Rate 97.8 F 76 22 H 97/56 L 96 Nasal Cannula 2 01/17/25 11:54 01/17/25 11:54 01/17/25 11:54 01/17/25 11:54 01/17/25 11:54 01/17/25 11:54 01/17/25 11:54 FiO2 2.5 01/16/25 16:00 Narrative Exam General: A/O x3, no acute distress Eyes: PERRL, EOMI. Anicteric, vision grossly intact. Ears: No ear pain, no ear discharge, Hearing grossly intact. Nose: No nasal discharge. Mouth/Throat: Moist mucous membranes, no redness, no lesions. Neck: Neck supple, non-tender, no cervical lymphadenopathy. Lungs: Decreased in DAMIÁN Lower lobes, scattered bibasilar crackles, No accessory muscle use. Cardio: Normal S1/S2, regular rhythm, no murmurs, no JVD or carotid bruits. Abdomen: Soft, non-tender, no palpable masses, peristalsis present, no guarding or rebound. Extremities: Symmetrical, no significant deformities, bilateral lower extremity edema to midshin (improving) , non-tender, peripheral pulses presents. Skin: No rashes, no lesions, warm to touch. Neuro: No focal neurological deficits. motor and sensory intact Psych: Cooperative, appropriate mood and effect. Objective Labs 01/17/25 04:54 01/17/25 04:54 Labs: Laboratory Results - last 24 hr 01/17/25 04:54 WBC 6.5 RBC 5.30 Hgb 16.2 H Hct 48.4 MCV 91 MCH 30.6 MCHC 33.5 RDW Std Deviation 52.8 H Plt Count 179 Neut % (Auto) 64 Lymph % (Auto) 21 [place] % (Auto) 11 Eos % (Auto) 4 Baso % (Auto) 1 Neut # (Auto) 4.2 Lymph # (Auto) 1.3 [place] # (Auto) 0.7 Eos # (Auto) 0.2 Baso # (Auto) 0.1 Immature Gran # (Auto) 0.04 H Absolute Nucleated RBC 0.00 Immature Gran % 1 H Nucleated RBC % 0 Sodium 143 Potassium 3.7 Chloride 103 Carbon Dioxide 31.4 H Anion Gap 9 BUN 21 Creatinine 1.2 Estim Creat Clear Calc 61.4 eGFR > 60 BUN/Creatinine Ratio 18 Glucose 90 Calculated Osmolality 287 Calcium 9.4 Corrected Calcium 9.9 Phosphorus 4.7 Magnesium 1.9 Total Bilirubin 0.5 AST 26 ALT 18 Alkaline Phosphatase 74 Total Protein 5.2 L Albumin 3.4 Globulin 1.8 L Albumin/Globulin Ratio 1.9 Quality Measures Quality Measures none Advance care planning discussed with:: other Assessment & Plan Assessment Current Active Medications: Generic Name Dose Route Start Last Admin Trade Name Freq PRN Reason Stop Dose Admin Acetaminophen 650 mg 01/14/25 16:35 Acetaminophen 325 Mg Tablet PO 02/13/25 16:34 Q6H PRN Fever >100.4 Albuterol/Ipratropium 3 ml 01/16/25 23:00 01/17/25 07:45 Albuterol/Ipratropium (Duoneb) Rt Ivone 3 Ml Nebu INH 02/15/25 22:59 3 ml Q8HRRT JOSE RAMON Administration Aspirin 81 mg 01/15/25 09:00 01/17/25 08:10 Aspirin Ec 81 Mg Tabec PO 02/14/25 08:59 81 mg QDAY JOSE RAMON Administration Bumetanide 2 mg 01/15/25 09:00 01/17/25 08:20 Bumetanide Inj 0.25 Mg/Ml Vial 4 Ml IVP 02/14/25 08:59 2 mg BID JOSE RAMON Administration Clopidogrel Bisulfate 75 mg 01/15/25 09:00 01/17/25 08:10 Clopidogrel Bisulfate 75 Mg Tablet PO 02/14/25 08:59 75 mg QDAY JOSE RAMON Administration Heparin Sodium (Porcine) 5,000 unit 01/14/25 22:00 01/17/25 05:08 Heparin Sod Inj 5000 Unit/Ml Vial SC 01/28/25 21:59 5,000 unit Q8HR JOSE RAMON Administration Metoprolol Succinate 12.5 mg 01/17/25 21:00 Metoprolol Succinate Xl 25 Mg Tabcr PO 02/16/25 20:59 QPM JOSE RAMON Midodrine 5 mg 01/17/25 10:30 Midodrine 5 Mg Tablet PO 02/16/25 13:59 TID PRN SBP less than 100 Nicotine 14 mg 01/15/25 16:15 01/16/25 15:39 Nicotine Patch 14 Mg/24 Hr Patch.Td24 TOP 02/14/25 16:14 Not Given QDAY@1600 [facility] Ondansetron HCl 4 mg 01/14/25 16:35 Ondansetron Inj 2 Mg/Ml Inj 2 Ml IVP 02/13/25 16:34 Q6H PRN NAUSEA OR VOMITING Protocol Sacubitril/Valsartan 1 tab 01/17/25 09:00 01/17/25 08:27 Sacubitril 24 Mg/Valsartan 26 Mg Tablet PO 02/14/25 08:59 Not Given BID JOSE RAMON Tamsulosin HCl 0.4 mg 01/15/25 16:05 01/17/25 08:10 Tamsulosin Hcl 0.4 Mg Capsule PO 02/14/25 16:04 0.4 mg QDAY [facility] Administration Plan 69 yo M w/ PMH HLD, HTN, HFrEF (15-20% LVEF 01/2024), CAD s/p PCI, COPD on home O2 who presented to [facility] ED w/ x1 week of SOB. He had been seeing his fence installer Dr. Newell who had him come to the ED. Per patient the SOB has worsened in the last week but has been present for x6 months. Admitted for HFrEF exacerbation. # HFrEF, acute exacerbation, NYHA class IV # Acute hypoxic respiratory failure # HTN # History of COPD Pt notes SOB for last x6 months that has worsened in the week before admission. Latest echo 01/2025 showed EF 15-20%. He is on 4 prescribed diuretics (Aldactone 25, Lasix 20, Metolazone 5mg, Torsemide 10 BID) and describes not having taken any medications for at least 5 days before admission. Lung auscultation in ED revealed bibasilar crackles. Patient is net -6.9 L with a 10 kg drop in weight since admission, consistent with fluid loss. Bicarb has improved significant (31 from 38 yesterday); as patient is currently volume overloaded still, will continue with aggressive diuresis for today, and reevaluate labs tomorrow. 3+ edema present to midshin, improved since yesterday. EKG showed sinus rhythm, CXR showed cardiomegaly and diffuse vascular congestion consistent with HFrEF. Lipid panel, A1c normal this admission. TSH was low (0.42) however T4 was WNL, most likely subclinical hyperthyroidism. Less likely source of SOB as pt has symptoms of fluid overload. Administered Albuterol in ED w/ good effect. Plan: - Cardiology consulted, appreciate recs. Carvedilol substituted for metoprolol succinate due to relative hypotension overnight 01/16/25. On salcubirtil/vaslartan starting 01/17/25. on entresto - Strict Is/Os, fluid restriction, q4 cardiac/vascular sonographer, daily weights - Bumex IV 2mg BID - CBC/CMP in AM - Hypoxia currently secondary to CHF exacerbation, COPD likely stable at this point. No wheezing on physical exam. ? DuoNebs as needed ordered # Ischemic cardiomyopathy # HxCAD s/p PCI Troonins WNL this admit, EKG sinus, unlikely having acute myocardial event Plan: - Monitor - Aspirin and clopidogrel #HLD Chronic/historical Plan: - Consider resuming statin as per cardiology recs #BPH Plan: - Home [facility] management: Disposition: Follow cardiology inpatient, monitor response to diruesis. Anticipate discharge within 24-48 hours. Diet: cardiac Lines: Peripheral IVs DVT prophylaxis: Heparin q8 Mitchell: in place CODE STATUS: full code This case was discussed with my attending physician, Dr. Santa, and senior resident, Dr. De La Rosa. Mike Vásquez MD-PhD, PGY1 Attending Provider Attestation/Addendum I have discussed and was present for the essential components of the history, physical examination, diagnosis, and treatment plan with the resident. I agree with the patient's care as documented by the resident and amended herein by me. Dimitrios Santa, DO. Although this document has been carefully reviewed, there may still be some phonetic and other typographical errors. These errors are purely grammatical due to imperfections in the software program and should not be construed in any way to compromise the substance of the patient's medical care during this visit. Patient seen and evaluated this AM. No acute events overnight, patient's BP was soft overnight, night team did hold diuresis however not Entresto. BP this morning 95/59, I's and O's were 1500/1200, significant labs include a bicarb of 31, creatinine stable at 1.2. Echocardiogram demonstrated EF 15% with grade 2 diastolic dysfunction severe global LV systolic dysfunction. Will continue to diurese and add Diamox today, patient started on midodrine, will continue aspirin, Bumex will change Coreg to metoprolol succinate in setting of low BP, we will reduce the dose of Entresto and continue the patient's Flomax. Otherwise the patient is doing well, I suspect we have a few more days of diuresis before he can go home. His legs look much better however still has 3+ pitting edema.
--- NOTE | 2025-01-17 15:29 | PC.SS ---
Rounding Note: Plan is to diuresis of the patient. Patient to d/c the patient home.
[2025-01-17] MEDS: METOPROLOL SUCCINATE XL 25 MG TABCR 12.5 MG PO (21:26)
[2025-01-18] VITALS (9 sets, daily range): BP systolic 82–99; BP diastolic 53–73; PULSE 64–86; RESP 19–22; TEMP 36.1–36.3; O2SAT 96–100; BMI 26.1
[2025-01-18] MEDS: ALBUTEROL/IPRATROPIUM (Duoneb) RT SOL 3 ML NEBU INH ×3 (00:29→15:05)
[2025-01-18] MEDS: MIDODRINE 5 MG TABLET PO (04:13)
[2025-01-18] MEDS: HEPARIN SOD INJ 5000 UNIT/ML VIAL SC ×2 (05:26→13:29)
[2025-01-18] MEDS: ASPIRIN EC 81 MG TABEC PO (08:18)
[2025-01-18] MEDS: CLOPIDOGREL BISULFATE 75 MG TABLET PO (08:19)
[2025-01-18] MEDS: TAMSULOSIN HCL 0.4 MG CAPSULE PO (08:19)
[2025-01-18] MEDS: BUMETANIDE INJ 0.25 MG/ML VIAL 4 ML 2 MG IVP (08:19)
[2025-01-18 08:45] LABS: Basophils # (Auto) 0.1 Thou/mm3 (0.0-0.2); Basophils % (Auto) 1 % (0-2.5); Eosinophils # (Auto) 0.3 Thou/mm3 (0.0-0.5); Eosinophils % (Auto) 4 % (0-10); Hematocrit 47.0 % (41.0-53.0); Hemoglobin 15.5 g/dL (13.5-16.0); Immature Granulocytes Auto 0.04 Thou/mm3 (0.00-0.00); Lymphocytes # (Auto) 1.3 Thou/mm3 (1.0-4.8); Lymphocytes % (Auto) 23 % (10-50); Mean Corpuscular HGB Conc 33.0 g/dl (31.0-37.0); Mean Corpuscular Hemoglobin 30.5 pg (25.0-35.0); Mean Corpuscular Volume 92 fL (80-100); Monocytes # (Auto) 0.6 Thou/mm3 (0.0-0.8); Monocytes % (Auto) 11 % (0-12); Neutrophils # (Auto) 3.4 Thou/mm3 (1.8-7.7); Neutrophils % (Auto) 60 % (37-80); Nucleated Red Blood Cell # 0.00 Thou/mm3 (0.00-0.00); Nucleated Red Blood Cell % 0 /100 WBC (0); Platelet Count 213 Thou/mm3 (140-440); RDW Standard Deviation 54.5 fL (35.1-43.9); Red Blood Count 5.09 Miln/mm3 (4.50-5.90); White Blood Count 5.7 Thou/mm3 (3.8-10.6)
[2025-01-18 09:04] LABS: Alanine Aminotransferase 25 U/L (10-49); Albumin, Serum 3.4 gm/dL (3.4-4.8); Albumin/Globulin Ratio 1.7 (1.2-2.2); Alkaline Phosphatase 73 U/L (46-116); Anion Gap 8 (7-16); Aspartate Amino Transferase 31 U/L (0-34); BUN/Creatinine Ratio 20 Ratio (12-20); Bilirubin,Total 0.5 mg/dL (0.3-1.2); Blood Urea Nitrogen 22 mg/dL (9-23); Calcium 8.7 mg/dL (8.3-10.6); Calcium (Corrected) 9.2 mg/dL (8.5-10.1); Carbon Dioxide 28.4 mMol/L (20.0-31.0); Chloride 107 mMol/L (98-107); Creatinine (Component) 1.1 mg/dL (0.6-1.3); Estimated Creatinine Clearance 59.6 mL/min (>60); Globulin 2.0 gm/dL (2.3-3.5); Glucose 106 mg/dL (74-106); Magnesium 1.9 mg/dL (1.6-2.6); Osmolality,Calculated 288 (275-295); Phosphorous 3.8 mg/dL (2.4-5.1); Potassium 3.9 mMol/L (3.4-5.1); Sodium 143 mMol/L (136-145); Total Protein 5.4 gm/dL (5.7-8.2); eGFR > 60 See Note
--- NOTE | 2025-01-18 10:58 | ESPR_ITS ---
<Statement entered by Armin Arndt MD - 01/18/25 16:39> Patient was seen examined bedside this morning. No acute overnight events. Patient's leg edema has significantly improved and he has had significant diuresis throughout the hospital stay and today he was -4 L. This time patient will most likely be discharged home today. General: A/O x3, no acute distress Eyes: PERRL, EOMI. Anicteric, vision grossly intact. Ears: No ear pain, no ear discharge, Hearing grossly intact. Nose: No nasal discharge. Mouth/Throat: Moist mucous membranes, no redness, no lesions. Neck: Neck supple, non-tender, no cervical lymphadenopathy. Lungs: Decreased in DAMIÁN Lower lobes, No accessory muscle use. Cardio: Normal S1/S2, regular rhythm, no murmurs, no JVD or carotid bruits. Abdomen: Soft, non-tender, no palpable masses, peristalsis present, no guarding or rebound. Extremities: Symmetrical, no significant deformities, Edema upto mid calf DAMIÁN 2+ , non-tender, peripheral pulses presents. Skin: No rashes, no lesions, warm to touch. Neuro: No focal neurological deficits. motor and sensory intact Psych: irritable I have reviewed the note and agree with the medical student's assessment & plan with exceptions as below. I have personally reviewed labs, imaging, home meds/prior records, examined the patient, formulated and discussed management plan with my attending Armin Arndt PGY2 Disclaimer: Even though this this note was dictated by speech recognition and even though it was carefully revised there may still be minor errors in community service specialist due to voice recognition software. Documentation for date of: 01/18/25 Subjective Subjective Interval history: Spoke at length with patient and nurse for updates this AM. Overnight no acute events. Telemetry showed sinus w/th some VPCs, multipforms, couplets. Pt is currently net negative 4140cc. This morning he denies any SOB, chest pain, abdominal pain, fever/chills, n/v/d. Exam Vital Signs Temp Pulse Resp BP Pulse Ox O2 Del Method O2 Flow Rate 97.4 F 70 21 H 91/60 99 Nasal Cannula 3 01/18/25 08:00 01/18/25 08:19 01/18/25 08:00 01/18/25 08:19 01/18/25 08:00 01/18/25 08:00 01/18/25 08:00 FiO2 2.5 01/16/25 16:00 Narrative Exam General: A/O x3, no acute distress Eyes: PERRL, EOMI. Anicteric, vision grossly intact. Ears: No ear pain, no ear discharge, Hearing grossly intact. Nose: No nasal discharge. Mouth/Throat: Moist mucous membranes, no redness, no lesions. Neck: Neck supple, non-tender, no cervical lymphadenopathy. Lungs: Decreased in DAMIÁN Lower lobes, no crackles, no accessory muscle use. Cardio: Normal S1/S2, regular rhythm, no murmurs, no JVD or carotid bruits. Abdomen: Soft, non-tender, no palpable masses, peristalsis present, no guarding or rebound. Extremities: Symmetrical, no significant deformities, improving Edema DAMIÁN LE up to mid-anterior legs today 3+ L >>R , non-tender, peripheral pulses presents. Skin: No rashes, no lesions, warm to touch. Neuro: No focal neurological deficits. motor and sensory intact Psych: Cooperative, appropriate mood and effect. Objective Labs 01/18/25 08:27 01/18/25 08:27 Labs: Laboratory Results - last 24 hr 01/18/25 08:27 WBC 5.7 RBC 5.09 Hgb 15.5 Hct 47.0 MCV 92 MCH 30.5 MCHC 33.0 RDW Std Deviation 54.5 H Plt Count 213 D Neut % (Auto) 60 Lymph % (Auto) 23 [place] % (Auto) 11 Eos % (Auto) 4 Baso % (Auto) 1 Neut # (Auto) 3.4 Lymph # (Auto) 1.3 [place] # (Auto) 0.6 Eos # (Auto) 0.3 Baso # (Auto) 0.1 Immature Gran # (Auto) 0.04 H Absolute Nucleated RBC 0.00 Immature Gran % 1 H Nucleated RBC % 0 Sodium 143 Potassium 3.9 Chloride 107 Carbon Dioxide 28.4 Anion Gap 8 BUN 22 Creatinine 1.1 Estim Creat Clear Calc 59.6 L eGFR > 60 BUN/Creatinine Ratio 20 Glucose 106 Calculated Osmolality 288 Calcium 8.7 Corrected Calcium 9.2 Phosphorus 3.8 Magnesium 1.9 Total Bilirubin 0.5 AST 31 ALT 25 Alkaline Phosphatase 73 Total Protein 5.4 L Albumin 3.4 Globulin 2.0 L Albumin/Globulin Ratio 1.7 Quality Measures Quality Measures none Advance care planning discussed with:: patient Assessment & Plan Assessment Current Active Medications: Generic Name Dose Route Start Last Admin Trade Name Freq PRN Reason Stop Dose Admin Acetaminophen 650 mg 01/14/25 16:35 Acetaminophen 325 Mg Tablet PO 02/13/25 16:34 Q6H PRN Fever >100.4 Albuterol/Ipratropium 3 ml 01/16/25 23:00 01/18/25 06:17 Albuterol/Ipratropium (Duoneb) Rt Ivone 3 Ml Nebu INH 02/15/25 22:59 3 ml Q8HRRT JOSE RAMON Administration Aspirin 81 mg 01/15/25 09:00 01/18/25 08:18 Aspirin Ec 81 Mg Tabec PO 02/14/25 08:59 81 mg QDAY JOSE RAMON Administration Bumetanide 2 mg 01/15/25 09:00 01/18/25 08:19 Bumetanide Inj 0.25 Mg/Ml Vial 4 Ml IVP 02/14/25 08:59 2 mg BID JOSE RAMON Administration Clopidogrel Bisulfate 75 mg 01/15/25 09:00 01/18/25 08:19 Clopidogrel Bisulfate 75 Mg Tablet PO 02/14/25 08:59 75 mg QDAY JOSE RAMON Administration Heparin Sodium (Porcine) 5,000 unit 01/14/25 22:00 01/18/25 05:26 Heparin Sod Inj 5000 Unit/Ml Vial SC 01/28/25 21:59 5,000 unit Q8HR JOSE RAMON Administration Metoprolol Succinate 12.5 mg 01/17/25 21:00 01/17/25 21:26 Metoprolol Succinate Xl 25 Mg Tabcr PO 02/16/25 20:59 12.5 mg QPM JOSE RAMON Administration Midodrine 5 mg 01/17/25 10:30 01/18/25 04:13 Midodrine 5 Mg Tablet PO 02/16/25 13:59 5 mg TID PRN Administration SBP less than 100 Nicotine 14 mg 01/15/25 16:15 01/17/25 16:50 Nicotine Patch 14 Mg/24 Hr Patch.Td24 TOP 02/14/25 16:14 Not Given QDAY@1600 JOSE RAMON Ondansetron HCl 4 mg 01/14/25 16:35 Ondansetron Inj 2 Mg/Ml Inj 2 Ml IVP 02/13/25 16:34 Q6H PRN NAUSEA OR VOMITING Protocol Sacubitril/Valsartan 1 tab 01/17/25 09:00 01/18/25 08:19 Sacubitril 24 Mg/Valsartan 26 Mg Tablet PO 02/14/25 08:59 Not Given BID JOSE RAMON Tamsulosin HCl 0.4 mg 01/15/25 16:05 01/18/25 08:19 Tamsulosin Hcl 0.4 Mg Capsule PO 02/14/25 16:04 0.4 mg QDAY JOSE RAMON Administration Plan 69 yo M w/ PMH HLD, HTN, HFrEF (15-20% LVEF 01/2024), CAD s/p PCI, COPD on home O2 who presented to [facility] ED w/ x1 week of SOB. He had been seeing his joinery machinist Dr. Newell who had him come to the ED. Per patient the SOB has worsened in the last week but has been present for x6 months. Admitted for HFrEF exacerbation. # HFrEF, acute exacerbation, NYHA class IV # Acute hypoxic respiratory failure # HTN # History of COPD Pt notes SOB for last x6 months that has worsened in the week before admission. Latest echo 01/2025 showed EF 15-20%. He is on 4 prescribed diuretics (Aldactone 25, Lasix 20, Metolazone 5mg, Torsemide 10 BID) and describes not having taken any medications for at least 5 days before admission. Lung auscultation in ED revealed bibasilar crackles. Patient is net -6.9 L with a 10 kg drop in weight since admission, consistent with fluid loss. Bicarb has improved significant (31 from 38 yesterday); as patient is currently volume overloaded still, will continue with aggressive diuresis for today, and reevaluate labs tomorrow. 3+ edema present to midshin, improved since yesterday. EKG showed sinus rhythm, CXR showed cardiomegaly and diffuse vascular congestion consistent with HFrEF. Lipid panel, A1c normal this admission. TSH was low (0.42) however T4 was WNL, most likely subclinical hyperthyroidism. Less likely source of SOB as pt has symptoms of fluid overload. Administered Albuterol in ED w/ good effect. - Cardiology consulted, appreciate recs. Carvedilol substituted for metoprolol succinate due to relative hypotension overnight 01/16/25. On salcubirtil/vaslartan starting 01/17/25. - Strict Is/Os, fluid restriction, q4 hall monitor, daily weights - Bumex IV 2mg BID - CBC/CMP in AM - Hypoxia currently secondary to CHF exacerbation, COPD likely stable at this point. No wheezing on physical exam. ? DuoNebs as needed ordered # Ischemic cardiomyopathy # HxCAD s/p PCI Troponin WNL this admit, EKG sinus, unlikely having acute myocardial event - Monitor - Aspirin and clopidogrel #HLD Chronic/historical - Consider resuming statin as per cardiology recs #BPH - Home [facility] management: Disposition: Follow cardiology inpatient, monitor response to diuresis. Anticipate discharge within 24-48 hours. Diet: cardiac Lines: Peripheral IVs DVT prophylaxis: Heparin q8 Mitchell: in place CODE STATUS: full code This case was discussed with my attending physician, Dr. Huston, and senior resident, Dr. De La Rosa. Sid BOYCE Attending Provider Attestation/Addendum I have examined the patient, reviewed labs and imaging findings, discussed the case with the resident(s), and reviewed entered orders. I agree with the plan of care as outlined in this note. Dr. Robel MD
--- NOTE | 2025-01-18 13:33 | ESDS_ITS ---
<Statement entered by Armin Arndt MD - 01/18/25 16:40> Patient was seen and evaluated at bedside this morning. No acute overnight events. Patient had a short hospital stay and his diuresis was satisfactory at this time with significant improvement in his lower extremity edema throughout the hospital stay with no renal impairment. Today patient is lower extremity edema was around 2+ to the mid calf bilaterally therefore at this time patient was more irritable and wanting to go home. At this time was found the patient was able to be discharged home with close follow-up with cardiology and clear instructions about his medications and his diuresis. General: A/O x3, no acute distress Eyes: PERRL, EOMI. Anicteric, vision grossly intact. Ears: No ear pain, no ear discharge, Hearing grossly intact. Nose: No nasal discharge. Mouth/Throat: Moist mucous membranes, no redness, no lesions. Neck: Neck supple, non-tender, no cervical lymphadenopathy. Lungs: Decreased in DAMIÁN Lower lobes, No accessory muscle use. Cardio: Normal S1/S2, regular rhythm, no murmurs, no JVD or carotid bruits. Abdomen: Soft, non-tender, no palpable masses, peristalsis present, no guarding or rebound. Extremities: Symmetrical, no significant deformities, Edema upto mid calf DAMIÁN 2+ , non-tender, peripheral pulses presents. Skin: No rashes, no lesions, warm to touch. Neuro: No focal neurological deficits. motor and sensory intact Psych: irritable I have reviewed the note and agree with the medical student's assessment & plan with exceptions as below. I have personally reviewed labs, imaging, home meds/prior records, examined the patient, formulated and discussed management plan with my attending Armin Arndt PGY2 Disclaimer: Even though this this note was dictated by speech recognition and even though it was carefully revised there may still be minor errors in general dentist due to voice recognition software. Planned Discharge Date 01/18/25 DS: Providers Provider Date of admission: 01/14/25 16:48 Primary care physician: Hazel Demarco([facility]), VIRGIL Admitting Provider: Fer Huston MD Attending Provider on Admission: Ad Santa DO Consults: 01/14/25 16:17 Consult to Cardiology Stat Comment: Consulting Provider: Aneudy Newell Attending Provider on DC: Fer Huston MD Discharging Provider: Fer Huston MD DS: Diagnosis Problem List Completed Was Problem List Reviewed/Reconciled?: Yes Hospital Course Hospital Course Hospital course: Mr Garrison Rg is a 70 yo M w/ PMH HLD, HTN, HFrEF (15-20% LVEF 01/2024), CAD s/p PCI, COPD on home O2 who presented to [facility] w/ x1 week of SOB. He had been seeing his hopper feeder Dr. Newell who had him come to the ED. Per patient the SOB had worsened in the week before admission but had been present for x6 months. The SOB was associated with extensive anasarca. He had previously been hospitalized here 03/2024 for CHF exacerbation. Per patient, he felt discomfort regarding his extensive medication list and has not taken them for 5 days before admission. Notably he was on four prescribed diuretics and reported discomfort with his frequency of urination which he attributes to his desire to stop taking home medications. ED Course: Received albuterol, bumex x1, lasix x1, methylprednisolone x1, metolazone x1. EKG showed sinus rhythm. CBC and CMP were WNL. Troponins were WNL. BNP was >3280. CXR showed prominent vascular congestion and cardiac enlargement consistent w/ CHF exacerbation. He was admitted to telemetry for management of likely HFrEF exacerbation, less likely COPD exacerbation as pt did not have wheezing + did have broad edema. His hopper feeder Dr. Newell was notified and consulted. He improved markedly with IV Bumex. Echocardiogram completed 01/14/25 showed severely increased LV cavity size with normal wall thickness, severely decreased LV function, LVEF 15-20%, grade II diastolic dysfunction, moderately increased LA volume, mild MR and TR. A1c, Lipid panel were WNL this admission. TSH was low but free T4 was normal, most likely subclinical hyperthyroidism. Per cardiology recommendations, IV Bumex was continued along with home Coreg and Entresto. Edema and SOB improved markedly with IV Bumex, however he developed hypotension overnight 01/16/25 to lowest 90s/50s. For this reason Coreg was substituted with Metoprolol Succinate with excellent effect. Upon discharge he is hemodynamically stable and not reporting any SOB. 3+ edema now extends only to anterior mid-leg bilaterally. He is stable on low flow NC comparable to his home oxygen requirements. He is overall negative ~11 liters of fluid/has lost ~11kg this admission. He is being discharged with the following instructions and medication changes: #HFrEF, acute exacerbation, NYHA class IV #Acute hypoxic respiratory failure #HTN #History of COPD #Ischemic cardiomyopathy #HxCAD s/p PCI #HLD #BPH Please follow-up with primary care physician within 2 or 3 days upon discharge Please follow-up with your hopper feeder within 5 to 7 days upon discharge You could also asked primary care physician for referral for your hopper feeder of choice We have changed the following medications: ? Bumex 1 mg twice daily ? Metoprolol succinate 12.5 mg every afternoon ? Entresto half a tablet twice daily We have stopped the following medications: ? Torsemide 10 mg ? Spironolactone 25 mg ? Metolazone 5 mg ? Furosemide 20 mg ? Rosuvastatin 20 mg ? Carvedilol 6.25 twice daily ? Metoprolol succinate 25 mg every afternoon ? Entresto one tablet twice daily. Please follow-up with cardiology to further titrate your Goal Directed Medical Therapy medications if your blood pressure allows. Please weigh yourself every day and if you notice 2 to 3 pound increase in your body weight contact your primary care physician or hopper feeder for further instructions of possibly needing an extra dose of your diuretics. Please keep a low-sodium diet Please keep your fluid intake around 1500 mL maximum per day this includes beverages and food containing liquids. Please come back to the ED if symptoms persist or worsen ----- Plan discussed with attending physician Dr. Huston, PGY2 Dr. Rj Feliz, Medical Student OMSIMaria Antonia Time Spent with Patient Time attestation: Total time spent providing and/or coordinating discharge services: Time spent: Greater than 30 minutes Exam Vital Signs Temp Pulse Resp BP Pulse Ox O2 Del Method O2 Flow Rate 97.4 F 70 21 H 91/60 99 Nasal Cannula 3 01/18/25 08:00 01/18/25 08:19 01/18/25 08:00 01/18/25 08:19 01/18/25 08:00 01/18/25 08:00 01/18/25 08:00 FiO2 2.5 01/16/25 16:00 Discharge Plan Plan Patient Disposition: HOME (Self Care) Care Plan Goals: Please follow-up with primary care physician within 2 or 3 days upon discharge Please follow-up with your hopper feeder within 5 to 7 days upon discharge You could also asked primary care physician for referral for your hopper feeder of choice We have changed the following medications: ? Bumex 1 mg twice daily ? Metoprolol succinate 12.5 mg every afternoon ? Entresto half a tablet twice daily We have stopped the following medications: ? Torsemide 10 mg ? Spironolactone 25 mg ? Metolazone 5 mg ? Furosemide 20 mg ? Rosuvastatin 20 mg ? Carvedilol 6.25 twice daily ? Metoprolol succinate 25 mg every afternoon ? Entresto one tablet twice daily. Please follow-up with cardiology to further titrate your Goal Directed Medical Therapy medications if your blood pressure allows. Please weigh yourself every day and if you notice 2 to 3 pound increase in your body weight contact your primary care physician or hopper feeder for further instructions of possibly needing an extra dose of your diuretics. Please keep a low-sodium diet Please keep your fluid intake around 1500 mL maximum per day this includes beverages and food containing liquids. Please come back to the ED if symptoms persist or worsen Prescriptions/Referrals Prescriptions/Med Rec: New midodrine 5 mg Tablet 5 mg PO TID PRN (Reason: SBP less than 100) 30 Days Qty: 90 0RF Rx Instructions: Please take if your systolic blood pressure is at or below 90. Please do no take if your systolic blood pressure is above 120. metoprolol succinate 25 mg tablet extended release 24 hr 12.5 mg PO QDAY Qty: 30 0RF sacubitril-valsartan 24-26 mg tablet 0.5 tab PO BID Qty: 30 0RF tamsulosin 0.4 mg Capsule 0.4 mg PO QDAY Qty: 30 0RF Continued atorvastatin 40 mg tablet 40 mg PO QDAY Qty: 30 1RF clopidogrel [Plavix] 75 mg tablet 75 mg PO QDAY Qty: 30 0RF ferrous sulfate [FeroSul] 325 mg (65 mg iron) tablet 325 mg PO 1XD Patient Comments: TAKE 1 TABLET BY MOUTH EVERY DAY ergocalciferol (vitamin D2) 1,250 mcg (50,000 unit) capsule 1,250 mcg PO QWEEK Patient Comments: TAKE 1 CAPSULE BY MOUTH EVERY WEEK aspirin 81 mg Tablet,Delayed Release (Dr/Ec) 81 mg PO QDAY Qty: 30 0RF albuterol sulfate 90 mcg/actuation HFA aerosol inhaler 2 puff INHALATION Q3H PRN (Reason: shortness of breath or wheezing) Patient Comments: INHALE 2 PUFFS BY MOUTH EVERY 3-6 HOURS NEEDED Changed bumetanide 1 mg tablet 1 mg PO BID Qty: 20 0RF Discontinued metolazone 5 mg tablet 5 mg PO QDAY MDD 1 Qty: 5 0RF furosemide 20 mg tablet 20 mg PO .AM Patient Comments: TAKE 1 TABLET BY MOUTH EVERY DAY carvedilol 6.25 mg tablet 6.25 mg PO Q12H Patient Comments: TAKE 1 TABLET BY MOUTH TWICE DAILY WITH FOOD torsemide 10 mg tablet 10 mg PO .AM sacubitril-valsartan [Entresto] 24-26 mg tablet 1 tab PO BID rosuvastatin 20 mg tablet 20 mg PO .AM Patient Comments: TAKE 1 TABLET BY MOUTH EVERY DAY spironolactone 25 mg Tablet 25 mg PO Q48H metoprolol succinate 25 mg tablet extended release 24 hr 25 mg PO .NOC Referrals: Ella)Hazel PA-C [Primary Care Provider] Patient/Caregiver Discharge Instructions Other Discharge Activity Instructions:: Please follow-up with primary care physician within 2 or 3 days upon discharge Please follow-up with your hopper feeder within 5 to 7 days upon discharge You could also asked primary care physician for referral for your hopper feeder of choice We have changed the following medications: ? Bumex 1 mg twice daily ? Metoprolol succinate 12.5 mg every afternoon ? Entresto half a tablet twice daily We have stopped the following medications: ? Torsemide 10 mg ? Spironolactone 25 mg ?Metolazone 5 mg ? Furosemide 20 mg ? Rosuvastatin 20 mg ?Carvedilol 6.25 twice daily ? Metoprolol succinate 25 mg every afternoon ? Entresto one tablet twice daily. You have been started on tamsulosin 0.4 mg daily Please follow-up with cardiology to further titrate your GDMT medications if your blood pressure allows. Please weigh yourself every day and if you notice 2 to 3 pound increase in your body weight contact your primary care physician or hopper feeder for further instructions of possibly needing an extra dose of your diuretics. Please keep a low-sodium diet Please keep your fluid intake around 1.8 to 2 L maximum per day this includes beverages and food containing liquids. Please come back to the ED if symptoms persist or worsen Education Materials: Heart Failure Dc Print Language: [place] Stand Alone Forms: Joan Award Info., Patient Portal Info Letter Discharge Order Discharge Orders: Discharge (Routine); Ordered 01/18/25 Ordered By: Armin Arndt Quality Discharge Quality Measures none MD Attestestation MD Attestation I have examined the patient, reviewed labs and imaging findings, discussed the case with the resident(s), and reviewed entered orders. I agree with the plan of care as outlined in this note. Time Spent: [address] Robel MD
--- NOTE | 2025-01-18 14:26 | PC.SS ---
Rounding Note: Plan is to d/c patient home today.
== END 2025-01-18 15:33 | disposition home or self-care (01) | DRG 291 ==
LOC: SERX 16:18 → SERHOLD 16:49 → S2NX 17:59
PROVIDERS: Nurse Practitioner Family; Admitting Provider Student in an Organized Health Care Education/Training Program; Emergency Provider Family Medicine; PCP Nurse Practitioner Family; Visit Provider Student in an Organized Health Care Education/Training Program
DX: I11.0 Hypertensive heart disease with heart failure (principal); I50.23 Acute on chronic systolic (congestive) heart failure; J96.01 Acute respiratory failure with hypoxia; J44.1 Chronic obstructive pulmonary disease with (acute) exacerbation; E87.3 Alkalosis; E78.5 Hyperlipidemia, unspecified; I25.10 Atherosclerotic heart disease of native coronary artery without angina pectoris; K21.9 Gastro-esophageal reflux disease without esophagitis; F17.210 Nicotine dependence, cigarettes, uncomplicated; I25.5 Ischemic cardiomyopathy; E05.90 Thyrotoxicosis, unspecified without thyrotoxic crisis or storm; N40.1 Benign prostatic hyperplasia with lower urinary tract symptoms; Z98.61 Coronary angioplasty status; Z99.81 Dependence on supplemental oxygen; N50.89 Other specified disorders of the male genital organs; Z79.82 Long term (current) use of aspirin; Z79.02 Long term (current) use of antithrombotics/antiplatelets; Z91.148 Patient's other noncompliance with medication regimen for other reason; Z76.82 Awaiting organ transplant status; Z79.899 Other long term (current) drug therapy
CPT/HCPCS: 36415; 71045; 80053; 80061; 80069; 81001; 83036; 83735; 83880; 84100; 84439; 84443; 84484; 85025; 85610; 85730; 87081; 87811; 93005; 93306; 93970; 94640; 94664; 99285; A4314; A9270; J1644; J1938; J2919; J3475; J3490

== ENCOUNTER 2025-04-05 05:15 | Emergency (ER) | payer MEDICARE, MEDICAID, SELFPAY ==
[2025-04-05] VITALS (7 sets, daily range): BP systolic 119–134; BP diastolic 78–96; PULSE 50–82; RESP 15–20; TEMP 36.1–36.3; O2SAT 98–100; BMI 26.9
--- NOTE | 2025-04-05 05:20 | EDRME_ITS ---
Rapid Medical Screening Exam RME Arrival date/time: 04/05/25 05:15 Chief Complaint: Shortness of Breath/Dyspnea RME Narrative: 70-year-old male with a history of pacemaker placement 45 days ago but with a 5- day history of shortness of breath without associated chest pain. He does smoke cigarettes. He is oxygen dependent at home. He denies any chest pain pressure tightness or heaviness. Exam: Heart regular rate and rhythm, lungs distant breath sounds bilaterally Clinical Impression: Dyspnea, must rule out CHF, COPD, acute coronary syndrome, pneumonia
--- NOTE | 2025-04-05 05:22 | EKG_ITS ---
[facility] (Former[facility]) Test Date: 2025-04-05 Pat Name: SANJANA LR Department: Room: - Gender: Male [employer]er: : [id number] Requested By: Jam Ahmadi Order Number: [id number] Reading MD: Jam Ahmadi Measurements Intervals [place] Rate: 77 P: 51 OH: 176 QRS: 244 QRSD: 126 T: 52 QT: 413 QTc: 469 Interpretive Statements SINUS RHYTHM WITH OCCASIONAL VENTRICULAR PREMATURE COMPLEXES POSSIBLE LEFT ATRIAL ENLARGEMENT [-0.1mV P-WAVE IN V1/V2] POSSIBLE RIGHT VENTRICULAR HYPERTROPHY [SOME/ALL OF: PROMINENT R IN V1, LATE TRANSITION, RAD, YOSELIN, SSS] ANTEROLATERAL MYOCARDIAL INFARCTION , OF INDETERMINATE AGE [40+ ms Q WAVE IN I/aVL/V3-V6] Compared to ECG 01/14/2025 13:08:38 Ventricular premature complex(es) now present Left anterior fascicular block no longer present Myocardial infarct finding still present /store/S0/[id number].pdf
--- NOTE | 2025-04-05 05:22 | XR_ITS ---
EXAMINATION: AP chest single view TECHNIQUE: AP portable upright chest single view Date and time: April 05, 2025, 0535 hours, comparison January 14, 2025 INDICATIONS: Chest pain today. FINDINGS: Mild heart failure Moderate enlargement cardiac contour Prominent vascular congestion. Early septal edema at the lung bases. Transvenous dual-chamber bipolar cardiac leads satisfactory position IMPRESSION: Mild heart failure
[2025-04-05 05:37] LABS: Basophils # (Auto) 0.0 Thou/mm3 (0.0-0.2); Basophils % (Auto) 0 % (0-2.5); Eosinophils # (Auto) 0.1 Thou/mm3 (0.0-0.5); Eosinophils % (Auto) 1 % (0-10); Hematocrit 48.2 % (41.0-53.0); Hemoglobin 16.3 g/dL (13.5-16.0); Immature Granulocytes Auto 0.03 Thou/mm3 (0.00-0.00); Lymphocytes # (Auto) 1.3 Thou/mm3 (1.0-4.8); Lymphocytes % (Auto) 16 % (10-50); Mean Corpuscular HGB Conc 33.8 g/dl (31.0-37.0); Mean Corpuscular Hemoglobin 30.9 pg (25.0-35.0); Mean Corpuscular Volume 92 fL (80-100); Monocytes # (Auto) 0.8 Thou/mm3 (0.0-0.8); Monocytes % (Auto) 10 % (0-12); Neutrophils # (Auto) 5.7 Thou/mm3 (1.8-7.7); Neutrophils % (Auto) 72 % (37-80); Nucleated Red Blood Cell # 0.00 Thou/mm3 (0.00-0.00); Nucleated Red Blood Cell % 0 /100 WBC (0); Platelet Count 246 Thou/mm3 (140-440); RDW Standard Deviation 51.1 fL (35.1-43.9); Red Blood Count 5.27 Miln/mm3 (4.50-5.90); White Blood Count 8.0 Thou/mm3 (3.8-10.6)
[2025-04-05 06:00] LABS: Alanine Aminotransferase 59 U/L (10-49); Albumin, Serum 4.3 gm/dL (3.4-4.8); Albumin/Globulin Ratio 1.8 (1.2-2.2); Alkaline Phosphatase 176 U/L (46-116); Anion Gap 11 (7-16); Aspartate Amino Transferase 62 U/L (0-34); BUN/Creatinine Ratio 18 Ratio (12-20); Bilirubin,Total 1.5 mg/dL (0.3-1.2); Blood Urea Nitrogen 29 mg/dL (9-23); Calcium 8.9 mg/dL (8.3-10.6); Calcium (Corrected) 8.9 mg/dL (8.5-10.1); Carbon Dioxide 23.6 mMol/L (20.0-31.0); Chloride 103 mMol/L (98-107); Creatinine (Component) 1.6 mg/dL (0.6-1.3); Estimated Creatinine Clearance 43.0 mL/min (>60); Globulin 2.4 gm/dL (2.3-3.5); Glucose 101 mg/dL (74-106); Osmolality,Calculated 281 (275-295); Potassium 4.8 mMol/L (3.4-5.1); Sodium 138 mMol/L (136-145); Total Protein 6.7 gm/dL (5.7-8.2); Troponin I 0.033 ng/mL (0.0-0.045); eGFR 46 See Note
[2025-04-05 06:08] LABS: B-Type Natriuretic Peptide > 3280 pg/mL (0-100)
[2025-04-05] MEDS: FUROSEMIDE INJ 10 MG/ML 4ML VIAL 40 MG IVP (07:58)
[2025-04-05] MEDS: ALBUTEROL RT 2.5 MG/3 ML NEBU INH (08:32)
--- NOTE | 2025-04-05 13:18 | PD.EDSOB ---
ED SOB =RME/HPI General Chief Complaint: Shortness of Breath/Dyspnea Stated Complaint: SHORTNESS OF BREATH Time Seen by Provider: 04/05/25 06:36 Arrival date/time: 04/05/25 05:15 Limitations: no limitations RME / HPI RME / HPI Narrative: 70-year-old male with a history of pacemaker placement 45 days ago but with a 5-day history of shortness of breath without associated chest pain. He does smoke cigarettes. He is oxygen dependent at home. He denies any chest pain pressure tightness or heaviness. DR. ENGEL MAIN ED EVALUATION: 69 year old male with history of HFrEF (EF 15-20% 01/2025), CAD s/p PCI, hypertension, COPD on supplemental oxygen, active tobacco smoker presents to the ED for evaluation of shortness of breath today. States his shortness of breath began 5 days ago after smoking marijuana and worsening last night. No known modifying factors noted. Denies fevers, chills, chest pain, abdominal pain, n/v/d, or urinary symptoms. Exam: Heart regular rate and rhythm, lungs distant breath sounds bilaterally Impression: Dyspnea, must rule out CHF, COPD, acute coronary syndrome, pneumonia Related Data Home Medications ?Medication ?Instructions ?Recorded ?Confirmed ergocalciferol (vitamin D2) 1,250 1,250 mcg PO QWEEK 08/17/23 04/14/25 mcg (50,000 unit) capsule ferrous sulfate 325 mg (65 mg 325 mg PO 1XD 08/17/23 04/14/25 iron) tablet (FeroSul) albuterol sulfate 90 mcg/actuation 2 puff inhalation Q3H PRN 01/14/25 04/14/25 aerosol inhaler shortness of breath or wheezing esomeprazole magnesium 40 mg 40 mg PO QDAY 04/14/25 04/14/25 capsule,delayed release metoprolol succinate 25 mg 12.5 mg PO HS 04/14/25 04/14/25 tablet,extended release 24 hr midodrine 5 mg tablet 5 mg PO TID PRN hypotension 04/14/25 04/14/25 Previous Rx's ?Medication ?Instructions ?Recorded clopidogrel 75 mg tablet (Plavix) 75 mg PO QDAY #30 tabs 07/17/22 aspirin 81 mg tablet,delayed 81 mg PO QDAY #30 tabs 01/13/24 release atorvastatin 40 mg tablet 40 mg PO QDAY #30 tabs 03/29/24 bumetanide 1 mg tablet 1 mg PO BID #20 tabs 01/18/25 sacubitril 24 mg-valsartan 26 mg 0.5 tab PO BID #30 tabs 01/18/25 tablet tamsulosin 0.4 mg capsule 0.4 mg PO QDAY #30 caps 01/18/25 Allergies Allergy/AdvReac Type Severity Reaction Status Date / Time No Known Allergies Allergy Verified 04/13/25 10:56 Review of Systems Review of Systems Systems Reviewed: All systems reviewed, normal except as documented Past Medical History Past Medical History CARDIAC: Positive Cardiac Disorders, Hypercholesterolemia, Congestive Heart Failure and Hypertension GASTROINTESTINAL: Positive Gastroesophageal Reflux Disease HEMATOLOGIC: Positive Anemia Surgical History SURGICAL: Positive Coronary Stent, Cardiac Catheterization, Pacemaker and Angiogram Social History SMOKING STATUS: Former smoker SUBSTANCE USE: does not use ED Exam General Limitations: Present no limitations General appearance: Present alert and in no apparent distress Head Head exam: Present atraumatic, normocephalic and normal inspection Eye Eye exam: Present normal appearance, PERRL and EOMI ENT ENT exam: Present normal exam, normal oropharynx and mucous membranes moist Neck Neck exam: Present normal inspection, full ROM and trachea midline Chest Chest inspection: Present normal inspection and symmetric chest wall rise Respiratory Respiratory exam: Present normal lung sounds bilaterally; Absent respiratory distress, wheezes or accessory muscle use Cardiovascular Cardiovascular exam: Present regular rate, normal rhythm and normal heart sounds Abdominal Exam Abdominal exam: Present soft and normal bowel sounds Extremities Exam Extremities exam: Present normal inspection and full ROM Back Exam Back exam: Present normal inspection and full ROM Neurological Exam Neurological exam: Present alert, oriented X3 and CN II-XII intact Psychiatric Psychiatric exam: Present normal affect and normal mood Skin Skin exam: Present warm, dry, intact and normal color Course Quality Measures none Orders Category Date Time Status Bedside COVID-19 Antigen Test NOW Care 04/05/25 05:22 Completed Bedside Influenza A&B Antigen Test NOW Care 04/05/25 05:22 Completed Television Journalist NOW Care 04/05/25 07:32 Completed Continuous Pulse Oximetry NOW Care 04/05/25 07:32 Completed EKG (ED ONLY) *Do not use* NOW Care 04/05/25 05:22 Completed EKG (ED Only) Stat Exams 04/05/25 05:22 Draft XR chest 1V portable Stat Exams 04/05/25 05:22 Completed BNP [B-Type Natriuretic Peptide] Stat Lab 04/05/25 05:30 Completed CBC Stat Lab 04/05/25 05:30 Completed CMP [Comprehensive Metabolic Panel] Stat Lab 04/05/25 05:30 Completed Troponin I Stat Lab 04/05/25 05:30 Completed ALBUTEROL RT 3ml [Proventil Rt 3ml] Med 04/05/25 07:32 Discontinued 2.5 mg INH X1 ONE Furosemide Inj [Lasix Inj] Med 04/05/25 07:32 Discontinued 40 mg IVP X1 ONE MethylPREDNISolone. [SoluMEDROL Inj] Med 04/05/25 07:32 Discontinued 60 mg IVP X1 ONE Vital Signs Vital signs: Vital Signs Temperature 97 F 04/05/25 05:27 Pulse Rate 77 04/05/25 05:27 Respiratory Rate 15 04/05/25 05:27 Blood Pressure 119/88 H 04/05/25 05:27 Pulse Oximetry (%) 98 04/05/25 05:27 Oxygen Delivery Method Room Air 04/05/25 05:27 Pulse ox is 98% on room air which is adequate. Shortness of Breath / Dyspnea MDM Narrative MDM Narrative:: Zina Strong am scribing for and in the presence of Dr. Engel. 1144: The patient reports feeling much improved after Lasix and breathing treatment. We reviewed all the results, analysis, and treatment plans. Patient is amenable to discharge. Strict return precautions were outlined. condition. Patient data External records reviewed:: [facility] previous records Clinical information provided by:: patient Social determinants that could affect healthcare access:: none Patient has the following chronic illnesses:: HFrEF (EF 15-20% 01/2025), CAD s/p PCI, hypertension, COPD on supplemental oxygen, active tobacco smoker How is presenting disease/condition affected by chronic disease/condition?: exacerbated by Evaluation data The following diagnostics were reviewed and interpreted by me:: lab results, radiology exam(s) and EKG tracing(s) (EKG @ 05:34, interpreted by me, normal sinus rhythm with occasional ventricular premature cmplexes, no STEMI, rate 77. ) Lab and/or radiology exams considered but not ordered:: None Interpretation Summary: Ordering Physician: Jam Matt DO Date of Service: 04/05/25 Procedure(s): XR chest 1V portable Accession Number(s): [id number] cc: Cristian Tobin MD; NO PRIMARY/FAMILY,PHYSICIAN; Jam Matt DO~ EXAMINATION: AP chest single view TECHNIQUE: AP portable upright chest single view Date and time: April 05, 2025, 0535 hours, comparison January 14, 2025 INDICATIONS: Chest pain today. FINDINGS: Mild heart failure Moderate enlargement cardiac contour Prominent vascular congestion. Early septal edema at the lung bases. Transvenous dual-chamber bipolar cardiac leads satisfactory position IMPRESSION: Mild heart failure Dictated By: Cristian Tobin MD Signed By: <Electronically signed by Cristian Tobin MD in [place]> 04/05/25 0742 Medications / Prescriptions Medications or Prescriptions considered but not ordered:: None Medication administrations:: Medication Administration History Discontinued Medications Albuterol (Albuterol Rt 2.5 Mg/3 Ml Nebu) 2.5 mg INH X1 ONE Stop: 04/05/25 07:33 Last Admin: 04/05/25 08:32 Dose: 2.5 mg Documented By: ANTONIO Furosemide (Furosemide Inj 10 Mg/Ml 4ml Vial) 40 mg IVP X1 ONE Stop: 04/05/25 07:33 Last Admin: 04/05/25 07:58 Dose: 40 mg Documented By: IZABEL Methylprednisolone Sodium Succinate (Methylprednisolone Sod Succ 40 Mg/Ml Vial) 60 mg IVP X1 ONE Stop: 04/05/25 07:33 Last Admin: 04/05/25 07:58 Dose: 60 mg Documented By: IZABEL See above Consultations Consultation(s) initiated? (list below): No Diagnosis Shortness of Breath Differential Diagnosis: acute exacerbation of chronic obstructive airways disease, congestive heart failure, community acquired pneumonia and asthma with exacerbation Most likely diagnosis given after review of the tests above:: CHF exacerbation Admission Indicated Admission indicated?: not indicated Admission Request Was there a request for admission?: No Disposition Plan Disposition Plan: Discharge Discharge Attestation Discharge Attestation: The patient and all family members were given an opportunity to ask questions and understood the discharge instructions. Discharge instructions specifically effects, indications for sooner follow up or return to the emergency department, and the expected course of current diagnosis. Patient condition: Stable Discharge Plan Plan Patient Disposition: HOME (Self Care) Patient condition on transfer: Stable Prescriptions/Referrals Prescriptions/Med Rec: No Action atorvastatin 40 mg tablet 40 mg PO QDAY Qty: 30 1RF clopidogrel [Plavix] 75 mg tablet 75 mg PO QDAY Qty: 30 0RF ferrous sulfate [FeroSul] 325 mg (65 mg iron) tablet 325 mg PO 1XD Patient Comments: TAKE 1 TABLET BY MOUTH EVERY DAY ergocalciferol (vitamin D2) 1,250 mcg (50,000 unit) capsule 1,250 mcg PO QWEEK Patient Comments: TAKE 1 CAPSULE BY MOUTH EVERY WEEK aspirin 81 mg Tablet,Delayed Release (Dr/Ec) 81 mg PO QDAY Qty: 30 0RF albuterol sulfate 90 mcg/actuation HFA aerosol inhaler 2 puff INHALATION Q3H PRN (Reason: shortness of breath or wheezing) Patient Comments: INHALE 2 PUFFS BY MOUTH EVERY 3-6 HOURS NEEDED bumetanide 1 mg tablet 1 mg PO BID Qty: 20 0RF sacubitril-valsartan 24-26 mg tablet 0.5 tab PO BID Qty: 30 0RF tamsulosin 0.4 mg Capsule 0.4 mg PO QDAY Qty: 30 0RF esomeprazole magnesium 40 mg capsule,delayed release(DR/EC) 40 mg PO QDAY Patient Comments: TAKE 1 CAPSULE BY MOUTH EVERY MORNING midodrine 5 mg tablet 5 mg PO TID PRN (Reason: hypotension) Patient Comments: TAKE 1 TABLET BY MOUTH THREE TIMES DAILY NEEDED FOR SYSTOLIC BLOOD PRESSURE LESS THAN 100 DIRECTED metoprolol succinate 25 mg tablet extended release 24 hr 12.5 mg PO HS Referrals: No Primary/Family,Physician [Primary Care Provider] - In 1 week Problem List Clinical Impression: CHF exacerbation Patient/Caregiver Discharge Instructions Discharge Activity: activity as tolerated Education Materials: Heart Failure Additional Instructions: Please take your medications that are already prescribed including Bumex and Entresto. Continue all of your usual medications. It is very important for you to do take them on a daily basis. Please check your weight on a daily basis. Follow-up with your regular doctor tomorrow to look over your medications and adjust them in terms of the management of your heart failure. Print Language: Icelandic Stand Alone Forms: Joan Award Info., Patient Portal Info Letter
== END 2025-04-05 13:23 | disposition home or self-care (01) ==
PROVIDERS: Emergency Medicine; Emergency Provider Family Medicine
DX: I11.0 Hypertensive heart disease with heart failure (principal); I50.20 Unspecified systolic (congestive) heart failure; F17.210 Nicotine dependence, cigarettes, uncomplicated; I25.10 Atherosclerotic heart disease of native coronary artery without angina pectoris; I49.3 Ventricular premature depolarization; Z95.5 Presence of coronary angioplasty implant and graft; Z95.0 Presence of cardiac pacemaker
CPT/HCPCS: 36415; 71045; 80053; 83880; 84484; 85025; 87502; 87635; 93005; 94640; 96374; 96375; 99284; J1938; J2919